=== PATIENT | female | born 1985 | race Caucasian/White ===

== ENCOUNTER → 2017-08-17 12:06 | Outpatient (CLI) | payer BC, SELFPAY ==
--- NOTE | 2017-08-17 12:13 | CT_ITS ---
STUDY: CTA CHEST REASON FOR EXAM: Female, 32 years old. PE. Dyspnea and lt chest pain down into arm. Hx of PE 05/2016. RADIATION DOSAGE (If Supplied By Facility): CTDIvol = ( 5.49 ) mGy, DLP = ( 161.75 ) mGycm TECHNIQUE: The examination was performed with the intravenous administration of 100ML ml of Isovue 370 contrast material. Post-processing of the angiographic images was performed, with multiplanar reformation and 3D reconstruction. Individualized dose optimization techniques were used for this CT. COMPARISON: None. FINDINGS: Normal enhancement of the main pulmonary artery and right and left pulmonary arteries. Normal enhancement of the bilateral peripheral pulmonary arteries. There is no demonstrated pulmonary embolism. Normal thoracic aorta and visualized great vessels. There is no demonstrated aortic dissection. Normal heart and pericardium. Normal mediastinum. Normal hilar regions. Normal visualized trachea and bronchi. The lungs are well expanded. Normal pulmonary parenchyma. Normal pleura. Normal chest wall structures. Normal osseous structures. Normal visualized upper abdomen. CT/CTA Chest W/WO Contrast IMPRESSION: Normal CTA chest examination, without a demonstrated pulmonary embolism or arterial dissection. Electronically Signed: Demetris Agee MD at 13:52 EDT Tel , Service support ,
== END ==
PROVIDERS: Family Provider Family Medicine; PCP Family Medicine; Visit Provider Family Medicine
DX: I26.99 Other pulmonary embolism without acute cor pulmonale (principal)
CPT/HCPCS: 71275; Q9967

== ENCOUNTER 2018-01-21 03:42 | Emergency (ER) | payer BC, SELFPAY ==
[2018-01-21 03:42] VITALS: BP 113/40; PULSE 88; RESP 15; TEMP 36.9; O2SAT 99; BMI 22.8
--- NOTE | 2018-01-21 03:57 | CT_ITS ---
STUDY: CT ABDOMEN AND PELVIS WITH CONTRAST REASON FOR EXAM: Female, 32 years old. Upper abdominal pain radiating to back. History of pulmonary embolus and skin cancer. RADIATION DOSAGE (If Supplied By Facility): CTDIvol = ( 10.78 ) mGy, DLP = ( 426.84 ) mGycm TECHNIQUE: Transaxial images were obtained from the dome of the diaphragm to the symphysis pubis without oral contrast. 100ML ml of Isovue 300 contrast was administered. Sagittal and coronal images were reconstructed. Individualized dose optimization techniques were used for this CT. COMPARISON: July 12, 2014. FINDINGS: The visualized lung bases are unremarkable. The visualized portions of the heart are within normal limits. Normal liver. Normal gallbladder and extrahepatic biliary system. Normal spleen. Normal pancreas. Normal bilateral adrenal glands. Mild dilatation right renal collecting system without evidence of obstructing stone. Normal left kidney. Normal visualized stomach. Normal small intestine. Normal colon. The appendix is visualized and appears normal. Normal abdominal aorta. Normal inferior vena cava. Normal retroperitoneum. No intra-abdominal free air. Normal urinary bladder. Uterus grossly normal. There is small to moderate amount of free fluid in the cul-de-sac which is a nonspecific finding usually related to rupture of an ovarian cyst. Normal abdominal wall. Normal osseous structures. CT/Abdomen/Pelvis W IV Cont ONLY IMPRESSION: Mild dilatation right renal collecting system without evidence of obstructing stone. The patient has symptoms suggestive of hydronephrosis consider urology consult. Fluid in the cul-de-sac which is a nonspecific finding often related to rupture of an ovarian cyst. Infection is another consideration. No evidence of bowel obstruction. Electronically Signed: Poncho Wadsworth MD at 5:43 EDT , Service support ,
[2018-01-21] MEDS: Morphine 4 MG/ML Syringe IV (04:03)
[2018-01-21] MEDS: 0.9% Normal Saline 1,000 ML 1000 ML IV (04:03)
[2018-01-21 04:13] LABS: Absolute Lymphocyte Count 1.76 X10^3/ul (0.83-4.51); Absolute Neutrophil Count 4.8 X10^3/uL (2.0-7.7); Basophil# 0.02 X10^3/uL; Basophil% 0.3 % (0-1); Eosinophil# 0.08 X10^3/uL; Eosinophils% 1.1 % (0-5); Hematocrit 37.2 % (37-47); Hemoglobin 11.5 g/dl (12.0-15.0); Lymphocyte # 1.76 X10^3/ul (4.0); Mean Corp Hgb Conc 30.9 g/gl (32-36); Mean Corpuscular Hgb 23.6 pg (27.0-32.0); Mean Corpuscular Volume 76.2 fL (81-99); Mean Platelet Vol. 8.9 fl (6.2-12.0); Monocyte# 0.66 X10^3/uL; Neutrophil # 4.82 X10^3/uL (2.7-7.7); Neutrophil % 65.6 % (47-70); Platelet Count 303 K/mm3 (150-450); RBC Distribution Width CV 16.1 % (11.6-14.6); RBC Distribution Width SD 44.6 fl (35.1-43.9); Red Blood Count 4.88 M/mm3 (4.2-5.4); White Blood Count 7.3 K/mm3 (4.4-11.0)
[2018-01-21 04:16] LABS: POSITIVE COUNT NO; POSITIVE DIFFERENTIAL NO; POSITIVE MORPHOLOGY NO
[2018-01-21 04:25] LABS: ALB/GLOB Ratio 1.1 RATIO (0.9-2.4); AST(SGOT) 12 U/L (15-37); Alanine Aminotransfer ALT/SGPT 18 U/L (13-56); Albumin, Serum 3.8 g/dL (3.2-5.0); Alkaline Phosphatase 61 U/L (45-117); Anion Gap 9 (5-15); BUN 13 mg/dL (7-18); BUN/Creat Ratio 20.7 RATIO (10-20); Calcium,Total 8.3 mg/dL (8.5-10.1); Chloride 106 mmol/L (98-107); Creatinine, Serum 0.63 mg/dL (0.55-1.02); EST Glomerular Filtration Rate 116 mL/min (>60); Est Glom Filt Rate - Afr Amer 140 mL/min (>60); Estimated Creatinine Clearance 109.68 ml/min; Globulin 3.4 g/dL (2.2-4.2); Glucose 93 mg/dL (74-106); Lipase 187 U/L (73-393); Potassium 4.1 mmol/L (3.5-5.1); Protein, Total 7.2 g/dL (6.4-8.2); Sodium Level 140 mmol/L (136-145)
[2018-01-21 04:49] LABS: Pregnancy, Serum, hCG Quali. NEGATIVE Negative (0-9 Nonpreg)
[2018-01-21 05:25] VITALS: BP 92/47; PULSE 68; RESP 16; O2SAT 99
--- NOTE | 2018-01-21 06:00 | ED.VISSUMM ---
- ER Visit Summary Date of Service: 01/21/18 Chief Complaint: Back and stomach pain History of Present Illness: The patient is a 32 F with 5 days of epigastric pain that radiates through to her back. She has seen her chiropractor because she thought it might be a back issue, and the chiropractor did not think it was a musculoskeletal issue. She then saw her PCP 2 days ago. They checked a urinalysis which was normal and started her on a muscle relaxer. This does not seem to help. Patient is also having some nausea. Denies fever or jaundice. Denies vomiting or other GI symptoms. 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 Denies any chest pain or cardiac history. Denies shortness of breath, cough, or sputum. Physical Examination: Afebrile and vital signs unremarkable. Patient is alert and oriented. No acute distress. Heart regular rate and rhythm. Lungs clear. Abdomen soft. Tender in the epigastric region. No guarding or rebound. No distention. Skin is normal in color without jaundice or pallor. Test Results: Hemoglobin 11.5. CMP unremarkable. Lipase normal. test was negative. Given her persistent pain, a CT was done. This showed dilation of the right renal collecting system but no stone. She has fluid in her pelvic cul-de-sac concerning for cyst versus infection. Emergency Department Course and Treatment: Patient received fluids and morphine. She remained stable. Workup was all fairly unremarkable. The dilation of her right renal collecting system is likely an incidental finding. She has no stones. She had a normal urine test. She declined repeat testing. She is not having any urine symptoms. No history of kidney stones or urinary issues. She also has fluid in her cul-de-sac. This may be irritating her diaphragm and it may be related to ovarian cyst. She has no findings to suggest infection. Patient is stable. Otherwise healthy. I believe she is appropriate for outpatient follow-up. Follow-up with her family doctor. She was also referred to urology. Return for any new or worsening issues. She was given a short course of pain medicine. Continue her outpatient medications. Treatment Plan: As above Disposition: Discharged Impression: 1. Abdominal pain unclear etiology This note was generated with [employer] software. It may contain incorrect words, spelling, and punctuation that were not noted in review of the chart prior to signing ED Disposition - Plan for ED Patient: Chief Complaint: Abd Pain Referrals: Nehemias Bateman MD [Primary Care Provider] -
--- NOTE | 2018-01-21 06:04 | ED.DCSUM_ITS ---
- ER Visit Summary Date of Service: 01/21/18 Chief Complaint: Back and stomach pain History of Present Illness: The patient is a 32 F with 5 days of epigastric pain that radiates through to her back. She has seen her chiropractor because she thought it might be a back issue, and the chiropractor did not think it was a musculoskeletal issue. She then saw her PCP 2 days ago. They checked a urinalysis which was normal and started her on a muscle relaxer. This does not seem to help. Patient is also having some nausea. Denies fever or jaundice. Denies vomiting or other GI symptoms. Denies any or HADOOP INFRASTRUCTURE ARCHITECT symptoms. Denies any chest pain or cardiac history. Denies shortness of breath, cough, or spu adenike. Physical Examination: Afebrile and vital signs unremarkable. Patient is alert and oriented. No acute distress. Heart regular rate and rhythm. Lungs clear. Abdomen soft. Tender in the epigastric region. No guarding or rebound. No distention. Skin is normal in color without jaundice or pallor. Test Results: Hemoglobin 11.5. CMP unremarkable. Lipase normal. test was negative. Given her persistent pain, a CT was done. This showed dilation of the right renal collecting system but no stone. She has fluid in her pelvic cul-de-sac concerning for cyst versus infection. Emergency Department Course and Treatment: Patient received fluids and morphine. She remained stable. Workup was all fairly unremarkable. The dilation of her right renal collecting system is likely an incidental finding. She has no stones. She had a normal urine test. She declined repeat testing. She is not having any urine symptoms. No history of kidney stones or urinary issues. She also has fluid in her cul-de-sac. This may be irritating her diaphragm and it may be related to ovarian cyst. She has no findings to suggest infection. Patient is stable. Otherwise healthy. I believe she is appropriate for outpatient follow-up. Follow-up with her family doctor. She was also referred to urology. Return for any new or worsening issues. She was given a short course of pain medicine. Continue her outpatient medications. Treatment Plan: As above Disposition: Discharged Impression: 1. Abdominal pain unclear etiology This note was generated with [employer] software. It may contain incorrect words, spelling, and punctuation that were not noted in review of the chart prior to signing ED Disposition - Plan for ED Patient: Chief Complaint: Abd Pain Referrals: Nehemias Bateman MD [Primary Care Provider] -
--- NOTE | 2018-01-21 06:06 | DCINST.ED_ITS ---
ED Disposition - Plan for ED Patient: Chief Complaint: Abd Pain Instructions: ED Abdominal Pain Unkn Cause Prescriptions: Hydrocodone Bitart/Apap 5-325 [[place] 5MG-325MG] 1 tab PO Q6H PRN PRN 3 Days #10 tab PRN Reason: Pain Referrals: Nehemias Bateman MD [Primary Care Provider] - As soon as possible Josué Villalobos MD [STAFF PHYSICIAN] - As soon as possible (for dilation of right renal collecting system without stone)
[2018-01-21 06:28] VITALS: BP 99/49; PULSE 79; RESP 15; O2SAT 98
--- NOTE | 2018-01-21 06:29 | ED.RN ---
PT GIVEN WRITTEN AND VERBAL DISCHARGE INSTRUCTIONS AND VERBALIZES UNDERSTANDING. PT EDUCATED ON HOME GOING PRESCRIPTIONS, AND NOT TO DRIVE WHEN TAKING NARCOTIC MEDICATION. IV D/C AND COVERED WITH 2X2 GAUZE DRESSING AND PAPER TAPE. PT DRESSES SELF AND AMBULATES OUT OF DEPT WITH SPOUSE.
== END 2018-01-21 06:30 | disposition home or self-care (01) ==
PROVIDERS: Emergency Provider Emergency Medicine; Family Provider Family Medicine; PCP Family Medicine
DX: R10.13 Epigastric pain (principal)
CPT/HCPCS: 74177; 80053; 83690; 84703; 85025; 96361; 96374; 99284; J7030; Q9967; A4216

== ENCOUNTER → 2018-02-07 10:10 | Outpatient (CLI) | payer BC, SELFPAY ==
[2018-02-07 12:13] LABS: CRP < 2.90 mg/L (0.0-3.0); Iron 19 ug/dL (50-170)
[2018-02-08 17:47] LABS: Endomysial Antibody IgA Negative (Negative); Immunoglobulin A 70 mg/dL (87-352)
[2018-02-09 16:32] LABS: t-Transglutaminase IgA <2 U/mL (0-3)
== END ==
PROVIDERS: Family Provider Family Medicine; PCP Family Medicine; Referring Provider Internal Medicine Gastroenterology; Visit Provider Internal Medicine Gastroenterology
DX: R10.9 Unspecified abdominal pain (principal); D64.9 Anemia, unspecified
CPT/HCPCS: 36415; 82784; 83516; 83540; 86140; 86255

== ENCOUNTER → 2018-02-12 11:00 | Outpatient (CLI) | payer BC, SELFPAY ==
--- NOTE | 2018-02-12 11:00 | EGD_PTH ---
PATIENT: ZAHRA COX LOC: [facility] U#:[id number] AGE/SX: 39/F ROOM: RE02/12/[address]: Dr. Randy Dunlap MD : 1985 BED: DIS: SPEC #: [id number] RECD: 02/12/18 15:13 STATUS: REJI VAHE #: [id number] CHRISTIANE: 02/12/18 11:[address]: Randy Dunlap DEPT: SURGICAL PATHOLOGY RECD BY: Jaz Swann ENTERED: 02/13/18 08:41 SP TYPE: EGD BIOPSY OTHR DR: Dr. Nehemias Bateman MD [facility] Tissues: Duodenum, NOS Procedures: Surgery Specimen Level IV HEADER OPERATION: EGD with biopsy PRE-OP DIAGNOSIS: Iron deficiency anemia TISSUE SUBMITTED: Duodenum biopsy, rule out celiac MICROSCOPIC DIAGNOSIS Duodenum, biopsy: Fragments of small intestinal mucosa, no pathologic diagnosis. SJ:micah 02/13/18 MICROSCOPIC DESCRIPTION Slides are reviewed. GROSS DESCRIPTION Received in fixative is one container labeled with the patient's name and designated duodenum. The specimen consists of two irregular fragments of light cannon soft tissue that in aggregate measure 0.8 x 0.3 x 0.1 cm. The specimen is totally submitted in one cassette. / SJ:micah 02/12/18 TC:4 CPT: 66051
== END ==
PROVIDERS: Family Provider Family Medicine; PCP Family Medicine; Referring Provider Internal Medicine Gastroenterology; Visit Provider Internal Medicine Gastroenterology
DX: D50.9 Iron deficiency anemia, unspecified (principal)
CPT/HCPCS: 88305

== ENCOUNTER → 2018-04-04 18:02 | Outpatient (CLI) | payer BC, SELFPAY ==
[2018-04-04 14:58] VITALS: BMI 23.6
[2018-04-09 12:37] LABS: HPV APTIMA, High Risk Negative (Negative)
== END ==
PROVIDERS: Family Provider Family Medicine; PCP Family Medicine; Referring Provider Obstetrics & Gynecology; Visit Provider Obstetrics & Gynecology
DX: Z12.4 Encounter for screening for malignant neoplasm of cervix (principal)
CPT/HCPCS: 87624; 88175; G0145

== ENCOUNTER → 2019-01-29 14:13 | Outpatient (CLI) | payer BC, SELFPAY ==
[2018-04-04 14:58] VITALS: BMI 23.6
--- NOTE | 2019-01-29 14:17 | RAD_ITS ---
STUDY: X-RAY CHEST REASON FOR EXAM: Female, 33 years old. Cough x19 days TECHNIQUE: PA and lateral views of the chest. COMPARISON: 2016 FINDINGS: EKG leads overlie the chest The lungs are clear and expanded. There is no demonstrated pleural abnormality. Normal size heart. Normal mediastinum and jay. Normal visualized pulmonary arteries. Normal visualized aortic arch and descending thoracic aorta. Normal visualized thoracic spine. Normal visualized ribs, clavicles, and shoulders. There is no demonstrated abnormality of the visualized soft tissue structures of the upper abdomen. RAD/Chest PA and Lateral IMPRESSION: Normal x-ray examination of the chest. Electronically Signed: Coy Colon MD at 17:04 EDT , Service support ,
[2019-01-29 15:34] LABS: Absolute Lymphocyte Count 2.48 X10^3/uL (0.83-4.51); Absolute Neutrophil Count 5.5 X10^3/uL (2.0-7.7); Basophil# 0.06 X10^3/uL; Basophil% 0.7 % (0-1); Eosinophil# 0.13 X10^3/uL; Eosinophils% 1.4 % (0-5); Hematocrit 35.8 % (37-47); Hemoglobin 11.7 g/dL (12.0-15.0); Lymphocyte # 2.48 X10^3/ul (4.0); Lymphocyte % 27.3 % (19-41); Mean Corp Hgb Conc 32.7 g/dL (32-36); Mean Corpuscular Hgb 27.1 pg (27.0-32.0); Mean Corpuscular Volume 83.1 fL (81-99); Mean Platelet Vol. 9.1 fl (6.2-12.0); Monocyte# 0.88 X10^3/uL; Monocyte% 9.7 % (0-10); NRBC Flagged by Analyzer 0 % (0-5); Neutrophil # 5.49 X10^3/uL (2.7-7.7); Neutrophil % 60.2 % (47-70); Platelet Count 518 K/mm3 (150-450); RBC Distribution Width CV 15.9 % (11.6-14.6); RBC Distribution Width SD 40.3 fl (35.1-43.9); Red Blood Count 4.31 M/mm3 (4.2-5.4); White Blood Count 9.1 K/mm3 (4.4-11.0)
[2019-01-29 15:51] LABS: D-Dimer Quantitative (DVT/PE) 0.72 FEU/ug/m (0.27-0.49)
[2019-01-29 16:14] LABS: Thyroid Stim Hormone (TSH) 0.65 uIU/mL (0.358-3.74)
== END ==
PROVIDERS: Family Provider Family Medicine; PCP Family Medicine; Referring Provider Family Medicine; Visit Provider Family Medicine
DX: R06.02 Shortness of breath (principal); R00.2 Palpitations; R05 Cough
CPT/HCPCS: 36415; 71046; 84443; 85025; 85379

== ENCOUNTER 2019-01-29 17:00 | Emergency (ER) | payer BC, SELFPAY ==
[2018-04-04 14:58] VITALS: BMI 23.6
[2019-01-29 17:01] VITALS: BP 124/75; PULSE 74; RESP 16; TEMP 36.8; O2SAT 99; BMI 23.6
[2019-01-29 17:45] VITALS: BP 128/79; PULSE 80; RESP 16; O2SAT 96; O2SAT 98
--- NOTE | 2019-01-29 18:10 | CT_ITS ---
STUDY: CTA CHEST REASON FOR EXAM: Female, 33 years old. Shortness of breath. RADIATION DOSAGE (If Supplied By Facility): CTDIvol = ( 7.56 ) mGy, DLP = ( 280.26 ) mGycm TECHNIQUE: The examination was performed with the intravenous administration of IV 100mL Isovue-370 100ML. Post-processing of the angiographic images was performed, with multiplanar reformation and 3D reconstruction. Individualized dose optimization techniques were used for this CT. COMPARISON: August 17, 2017 FINDINGS: There are groundglass and tree-in-bud opacities within the right lower lobe. Normal enhancement of the main pulmonary artery and right and left pulmonary arteries. Normal enhancement of the bilateral peripheral pulmonary arteries. There is no demonstrated pulmonary embolism. Normal thoracic aorta and visualized great vessels. There is no demonstrated aortic dissection. Normal heart and pericardium. Normal mediastinum. Normal hilar regions. Normal visualized trachea and bronchi. Normal chest wall structures. Normal osseous structures. Normal visualized upper abdomen. CT/CTA Chest W/WO Contrast IMPRESSION: No demonstrated pulmonary embolism or arterial dissection. Right lower lobe groundglass and tree-in-bud opacities may be secondary to an infectious process with associated edema. Electronically Signed: Namrata Olivares MD at 19:21 EDT Tel , Service support ,
--- NOTE | 2019-01-29 18:10 | EKG12_ITS ---
Test Reason : SOB Blood Pressure : / mmHG Vent. Rate : 065 BPM Atrial Rate : 065 BPM P-R Int : 120 ms QRS Dur : 084 ms QT Int : 404 ms P-R-T Axes : 013 067 038 degrees QTc Int : 420 ms Sinus rhythm with Premature atrial complexes Otherwise normal ECG Confirmed by TIKA HOYOS ([id number]), senior editor CHAU MTZ ([id number]) on 02/01/2019 10:14:08 AM Referred By: JACE/KUSHAL Confirmed By:TIKA HOYOS
--- NOTE | 2019-01-29 18:22 | ED.DCSUM_ITS ---
History of Present Illness Chief Complaint: Shortness of Breath Informant: Patient Onset: Weeks Context: Gradual Onset Timing: Continuous Narrative: Patient is a 33-year-old female with history of PE 3 years ago presenting with elevated d-dimer. Patient states she had what she thought was bronchitis for the past 3 to 4 weeks. She notes that she has had worsening shortness of breath. Patient finished a course of azithromycin and prednisone 3 days ago. As her symptoms persisted her primary care doctor ordered a chest x-ray, CBC and a d-dimer. The d-dimer was elevated but everything else came back negative. Abigail soliman was instructed to go to the ER for further evaluation. Patient's not currently on any anticoagulation. They attributed her first pulmonary embolism to being . Patient denies any swelling of her extremities and is not on any hormonal therapy. Patient states she has a tightness and her left chest is rating to her arm. Is become more persistent. She also notes that she has been feeling lightheaded and the other day when she was putting her make-up on and standing she was dizzy and her heart rate was 125. She denies any nausea or vomiting. She denies any associated abdominal pain. She denies any other complaints at this time. Past Medical History - Allergies and Home Meds Allergies/Adverse Reactions: Allergies sulfamethoxazole [From Bactrim] Allergy (Verified 01/29/19 17:01) Rash trimethoprim [From Bactrim] Allergy (Verified 01/29/19 17:01) Rash Primary Care Physician: Nehemias Ho MD [Primary Care Provider] - Past Medical History: - - PE Surgical History: tonsillectomy, - - section Smoking Status: Never smoker - Family History Maternal Family History: Reports: No pertinent history, - - No family history of clotting disorders. Paternal Family History: Reports: Hypertension Review of Systems All systems negative except as indicated General: Reports: Malaise Respiratory: Reports: Dyspnea, Cough, Dyspnea on exertion Physical Exam Vital Signs/Narrative: Vital Signs Temp Pulse Resp BP Pulse Ox 01/29/19 17:45 80 16 128/79 H 98 01/29/19 17:01 98.3 F 74 16 124/75 H 99 Inital Vital Signs reviewed: Yes General: Well nourished, Well developed, No Acute Distress Head: Normocephalic, Atraumatic Eyes: Perrl, EOMI ENT: Moist mucous membranes, No rhinorrhea Neck: Supple, Nontender Cardiovascular: Regular rate, Regular rhythm, No murmurs Respiratory: No distress, CTA bilaterally, Chest nontender. Negative for: Rales, Rhonchi, Wheezing, Chest tenderness Abdomen: Soft, Nontender, Nondistended, Normal bowel sounds Back: Nontender, Normal Inspection Extremities: Nontender, No edema Skin: Normal color, No rash Neurological: Alert, Oriented x3, Cranial nerves II-XII grossly intact, Normal Strength, Normal Sensation Psychological: Normal affect, Normal Mood Diagnostic/Tx/Re-eval Clinical Impression(s) from Imaging Studies Chest CTA 01/29/19 18:10 IMPRESSION: No demonstrated pulmonary embolism or arterial dissection. Right lower lobe groundglass and tree-in-bud opacities may be secondary to an infectious process with associated edema. Electronically Signed: Namrata Olivares MD at 19:21 EDT Tel , Service support , Laboratory Data 01/29/19 01/29/19 18:10 18:10 Sodium 137 Potassium 3.5 Chloride 104 Carbon Dioxide 27.0 Anion Gap 6 BUN 17 Creatinine 0.67 Estim Creat Clear Calc 102.17 Est GFR (MDRD) Af Amer 130 Est GFR (MDRD) Non-Af 107 BUN/Creatinine Ratio 25.5 H Glucose 101 Calcium 9.0 Troponin I < 0.015 Serum , Qual NEGATIVE - Rhythm Strip Rhythm Strip: Sinus Rhythm Rate: 65 Ectopy: PAC(s) - EKG Initial EKG Interpretation: Sinus Rhythm, - - Sinus rhythm at a rate of 65 PACs present Normal intervals Normal axis Normal ST segments PACs new compared to prior EKG on 06/13/2016, no other acute changes - Medical Decision Making Patient is evaluated for continued shortness of breath, lightheadedness and an elevated d-dimer on outpatient lab work. She does have a history of PE but is no longer on anticoagulation. CTA is obtained which shows groundglass opacities concerning for pneumonia but no PE. Patient is previously been on Z-Salbador. She will be started on doxycycline is given first dose in the emergency room. She is also given fluids in the ER. She is hemodynamically stable and not hypoxic. I think she is a good candidate for outpatient follow-up. Patient is counseled on signs and symptoms requiring return to the emergency room. Patient verbalizes agreement and understand this plan. Patient discharged home in stable and improved condition. ED Disposition - Plan for ED Patient: Disposition: Home or Assisted Living Diagnosis: Right lower lobe pneumonia Instructions: PNEUMONIA (Adult) Prescriptions: Doxycycline 100 mg PO BID #20 cap Prescription Printed Referrals: Nehemias Ho MD [Primary Care Provider] - Additional Instructions: Return to the emergency room if you develop worsening symptoms such as worsens of breath, chest pain or lightheadedness. Please follow-up with your primary care doctor later this week. Take all antibiotics that were prescribed today.
[2019-01-29] MEDS: 0.9% Normal Saline 1,000 ML 1000 ML IV (18:26)
[2019-01-29 18:46] LABS: Anion Gap 6 (5-15); BUN 17 mg/dL (7-18); BUN/Creat Ratio 25.5 RATIO (10-20); Chloride 104 mmol/L (98-107); Creatinine, Serum 0.67 mg/dL (0.55-1.02); EST Glomerular Filtration Rate 107 mL/min (>60); Est Glom Filt Rate - Afr Amer 130 mL/min (>60); Estimated Creatinine Clearance 102.17 ml/min; Glucose 101 mg/dL (74-106); Potassium 3.5 mmol/L (3.5-5.1); Sodium Level 137 mmol/L (136-145)
[2019-01-29 19:05] LABS: Internal QC Validated? YES +Cl - CLEAR BKGD; Pregnancy, Serum, hCG Quali. NEGATIVE Negative
[2019-01-29 19:15] VITALS: BP 96/64; PULSE 72; RESP 17; O2SAT 98
[2019-01-29 20:31] VITALS: BP 117/72; PULSE 69; RESP 18; O2SAT 98
[2019-01-29] MEDS: Doxycycline 100 MG CAPSULE PO (20:35)
== END 2019-01-29 20:45 | disposition home or self-care (01) ==
PROVIDERS: Emergency Provider Emergency Medicine; Family Provider Family Medicine; PCP Family Medicine
DX: J18.9 Pneumonia, unspecified organism (principal); Z86.711 Personal history of pulmonary embolism
CPT/HCPCS: 71275; 80048; 84484; 84703; 93005; 96360; 99285; J7030; Q9967

== ENCOUNTER → 2020-05-18 09:48 | Outpatient (CLI) | payer BC, SELFPAY ==
[2020-05-18 09:01] VITALS: BMI 27.0
[2020-05-18 10:17] LABS: Absolute Lymphocyte Count 1.86 X10^3/uL (0.83-4.51); Basophil# 0.04 X10^3/uL; Basophil% 0.7 % (0-1); Eosinophil# 0.08 X10^3/uL; Eosinophils% 1.4 % (0-5); Hematocrit 38.3 % (37-47); Hemoglobin 11.9 g/dL (12.0-15.0); Lymphocyte # 1.86 X10^3/ul (4.0); Lymphocyte % 33.3 % (19-41); Mean Corp Hgb Conc 31.1 g/dL (32-36); Mean Corpuscular Hgb 25.8 pg (27.0-32.0); Mean Corpuscular Volume 82.9 fL (81-99); Mean Platelet Vol. 9.3 fl (6.2-12.0); Monocyte# 0.57 X10^3/uL; Monocyte% 10.2 % (0-10); NRBC Flagged by Analyzer 0 % (0-5); Neutrophil # 3.02 X10^3/uL (2.7-7.7); Platelet Count 399 K/mm3 (150-450); RBC Distribution Width CV 15.7 % (11.6-14.6); RBC Distribution Width SD 46.5 fl (35.1-43.9); Red Blood Count 4.62 M/mm3 (4.2-5.4); White Blood Count 5.6 K/mm3 (4.4-11.0)
[2020-05-18 10:52] LABS: Thyroid Stim Hormone (TSH) 1.23 uIU/mL (0.358-3.74)
== END ==
PROVIDERS: PCP Family Medicine; Referring Provider Obstetrics & Gynecology; Visit Provider Obstetrics & Gynecology
DX: N92.0 Excessive and frequent menstruation with regular cycle (principal)
CPT/HCPCS: 36415; 84443; 85025

== ENCOUNTER → 2020-05-22 15:52 | Outpatient (CLI) | payer BC, SELFPAY ==
[2020-05-18 09:01] VITALS: BMI 27.0
--- NOTE | 2020-05-22 15:57 | US_ITS ---
STUDY: ULTRASOUND OF THE FEMALE PELVIS - COMPLETE REASON FOR EXAM: Female, 35 years old. HEAVY MENSES LMP: 05/09/2020 TECHNIQUE: Transabdominal and Transvaginal TECHNICAL QUALITY: Adequate. COMPARISON: None. FINDINGS: The uterus is anteverted and is in a midline position. The uterus measures 10.4 x 6.3 x 4.3 cm. Normal uterine cervix. The endometrium measures 7 mm in thickness, and is hyperechoic. There is no demonstrated endometrial mass. There is no demonstrated myometrial mass. I.U.D. - The patient does not have an I.U.D. The right ovary is visualized. The right ovary measures 2.9 x 2.9 x 1.9 cm. There is no right ovarian cyst or ovarian mass. There is no visualized right adnexal mass or complex lesion. There is normal arterial and normal venous vascularity. The left ovary is visualized. The left ovary measures 2.9 x 2.6 x 2.2 cm. There is no left ovarian cyst or ovarian mass. There is no visualized left adnexal mass or complex lesion. There is normal arterial and normal venous vascularity. There is no fluid in the cul-de-sac. The pre void volume of the bladder was ml. The post void volume of the bladder was ml. Polycystic ovary disease: No. Cystic area seemingly within the vagina possibly consistent with a Emy''s duct cyst. US/Pelvic (Non ) IMPRESSION: 1. Normal uterus and ovaries. 2. Possible Emy''s duct cyst in the vagina. Electronically Signed: Chun Carrillo MD at 11:38 EST Tel , Service support ,
--- NOTE | 2020-05-22 15:57 | US_ITS ---
STUDY: ULTRASOUND OF THE FEMALE PELVIS - COMPLETE REASON FOR EXAM: Female, 35 years old. HEAVY MENSES LMP: 05/09/2020 TECHNIQUE: Transabdominal and Transvaginal TECHNICAL QUALITY: Adequate. COMPARISON: None. FINDINGS: The uterus is anteverted and is in a midline position. The uterus measures 10.4 x 6.3 x 4.3 cm. Normal uterine cervix. The endometrium measures 7 mm in thickness, and is hyperechoic. There is no demonstrated endometrial mass. There is no demonstrated myometrial mass. I.U.D. - The patient does not have an I.U.D. The right ovary is visualized. The right ovary measures 2.9 x 2.9 x 1.9 cm. There is no right ovarian cyst or ovarian mass. There is no visualized right adnexal mass or complex lesion. There is normal arterial and normal venous vascularity. The left ovary is visualized. The left ovary measures 2.9 x 2.6 x 2.2 cm. There is no left ovarian cyst or ovarian mass. There is no visualized left adnexal mass or complex lesion. There is normal arterial and normal venous vascularity. There is no fluid in the cul-de-sac. The pre void volume of the bladder was ml. The post void volume of the bladder was ml. Polycystic ovary disease: No. Cystic area seemingly within the vagina possibly consistent with a Emy''s duct cyst. US/Transvaginal Non- IMPRESSION: 1. Normal uterus and ovaries. 2. Possible Emy''s duct cyst in the vagina. Electronically Signed: Chun Carrillo MD at 11:38 EST Tel , Service support ,
== END ==
PROVIDERS: PCP Family Medicine; Referring Provider Obstetrics & Gynecology; Visit Provider Obstetrics & Gynecology
DX: N92.0 Excessive and frequent menstruation with regular cycle (principal)
CPT/HCPCS: 76830; 76856

== ENCOUNTER → 2020-07-21 14:38 | Outpatient (CLI) | payer BC, SELFPAY ==
[2020-07-06 13:44] VITALS: BMI 26.6
--- NOTE | 2020-07-21 14:41 | CT_ITS ---
STUDY: CTA CHEST REASON FOR EXAM: Female, 35 years old. HO PULMONARY EMBOLISM RADIATION DOSAGE (If Supplied By Facility): CTDIvol = ( 10.14 ) mGy, DLP = ( 332.07 ) mGycm TECHNIQUE: The examination was performed with the intravenous administration of IV 100mL Isovue-370. Post-processing of the angiographic images was performed, with multiplanar reformation and 3D reconstruction. Individualized dose optimization techniques were used for this CT. COMPARISON: None. FINDINGS: Low-density filling defects noted within branches leading to the right lower lobe. The other pulmonary lobes are free of filling defects. Normal thoracic aorta and visualized great vessels. There is no demonstrated aortic dissection. Normal heart and pericardium. Normal mediastinum. Normal hilar regions. Normal visualized trachea and bronchi. The lungs are well expanded. Normal pulmonary parenchyma. Normal pleura. Normal chest wall structures. Normal osseous structures. Normal visualized upper abdomen. CT/CTA Chest W/WO Contrast IMPRESSION: Filling defects within branches leading to the right lower lobe consistent with right lower lobe PTE. Findings called to the emergency room prior to dictation No superimposed infiltrate or effusion N.B. : The above information has been verbally conveyed by Coy Colon MD to Jhoana He MD, on 07/21/2020 15:17:36 (ET). Electronically Signed: Coy Colon MD at 15:20 EDT , Service support ,
== END ==
PROVIDERS: PCP Family Medicine; Referring Provider Family Medicine; Visit Provider Family Medicine
DX: Z86.711 Personal history of pulmonary embolism (principal)
CPT/HCPCS: 71275

== ENCOUNTER → 2020-08-21 | Outpatient (CLI) | payer BC, SELFPAY ==
--- NOTE | 2020-08-21 | EMB_PTH ---
PATIENT: ZAHRA COX LOC: [facility] #:[id number] AGE/SX: 35/F ROOM: RE08/21/[address]: Dr. Cayla Ho MD : 1985 BED: DIS: 08/21/2020 SPEC #: [id number] RECD: 08/21/20 16:44 STATUS: REJI REBárbara #: [id number] CHRISTIANE: 08/21/20 00:[address]: Cayla Ho DEPT: SURGICAL PATHOLOGY RECD BY: John Tilley ENTERED: 08/24/20 08:00 SP TYPE: ENDOM BX/C DANIELLE DR: Dr. Nehemias Ho MD Tissues: Endometrium, NOS Procedures: Surgery Specimen Level IV HEADER OPERATION: Endometrial biopsy PRE-OP DIAGNOSIS: Abnormal uterine bleeding TISSUE SUBMITTED: Endometrial lining MICROSCOPIC DIAGNOSIS Endometrial biopsy: Secretory endometrium. SJ:micah 08/25/2020 MICROSCOPIC DESCRIPTION Slides are reviewed. GROSS DESCRIPTION Received is one container labeled with the patient's name and not further designated. The specimen consists of multiple fragments of hemorrhagic soft tissue that in aggregate measure 2.5 x 2.5 x 0.3 cm. The specimen is totally submitted in one cassette. / EUGENE:micah 08/24/20 TC:4 CPT: 11909
[2020-08-21 09:54] VITALS: BMI 26.4
== END | disposition home or self-care (01) ==
LOC: LABSPEC 16:52
PROVIDERS: PCP Family Medicine; Referring Provider Obstetrics & Gynecology; Visit Provider Obstetrics & Gynecology
DX: N93.9 Abnormal uterine and vaginal bleeding, unspecified (principal)
CPT/HCPCS: 88305

== ENCOUNTER 2020-10-01 14:43 | Emergency (ER) | payer OTHER, SELFPAY ==
[2020-08-21 09:54] VITALS: BMI 26.4
[2020-10-01 14:44] VITALS: BP 116/68; PULSE 93; RESP 14; TEMP 37.1; O2SAT 97; BMI 25.7
--- NOTE | 2020-10-01 15:21 | EDS_ITS ---
HPI <Dr. Clasu Flanagan MD - Last Filed: 10/01/20 17:49> HPI - Female History of Present Illness Chief Complaint: Vag Bleeding Informant: patient Bleeding Issue: Positive for Vaginal bleeding Onset: Weeks (3) Context: Gradual Onset (after IUD placed) Timing: Continuous Current Severity: Heavy (w/ clots) Severity: Moderate Maximum Severity: Heavy Narrative Narrative: Vaginal bleeding progressively worsening since non-metallic IUD placed [address] Ho. Feeling malaised, lightheaded and had a bout of near-syncope early this AM when woke up soaked in blood. On Eliquis for PE. PFSH <Dr. Claus Flanagan MD - Last Filed: 10/01/20 17:49> [facility] Medical History (Updated 10/01/20 @ 17:[address] Claus Flanagan MD) Anemia History of abnormal cervical Pap smear History of back problems History of migraine headaches History of pulmonary embolism History of skin cancer Home Medications sumatriptan succinate 25 mg tablet See Rx Instructions PO .COMPLEX 05/18/20 [History Last Taken Unknown] apixaban 5 mg tablet 5 mg PO BID 07/29/20 [History Last Taken Unknown] norethindrone acetate [Aygestin] 5 mg PO BID #30 tab 10/01/20 [Rx Last Taken Unknown] Allergy/AdvReac Type Severity Reaction Status Date / Time sulfamethoxazole Allergy Rash Verified 10/01/20 14:47 [From Bactrim] trimethoprim [From Bactrim] Allergy Rash Verified 10/01/20 14:47 Surgical History delivery delivered History of adenoidectomy History of tonsillectomy Skin cancer Social History Smoking Status: Never smoker alcohol intake: never substance use type: does not use caffeine: Yes what type of physical activity do you participate in: walking frequency: 5-6 times per week seatbelt use: always do you feel safe at home: Yes additional social history: [employer]- 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 Claus Flanagan MD - Last Filed: 10/01/20 17:49> ROS ED Constitutional Constitutional ED: Reports as per HPI and malaise; Denies chills or fever(s) Eyes Eyes: Denies change in vision or diplopia ENT ENT ED: Denies rhinorrhea or sore throat Cardiovascular Cardiovascular: Denies chest pain or palpitations Respiratory/Chest Respiratory/Chest: Denies cough or dyspnea Gastrointestinal Gastrointestinal: Denies abdominal pain, diarrhea, nausea or vomiting Genitourinary Genitourinary ED: Reports as per HPI and vaginal bleeding; Denies dysuria or hematuria Musculoskeletal Musculoskeletal: Denies back pain or neck pain Integumentary Denies abscess or rash Neurologic Neurologic: Denies headache(s), paresthesias or weakness Psychiatric Psychiatric: Denies anxiety or suicidal thoughts EXAM <Dr. Claus Flanagan MD - Last Filed: 10/01/20 17:49> Physical Exam Const Vital Signs: 10/01/20 14:44 10/01/20 17:16 Temperature 98.8 F Temperature Source Temporal Pulse Rate 93 80 Respiratory Rate 14 14 Blood Pressure 116/68 101/63 Blood Pressure Mean 84 75 Pulse Ox 97 99 Oxygen Delivery Method Room Air Room Air Positive well nourished and well developed Constitutional Narrative: well-appearing, not tachycardic, conversive in full sentences while sitting upright. General Appearance ED: well developed and NAD HEENT Reports moist mucous membranes normocephalic and atraumatic Eyes PERRL and EOMs intact bilaterally Neck full ROM and supple Resp normal respiratory effort and clear to auscultation bilaterally Cardio regular rate, regular rhythm and no murmurs Rate: Negative for tachycardic GI non-tender and non-distended Auscultation: normoactive bowel sounds Palpation: soft Speculum Exam - Vagina: vaginal bleeding Back/Spine no CVA tenderness General Back: other FROM Extremity normal to inspection General Extremety ED: Negative for edema, pulses abnormal or tenderness General Extremity: Negative for edema or pulses abnormal Neuro oriented x3, CN's II-XII intact bilaterally and no sensory deficits noted Sensorium / Orientation: awake and alert Motor Exam: strength 5/5 throughout Skin no rashes or lesions noted and no wounds <Dr. Hector Tanner MD - Last Filed: 10/01/20 18:45> Physical Exam Const Vital Signs: 10/01/20 14:44 10/01/20 17:16 Temperature 98.8 F Temperature Source Temporal Pulse Rate 93 80 Respiratory Rate 14 14 Blood Pressure 116/68 101/63 Blood Pressure Mean 84 75 Pulse Ox 97 99 Oxygen Delivery Method Room Air Room Air MDM <Dr. Claus Flanagan MD - Last Filed: 10/01/20 17:49> [facility] Narrative Medical decision making narrative: Patient is anemic but with a hemoglobin at 8.7 and stable vital signs, she does not require transfusion at this time. Discussed with Dr. Corea, she advises pelvic ultrasound to verify good IUD placement, agrees that if that is the case a pelvic exam would not necessarily help things right now, and recommends placing the patient on Aygestin 5 mg twice daily for 3 days, and then daily for the next 15 with close outpatient follow-up calling the office tomorrow. At this time the ultrasound results are pending, if it returns negative, that will be the plan which I discussed with the patient and she is comfortable with that. Lab Data Attestation: I reviewed the patient's lab results. Labs: Laboratory Results - last 24 hr 10/01/20 10/01/20 10/01/20 15:30 15:30 15:30 WBC 6.7 RBC 3.56 L Hgb 8.7 L Hct 28.1 L MCV 78.9 L MCH 24.4 L MCHC 31.0 L RDW Std Deviation 38.3 RDW Coeff of Glendy 13.3 Plt Count 391 MPV 9.3 Immature Gran % (Auto) 0.400 Neut % (Auto) 61.1 Lymph % (Auto) 27.7 [place] % (Auto) 9.4 Eos % (Auto) 1.0 Baso % (Auto) 0.4 Absolute Neuts (auto) 4.1 Absolute Lymphs (auto) 1.85 Nucleated RBC % 0 Sodium 140 Potassium 3.4 L Chloride 105 Carbon Dioxide 30.0 Anion Gap 5 BUN 15 Creatinine 0.71 Estim Creat Clear Calc 94.59 Est GFR (MDRD) Af Amer 120 Est GFR (MDRD) Non-Af 99 BUN/Creatinine Ratio 21.2 H Glucose 106 Calcium 8.8 Serum , Qual NEGATIVE Blood Type Antibody Screen 10/01/20 15:30 WBC RBC Hgb Hct MCV MCH MCHC RDW Std Deviation RDW Coeff of Glendy Plt Count MPV Immature Gran % (Auto) Neut % (Auto) Lymph % (Auto) [place] % (Auto) Eos % (Auto) Baso % (Auto) Absolute Neuts (auto) Absolute Lymphs (auto) Nucleated RBC % Sodium Potassium Chloride Carbon Dioxide Anion Gap BUN Creatinine Estim Creat Clear Calc Est GFR (MDRD) Af Amer Est GFR (MDRD) Non-Af BUN/Creatinine Ratio Glucose Calcium Serum , Qual Blood Type O POSITIVE Antibody Screen NEGATIVE Radiography Diagnostic Testing: Radiology Impression Transvaginal US 10/01/20 15:55 IMPRESSION: 1. No intrauterine device is seen. 2. Right ovarian solid versus complex cystic lesion. 12 week follow-up is advised. 3. Vaginal cyst appears mildly enlarged. Electronically Signed: Diana Conroy MD at 17:58 EDT Tel , Service support , <Dr. Hector Tanner MD - Last Filed: 10/01/20 18:45> [facility] MDM Narrative Medical decision making narrative: Patient checked out to me by Dr. Flanagan. The ultrasound was unremarkable except for a cyst. The IUD was not seen. I then obtained a KUB and there is increased stool but again the IUD is not seen. I discussed with Dr. Jenny Corea and the patient be discharged on the medications that her and Dr. Flanagan discussed and follow-up with her as an outpatient. I discussed all this with the patient. At 6:40 PM her abdomen is benign and she is doing well. She is comfortable with the plan. Lab Data Labs: Laboratory Results - last 24 hr 10/01/20 10/01/20 10/01/20 15:30 15:30 15:30 WBC 6.7 RBC 3.56 L Hgb 8.7 L Hct 28.1 L MCV 78.9 L MCH 24.4 L MCHC 31.0 L RDW Std Deviation 38.3 RDW Coeff of Glendy 13.3 Plt Count 391 MPV 9.3 Immature Gran % (Auto) 0.400 Neut % (Auto) 61.1 Lymph % (Auto) 27.7 [place] % (Auto) 9.4 Eos % (Auto) 1.0 Baso % (Auto) 0.4 Absolute Neuts (auto) 4.1 Absolute Lymphs (auto) 1.85 Nucleated RBC % 0 Sodium 140 Potassium 3.4 L Chloride 105 Carbon Dioxide 30.0 Anion Gap 5 BUN 15 Creatinine 0.71 Estim Creat Clear Calc 94.59 Est GFR (MDRD) Af Amer 120 Est GFR (MDRD) Non-Af 99 BUN/Creatinine Ratio 21.2 H Glucose 106 Calcium 8.8 Serum , Qual NEGATIVE Blood Type Antibody Screen 10/01/20 15:30 WBC RBC Hgb Hct MCV MCH MCHC RDW Std Deviation RDW Coeff of Glendy Plt Count MPV Immature Gran % (Auto) Neut % (Auto) Lymph % (Auto) [place] % (Auto) Eos % (Auto) Baso % (Auto) Absolute Neuts (auto) Absolute Lymphs (auto) Nucleated RBC % Sodium Potassium Chloride Carbon Dioxide Anion Gap BUN Creatinine Estim Creat Clear Calc Est GFR (MDRD) Af Amer Est GFR (MDRD) Non-Af BUN/Creatinine Ratio Glucose Calcium Serum , Qual Blood Type O POSITIVE Antibody Screen NEGATIVE Radiography Diagnostic Testing: Radiology Impression Transvaginal US 10/01/20 15:55 IMPRESSION: 1. No intrauterine device is seen. 2. Right ovarian solid versus complex cystic lesion. 12 week follow-up is advised. 3. Vaginal cyst appears mildly enlarged. Electronically Signed: Diana Conroy MD at 17:58 EDT Tel , Service support , Discharge Plan Triage Chief Complaint: Vag Bleeding ED Provider: Claus Flanagan Dx/Rx/DC Orders Clinical Impression: Vaginal bleeding, abnormal Instructions: Control: IUD (Intrauterine Device), ED Dysfunctional Uterine Bleeding Prescriptions: New norethindrone acetate [Aygestin] 5 mg tablet 5 mg PO BID Qty: 30 RF: 0 No Action sumatriptan succinate 25 mg tablet See Rx Instructions PO .COMPLEX RF: 0 Eliquis 5 mg tablet 5 mg PO BID RF: 0 Primary Care Provider: Nehemias Ho Referrals: Cayla Ho MD [STAFF PHYSICIAN] - (follow up, but call office tomorrow to update) Nehemias Ho MD [Primary Care Provider] - Disposition Disposition: Home, self care
[2020-10-01] MEDS: 0.9% Normal Saline 1,000 ML 999 ML IV ×2 (15:34→19:06)
[2020-10-01 15:43] LABS: Absolute Lymphocyte Count 1.85 X10^3/uL (0.83-4.51); Absolute Neutrophil Count 4.1 X10^3/uL (2.0-7.7); Basophil# 0.03 X10^3/uL; Basophil% 0.4 % (0-1); Eosinophil# 0.07 X10^3/uL; Hematocrit 28.1 % (37-47); Hemoglobin 8.7 g/dL (12.0-15.0); Lymphocyte # 1.85 X10^3/ul (0.83-4.51); Lymphocyte % 27.7 % (19-41); Mean Corpuscular Hgb 24.4 pg (27.0-32.0); Mean Corpuscular Volume 78.9 fL (81-99); Mean Platelet Vol. 9.3 fl (6.2-12.0); Monocyte# 0.63 X10^3/uL; Monocyte% 9.4 % (0-10); NRBC Flagged by Analyzer 0 % (0-5); Neutrophil # 4.08 X10^3/uL (2.7-7.7); Neutrophil % 61.1 % (47-70); Platelet Count 391 K/mm3 (150-450); RBC Distribution Width CV 13.3 % (11.6-14.6); RBC Distribution Width SD 38.3 fl (35.1-43.9); Red Blood Count 3.56 M/mm3 (4.2-5.4); White Blood Count 6.7 K/mm3 (4.4-11.0)
--- NOTE | 2020-10-01 15:55 | US_ITS ---
EXAM: US PELVIS TRANSVAGINAL CLINICAL INDICATION: vaginal bleeding, recent IUD, eval placement TECHNIQUE: Transvaginal pelvic ultrasound was performed with grayscale and color Doppler imaging. Transvaginal imaging was used for better evaluation of the endometrium and adnexa. This report was created using [employer] technology. 05/22/2020.: None. FINDINGS: UTERUS/CERVIX: Uterus is normal in size and echogenicity, measuring 9.2 x 4.2 x 5.7 cm. Endometrial thickness is normal measuring 1 cm. Intrauterine device is not visualized within the uterus. Multiple nabothian cysts. 2.4 x 1 cm vaginal cyst. RIGHT OVARY: Right ovary measures 3.8 x 2.1 x 3 cm. Arterial and venous flow is documented. There is a 1.2 x 1.2 cm solid or complex cystic lesion in the ovary. Blood flow is present in the right ovary. LEFT OVARY: Left ovary is normal in size and echogenicity measuring 3.8 x 2.5 x 3 cm. Arterial and venous flow are documented. Blood flow is present in the left ovary. FREE FLUID: None. US/Transvaginal Non- IMPRESSION: 1. No intrauterine device is seen. 2. Right ovarian solid versus complex cystic lesion. 12 week follow-up is advised. 3. Vaginal cyst appears mildly enlarged. Electronically Signed: Diana Conroy MD at 17:58 EDT Tel , Service support ,
[2020-10-01 15:57] LABS: Anion Gap 5 (5-15); BUN 15 mg/dL (7-18); BUN/Creat Ratio 21.2 RATIO (10-20); Calcium,Total 8.8 mg/dL (8.5-10.1); Chloride 105 mmol/L (98-107); Creatinine, Serum 0.71 mg/dL (0.55-1.02); EST Glomerular Filtration Rate 99 mL/min (>60); Est Glom Filt Rate - Afr Amer 120 mL/min (>60); Estimated Creatinine Clearance 94.59 ml/min; Glucose 106 mg/dL (74-106); Potassium 3.4 mmol/L (3.5-5.1); Sodium Level 140 mmol/L (136-145)
[2020-10-01 16:00] LABS: Internal QC Validated? YES +Cl - CLEAR BKGD; Pregnancy, Serum, hCG Quali. NEGATIVE Negative
[2020-10-01 17:16] VITALS: BP 101/63; PULSE 80; RESP 14; O2SAT 99
--- NOTE | 2020-10-01 18:35 | RAD_ITS ---
STUDY: X-RAY - ABDOMEN/PELVIS REASON FOR EXAM: Female, 35 years old. lost IUD. Check for placement TECHNIQUE: KUB COMPARISON: None. FINDINGS: No demonstrated intrauterine device. There is a non-obstructive bowel gas pattern. Moderate stool burden. There is no organomegaly. No abnormal calcifications. Soft tissues and bony structures are unremarkable. RAD/Abdomen Single View IMPRESSION: No demonstrated IUD. Negative abdominal radiograph. Electronically Signed: Diana Conroy MD at 19:17 EDT Tel , Service support ,
[2020-10-01 18:53] VITALS: BP 95/54
[2020-10-01 19:56] VITALS: BP 104/64; PULSE 68; RESP 16; O2SAT 98
== END 2020-10-01 20:21 | disposition home or self-care (01) ==
PROVIDERS: Emergency Provider Emergency Medicine; PCP Family Medicine
DX: N93.9 Abnormal uterine and vaginal bleeding, unspecified (principal); Z86.711 Personal history of pulmonary embolism
CPT/HCPCS: 74018; 76830; 80048; 84703; 85025; 86850; 86900; 86901; 96360; 96361; 99283; J7030; A4216

== ENCOUNTER 2020-10-03 19:06 | Inpatient (IN) | payer OTHER, SELFPAY ==
[2020-10-03 19:09] VITALS: BP 125/87; PULSE 96; RESP 12; TEMP 36.3; O2SAT 100; BMI 25.4
[2020-10-03 19:41] LABS: Absolute Lymphocyte Count 2.28 X10^3/uL (0.83-4.51); Absolute Neutrophil Count 3.8 X10^3/uL (2.0-7.7); Basophil# 0.03 X10^3/uL; Basophil% 0.4 % (0-1); Eosinophil# 0.09 X10^3/uL; Eosinophils% 1.3 % (0-5); Hematocrit 22.6 % (37-47); Lymphocyte # 2.28 X10^3/ul (0.83-4.51); Lymphocyte % 33.8 % (19-41); Mean Corpuscular Hgb 24.6 pg (27.0-32.0); Mean Corpuscular Volume 79.6 fL (81-99); Monocyte# 0.55 X10^3/uL; Monocyte% 8.1 % (0-10); NRBC Flagged by Analyzer 0 % (0-5); Neutrophil # 3.78 X10^3/uL (2.7-7.7); Neutrophil % 56.1 % (47-70); Platelet Count 369 K/mm3 (150-450); RBC Distribution Width CV 13.4 % (11.6-14.6); RBC Distribution Width SD 38.7 fl (35.1-43.9); Red Blood Count 2.84 M/mm3 (4.2-5.4); White Blood Count 6.8 K/mm3 (4.4-11.0)
[2020-10-03 19:54] LABS: ALB/GLOB Ratio 1.2 RATIO (0.9-2.4); AST(SGOT) 11 U/L (15-37); Alanine Aminotransfer ALT/SGPT 18 U/L (13-56); Albumin, Serum 3.7 g/dL (3.2-5.0); Alkaline Phosphatase 69 U/L (45-117); Anion Gap 5 (5-15); BUN 9 mg/dL (7-18); BUN/Creat Ratio 13.5 RATIO (10-20); Calcium,Total 8.4 mg/dL (8.5-10.1); Chloride 110 mmol/L (98-107); Creatinine, Serum 0.66 mg/dL (0.55-1.02); EST Glomerular Filtration Rate 107 mL/min (>60); Est Glom Filt Rate - Afr Amer 129 mL/min (>60); Estimated Creatinine Clearance 101.76 ml/min; Globulin 3.1 g/dL (2.2-4.2); Glucose 111 mg/dL (74-106); Potassium 3.4 mmol/L (3.5-5.1); Protein, Total 6.8 g/dL (6.4-8.2); Sodium Level 142 mmol/L (136-145)
[2020-10-03 20:01] LABS: International Normalized Ratio 1.1; Prothrombin Time (Protime)PT. 13.1 SECONDS (11.7-14.9)
[2020-10-03 20:02] LABS: Partial Thromboplast Time 29.2 Seconds (24.1-36.2)
--- NOTE | 2020-10-03 20:09 | EDS_ITS ---
HPI HPI - Female History of Present Illness Chief Complaint: Vag Bleeding Informant: patient Pain Worsened by: - (Nothing) Relieved by: - (Nothing) Bleeding Issue: Positive for Vaginal bleeding and Passing clots Onset: Weeks (2) Context: Gradual Onset Timing: Continuous Current Severity: Heavy Associated Symptoms Associated Symptoms: Negative for Dysuria Narrative Narrative: Patient presents with vaginal bleeding for the past 2 weeks. Patient states she is passing clots. Patient states she feels lightheaded and short of breath at times. Patient states she has noticed her heart rate increasing at times. Patient states she changes a pad every hour and a half. Patient states she feels weak at times. Patient states nothing seems to make it worse and nothing seems to make it better. Patient was seen here recently and had an ultrasound which did not show an IUD. Patient had abdominal x-ray which also did not show an IUD. It was felt at that time that she had expelled her IUD. Patient was started on Aygestin which has not been helping with the bleeding. [facility] Medical History (Updated 10/03/20 @ 20:[address] Rogelio Lundberg DO) Anemia History of abnormal cervical Pap smear History of back problems History of migraine headaches History of pulmonary embolism History of skin cancer Home Medications sumatriptan succinate 25 mg tablet See Rx Instructions PO .COMPLEX 05/18/20 [History Last Taken Unknown] apixaban 5 mg tablet 5 mg PO BID 07/29/20 [History Last Taken Unknown] norethindrone acetate [Aygestin] 5 mg PO BID #30 tab 10/01/20 [Rx Last Taken Unknown] Allergy/AdvReac Type Severity Reaction Status Date / Time sulfamethoxazole Allergy Rash Verified 10/03/20 19:08 [From Bactrim] trimethoprim [From Bactrim] Allergy Rash Verified 10/03/20 19:08 Surgical History delivery delivered History of adenoidectomy History of tonsillectomy Skin cancer no surgical history Social History Smoking Status: Never smoker alcohol intake: never substance use type: does not use caffeine: Yes what type of physical activity do you participate in: walking frequency: 5-6 times per week seatbelt use: always do you feel safe at home: Yes 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 [employer] ROS ED Constitutional Constitutional ED: Reports chills and subjective; Denies fever(s) Eyes Eyes: Denies blurry vision or change in vision ENT ENT ED: Denies rhinorrhea or sore throat Cardiovascular Cardiovascular: Reports palpitations and racing heartbeat; Denies chest pain Respiratory/Chest Respiratory/Chest: Reports dyspnea; Denies cough Gastrointestinal Gastrointestinal: Denies nausea or vomiting Genitourinary Genitourinary ED: Denies dysuria or hematuria Musculoskeletal Musculoskeletal: Reports neck pain; Denies back pain Integumentary Denies abscess or rash Neurologic Neurologic: Reports headache(s) and weakness Allergic/Immunologic Allergic/Immunologic ED: Denies mouth swelling or urticaria EXAM Physical Exam Const Vital Signs: 10/03/20 19:09 Temperature 97.4 F L Temperature Source Temporal Pulse Rate 96 Respiratory Rate 12 Blood Pressure 125/87 H Blood Pressure Mean 99 Pulse Ox 100 Oxygen Delivery Method Room Air Positive well nourished and well developed General Appearance ED: well developed HEENT Reports moist mucous membranes Neck supple and no JVD Resp normal respiratory effort and clear to auscultation bilaterally Cardio regular rate and regular rhythm GI normal to inspection, nondistended, normoactive bowel sounds, soft to palpation and non-tender Neuro oriented x3, CN's II-XII intact bilaterally and no sensory deficits noted Sensorium / Orientation: alert Motor Exam: strength 5/5 throughout Psych mental status grossly normal MDM MDM MDM Narrative Medical decision making narrative: CBC shows a hemoglobin of 7.0. PT with INR and PTT are normal. Comprehensive metabolic profile was within normal limits. Type and screen was ordered. Patient was also crossmatched for a unit of blood. This was started here in the emergency department. Case was discussed with Dr. Corea. She recommended giving the patient a dose of Megace and holding the patient's Eliquis. Patient will be admitted to her service. Patient understood and was agreeable with the plan. All questions were answered. Lab Data Attestation: I reviewed the patient's lab results. Labs: Laboratory Results - last 24 hr 10/03/20 10/03/20 10/03/20 19:30 19:30 19:30 WBC 6.8 RBC 2.84 L Hgb 7.0 L Hct 22.6 L MCV 79.6 L MCH 24.6 L MCHC 31.0 L RDW Std Deviation 38.7 RDW Coeff of Glendy 13.4 Plt Count 369 MPV 9.0 Immature Gran % (Auto) 0.300 Neut % (Auto) 56.1 Lymph % (Auto) 33.8 [place] % (Auto) 8.1 Eos % (Auto) 1.3 Baso % (Auto) 0.4 Absolute Neuts (auto) 3.8 Absolute Lymphs (auto) 2.28 Nucleated RBC % 0 PT Cancelled INR Cancelled APTT Cancelled Sodium 142 Potassium 3.4 L Chloride 110 H Carbon Dioxide 27.0 Anion Gap 5 BUN 9 Creatinine 0.66 Estim Creat Clear Calc 101.76 Est GFR (MDRD) Af Amer 129 Est GFR (MDRD) Non-Af 107 BUN/Creatinine Ratio 13.5 Glucose 111 H Calcium 8.4 L Total Bilirubin 0.10 L AST 11 L ALT 18 Alkaline Phosphatase 69 Total Protein 6.8 Albumin 3.7 Globulin 3.1 Albumin/Globulin Ratio 1.2 10/03/20 19:45 WBC RBC Hgb Hct MCV MCH MCHC RDW Std Deviation RDW Coeff of Glendy Plt Count MPV Immature Gran % (Auto) Neut % (Auto) Lymph % (Auto) [place] % (Auto) Eos % (Auto) Baso % (Auto) Absolute Neuts (auto) Absolute Lymphs (auto) Nucleated RBC % PT 13.1 INR 1.1 APTT 29.2 Sodium Potassium Chloride Carbon Dioxide Anion Gap BUN Creatinine Estim Creat Clear Calc Est GFR (MDRD) Af Amer Est GFR (MDRD) Non-Af BUN/Creatinine Ratio Glucose Calcium Total Bilirubin AST ALT Alkaline Phosphatase Total Protein Albumin Globulin Albumin/Globulin Ratio Discharge Plan Dx/Rx/DC Orders Clinical Impression: Vaginal bleeding, abnormal, Anemia Disposition Disposition: Acute Care Hospital [facility]
[2020-10-03] MEDS: Megestrol 40 MG Tablet PO (20:31)
--- NOTE | 2020-10-03 21:11 | PCM.HP.STD ---
HPI - General General Date of Admission: 10/03/20 HPI Narrative ZAHRA COX, is a 35 F who presents with acute vaginal bleeding and acute blood loss anemia. Patient has a history of a PE 2-1/2 months ago and was placed on Eliquis for anticoagulation. She has had heavy painful menses since beginning the anticoagulation and therefore had an IUD insertion over a month ago. She has had persistent increasingly heavy bleeding and was seen in the ER 2 days ago and was found to have the IUD expelled spontaneously and she was noted to be anemic. She was put on Aygestin and discharged home. Patient has had persistent heavy bleeding despite Aygestin therapy and hemoglobin is down to 7 today so she is being admitted for anemia and blood transfusion. [facility] Medical History (Updated 10/03/20 @ 21:[address] Jenny Corea MD) Anemia History of abnormal cervical Pap smear History of back problems History of migraine headaches History of pulmonary embolism History of skin cancer Home Medications sumatriptan succinate 25 mg tablet See Rx Instructions PO .COMPLEX 05/18/20 [History Last Taken Unknown] apixaban 5 mg tablet 5 mg PO BID 07/29/20 [History Last Taken Unknown] norethindrone acetate [Aygestin] 5 mg PO BID #30 tab 10/01/20 [Rx Last Taken Unknown] Allergy/AdvReac Type Severity Reaction Status Date / Time sulfamethoxazole Allergy Rash Verified 10/03/20 19:08 [From Bactrim] trimethoprim [From Bactrim] Allergy Rash Verified 10/03/20 19:08 Surgical History delivery delivered History of adenoidectomy History of tonsillectomy Skin cancer Social History Smoking Status: Never smoker alcohol intake: never substance use type: does not use caffeine: Yes what type of physical activity do you participate in: walking frequency: 5-6 times per week seatbelt use: always do you feel safe at home: Yes 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 [employer] ROS Review of Systems ROS Unobtainable: due to mental status and other Constitutional Constitutional: Reports systems reviewed and no addt'l complaints, except as documented, as per HPI, fatigue and weakness; Denies change in weight, fever(s), malaise or other Eyes Eyes: Reports systems reviewed and no addt'l complaints, except as documented; Denies as per HPI, change in vision or other ENT HEENT: Reports systems reviewed and no addt'l complaints, except as documented and dizziness Respiratory/Chest Respiratory/Chest: Reports systems reviewed and no addt'l complaints, except as documented Gastrointestinal Gastrointestinal: Reports systems reviewed and no addt'l complaints, except as documented and as per HPI Genitourinary Genitourinary: Reports as per HPI Musculoskeletal Musculoskeletal: Reports systems reviewed and no addt'l complaints, except as documented Neurologic Neurologic: Reports systems reviewed and no addt'l complaints, except as documented Psychiatric Psychiatric: Reports systems reviewed and no addt'l complaints, except as documented Endocrine Endocrinology: Reports systems reviewed and no addt'l complaints, except as documented Hematologic/Lymphatic Hematologic/Lymphatic: Reports systems reviewed and no addt'l complaints, except as documented Vital Signs Vital Signs Vital Signs: 10/03/20 19:09 Temperature 97.4 F L Temperature Source Temporal Pulse Rate 96 Respiratory Rate 12 Blood Pressure 125/87 H Blood Pressure Mean 99 Pulse Ox 100 Oxygen Delivery Method Room Air Weight Weight: 148 lb 6.4 oz Body Mass Index (BMI) 25.4 Physical Exam Const alert, oriented x3 and no apparent distress HEENT normocephalic Head and Scalp: atraumatic Eyes EOMs intact bilaterally and conjunctivae normal Neck full ROM, no lymphadenopathy, supple and thyroid normal General: trachea midline Lymph Lymphatic: no lymphadenopathy noted Resp normal respiratory effort, no retractions, no use of accessory muscles and clear to auscultation bilaterally Cardio regular rhythm GI normal to inspection, nondistended, normoactive bowel sounds, soft to palpation, non-distended and no masses Inspection: Negative for abdominal distention Back/Spine no CVA tenderness Extremity normal to inspection Skin no rashes or lesions noted Neuro moves all extremities and deep tendon reflexes 2+ bilaterally Psych mental status grossly normal Results Lab / Micro Data Result Diagrams: 10/03/20 19:30 10/03/20 19:30 Labs: Laboratory Results - last 24 hr 10/03/20 10/03/20 10/03/20 19:30 19:30 19:30 WBC 6.8 RBC 2.84 L Hgb 7.0 L Hct 22.6 L MCV 79.6 L MCH 24.6 L MCHC 31.0 L RDW Std Deviation 38.7 RDW Coeff of Glendy 13.4 Plt Count 369 MPV 9.0 Immature Gran % (Auto) 0.300 Neut % (Auto) 56.1 Lymph % (Auto) 33.8 [place] % (Auto) 8.1 Eos % (Auto) 1.3 Baso % (Auto) 0.4 Absolute Neuts (auto) 3.8 Absolute Lymphs (auto) 2.28 Nucleated RBC % 0 PT Cancelled INR Cancelled APTT Cancelled Sodium 142 Potassium 3.4 L Chloride 110 H Carbon Dioxide 27.0 Anion Gap 5 BUN 9 Creatinine 0.66 Estim Creat Clear Calc 101.76 Est GFR (MDRD) Af Amer 129 Est GFR (MDRD) Non-Af 107 BUN/Creatinine Ratio 13.5 Glucose 111 H Calcium 8.4 L Total Bilirubin 0.10 L AST 11 L ALT 18 Alkaline Phosphatase 69 Total Protein 6.8 Albumin 3.7 Globulin 3.1 Albumin/Globulin Ratio 1.2 Crossmatch 10/03/20 10/03/20 19:30 19:45 WBC RBC Hgb Hct MCV MCH MCHC RDW Std Deviation RDW Coeff of Glendy Plt Count MPV Immature Gran % (Auto) Neut % (Auto) Lymph % (Auto) [place] % (Auto) Eos % (Auto) Baso % (Auto) Absolute Neuts (auto) Absolute Lymphs (auto) Nucleated RBC % PT 13.1 INR 1.1 APTT 29.2 Sodium Potassium Chloride Carbon Dioxide Anion Gap BUN Creatinine Estim Creat Clear Calc Est GFR (MDRD) Af Amer Est GFR (MDRD) Non-Af BUN/Creatinine Ratio Glucose Calcium Total Bilirubin AST ALT Alkaline Phosphatase Total Protein Albumin Globulin Albumin/Globulin Ratio Crossmatch See Detail Assessment & Plan Assessment/Plan (1) Anticoagulant causing adverse effect in therapeutic use: (2) Anemia associated with acute blood loss: (3) Vaginal bleeding, abnormal: (4) Pulmonary embolism: PLAN: Plan admission for transfusion of 1 unit of blood. High-dose Megace started 3 times daily. Eliquis will be held and due to recent PE heparin bridge started in preparation for possible surgery if bleeding continues. Discussed ablation versus hysterectomy with patient and at this time she would wish to proceed with an ablation. Discussed risk of requiring repeat surgery for hysterectomy due to young age at time of endometrial ablation. patient wishes to proceed with oral therapy and if stabilizes may fu as OP for hysterectomy vs endometrial ablation after eliquis is bridged. Charges/Coding Visit Charges Inpatient E&M: 53353 Init Hosp L3
[2020-10-03 21:24] VITALS: BP 107/63; PULSE 77; RESP 14; TEMP 37.2; O2SAT 99
[2020-10-03 21:53] VITALS: BMI 25.2
[2020-10-03 22:25] VITALS: BP 110/38; PULSE 81; RESP 18; TEMP 36.9; O2SAT 100
[2020-10-03] MEDS: Famotidine 20 MG Tablet PO (23:18)
[2020-10-03] MEDS: Heparin Injection (Vial) 5,000 UNIT/ML VIAL 6000 UNIT SC (23:18)
[2020-10-03 23:39] VITALS: BP 92/57; PULSE 77; RESP 18; TEMP 36.8; O2SAT 99
[2020-10-04 00:13] VITALS: BP 107/48; BP 92/60; PULSE 74; PULSE 87; RESP 16; TEMP 36.6; TEMP 36.7; O2SAT 100
[2020-10-04 02:12] VITALS: BP 108/51; PULSE 75; RESP 16; TEMP 36.6; O2SAT 99
[2020-10-04] MEDS: 0.9% Saline Lock 10 ML Syringe IV ×2 (02:27→22:26)
[2020-10-04] MEDS: Megestrol 40 MG Tablet PO ×3 (05:22→22:26)
[2020-10-04 06:10] VITALS: BP 91/52; PULSE 82; RESP 18; TEMP 36.8; O2SAT 100
[2020-10-04 06:14] LABS: Absolute Lymphocyte Count 2.62 X10^3/uL (0.83-4.51); Absolute Neutrophil Count 2.6 X10^3/uL (2.0-7.7); Basophil# 0.02 X10^3/uL; Basophil% 0.3 % (0-1); Eosinophil# 0.07 X10^3/uL; Eosinophils% 1.2 % (0-5); Hematocrit 24.1 % (37-47); Hemoglobin 7.6 g/dL (12.0-15.0); Lymphocyte # 2.62 X10^3/ul (0.83-4.51); Lymphocyte % 44.7 % (19-41); Mean Corp Hgb Conc 31.5 g/dL (32-36); Mean Corpuscular Hgb 25.3 pg (27.0-32.0); Mean Corpuscular Volume 80.3 fL (81-99); Mean Platelet Vol. 9.1 fl (6.2-12.0); Monocyte# 0.51 X10^3/uL; Monocyte% 8.7 % (0-10); NRBC Flagged by Analyzer 0 % (0-5); Neutrophil # 2.63 X10^3/uL (2.7-7.7); Neutrophil % 44.9 % (47-70); Platelet Count 310 K/mm3 (150-450); RBC Distribution Width CV 13.9 % (11.6-14.6); RBC Distribution Width SD 40.7 fl (35.1-43.9); White Blood Count 5.9 K/mm3 (4.4-11.0)
--- NOTE | 2020-10-04 06:57 | PCM.PN.OB ---
Subjective Subjective Decreased bleeding overnight she has changed her pad twice in 12 hours. Ambulating and voiding without difficulty.Denies chest pain, shortness of breath, calf pain/swelling, fevers, chills, lightheadedness. Objective Data Objective Data Vital Signs: Vital Signs Temp Pulse Resp BP Pulse Ox 98.2 F 82 18 91/52 L 100 10/04/20 06:10 10/04/20 06:10 10/04/20 06:10 10/04/20 06:10 10/04/20 06:10 Oxygen Delivery Method Room Air Weight: 147 lb 0.773 oz Body Mass Index (BMI) 25.2 Intake & Output: Intake and Output for Last 24 Hours 10/02/20 10/03/20 10/04/20 23:59 23:59 23:59 Intake Total 450 / 450 Output Total 200 / 200 Balance 250 / 250 Lab / Micro Data Result Diagrams: 10/04/20 05:52 10/03/20 19:30 Labs: Laboratory Results - last 24 hr 10/03/20 10/03/20 10/03/20 19:30 19:30 19:30 WBC 6.8 RBC 2.84 L Hgb 7.0 L Hct 22.6 L MCV 79.6 L MCH 24.6 L MCHC 31.0 L RDW Std Deviation 38.7 RDW Coeff of Glendy 13.4 Plt Count 369 MPV 9.0 Immature Gran % (Auto) 0.300 Neut % (Auto) 56.1 Lymph % (Auto) 33.8 [place] % (Auto) 8.1 Eos % (Auto) 1.3 Baso % (Auto) 0.4 Absolute Neuts (auto) 3.8 Absolute Lymphs (auto) 2.28 Nucleated RBC % 0 PT Cancelled INR Cancelled APTT Cancelled Sodium 142 Potassium 3.4 L Chloride 110 H Carbon Dioxide 27.0 Anion Gap 5 BUN 9 Creatinine 0.66 Estim Creat Clear Calc 101.76 Est GFR (MDRD) Af Amer 129 Est GFR (MDRD) Non-Af 107 BUN/Creatinine Ratio 13.5 Glucose 111 H Calcium 8.4 L Total Bilirubin 0.10 L AST 11 L ALT 18 Alkaline Phosphatase 69 Total Protein 6.8 Albumin 3.7 Globulin 3.1 Albumin/Globulin Ratio 1.2 Blood Type Antibody Screen Crossmatch 0610/03/20 10/04/20 19:30 19:45 05:52 WBC 5.9 RBC 3.00 L Hgb 7.6 L Hct 24.1 L MCV 80.3 L MCH 25.3 L MCHC 31.5 L RDW Std Deviation 40.7 RDW Coeff of Glendy 13.9 Plt Count 310 MPV 9.1 Immature Gran % (Auto) 0.200 Neut % (Auto) 44.9 L Lymph % (Auto) 44.[address] [place] % (Auto) 8.7 Eos % (Auto) 1.2 Baso % (Auto) 0.3 Absolute Neuts (auto) 2.6 Absolute Lymphs (auto) 2.62 Nucleated RBC % 0 PT 13.1 INR 1.1 APTT 29.2 Sodium Potassium Chloride Carbon Dioxide Anion Gap BUN Creatinine Estim Creat Clear Calc Est GFR (MDRD) Af Amer Est GFR (MDRD) Non-Af BUN/Creatinine Ratio Glucose Calcium Total Bilirubin AST ALT Alkaline Phosphatase Total Protein Albumin Globulin Albumin/Globulin Ratio Blood Type O POSITIVE Antibody Screen NEGATIVE Crossmatch See Detail ROS Constitutional Constitutional: Reports systems reviewed and no addt'l complaints, except as documented Cardiovascular Cardiovascular: Reports systems reviewed and no addt'l complaints, except as documented Respiratory/Chest Respiratory/Chest: Reports systems reviewed and no addt'l complaints, except as documented Gastrointestinal Gastrointestinal: Reports systems reviewed and no addt'l complaints, except as documented Physical Exam Const alert, oriented x3 and no apparent distress HEENT Head and Scalp: atraumatic Resp normal respiratory effort GI soft to palpation and non-tender Assessment & Plan (1) Anticoagulant causing adverse effect in therapeutic use: (2) Anemia associated with acute blood loss: (3) Vaginal bleeding, abnormal: (4) Pulmonary embolism: PLAN: Patient improved overnight status post 1 unit of blood. Monitor symptoms today to see if additional unit as needed. Repeat CBC tonight. Remove n.p.o. status for the day today and then resume n.p.o. tonight in preparation for D&C hysteroscopy Caitie ablation at 6 AM tomorrow. Charges/Coding Procedures Urinary/Genital [id number]: [id number] Caitie//Novasure
[2020-10-04] MEDS: Lactated Ringers 1,000 ML 999 ML IV (07:04)
[2020-10-04 09:58] VITALS: BP 95/61; PULSE 85; RESP 14; TEMP 36.7; O2SAT 95
[2020-10-04] MEDS: Famotidine 20 MG Tablet PO ×2 (10:00→22:26)
[2020-10-04] MEDS: Heparin Injection (Vial) 5,000 UNIT/ML VIAL 6000 UNIT SC ×2 (10:01→18:44)
[2020-10-04 15:10] VITALS: BP 98/63; PULSE 80; RESP 14; TEMP 36.8; O2SAT 95
[2020-10-04 18:26] LABS: Hematocrit 26.8 % (37-47); Hemoglobin 8.2 g/dL (12.0-15.0); Mean Corp Hgb Conc 30.6 g/dL (32-36); Mean Corpuscular Hgb 25.2 pg (27.0-32.0); Mean Corpuscular Volume 82.5 fL (81-99); Platelet Count 346 K/mm3 (150-450); RBC Distribution Width CV 13.7 % (11.6-14.6); RBC Distribution Width SD 41.1 fl (35.1-43.9); Red Blood Count 3.25 M/mm3 (4.2-5.4); White Blood Count 6.4 K/mm3 (4.4-11.0)
[2020-10-04 19:46] VITALS: BP 102/52; PULSE 87; RESP 16; TEMP 37.1; O2SAT 99
[2020-10-04] MEDS: Lactated Ringers 1,000 ML 125 ML IV (22:26)
[2020-10-05] VITALS (10 sets, daily range): BP systolic 80–107; BP diastolic 39–87; PULSE 65–80; RESP 16–18; TEMP 36.3–37.1; O2SAT 98–100; BMI 25.1
[2020-10-05 04:53] LABS: Absolute Lymphocyte Count 2.59 X10^3/uL (0.83-4.51); Absolute Neutrophil Count 3.5 X10^3/uL (2.0-7.7); Basophil# 0.03 X10^3/uL; Basophil% 0.4 % (0-1); Eosinophil# 0.14 X10^3/uL; Eosinophils% 2.1 % (0-5); Hematocrit 24.9 % (37-47); Hemoglobin 7.9 g/dL (12.0-15.0); Lymphocyte # 2.59 X10^3/ul (0.83-4.51); Mean Corp Hgb Conc 31.7 g/dL (32-36); Mean Corpuscular Hgb 25.4 pg (27.0-32.0); Mean Corpuscular Volume 80.1 fL (81-99); Mean Platelet Vol. 9.3 fl (6.2-12.0); Monocyte# 0.57 X10^3/uL; Monocyte% 8.4 % (0-10); NRBC Flagged by Analyzer 0 % (0-5); Neutrophil # 3.47 X10^3/uL (2.7-7.7); Neutrophil % 50.8 % (47-70); Platelet Count 343 K/mm3 (150-450); RBC Distribution Width CV 13.8 % (11.6-14.6); RBC Distribution Width SD 40.3 fl (35.1-43.9); Red Blood Count 3.11 M/mm3 (4.2-5.4); White Blood Count 6.8 K/mm3 (4.4-11.0)
[2020-10-05 05:01] LABS: Partial Thromboplast Time 26.5 Seconds (24.1-36.2)
[2020-10-05 05:03] LABS: Internal QC Validated? YES +Cl - CLEAR BKGD; Pregnancy, Urine Negative Negative
[2020-10-05 05:10] LABS: AST(SGOT) 14 U/L (15-37); Alanine Aminotransfer ALT/SGPT 18 U/L (13-56); Albumin, Serum 3.2 g/dL (3.2-5.0); Alkaline Phosphatase 53 U/L (45-117); Bilirubin, Direct 0.09 mg/dL (0.00-0.30); Globulin 2.8 g/dL (2.2-4.2)
[2020-10-05] MEDS: Lactated Ringers 1,000 ML 125 ML IV (05:54)
--- NOTE | 2020-10-05 06:00 | EMB_PTH ---
PATIENT: ZAHRA COX LOC: MS3 U#:[id number] AGE/SX: 35/F ROOM: [facility] [place] RE10/03/[address]: Dr. Jenny Corea MD : [id number] BED: 1 DIS: 10/05/2020 SPEC #: [id number] RECD: 10/05/20 07:21 STATUS: REJI COTTER #: [id number] CHRISTIANE: 10/05/20 06:[address]: Jenny Corea DEPT: SURGICAL PATHOLOGY RECD BY: Leyla Chappell ENTERED: 10/05/20 08:35 SP TYPE: ENDOM BX/C DANIELLE DR: Dr. Nehemias Ho MD Tissues: Endometrium, NOS Procedures: Surgery Specimen Level IV HEADER OPERATION: Hysteroscopy, D & C Caitie PRE-OP DIAGNOSIS: Anticoagulant causing adverse effect in therapeutic use; anemia associated with acute blood loss; vaginal bleeding TISSUE SUBMITTED: Endometrial curettings MICROSCOPIC DIAGNOSIS Endometrial curettings: Early secretory endometrium. Fragments of benign endocervical mucosa with chronic inflammation and squamous metaplasia. EUGENE:micah 10/06/2020 MICROSCOPIC DESCRIPTION Slides are reviewed. GROSS DESCRIPTION Received in fixative is one container labeled with the patient's name and designated endometrial curettings. The specimen consists of multiple fragments of hemorrhagic soft tissue that in aggregate measure 3 x 2.5 x 0.3 cm. The specimen is totally submitted in one cassette. / EUGENE:micah 10/05/20 TC:5 CPT: 27640
[2020-10-05] MEDS: Lidocaine 1% (30 ml sdv) 30 ML Vial (06:28)
--- NOTE | 2020-10-05 06:41 | OP.PCM_ITS ---
Problems Associated Problem List Diagnoses (1) Pulmonary embolism: (2) Vaginal bleeding, abnormal: (3) Anemia associated with acute blood loss: (4) Anticoagulant causing adverse effect in therapeutic use: Report of Operation Date of Procedure: 10/05/20 Pre-Operative Diagnosis: see problem list Post-Operative Diagnosis: same Surgery/Procedure Performed:: d and c hysteroscopy caitie ablation Description of Surgical Findings:: nl uterine cavity gantry rigger: None Type of Anesthesia: Local MAC Special Medications: none Specimen's removed: emc Drains: none Estimated Blood Loss (mL): 50 Fluids Replaced: crystalloid Description of Procedure: Patient was prepped and draped in a normal sterile fashion under MAC anesthesia. A weighted speculum was placed in the vagina and the anterior lip of the cervix was grasped with a single-tooth tenaculum. A paracervical block was placed with 1% lidocaine. Cervix was progressively dilated to allow passage of a 5 mm hysteroscope. The lining was fully visualized and noted to have nl cavity . Uterine sounded to 11 cm. Curettage was performed and some tissue , sent to pathology. The Caitie device was opened and the cavity length was found to be 6 cm. Device was inserted into the uterus and balloon inflated and device deployed. Integrity of the cavity was confirmed and a 2 minute treatment cycle was completed without complication. All instruments were removed from the vagina and excellent hemostasis was noted. Patient was awoken and taken to recovery in stable condition. Grafts/Implants Used: none Complications none Admit VTE Documentation VTE Present on Admission: No VTE Mechan Device Prophylaxis: SCD's Multi Select Codes Urinary/Genital Urinary/Genital CPT Codes: 09037 Caitie/Novasure
--- NOTE | 2020-10-05 06:43 | PCM.DC ---
Discharge Instructions Diet Discharge Diet: No restrictions Activity Discharge Activity: Return to Normal Activity, May Shower and May Take a Tub Bath (after 1 week) May resume sexual activity in: 1-2 weeks Weight Bearing Status: Weight bearing as tolerated Lifting Restrictions: none Dressing / Incision Call your doctor if you observe: Fever of 101 or Higher, Using more than 1 pad per hour, Shortness of breath and Uncontrolled pain Follow Up Care Please Follow Up With: Jenny Corea MD When: Call [phone] to schedule appointment. Test Results: Test results from this visit will be discussed in further detail at your follow-up appointment, if applicable. Discharge Plan Admission Admit Date/Time: 10/03/20 20:59 Primary Reason for Your Visit: bleeding and anemia Attending Provider: Jenny Corea Primary Care Provider: Nehemias Ho Instructions Patient Instructions: Anemia Discharge Orders/Prescriptions Prescriptions: Continued sumatriptan succinate 25 mg tablet See Rx Instructions PO .COMPLEX RF: 0 Eliquis 5 mg tablet 5 mg PO BID RF: 0 Discontinued norethindrone acetate [Aygestin] 5 mg tablet 5 mg PO BID Qty: 30 RF: 0 Referrals / Follow Up: Nehemias Ho MD [Primary Care Provider] - Jenny Corea MD [STAFF PHYSICIAN] - Disposition Disposition (needs filled in before D/C Order can be placed): Home, self care
[2020-10-05] MEDS: oxyCODONE 5 MG Tablet PO (07:51)
--- NOTE | 2020-10-05 09:27 | CASEMGMT ---
JORGE RIVERA Assessment: Face to Face with pt for initial transition planning/care coordination assessment. RN MIGUEL introduced self and role at [facility], pt voices understanding and consents to assessment. Pt is A/O x4 and answers all questions appropriately at this time. Pt lying in bed in no distress with her mother and at bedside. Care providers, pharmacy, and demographics verified/updated. Admitting Dx: anemia secondary to acute blood loss PCP: Vic Specialists: Terry, ENT; Cleo, hematology Preferred [facility]acy: [facility] Insurance: [employer] Prescription Benefit: yes LW/HPOA: Pt denies having a LW/DPOA. LNOK: Vanessa Chavez, mother; Kartik Lopez, Living Arrangements: Pt lives with in a two story house with 3 steps to enter. Pt is I in ADL's and denies concerns at home. Transportation: Pt drives self and denies concerns with transportation. DME/HHC: Pt denies any DME in the home as well as previous HHC. Pt states no concerns with going home at time of dc. Pt states no further concerns/needs. CM to follow. Advised pt to ask CM if any further question/concerns/needs arise, voices understanding. Pt Goal: Home Plan: Home with family support.
[2020-10-05] MEDS: Famotidine 20 MG Tablet PO (10:30)
[2020-10-05] MEDS: APIXABAN 5 MG TABLET PO (10:30)
== END 2020-10-05 10:53 | disposition home or self-care (01) | DRG 981 ==
LOC: ED 20:17 → MS3 20:30
PROVIDERS: Anesthesiology; Admitting Provider Obstetrics & Gynecology; Emergency Provider Emergency Medicine; PCP Family Medicine; Visit Provider Obstetrics & Gynecology
PROC: 0U5B8ZZ Destruction of Endometrium, Via Natural or Artificial Opening Endoscopic (ICD-10-PCS; CPT 58558; principal; 2020-10-05 06:00)
DX: D62 Acute posthemorrhagic anemia (principal); I26.99 Other pulmonary embolism without acute cor pulmonale; D68.32 Hemorrhagic disorder due to extrinsic circulating anticoagulants; N93.9 Abnormal uterine and vaginal bleeding, unspecified; T45.515A Adverse effect of anticoagulants, initial encounter; Y92.9 Unspecified place or not applicable; G43.909 Migraine, unspecified, not intractable, without status migrainosus; Z79.01 Long term (current) use of anticoagulants; Z79.899 Other long term (current) drug therapy; Z85.828 Personal history of other malignant neoplasm of skin
CPT/HCPCS: 36415; 80053; 80076; 81025; 85025; 85027; 85610; 85730; 86850; 86900; 86901; 86920; 88305; 99251; 99285; J7120; P9016; A4216; G0463

== ENCOUNTER 2020-10-08 13:29 | Emergency (ER) | payer OTHER, SELFPAY ==
[2020-10-05 05:39] VITALS: BMI 25.1
[2020-10-08 13:30] VITALS: BP 138/64; PULSE 92; RESP 16; TEMP 35.8; O2SAT 98; BMI 24.9
--- NOTE | 2020-10-08 13:58 | EDS_ITS ---
HPI History of Present Illness Chief Complaint: Shortness of Breath Informant: patient Narrative Narrative: Patient is a 35-year-old female with a past medical history of anemia, pulmonary embolism on Eliquis who presents to the emergency department for shortness of breath. She states that she was recently discharged from the hospital and had to have a ablation secondary to dysfunctional uterine bleeding. She did receive 1 unit of packed red blood cells at that time. She states that she has been improving since then. She still does get mildly short of breath when exerting herself. This is significantly improved from the time she was admitted to the hospital. Her CLASSROOM INSTRUCTIONAL AIDE was concerned that she still having shortness of breath so sent her to the emergency department for work-up. Patient states she has been compliant with her Eliquis. She was on heparin bridge during her hospital stay. She denies any chest pain associated with this. No leg swelling or calf pain. She denies any recent illness including any cough, cold, congestion. No fevers or chills. [facility] Medical History (Updated 10/08/20 @ 14:[address] Scott Prado, ) Anemia Anxiety Cancer History of abnormal cervical Pap smear History of back problems History of migraine headaches History of pulmonary embolism History of skin cancer Migraines Home Medications sumatriptan succinate 25 mg tablet See Rx Instructions PO .COMPLEX 05/18/20 [History Last Taken 10/03/20 18:30] apixaban 5 mg tablet 5 mg PO BID 07/29/20 [History Last Taken 10/03/20 09:30] ferrous sulfate 325 mg PO DAILY #30 tab 10/05/20 [Rx Last Taken Unknown] oxycodone-acetaminophen [Endocet] 1 tab PO Q4H PRN 7 Days #20 tab 10/05/20 [Rx Last Taken Unknown] Allergy/AdvReac Type Severity Reaction Status Date / Time sulfamethoxazole Allergy Rash Verified 10/08/20 13:33 [From Bactrim] trimethoprim [From Bactrim] Allergy Rash Verified 10/08/20 13:33 Surgical History (Updated 10/06/20 @ 09:06 by Veronica Vigil) delivery delivered History of adenoidectomy History of tonsillectomy History of tonsillectomy and adenoidectomy S/P dilation and curettage (~10/05/20) Skin cancer Social History Smoking Status: Never smoker alcohol intake: never substance use type: does not use caffeine: Yes what type of physical activity do you participate in: walking frequency: 5-6 times per week seatbelt use: always do you feel safe at home: Yes additional social history: [employer] Patient works at [employer] ROS ED Constitutional Constitutional ED: Denies chills or fever(s) Eyes Eyes: Denies change in vision ENT ENT ED: Denies epistaxis or rhinorrhea Cardiovascular Cardiovascular: Denies chest pain or palpitations Respiratory/Chest Respiratory/Chest: Reports dyspnea on exertion; Denies cough Gastrointestinal Gastrointestinal: Denies abdominal pain, diarrhea, nausea or vomiting Musculoskeletal Musculoskeletal: Denies back pain or neck pain Integumentary Denies rash Neurologic Neurologic: Denies dizziness, headache(s) or weakness EXAM Physical Exam Const Vital Signs: 10/08/20 13:30 10/08/20 14:09 10/08/20 14:48 Temperature 96.4 F L Temperature Source Temporal Pulse Rate 92 90 Respiratory Rate 16 16 Respiratory Effort Normal Respiratory Depth Normal Respiratory Pattern Normal Blood Pressure 138/64 H 100/60 Blood Pressure Mean 88 Pulse Ox 98 98 Oxygen Delivery Method Room Air Room Air Positive well nourished and well developed General Appearance ED: well developed and NAD HEENT Reports normocephalic, head/scalp atraumatic and moist mucous membranes Eyes PERRL and EOMs intact bilaterally Neck supple Resp normal respiratory effort and clear to auscultation bilaterally Auscultation: Negative for rales, rhonchi or wheezes Cardio regular rate, regular rhythm and no murmurs GI normal to inspection, nondistended, normoactive bowel sounds and non-tender Palpation: soft; Negative for guarding or rebound tenderness present Extremity normal to inspection General Extremety ED: Negative for edema or tenderness General Extremity: Negative for edema Neuro CN's II-XII intact bilaterally and no sensory deficits noted Sensorium / Orientation: alert Motor Exam: strength 5/5 throughout Psych mental status grossly normal Skin no rashes or lesions noted MDM MDM MDM Narrative Medical decision making narrative: Patient presents to the emergency department for shortness of breath with exertion. She was diagnosed with acute blood loss anemia secondary to vaginal bleeding. This has resolved after she had an ablation. She states that she has significantly improved since getting her transfusion but still symptomatic when exerting herself. She was sent in for lab work-up. She does have a history of PE and is anticoagulated. On arrival to the emerge department she is not tachycardic. She is satting 90% on room air. She is in no acute distress. She is asymptomatic when sitting. This time I have low concern for propagation of her PE. This sounds like it is still secondary to her anemia. We will recheck her blood count to make sure she is trending upward. I did have a discussion with the patient about this and she is agreeable with this plan. Lab Data Labs: Laboratory Results - last 24 hr 10/08/20 13:55 WBC 7.8 RBC 3.32 L Hgb 8.2 L Hct 27.0 L MCV 81.3 MCH 24.7 L MCHC 30.4 L RDW Std Deviation 42.0 RDW Coeff of Glendy 14.6 Plt Count 412 MPV 9.0 Immature Gran % (Auto) 0.800 Neut % (Auto) 66.9 Lymph % (Auto) 24.0 [place] % (Auto) 7.1 Eos % (Auto) 0.6 Baso % (Auto) 0.6 Absolute Neuts (auto) 5.2 Absolute Lymphs (auto) 1.87 Nucleated RBC % 0 Discharge Plan Triage Chief Complaint: Shortness of Breath ED Provider: Scott Prado Dx/Rx/DC Orders Clinical Impression: Anemia, Dyspnea Instructions: Anemia Prescriptions: No Action sumatriptan succinate 25 mg tablet See Rx Instructions PO .COMPLEX RF: 0 Eliquis 5 mg tablet 5 mg PO BID RF: 0 ferrous sulfate 325 mg (65 mg iron) tablet 325 mg PO DAILY Qty: 30 RF: 2 oxycodone-acetaminophen [Endocet] 5-325 mg tablet 1 tab PO Q4H PRN (Reason: pain) 7 Days Qty: 20 RF: 0 Primary Care Provider: Nehemias Ho Referrals: Nehemias Ho MD [Primary Care Provider] - 1-2 Weeks Disposition Disposition: Home, Self Care Discharge Date/Time: 10/08/20 14:50
[2020-10-08 14:04] LABS: Absolute Lymphocyte Count 1.87 X10^3/uL (0.83-4.51); Absolute Neutrophil Count 5.2 X10^3/uL (2.0-7.7); Basophil# 0.05 X10^3/uL; Basophil% 0.6 % (0-1); Eosinophil# 0.05 X10^3/uL; Eosinophils% 0.6 % (0-5); Hemoglobin 8.2 g/dL (12.0-15.0); Lymphocyte # 1.87 X10^3/ul (0.83-4.51); Mean Corp Hgb Conc 30.4 g/dL (32-36); Mean Corpuscular Hgb 24.7 pg (27.0-32.0); Mean Corpuscular Volume 81.3 fL (81-99); Monocyte# 0.55 X10^3/uL; Monocyte% 7.1 % (0-10); NRBC Flagged by Analyzer 0 % (0-5); Neutrophil # 5.21 X10^3/uL (2.7-7.7); Neutrophil % 66.9 % (47-70); Platelet Count 412 K/mm3 (150-450); RBC Distribution Width CV 14.6 % (11.6-14.6); Red Blood Count 3.32 M/mm3 (4.2-5.4); White Blood Count 7.8 K/mm3 (4.4-11.0)
[2020-10-08 14:48] VITALS: BP 100/60; PULSE 90; RESP 16; O2SAT 98
== END 2020-10-08 14:50 | disposition home or self-care (01) ==
PROVIDERS: Emergency Provider Emergency Medicine; PCP Family Medicine
DX: D64.9 Anemia, unspecified (principal); R06.00 Dyspnea, unspecified; Z86.711 Personal history of pulmonary embolism; Z79.02 Long term (current) use of antithrombotics/antiplatelets
CPT/HCPCS: 85025; 99283; A4216

== ENCOUNTER → 2020-10-22 09:50 | Outpatient (CLI) | payer OTHER, SELFPAY ==
[2020-10-22 09:31] VITALS: BMI 24.9
[2020-10-22 12:26] LABS: Hematocrit 33.4 % (37-47); Mean Corp Hgb Conc 29.9 g/dL (32-36); Mean Corpuscular Hgb 24.8 pg (27.0-32.0); Mean Corpuscular Volume 82.9 fL (81-99); Mean Platelet Vol. 9.5 fl (6.2-12.0); Platelet Count 476 K/mm3 (150-450); RBC Distribution Width CV 15.6 % (11.6-14.6); RBC Distribution Width SD 47.2 fl (35.1-43.9); Red Blood Count 4.03 M/mm3 (4.2-5.4); White Blood Count 4.8 K/mm3 (4.4-11.0)
== END ==
PROVIDERS: PCP Family Medicine; Referring Provider Nurse Practitioner Family; Visit Provider Nurse Practitioner Family
DX: D64.9 Anemia, unspecified (principal)
CPT/HCPCS: 36415; 85027

== ENCOUNTER → 2021-03-17 | Outpatient (CLI) | payer OTHER, SELFPAY | END | disposition home or self-care (01) | LOC: LABSPEC 03-18 07:00 | PROVIDERS: PCP Family Medicine; Referring Provider Nurse Practitioner Family; Visit Provider Nurse Practitioner Family | DX: Z20.822 Contact with and (suspected) exposure to COVID-19 (principal) | CPT/HCPCS: 87635; U0005; U0003 ==

== ENCOUNTER → 2021-08-05 | Outpatient (CLI) | payer OTHER, SELFPAY ==
[2021-08-12 14:08] LABS: HPV APTIMA, High Risk Negative (Negative)
== END | disposition home or self-care (01) ==
LOC: LABSPEC 08-06 06:34
PROVIDERS: PCP Family Medicine; Referring Provider Obstetrics & Gynecology; Visit Provider Obstetrics & Gynecology
DX: Z12.4 Encounter for screening for malignant neoplasm of cervix (principal)
CPT/HCPCS: 87624; 88175; G0145

== ENCOUNTER 2022-02-11 20:41 | Emergency (ER) | payer OTHER, SELFPAY ==
[2022-02-11 20:45] VITALS: BP 121/77; PULSE 89; RESP 16; TEMP 36.5; O2SAT 97; BMI 24.7
--- NOTE | 2022-02-11 20:55 | EKG12_ITS ---
Test Reason : CP Blood Pressure : / mmHG Vent. Rate : 083 BPM Atrial Rate : 083 BPM P-R Int : 148 ms QRS Dur : 086 ms QT Int : 390 ms P-R-T Axes : 034 054 -17 degrees QTc Int : 458 ms Normal sinus rhythm Low voltage QRS Nonspecific T wave abnormality Abnormal ECG Confirmed by RHIANNON BLOOD, ENOCH ([id number]), editor managing director MYRTLE CHEW ([id number]) on 02/12/2022 9:27:19 AM Referred By: DOUGLAS Confirmed By:ENOCH JURADO MD
--- NOTE | 2022-02-11 21:10 | RAD_ITS ---
STUDY: X-RAY CHEST REASON FOR EXAM: Female, 36 years old. chest pain TECHNIQUE: Single AP portable view of the chest. COMPARISON: 01/29/2019 FINDINGS: The lungs are clear and expanded. There is no demonstrated pleural abnormality. Normal size heart. Normal mediastinum and jay. Normal visualized pulmonary arteries. Normal visualized aortic arch and descending thoracic aorta. Normal visualized thoracic spine. Normal visualized ribs, clavicles, and shoulders. There is no demonstrated abnormality of the visualized soft tissue structures of the upper abdomen. RAD/Chest 1 View (Portable) IMPRESSION: Normal x-ray examination of the chest. Electronically Signed: Chun Carrillo MD at 21:42 EDT ,
--- NOTE | 2022-02-11 21:16 | EDS_ITS ---
HPI History of Present Illness Chief Complaint: Chest Pain Narrative Narrative: 36-year-old female presenting with chest pain. She states is retrosternal. She states it started when she was eating some chicken wings tonight. She denies cardiac history. She does not have a history of diabetes, hypertension, hyperlipidemia. No early history of family heart disease. Patient does have history of PE x2. Her last PE was after she received the [employer] vaccination for COVID-19. Patient reports that she is on lifelong anticoagulation with Eliquis. Patient recently had COVID the th or 18th and then recovered. She had felt otherwise well. Tonight she was out to dinner when this pain started. [facility] Medical History Anemia Anxiety Cancer History of abnormal cervical Pap smear History of back problems History of migraine headaches History of pulmonary embolism History of skin cancer Migraines Home Medications sumatriptan succinate 25 mg tablet See Rx Instructions PO .COMPLEX migraines 05/18/20 [History Last Taken 10/03/20 18:30] apixaban 5 mg tablet (Eliquis) 5 mg PO BID blood thinner 07/29/20 [History Last Taken 10/03/20 09:30] cyclobenzaprine 10 mg tablet 10 mg PO TID PRN muscle spasm #90 tabs 08/05/21 [Rx Last Taken Unknown] Allergy/AdvReac Type Severity Reaction Status Date / Time sulfamethoxazole Allergy Rash Verified 08/05/21 11:35 [From Bactrim] trimethoprim [From Bactrim] Allergy Rash Verified 08/05/21 11:35 Surgical History delivery delivered History of adenoidectomy History of tonsillectomy History of tonsillectomy and adenoidectomy S/P dilation and curettage (~10/05/20) Skin cancer Social History Smoking Status: Never smoker alcohol intake: never substance use type: does not use caffeine: Yes what type of physical activity do you participate in: walking frequency: 5-6 times per week seatbelt use: always do you feel safe at home: Yes additional social history: - [employer] Patient works at [employer] ROS ROS ED Constitutional Constitutional ED: Denies chills or fever(s) Eyes Eyes: Denies change in vision ENT ENT ED: Denies rhinorrhea or sore throat Cardiovascular Cardiovascular: Reports as per HPI Respiratory/Chest Respiratory/Chest: Denies cough or dyspnea Gastrointestinal Gastrointestinal: Denies abdominal pain or constipation Genitourinary Genitourinary ED: Denies dysuria or hematuria Musculoskeletal Musculoskeletal: Denies arthralgias Integumentary Denies abscess or Abrasions Neurologic Neurologic: Denies headache(s) or paresthesias EXAM Physical Exam Const Vital Signs: 02/11/22 20:45 02/11/22 20:45 02/11/22 21:08 Temperature 97.7 F L 97.7 F L Temperature Source Temporal Temporal Pulse Rate 89 89 Respiratory Rate 16 16 Blood Pressure 121/77 H 121/77 H Blood Pressure Mean 91 91 Pulse Ox 97 97 Oxygen Delivery Method Room Air Room Air Room Air 02/11/22 22:44 Temperature Temperature Source Pulse Rate 65 Respiratory Rate 15 Blood Pressure 105/67 Blood Pressure Mean 79 Pulse Ox 99 Oxygen Delivery Method Room Air Positive well nourished General Appearance ED: NAD; Negative for pallor HEENT Reports moist mucous membranes normocephalic and atraumatic Eyes PERRL and EOMs intact bilaterally General Eye ED: Negative for pale conjunctiva or scleral icterus Neck no lymphadenopathy Chest Wall inspection of chest normal and palpation of chest normal Resp normal respiratory effort and clear to auscultation bilaterally Auscultation: Negative for rales, rhonchi or wheezes Cardio Negative for regular rate or regular rhythm GI normal to inspection, nondistended, normoactive bowel sounds Back/Spine no CVA tenderness Neuro oriented x3 and CN's II-XII intact bilaterally Sensorium / Orientation: awake Motor Exam: strength 5/5 throughout Psych mental status grossly normal Skin no rashes or lesions noted and no wounds General Skin Exam: Negative for jaundice or pallor Heart Score History: Slightly/Non-Suspicious ECG: Normal Age: </= 45 years Risk Factors: No Risk Factors Troponin: </= Normal Limit Score: 0 MDM MDM MDM Narrative Medical decision making narrative: 36-year-old female presenting with retrosternal chest pain. She describes it as pressure-like. She has history of PE x2 and is on Eliquis. Recent history of COVID-19 as well. She recovered from this and was out to dinner eating chicken wings when she started to have the pressure. She denies dyspepsia. HEART score is 0. EKG on my interpretation shows sinus rhythm with a ventricular rate of 83 bpm. Parable 140 ms, QRS duration 86 ms, QTC 458 ms. Compared to her EKG 13 June 2016 there is no significant interval changes. Patient denies analgesia. She states she feels comfortable currently. CBC shows a normal white blood cell count of 6.2. Hemoglobin stable 13.7, hematocrit 31.7. Platelets 299. Creatinine normal at 0.70. Electrolytes normal with exception of potassium of 3.0. This is repleted orally with 40 mEq p.o. High-sensitivity troponin came back at 4. Given that the patient's symptoms started before she came she will need a delta troponin. Chest x-ray on my interpretation shows no acute cardiopulmonary process and the radiologist agree. I have low suspicion for PE given the patient is on Eliquis currently for history of PE and she has been taking it. She is not tachycardic, tachypneic, hypoxic. She is reevaluated at 10:45 PM and she is doing well. No chest pain. I went over her lab results with her. We discussed a delta troponin as well. If her delta troponin is normal I feel she safe for discharge home. Patient amenable to this. Impression: 1. Chest pain 2. Hypokalemia Lab Data Attestation: I reviewed the patient's lab results. Labs: Laboratory Results - last 24 hr 02/11/22 02/11/22 21:05 21:05 WBC 6.2 RBC 4.58 Hgb 13.7 Hct 39.7 MCV 86.7 MCH 29.9 MCHC 34.5 RDW Std Deviation 36.4 RDW Coeff of Glendy 11.5 L Plt Count 299 MPV 9.3 Immature Gran % (Auto) 0.500 Neut % (Auto) 54.8 Lymph % (Auto) 34.5 [place] % (Auto) 8.1 Eos % (Auto) 1.6 Baso % (Auto) 0.5 Absolute Neuts (auto) 3.4 Absolute Lymphs (auto) 2.13 Nucleated RBC % 0 Sodium 141 Potassium 3.0 L Chloride 107 Carbon Dioxide 27.0 Anion Gap 7 BUN 9 Creatinine 0.70 Estim Creat Clear Calc 95.02 Est GFR (MDRD) Af Amer 120 Est GFR (MDRD) Non-Af 99 BUN/Creatinine Ratio 12.8 Glucose 99 Calcium 9.1 Troponin I High Sens 4 Radiography Diagnostic Testing: Clinical Impression(s) from Imaging Studies Chest X-Ray 02/11/22 21:10 IMPRESSION: Normal x-ray examination of the chest. Electronically Signed: Chun Carrillo MD at 21:42 EDT , Discharge Plan Triage Chief Complaint: Chest Pain ED Provider: Eren Nolen Dx/Rx/DC Orders Instructions: ED Chest Pain, Noncardiac, ED Hypokalemia Prescriptions: No Action sumatriptan succinate 25 mg tablet See Rx Instructions PO .COMPLEX Rx Instructions: take 1 tab at onset of headache; if no relief may repeat 1 tab after at least 2 hrs; max = 4 tabs/24 hr PO Eliquis 5 mg tablet 5 mg PO BID cyclobenzaprine 10 mg tablet 10 mg PO TID PRN (Reason: muscle spasm) Qty: 90 2RF Primary Care Provider: Care Physician,No Primary Referrals: Nehemias Ho MD [Non-Staff] - Disposition Disposition: Home, Self Care
[2022-02-11 21:19] LABS: Absolute Lymphocyte Count 2.13 X10^3/uL (0.83-4.51); Absolute Neutrophil Count 3.4 X10^3/uL (2.0-7.7); Basophil# 0.03 X10^3/uL; Basophil% 0.5 % (0-1); Eosinophils% 1.6 % (0-5); Hematocrit 39.7 % (37-47); Hemoglobin 13.7 g/dL (12.0-15.0); Lymphocyte # 2.13 X10^3/ul (0.83-4.51); Lymphocyte % 34.5 % (19-41); Mean Corp Hgb Conc 34.5 g/dL (32-36); Mean Corpuscular Hgb 29.9 pg (27.0-32.0); Mean Corpuscular Volume 86.7 fL (81-99); Mean Platelet Vol. 9.3 fl (6.2-12.0); Monocyte% 8.1 % (0-10); NRBC Flagged by Analyzer 0 % (0-5); Neutrophil # 3.39 X10^3/uL (2.7-7.7); Neutrophil % 54.8 % (47-70); Platelet Count 299 K/mm3 (150-450); RBC Distribution Width CV 11.5 % (11.6-14.6); RBC Distribution Width SD 36.4 fl (35.1-43.9); Red Blood Count 4.58 M/mm3 (4.2-5.4); White Blood Count 6.2 K/mm3 (4.4-11.0)
[2022-02-11 21:36] LABS: Anion Gap 7 (5-15); BUN 9 mg/dL (7-18); BUN/Creat Ratio 12.8 RATIO (10-20); Calcium,Total 9.1 mg/dL (8.5-10.1); Chloride 107 mmol/L (98-107); EST Glomerular Filtration Rate 99 mL/min (>60); Est Glom Filt Rate - Afr Amer 120 mL/min (>60); Estimated Creatinine Clearance 95.02 ml/min; Glucose 99 mg/dL (74-106); Sodium Level 141 mmol/L (136-145); Troponin-I HS 4 pg/mL (3.0-54.0)
[2022-02-11 22:44] VITALS: BP 105/67; PULSE 65; RESP 15; O2SAT 99
[2022-02-11] MEDS: Potassium Chloride Oral Tablet 20 MEQ 40 MEQ PO (22:48)
[2022-02-11 23:55] LABS: Troponin-I HS 4 pg/mL (3.0-54.0)
[2022-02-12] VITALS: BP 104/66; PULSE 67; RESP 16; O2SAT 98
== END 2022-02-12 00:32 | disposition home or self-care (01) ==
PROVIDERS: Emergency Provider Student in an Organized Health Care Education/Training Program; Visit Provider Student in an Organized Health Care Education/Training Program
DX: R07.9 Chest pain, unspecified (principal); E87.6 Hypokalemia; Z79.01 Long term (current) use of anticoagulants; Z86.16 Personal history of COVID-19
CPT/HCPCS: 71045; 80048; 84484; 85025; 93005; 99285; A4216

== ENCOUNTER → 2022-08-29 | Outpatient (CLI) | payer OTHER, SELFPAY ==
--- NOTE | 2022-08-29 14:46 | US_ITS ---
INDICATION: irregular menstrual bleeding EXAMINATION: Ultrasound US Pelvis Non OB Complete With Transvaginal Imaging TECHNIQUE: Transabdominal and transvaginal pelvic ultrasound was performed. Grayscale, spectral waveform, and color flow Doppler evaluation of the adnexa. COMPARISON: Report of pelvic ultrasound 10/01/2020, images are not available. LMP: 08/22/2022. FINDINGS: UTERUS: Anteverted. 11.3 cm length. Normal configuration. The endometrial stripe measures 0.3 cm in AP diameter which is within normal limits. Nabothian cyst in the cervix. Cyst in the vagina measures 2.2 x 1.3 x 1.6 cm, previously measured 2.4 x 1 cm according to the prior report. RIGHT OVARY: 3.3 x 2.3 x 2.7 cm. Unremarkable with a few small follicles. Vascular flow demonstrated. LEFT OVARY: 4.0 x 2.3 x 2.4 cm. Unremarkable a few small follicles. Vascular flow demonstrated. FREE FLUID: None. US/Pelvic (Non ) IMPRESSION: No acute findings. No significant endometrial thickening. Vaginal cyst not significantly changed compared to prior report. Electronically Signed: Nona Edgar MD at 3:48 EDT ,
--- NOTE | 2022-08-29 14:46 | US_ITS ---
INDICATION: irregular menstrual bleeding EXAMINATION: Ultrasound US Pelvis Non OB Complete With Transvaginal Imaging TECHNIQUE: Transabdominal and transvaginal pelvic ultrasound was performed. Grayscale, spectral waveform, and color flow Doppler evaluation of the adnexa. COMPARISON: Report of pelvic ultrasound 10/01/2020, images are not available. LMP: 08/22/2022. FINDINGS: UTERUS: Anteverted. 11.3 cm length. Normal configuration. The endometrial stripe measures 0.3 cm in AP diameter which is within normal limits. Nabothian cyst in the cervix. Cyst in the vagina measures 2.2 x 1.3 x 1.6 cm, previously measured 2.4 x 1 cm according to the prior report. RIGHT OVARY: 3.3 x 2.3 x 2.7 cm. Unremarkable with a few small follicles. Vascular flow demonstrated. LEFT OVARY: 4.0 x 2.3 x 2.4 cm. Unremarkable a few small follicles. Vascular flow demonstrated. FREE FLUID: None. US/Transvaginal Non- IMPRESSION: No acute findings. No significant endometrial thickening. Vaginal cyst not significantly changed compared to prior report. Electronically Signed: Nona Edgar MD at 3:48 EDT ,
== END | disposition home or self-care (01) ==
PROVIDERS: Referring Provider Obstetrics & Gynecology; Visit Provider Obstetrics & Gynecology
DX: N92.6 Irregular menstruation, unspecified (principal)
CPT/HCPCS: 76830; 76856

== ENCOUNTER → 2023-08-29 | Outpatient (CLI) | payer OTHER, SELFPAY ==
--- NOTE | 2023-08-29 11:55 | BI_ITS ---
MAMMOGRAPHY - BILATERAL SCREENING REASON FOR EXAM: Female, 38 years old. Routine annual screening examination. PERTINENT HISTORY: Non-contributory. TECHNIQUE: Digital bilateral breast ana (3D mammographic acquisition) in the CC and MLO projections. 2-D mediolateral oblique (MLO) and craniocaudad (CC) views of both breasts were obtained. CAD: Full Field Digital Mammography with Computer Added Detection was performed. COMPARISON: None. Baseline examination. FINDINGS: Breast Composition: The breasts are extremely dense, which lowers the sensitivity of mammography. There are no dominant masses or suspicious calcifications. No other significant abnormalities are identified. BI/SCRN MAMM (CAD)W/ANA BILAT IMPRESSION: Negative screening mammogram. Yearly followup mammogram recommended. (A) ASSESSMENT CATEGORY: BIRADS Category 1: Negative. A letter regarding these results will be sent to the patient by the facility within 30 days. Approximately 10% of breast cancers are not detected by mammography. A normal mammogram should not delay biopsy of a clinically suspicious abnormality. [id number] Electronically Signed: Te Donaldson MD at 12:43 EDT ,
== END | disposition home or self-care (01) ==
LOC: OPBI 11:55
PROVIDERS: PCP Nurse Practitioner Family; Referring Provider Obstetrics & Gynecology; Visit Provider Obstetrics & Gynecology
DX: Z12.31 Encounter for screening mammogram for malignant neoplasm of breast (principal)
CPT/HCPCS: 77063; 77067

== ENCOUNTER → 2023-12-27 | Outpatient (CLI) | payer OTHER, SELFPAY ==
[2023-12-27 10:08] LABS: Absolute Lymphocyte Count 1.98 X10^3/uL (0.83-4.51); Absolute Neutrophil Count 2.6 X10^3/uL (2.0-7.7); Basophil# 0.02 X10^3/uL; Basophil% 0.4 % (0-1); Eosinophil# 0.16 X10^3/uL; Hemoglobin 13.5 g/dL (12.0-15.0); Lymphocyte # 1.98 X10^3/ul (0.83-4.51); Lymphocyte % 37.6 % (19-41); Mean Corp Hgb Conc 32.9 g/dL (32-36); Mean Corpuscular Hgb 29.3 pg (27.0-32.0); Mean Corpuscular Volume 88.9 fL (81-99); Mean Platelet Vol. 9.5 fl (6.2-12.0); Monocyte# 0.52 X10^3/uL; Monocyte% 9.9 % (0-10); NRBC Flagged by Analyzer 0 % (0-5); Neutrophil # 2.57 X10^3/uL (2.7-7.7); Neutrophil % 48.7 % (47-70); Platelet Count 292 K/mm3 (150-450); RBC Distribution Width CV 11.8 % (11.6-14.6); RBC Distribution Width SD 38.4 fl (35.1-43.9); Red Blood Count 4.61 M/mm3 (4.2-5.4); White Blood Count 5.3 K/mm3 (4.4-11.0)
[2023-12-27 10:41] LABS: Vitamin B12 763 pg/mL (211-911); Vitamin D,25 Hydroxy 98.2 ng/mL
[2023-12-27 11:08] LABS: ALB/GLOB Ratio 1.3 RATIO (0.9-2.4); AST(SGOT) 11 U/L (15-37); Alanine Aminotransfer ALT/SGPT 20 U/L (13-56); Alkaline Phosphatase 55 U/L (45-117); Anion Gap 4 (5-15); BUN 15 mg/dL (7-18); BUN/Creat Ratio 23.3 RATIO (10-20); Calcium,Total 9.1 mg/dL (8.5-10.1); Chloride 107 mmol/L (98-107); Cholesterol 242 mg/dL (200); Creatinine, Serum 0.64 mg/dL (0.55-1.02); EST Glomerular Filtration Rate 109 mL/min (>60); Est Glom Filt Rate - Afr Amer 132 mL/min (>60); Globulin 3.1 g/dL (2.2-4.2); Glucose 96 mg/dL (74-106); High Density Lipoprotein 46 mg/dL; Potassium 4.1 mmol/L (3.5-5.1); Protein, Total 7.1 g/dL (6.4-8.2); Sodium Level 139 mmol/L (136-145); T4 Free Direct 0.86 ng/dL (0.76-1.46); Triglycerides 97 mg/dL; Very Low Density Lipoprotein 19 mg/dL (5-40)
== END | disposition home or self-care (01) ==
LOC: MTLAB 08:11
PROVIDERS: PCP Nurse Practitioner Family; Referring Provider Nurse Practitioner Family; Visit Provider Nurse Practitioner Family
DX: Z00.01 Encounter for general adult medical examination with abnormal findings (principal); R53.83 Other fatigue
CPT/HCPCS: 36415; 80053; 80061; 82306; 82607; 84439; 84443; 85025

== ENCOUNTER → 2024-03-26 | Outpatient (CLI) | payer OTHER, SELFPAY ==
[2024-03-26 16:07] LABS: Estradiol 29.2 pg/mL; Follicle Stimulating Hormone 2.3 mIU/mL; Luteinizing Hormone 1.4 mIU/mL; Thyroid Stim Hormone (TSH) 0.868 uIU/mL (0.358-3.740)
[2024-03-28 04:07] LABS: PROGESTERONE 1.9 ng/mL (.)
== END | disposition home or self-care (01) ==
LOC: BFHLAB 13:52
PROVIDERS: PCP Nurse Practitioner Family; Referring Provider Nurse Practitioner Family; Visit Provider Nurse Practitioner Family
DX: G43.909 Migraine, unspecified, not intractable, without status migrainosus (principal); R53.83 Other fatigue
CPT/HCPCS: 36415; 82627; 82670; 83001; 83002; 84144; 84146; 84403; 84443; 82626

== ENCOUNTER → 2024-10-02 | Outpatient (CLI) | payer OTHER, SELFPAY ==
--- NOTE | 2024-10-02 10:30 | BI_ITS ---
EXAM: SCRN MAMM (CAD)W/ANA BILAT DATE: 10/02/2024 CLINICAL HISTORY: F, Age 39 y/o , SCREENING MAMMOGRAM BREAST CANCER RISK ASSESSMENT: Not calculated at this time. TECHNIQUE: Bilateral screening digital breast tomosynthesis with 2D and 3D images. Computer aided detection. COMPARISON: Prior exam(s) dated 08/29/2023. FINDINGS: TISSUE DENSITY: The breast tissue is heterogeneously dense, which may obscure small masses. The mammogram demonstrates that the patient has dense breasts. Supplemental screening with whole breast ultrasound or MRI may be considered for further evaluation. Bilateral Breast Mammographic Findings: No significant masses, calcifications or other abnormalities are identified. BI/SCRN MAMM (CAD)W/AAN BILAT IMPRESSION: There is no mammographic evidence of malignancy. OVERALL FINAL ASSESSMENT BI-RADS 1: NEGATIVE. RECOMMEND ANNUAL MAMMOGRAPHIC SCREENING. RECOMMENDATION: Routine annual follow-up in 1 Year A letter with findings and recommendations will be mailed to the patient. Reading Location: [id number]
--- OUTSIDE RECORDS SUMMARY | 2024-10-02 20:43 | XMS RPT_ITS | CCD ---
Author Organization [facility] Care Team Providers Care Road Supervisor Name Role Phone Dr. Nehemias Ho Primary Care Provider Dr. Nehemias Ho Referring Provider Dr. Jenny Corea Attending Provider Nehemias Ho DO Primary Care Provider [phone] Nehemias Bateman MD Unavailable Nehemias Ho DO Primary Care Provider Nehemias Ho DO Primary Care Provider Nehemias Bateman MD Unavailable Vic ALVAREZ, Nehemias Wagner Primary Care Provider Nehemias Bateman MD Unavailable Vic ALVAREZ, Nehemias Wagner Primary Care Provider Nehemias Bateman MD Unavailable Yovanny CLUB CONCIERGE.Jil JARRETT Primary Care Provider Yovanny CLUB CONCIERGE.Jil JARRETT Primary Care Provider [facility] Primary Care Provider Unavailable Mariam UROLOGIST, Carlos Primary Care Provider RAFY STRATTON Attending Unavailable MARIAM, CARLOS Primary Care Unavailable ADRIANO GALLO Attending Unavailable ADRIANO GALLO Attending Unavailable SELF Referring Unavailable JIL HAIRSTON Primary Care Unavailable Mariam, Carlos Primary Care Unavailable Mariam, Carlos Attending Unavailable Mariam, Carlos Referring Unavailable Mariam, Carlos Primary Care Unavailable Mariam, Carlos Attending Unavailable Mariam, Carlos Referring Unavailable Mariam, Carlos Primary Care Unavailable Julieta Pedro Attending Julieta Porter Referring Carlos Morales Primary Care Unavailable Julieta Pedro Attending Carlos Morales Referring Unavailable Carlos Gonzalez Primary Care Unavailable Carlos Gonzalez Attending Unavailable Carlos Gonzalez Referring Unavailable Allergies Allergy Classification Reported Allergen(s) Allergy Type Date of Onset Reaction(s) Facility (2 sources) Sulfamethoxazole Drug Allergy 2 [facility] Work Phone: (2 sources) Trimethoprim Drug Allergy 2 [facility] Work Phone: (20 sources) Sulfamethoxazole / Trimethoprim; Translations: [SULFAMETHOXAZOLE-TR IMETHOPRIM] Drug Allergy 2 [facility] (1 source) Sulfamethoxazole Drug Allergy 5 [facility] (1 source) Trimethoprim Drug Allergy 5 [facility] Medications Current Medications Medication Drug Class(es) Dates Sig (Normalized) Sig (Original) apixaban 5 mg oral tablet (20 sources) Factor Xa Inhibitor Start: 07-29-2020 End: 04-08-2024 take 1 tablet by mouth twice daily ELIQUIS 5 mg tab(s) TAKE 1 TABLET BY MOUTH TWICE DAILY 180 tablet 3 04/08/2024 Active Comment on above: Take 5 mg by mouth t wice daily. Take 1 tablet by tyler th two times a day. Take 5 mg by mouth t wo times a day. azithromycin 500 mg oral tablet (1 source) Macrolide Antimicrobial Start: 01-09-2023 End: 01-09-2023 take 2 tablets by mouth once azithromycin (ZITHROMAX) 500 mg tablet Indications: Traveler's diarrhea Take 2 tablets by mouth one time only for 1 dose. 2 tablet 0 01/09/2023 01/09/2023 Active Comment on above: Take 2 tablets by mo [facility] one time only for 1 dose. cyclobenzaprine hydrochloride 10 mg oral tablet (4 sources) Muscle Relaxant Start: 08-05-2021 take 10 mg by mouth three times daily Cyclobenzaprine Active 10 MG PO THREE TIMES A DAY 90 August 05, 2021 11:58am Start: 01-21-2018 End: 04-04-2018 take 10 mg by mouth three times daily as needed Cyclobenzaprine Discontinued 10 MG PO 3 TIMES DAILY NEEDED January 21, 2018 4:05am April 04, 2018 3:59pm Magnesium glycinate (5 sources) take 1 tablet by tyler th once daily MAGNESIUM GLYCINATE ORAL Take 1 tablet by mouth once daily. Active take 1 tablet by mouth once jessica y MAGNESIUM GLYCINATE ORAL Take 1 tablet by mouth once daily. 0 Active Multivitamin capsule (13 sources) take 1 capsule by mo uth once daily Multivitamin capsule Take 1 capsule by mouth once daily. Active take 1 capsule by mouth once demar ly Multivitamin capsule Take 1 capsule by mouth once daily. 0 Active Comment on above: Take 1 capsule by mo uth once daily. OTC PRODUCT (20 sources) take 500 mg by mouth once daily OTC PRODUCT Take 500 mg by mouth once daily. Ashwagandha Active take 1 tablet by tyler th once daily OTC PRODUCT Take 1 tablet by mouth once daily. K2 90mcg & D3 125mcg Active OTC PRODUCT Take 2 capsules by mouth once daily. 10 X Optimize Multivitamin Active take 2 capsules by m outh once daily OTC PRODUCT Take 2 capsules by mouth once daily. Beef Organ Caps 337.5mg Active End: 05-29-2024 take 2 capsules by mouth three times daily OTC PRODUCT Take 2 capsules by mouth three times a day. Ginger 05/29/2024 Discontinued take 2 capsules by m outh three times daily OTC PRODUCT Take 2 capsules by mouth three times a day. [place] Active End: 11-21-2023 take 1 scoop(s) by mouth once daily OTC PRODUCT Take 1 Scoop by mouth once daily. Intestinal Restore 0 11/21/2023 Discontinued take 2 capsules by m outh three times daily OTC PRODUCT Take 2 capsules by mouth three times a day. Ginger 0 Active take 1 scoop(s) by m outh once daily OTC PRODUCT Take 1 Scoop by mouth once daily. Intestinal Restore 0 Active End: 12-01-2022 OTC PRODUCT GO , Drink mix F or vitamin supplements 1 packet daily 0 12/01/2022 Discontinued OTC PRODUCT GO , Drink mix For vitamin supplements 1 packet daily 0 Active Comment on above: GO , Drink mix For v itamin supplements 1 packet daily Take 2 capsules by m outh three times a day. [place] Take 1 Scoop by mout h once daily. Intestinal Restore rhapontic rhubarb root extract (ESTROVERA) 4 mg tablet (7 sources) take 1 tablet by mouth once daily rhapontic rhubarb root extract (ESTROVERA) 4 mg tablet Take 1 tablet by mouth once daily. Active take 1 tablet by mouth once jessica y rhapontic rhubarb root extract (ESTROVERA) 4 mg tablet Take 1 tablet by mouth once daily. 0 Active Comment on above: Take 1 tablet by tyler th once daily. SUMAtriptan 100 mg oral tablet (20 sources) Serotonin-1b and Serotonin-1d Receptor Agonist Start: 05-29-2023 SUMAtriptan (IMITREX) 100 mg tablet TAKE 1 TABLET BY MOUTH AT ONSET OF HEADACHE 9 tablet 3 05/29/2023 Active Start: 05-18-2020 take 1 tablet by tyler th every two hours Sumatriptan Succinate Active 0 PO .COMPLEX May 18, 2020 10:00am take 1 tab at onset of headache; if no relief may repeat 1 tab after at least 2 hrs; max = 4 tabs/24 hr PO Start: 01-29-2019 End: 05-18-2020 Sumatriptan Discontinued Jan 5:47pm May 18, 2020 10:00am Start: 01-29-2019 End: 05-18-2020 Sumatriptan Discontinued Jan 12:00am May 18, 2020 10:00am Start: 10-19-2018 End: 05-26-2023 SUMAtriptan (IMITREX) 100 mg tablet TAKE 1 TABLET BY MOUTH AT ONSET OF HEADACHE 0 10/19/2018 05/26/2023 Discontinued Comment on above: TAKE 1 TABLET BY TYLER TH AT ONSET OF HEADACHE Completed/Discontinued Medications Medication Drug Class(es) Dates Sig (Normalized) Sig (Original) acetaminophen 325 mg / HYDROcodone bitartrate 5 mg oral tablet (2 sources) Opioid Agonist Start: 01-21-2018 End: 01-24-2018 take 1 tablet by mouth every six hours as needed Hydrocodone-Acetami nophen Discontinued 1 TABLET PO EVERY 6 HOURS NEEDED 10 3 January 21, 2018 6:04am January 24, 2018 12:08am acetaminophen 325 mg / oxyCODONE hydrochloride 5 mg oral tablet (4 sources) Opioid Agonist Start: 10-05-2020 End: 10-22-2020 take 1 tablet by mouth every four hours Oxycodone-Acetamino phen (Endocet) 5-325 mg tablet Discontinued 1 TABLET PO Q4H 03 11October 05, 2020 October 22, 2020 9:30am Start: 01-21-2018 End: 04-04-2018 take 1 tablet by mouth every four hours as needed Oxycodone-Acetaminophen Discontinued 1 - 2 TABLET PO EVERY 4 HOURS NEEDED January 21, 2018 4:05am April 04, 2018 3:59pm atovaquone 250 mg / proguanil hydrochloride 100 mg oral tablet (7 sources) Antimalarial, Antiprotozoal Start: 12-01-2022 End: 05-29-2023 atovaquone-proguanil (MALARONE) 250-100 mg per tablet Indications: Need for malaria prophylaxis Take 1 tablet starting two days prior to leaving, daily while traveling and daily for a week after for a total of 16 days. 16 tablet 0 12/01/2022 05/29/2023 Discontinued Comment on above: Take 1 tablet starti ng two days prior to leaving, daily while traveling and daily for a week after for a total of 16 days. doxycycline monohydrate 100 mg oral capsule (2 sources) Tetracycline-class Drug Start: 01-29-2019 End: 05-18-2020 take 100 mg by mouth twice daily Doxycycline Monohydrate Discontinued 100 MG PO TWICE A DAY January 29, 2019 8:34pm May 18, 2020 9:59am escitalopram 10 mg oral tablet (2 sources) Serotonin Reuptake Inhibitor Start: 01-29-2019 End: 05-18-2020 take 15 mg by mouth once daily Escitalopram Oxalate Discontinued 15 MG PO DAILY January 29, 2019 5:47pm May 18, 2020 9:59am ferrous sulfate 325 mg oral tablet (2 sources) Start: 10-05-2020 End: 08-05-2021 take 325 mg by mouth once daily Ferrous Sulfate Discontinued 325 MG PO DAILY October 05, 2020 8:47am August 05, 2021 11:35am Lactobacillus acidophilus (7 sources) End: 05-29-2023 Lactobacillus acidophilus (PROBIOTIC ORAL) Take by mouth. 0 05/29/2023 Discontinued Lactobacillus ac idophilus (PROBIOTIC ORAL) Take by mouth. 0 Active Comment on above: Take by mouth. levonorgestrel 0.194916 mg/hr intrauterine system (1 source) Progestin, Progestin-containing Intrauterine Device Start: End: levonorgestrel 20 mcg/24 hours (6 yrs) 52 mg intrauterine device Discontinued 1 INSERT INTRA-UTER ONCE August 21, 2020 9:50am August 21, 2020 10:33am norethindrone acetate 5 mg oral tablet (2 sources) Start: End: take 1 tablet by mouth twice daily, then take 1 tablet by mouth once daily Norethindrone Acetate (Aygestin) 5 mg tablet Discontinued 5 MG PO TWICE A DAY October 01, 2020 5:47pm October 05, 2020 6:38am hormone (pt no longer taking)...5 mg orally ;1 tab po BID x 3d, then 1 tab po daily x 15d (until finished) oxyCODONE hydrochloride 5 mg oral capsule (2 sources) Opioid Agonist Start: End: take 5 mg by mouth every six hours Oxycodone Discontinued 5 MG PO EVERY 6 HOURS 5 August 21, 2020 August 23, 2020 12:01am rivaroxaban 15 mg oral tablet (2 sources) Factor Xa Inhibitor Start: End: take 1 tablet by mouth twice daily at mealtime Rivaroxaban (Xarelto) 15 MG tablet Discontinued 15 MG PO TWICE DAILY WITH MEALS June 09, 2016 12:42pm October 29, 2016 9:36pm Problems Active Problems Problem Classification Problem Date Documented Date Episodic/Chronic Acute posthemorrhagic anemia (2 sources) Acute posthemorrhagic anemia; Translations: [Acute posthemorrhagic anemia] Episodic Deficiency and other anemia (2 sources) Anemia; Translations: [Anemia, unspecified] Episodic E Codes: Adverse effects of medical drugs (2 sources) Anticoagulant adverse reaction; Translations: [Adverse effect of anticoagulants, initial encounter] Episodic Headache; including migraine (1 source) Migraine, unspecified, not intractable, without status migrainosus; Translations: [Migraine, unspecified, not intractable, without status migrainosus] Onset: 01-09-202 5 Chronic Intestinal infection (1 source) Traveler's diarrhea; Translations: [Infectious gastroenteritis and colitis, unspecified] 01-09-2023 Episodic Menopausal disorders (2 sources) Decreased estrogen level; Translations: [Other primary ovarian failure] 11-21-2023 Chronic Mood disorders (1 source) Disturbance in mood; Translations: [Emotional lability] 06-28-2024 Episodic Other aftercare (4 sources) Patient encounter status; Translations: [Encounter for therapeutic drug level monitoring] Episodic Other female genital disorders (2 sources) Abnormal vaginal bleeding; Translations: [Abnormal uterine and vaginal bleeding, unspecified] Chronic Other lower respiratory disease (2 sources) Dyspnea; Translations: [Dyspnea, unspecified] Episodic Other screening for suspected conditions (not mental disorders or infectious disease) (6 sources) Electrocardiogram abnormal; Translations: [Abnormal electrocardiogram [ECG] [EKG]] Onset: 5 12-01-2022 Episodic Other upper respiratory infections (1 source) Sore throat symptom; Translations: [Acute pharyngitis, unspecified] 05-16-2024 Episodic Pneumonia (except that caused by tuberculosis or sexually transmitted disease) (2 sources) Right lower zone pneumonia; Translations: [Pneumonia, unspecified organism] Episodic Pulmonary heart disease (10 sources) Pulmonary embolism; Translations: [Other pulmonary embolism without acute cor pulmonale] Onset: 5 Episodic Residual codes; unclassified (1 source) Prevention status; Translations: [Encounter for other specified prophylactic measures] 12-01-2022 Episodic Viral infection (1 source) Viral disease; Translations: [Viral infection, unspecified] 05-16-2024 Episodic Past or Other Problems Problem Classification Problem Date Documented Date Episodic/Chronic Immunizations and screening for infectious disease (6 sources) Contact with and (suspected) exposure to other viral communicable diseases; Translations: [Contact with or exposure to other viral diseases] Onset: 08-10-2015 Resolved: 01-29-2016 04-12-2021 Episodic Menstrual disorders (6 sources) Irregular periods; Translations: [Irregular menstruation, unspecified] Onset: 05-08-2012 Resolved: 08-10-2015 08-10-2015 Chronic Other complications of ; puerperium affecting management of mother (20 sources) wound disruption with complication; Translations: [Disruption of delivery wound] Onset: 01-29-2016 01-29-2016 Episodic Other female genital disorders (20 sources) Cervical intraepithelial neoplasia grade 1; Translations: [Mild cervical dysplasia] Onset: 05-22-2013 04-12-2021 Episodic Other non-epithelial cancer of skin (8 sources) Squamous cell carcinoma in situ of skin; Translations: [Carcinoma in situ of skin, unspecified] Onset: 05-12-2011 Resolved: 01-29-2016 04-12-2021 Episodic Other and delivery including normal (12 sources) Normal ; Translations: [Encounter for supervision of normal , unspecified, unspecified trimester] Onset: 04-13-2011 Resolved: 01-29-2016 04-12-2021 Episodic Residual codes; unclassified (6 sources) Abnormal cytology findings; Translations: [ASCUS with positive high risk HPV] Onset: 06-13-2012 Resolved: 05-05-2015 05-05-2015 Episodic Residual codes; unclassified (1 source) Family history of other endocrine, nutritional and metabolic diseases; Translations: [Family history of other endocrine, nutritional and metabolic diseases] Onset: 04-03-2024 Episodic Syncope (6 sources) Near syncope; Translations: [Syncope and collapse] Onset: 08-21-2015 Resolved: 01-29-2016 04-12-2021 Episodic Syncope (2 sources) Syncope Results Test Name Value Interpretation Reference Range Facil ity Mold 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 Julieta Hdye DO Age/Sex: 39/F Location: 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) Pharmaceutical Service Representative Required: No Is patient in pain?: No Allergies sulfamethoxazole (From Bactrim) Allergy (Verified 08/20/24 11:23) Rash trimethoprim (From Bactrim) Allergy (Verified 08/20/24 11:23) Rash Medications ???Medication ???Instructions ???Recorded ???Confirmed ???Type sumatriptan succinate 25 mg tablet See Rx Instructions PO .COMPLEX 05/18/20 08/20/24 History migraines apixaban 5 mg tablet (Eliquis) 5 mg PO BID blood thinner 07/29/20 08/20/24 History cholecalciferol (vitamin D3) 50 50 mcg PO DAILY 08/10/23 08/20/24 History mcg (2,000 unit) capsule lactobacillus combination no.4 3 3,000 mmu cells PO DAILY 08/10/23 08/20/24 History billion cell capsule (Probiotic) multivitamin 1 tab PO DAILY 08/10/23 08/20/24 H istory rhubarb root extract 4 mg tablet mg PO 08/10/23 08/20/24 History (Estrovera) ashwagandha extract 500 mg capsule mg PO 08/20/24 08/20/24 History magnesium oxide 500 mg capsule 500 mg PO QDAY 08/20/24 08/20/24 H istory Post menopausal: No Patient : No : No PFSH Medical History Cancer Anxiety Migraines History of pulmonary embolism History of abnormal cervical Pap smear History of back problems History of migraine headaches History of skin cancer Anemia Surgical History S/P dilation and curettage ( 10/05/20) History of tonsillectomy and adenoidectomy Skin cancer History of adenoidectomy History of tonsillectomy delivery delivered Social History (Updated 08/20/24 @ 11:29 by Veronica Vigil) Smoking Status: Never smoker alcohol intake: never substance use type: does not use caffeine: Yes what type of physical activity do you participate in: weight training frequency: 5-6 times per week seatbelt use: always do you feel safe at home: Yes additional social history: bianca Mcclellan Patient works at [employer] History 2 Elective abortions Hx Para 2 Spontaneous abortions Hx # Term Pregnancies Ectopic pregnancies Hx # Pregnancies Multiple births # of living children Past Pregnancies Del. Date Name GA/Weeks Outcome Route Bth Weight Gen Labor Lgth Anesthesia Del Locatn Provider FOB Unknown 2011 Marni live - full term Male [facility] SM Unknown 2015 Yamilka live - full term Female none [facility] Encounter for routine gynecological examination Details: JANNA LOPEZ is a 39 year old who presents for annual exam. Last PAP: 08/05/21 History of abnormal PAP:yes, has had normals since 2013 Last mammogram:08/29/23 History of abnormal mammogram: no Colon cancer screening: n/a Other preventative health care screenings: followed by pcp Female Reproductive History Cycle Length: 21-35 Bleeding Duration: 5 Questions: metorrhagia: No, sexually active: Yes, dyspareunia: No and PCB: No Menopausal Symptoms: No hot flashes, No night sweats, No weight change, No mood changes, No difficulty concentrating, No sleep problems and No change in libido ROS Const Constitutional: Reports as per HPI; Denies fatigue, increased appetite, poor appetite, night sweats, weight gain or weight loss Cardio Card: Denies chest pain Resp Resp: Denies cough or dyspnea GI GI: Reports as per HPI; Denies abdominal pain, bloating, constipation, nausea or vomiting : Reports as per HPI and other; Denies difficulty voiding, dysuria, hematuria, hot flashes, nipple discharge, pelvic pain, prolapse symptoms, urinary frequency, urinary incontinence, urinary urgency, vaginal discharge, vaginal dryness, vaginal odor or vaginal pruritus Skin Skin/Breast: Denies changing lesions, breast mass, breast pain, breast skin changes or nipple discharge Psych Psych: Denies anxiety, change in libido, depression or difficulty concentrating Exam Const General: cooperative, healthy appearing, comfortable, no acute distress, well developed and well groomed [facility] Head: normal to inspection and normocephalic Ears: hearing grossly normal bilaterally and external ears normal Nose: external nose normal Face and sinus: normal facial exam Neck Neck: normal visual inspection, full ROM and no lym (more content not included)... Normal [facility] CNOVon 06-28-2024 CNOV Office Visit (OBGYWM ) JANNA LOPEZ ([id number]) 1985 F Date Time Provider Department 06/28/24 2:40 PM RAFY STRATTON During your visit today, we recorded the following information about you: Blood pressure Weight Last Period 108 63.5 kg 06/22/24 Rafy Stratton MD 06/28/2024 5:23 PM Signed Janna Lopez is a 39 year old female who presents for problem visit - discuss hormones. HPI: Janna states she felt her mood changes were significant around time of menses. She was prescribed an SSRI in the past, but she did not want to take an SSRI. She went to see a survey crew chief and had a hormone panel completed. She started DHEA and had stopped taking this as she did not feel well. These mood changes happen the few days leading into her menses. Has noticed an improvement since changing her diet. She would have depressed mood. No SI or HI. She felt down and anxious around time of period. Regular menstrual cycles q 28-36 days with 4-5 days of bleeding. Had a uterine ablation in 2020 and the bleeding has improved. H/o 2 Pe's and on Eliquis. Has annual exam scheduled in a few months with prior floater operator at a different office. OB History Gravida2 Para2 Term2 Preterm0 AB0 Living2 SAB0 IAB0 Ectopic0 Multiple0 Live Births2 Comment: Laura GARDNER delivered Ear Nose Throat Physician History LMP: 06/22/2024, Having periods Age at Menarche: 11 Age at First : Age at Menopause: Ear Nose Throat Physician History Comments: Sexual Activity: Yes; Male Contraception: Not used Menstrual Tracking History Flowsheet Row Office Visit from 06/28/2024 in OB/Gynecology Period Cycle (Days) 30 Period Duration (Days) 5 Menstrual Flow Moderate PAST MEDICAL HISTORY Diagnosis Date Abnormal glandular Papanicolaou smear of cervix 2007 AND 2010 Abn. Pap smear (cervix) History of squamous cell carcinoma of skin 05/12/2011 right knee Migraine, unspecified, with intractable migraine, so stated, without mention of status migrainosus Migraine with aura PAST SURGICAL HISTORY Procedure Laterality Date DELIVERY ONLY 08/19/2011 , low transverse DELIVERY ONLY 12/15/15 , low transverse COLPOSCOPY CERVIX UPPER/ADJACENT VAGINA Colposcopy COLPOSCOPY CERVIX UPPER/ADJACENT VAGINA 05/22/2013 Colposcopy PAST SURGICAL HISTORY OF 2009 EXCISION OF CANCER OF THIGH TONSILLECTOMY AND ADENOIDECTOMY FAMILY HISTORY Problem Relation Age of Onset Emphysema Maternal Grandfather Heart Maternal Grandfather GA Arthritis Paternal Grandmother Arthritis Paternal Grandfather Cancer Paternal Grandfather MELANOMA Prostate Cancer Paternal Grandfather Social History Tobacco Use Smoking status: Former Current packs/day: 0.00 Types: Cigarettes Quit date: 10/15/2010 Years since quittin.7 Smokeless tobacco: Never Tobacco comments: Social smoker Vaping Use Vaping status: Never Used Substance Use Topics Alcohol use: Yes Alcohol/week: 1.0 standard drink of alcohol Types: 1 Glasses of Wine (5oz) per week Comment: rarely Drug use: No Current Outpatient Medications Medication Sig OTC PRODUCT Take 500 mg by mouth once daily. Ashwagandha OTC PRODUCT Take 1 tablet by mouth once daily. K2 90mcg AND D3 125mcg OTC PRODUCT Take 2 capsules by mouth once daily. 10 X Optimize Multivitamin OTC PRODUCT Take 2 capsules by mouth once daily. Beef Organ Caps 337.5mg ELIQUIS 5 mg tab(s) TAKE 1 TABLET BY MOUTH TWICE DAILY MAGNESIUM GLYCINATE ORAL Take 1 tablet by mouth once daily. SUMAtriptan (IMITREX) 100 mg tablet TAKE 1 TABLET BY MOUTH AT ONSET OF HEADACHE rhapontic rhubarb root extract (ESTROVERA) 4 mg tablet Take 1 tablet by mouth once daily. Multivitamin capsule Take 1 capsule by mouth once daily. No current facility-administered medications for this visit. Allergies As of Date: 06/28/2024 Allergen Noted Reaction BACTRIM [SULFAMETHOXAZOLE-TRIM ETH*10/01/2021 Hives Fully Assessed 06/28/2024 REVIEW OF SYSTEMS Expanded ROS: N/A Allergies and current medication updated:Yes SENSITIVE EXAM: Sensitive exam not performed. EXAM: BP 108/68 Wt 140 lb (63.5kg) LMP 06/22/2024 GENERAL: pleasant, female in no apparent distress HEENT: Normocephalic and atraumatic NECK: full range of motion DERMATOLOGY: Normal, without lesions, non-icteric, and non-hirsute BREAST: deferred CHEST: Normal inspiratory effort ABDOMEN: Deferred PELVIC: deferred BIMANUAL: deferred NEURO: exam grossly non-focal EXTREMITIES: normal ASSESSMENT AND PLAN: Assessment AND Plan Mood changes She feels her mood changes have improved with dietary changes. Discussed daily or cyclic SSRI use. She is not interested in SSRI. Discussed regular exercise, getting outside, balanced diet, practicing mindfulness and meditation. Information given on functional medicine. Recent FSH normal at [facility]. Excessive bleedi (more content not included)... Normal [facility] CNOVSPon 05-29-2024 CNOVSP Visit (SP) Office (HEMAWS) JANNA LOPEZ ([id number]) 1985 F Date Time Provider Department 05/29/24 10:50 AM ADRIANO GALLO During your visit today, we recorded the following information about you: Temperature Pulse Blood pressure Weight 98.5 degrees 74/minute 107/74 63.7 kg Height 1.63 m Adriano Gallo DO 05/29/2024 11:54 AM Signed Hematologic problem(s): 1) Recurrent DVT/PE. HPI: The patient is a 39-year-old female with a PMH significant for migraine HAs. 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 In May 2016 she was seen for complaint of dull aching chest pain that had started the day prior 06/07/2016. Evidently her EKG was abnormal and she was directed to the emergency room at [facility]. CT demonstrated an isolated complete filling defect in the left lower lobe segmental branch medially. She was admitted overnight and received Lovenox. She was then transitioned to Xarelto. She completed 6 months of Xarelto and then stopped. Hypercoagulation work-up at the time of that event included no evidence of anticardiolipin antibodies, negative PCR for factor V Leiden, normal protein C activity, normal antithrombin activity and normal protein S activity. This event occurred about 6 months , second . She had had no since then and had no prior history of venous thromboembolic events. She received the Matias AND Matias SARS-CoV-2 vaccination on 07/16/2020. On 07/19, she had onset of chest pain and she had also developed headache which was typical of her usual migraine headaches characterized by a bandlike sensation from the occiput to the temporal areas bilaterally. However she also has several days of tenderness over the area of the right confucianism associated with tinnitus and muted hearing in the right ear. This symptom resolved after she started Eliquis recently. She had not been on control since prior to her first . She underwent attempted Mirena IUD insertion on 07/29/2020. Evidently it was unsuccessful and she may undergo second attempt at placement in a few weeks. Menses tend to be very heavy when she is on anticoagulation. Underwent endometrial ablation in September 2020 for heavy menses while on anticoagulation. Saw vascular medicine. Indefinite anticoagulation advised. Presents for ongoing hematologic management. Interim history: Menses still regular. Most recent was heavy with clots. Tampon change hourly at heaviest. About 4 days. Tolerating Eliquis well with no unusual bleeding. No unexplained bruising. No respiratory symptoms. No leg pain or swelling. PMH, medications and allergies reviewed today. Any changes documented in appropriate section. PHYSICAL EXAM: Vitals: Blood pressure 107/74, pulse 74, temperature 36.9 ?C (98.5 ?F), temperature source Temporal, height 163 cm (5' 4.17), weight 63.7 kg (140 lb 8 oz), last menstrual period 03/26/2019, SpO2 100%. Well-appearing and in no acute distress. EYES: Sclerae are anicteric bilaterally. ASSESSMENT/PLAN: (I26.99) Pulmonary embolism without acute cor pulmonale, unspecified pulmonary embolism type (HCC) (primary encounter diagnosis) Assessment: -The patient is a 39-year-old female who had an unprovoked pulmonary embolism approximately 4 years prior to initial evaluation here. She completed 6 months of anticoagulation. Partial assessment of hypercoagulable labs at that time was negative. She received the Matias AND Matias SARS-CoV-2 vaccine on 07/16/2020 and was diagnosed with pulmonary embolism on . She also had migraine headache with unusual symptoms of hearing loss and tinnitus of the right ear associated with tenderness over the right confucianism area. Those symptoms resolved on anticoagulation. Subsequently found to be negative for antiplatelet factor 4 antibody. -Negative for lupus anticoagulant. -Saw vascular medicine specialist who agreed with indefinite anticoagulation. -Menstrual bleeding getting heavier but current benefit of ongoing anticoagulation outweighs risk. She has appointment with gynecology next month to address heavier menses. Plan: -Continue apixaban 5 mg BID. -Keep upcoming appointment with gynecology regarding heavy menses. -Can follow-up here as needed. Portions of this documentation were copied and pasted from my previous office visit note dated 12/11/2023 in order to provide a cohesive continuity of the history. The note has been reviewed and edited and updated as necessary. Adriano Gallo DO Allergies As of Date: 05/29/2024 Noted Allergy Reaction BACTRIM (SULFAMETHOXAZOLE-TRIM ETH*10/01/2021 4 - Hives Date Reviewed: 05/29/2024 Reviewed by: Adriano Gallo DO - Fully Assessed Reason for Visit: Established Patient [175] Primary Visit Diagn (more content not included)... Normal [facility] CNOVon 05-16-2024 CNOV Office Visit (UCWSTR ) JANNA LOPEZ ([id number]) 1985 F Date Time Provider Department 05/16/24 9:30 AM ALEX VILLALOBOS [facility] During your visit today, we recorded the following information about you: Temperature Pulse Respiration Blood pressure 99.2 degrees 95/minute 18/minute 108/70 Weight 64.2 kg Alex Villalobos APRN.DIRECTOR NURSES' REGISTRY 05/16/2024 10:14 AM Signed Subjective HPI Nontoxic-appearing female presents urgent care chief complaint sore throat fever body aches chills headache slight cough. Was coughing more yesterday than today. Most bothersome symptom today is pharyngitis. Sick contacts unknown. 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 Denies any difficulty swallowing and secretion decreased range of motion of neck or trismus. No high fevers. Is on Eliquis. Has not missed any doses. Denies any chest pain hemoptysis or pleuritic pain. Is not breast-feeding or . Past medical history prescription medications allergies reviewed. .Patient presents with: Sore Throat: Fever, bodyaches x2 days PAST MEDICAL HISTORY Diagnosis Date Abnormal glandular Papanicolaou smear of cervix 2007 AND 2010 Abn. Pap smear (cervix) History of squamous cell carcinoma of skin 05/12/2011 right knee Migraine, unspecified, with intractable migraine, so stated, without mention of status migrainosus Migraine with aura PAST SURGICAL HISTORY Procedure Laterality Date DELIVERY ONLY 08/19/2011 , low transverse DELIVERY ONLY 12/15/15 , low transverse COLPOSCOPY CERVIX UPPER/ADJACENT VAGINA Colposcopy COLPOSCOPY CERVIX UPPER/ADJACENT VAGINA 05/22/2013 Colposcopy PAST SURGICAL HISTORY OF 2009 EXCISION OF CANCER OF THIGH TONSILLECTOMY AND ADENOIDECTOMY ALLERGIES Bactrim [Sulfamethoxazole-Trim ethoprim] MEDICATIONS ELIQUIS 5 mg tab(s) TAKE 1 TABLET BY MOUTH TWICE DAILY MAGNESIUM GLYCINATE ORAL Take 1 tablet by mouth once daily. SUMAtriptan (IMITREX) 100 mg tablet TAKE 1 TABLET BY MOUTH AT ONSET OF HEADACHE rhapontic rhubarb root extract (ESTROVERA) 4 mg tablet Take 1 tablet by mouth once daily. Multivitamin capsule Take 1 capsule by mouth once daily. OTC PRODUCT Take 2 capsules by mouth three times a day. [place] FAMILY HISTORY Problem Relation Age of Onset Emphysema Maternal Grandfather Heart Maternal Grandfather GA Arthritis Paternal Grandmother Arthritis Paternal Grandfather Cancer Paternal Grandfather MELANOMA Prostate Cancer Paternal Grandfather Social History Tobacco Use Smoking status: Former Current packs/day: 0.00 Types: Cigarettes Quit date: 10/15/2010 Years since quittin.5 Smokeless tobacco: Never Tobacco comments: Social smoker Vaping Use Vaping status: Never Used Substance Use Topics Alcohol use: Yes Alcohol/week: 1.0 standard drink of alcohol Types: 1 Glasses of Wine (5oz) per week Comment: rarely Drug use: No BP 108/70 Pulse 95 Temp 37.3 ?C (99.2 ?F) Resp 18 Wt 64.2 kg (141 lb 8.6 oz) LMP 03/26/2019 SpO2 98% No BMI 23.87 kg/m? Review of Systems Constitutional: Positive for chills, fever and malaise/fatigue. HENT: Positive for congestion and sore throat. Negative for ear discharge, ear pain and sinus pain. Eyes: Negative for blurred vision, pain, discharge and redness. Respiratory: Positive for cough. Negative for hemoptysis, sputum production, shortness of breath, wheezing and stridor. Cardiovascular: Negative for chest pain. Gastrointestinal: Negative for abdominal pain, diarrhea, nausea and vomiting. Musculoskeletal: Positive for myalgias. Skin: Negative for itching and rash. Neurological: Positive for headaches. Negative for dizziness. Objective Physical Exam Constitutional: General: She is not in acute distress. Appearance: She is not diaphoretic. HENT: Head: Normocephalic. Jaw: No trismus, tenderness, swelling or pain on movement. Nose: Nose normal. Mouth/Throat: Mouth: Mucous membranes are moist. Pharynx: Oropharynx is clear. Uvula midline. Posterior oropharyngeal erythema present. No pharyngeal swelling, oropharyngeal exudate or uvula swelling. Tonsils: No tonsillar exudate or tonsillar abscesses. Comments: White ulcer-like lesions noted highlighted area. Ulcers are approximately 2 mm x 2 mm. Eyes: Conjunctiva/sclera: Conjunctivae normal. Pupils: Pupils are equal, round, and reactive to light. Cardiovascular: Rate and Rhythm: Normal rate and regular rhythm. Heart sounds: Normal heart sounds. Pulmonary: Effort: Pulmonary effort is normal. No tachypnea, accessory muscle usage or respiratory distress. Breath sounds: Normal breath sounds. No stridor. No wheezing, rhonchi or rales. Abdominal: General: There is no distension. Palpations: Abdomen is soft. Tenderness: There is no abdominal tenderness. There is no guarding or rebound. M (more content not included)... Normal [facility] STREP A MOLECULAR (POC)on Procedural Control Valid [facility] Strep A (POCT) Negative Negative [facility] DHEA Sulfateon 03-28-2024 DHEA SULFATE 261.0 ug/dL Normal 57.3-279.2 [facility] Comment on above: Order Comment: N Performed By: #### L 3100.5400, L509.3000, L501.9520, L3100.5170, L801.2600, L3100.5125, L3300.1750, L3300.1500 #### [facility] [address] [place], [address] PROGESTERONE 4317on 03-28-20 24 PROGESTERONE 1.9 ng/mL Normal . [facility] Comment on above: Order Comment: N Result Comment: Foll icular phase 0.1 - 0.9 Luteal phase 1.8 - 23.9 Ovulation phase 0.1 - 12.0 First trimester 11.0 - 44.3 Second trimester 25.4 - 83.3 Third trimester 58.7 - 214.0 Postmenopausal 0.0 - 0.1 Performed at: [facility] [id number] Back Tender: Randy Trejo PhD, Phone: [phone] Performed By: #### L 3100.5400, L509.3000, L501.9520, L3100.5170, L801.2600, L3100.5125, L3300.1750, L3300.1500 #### [facility] [address] [place], [place], [id number] PROLACTIN 4465on 03-28-2024 PROLACTIN 13.0 ng/mL Normal 4.8-33.4 [facility] Comment on above: Order Comment: N Result Comment: Perf ormed at: [facility] [employer] [id number] Back Tender: Randy Trejo PhD, Phone: [phone] Performed By: #### L 3100.5400, L509.3000, L501.9520, L3100.5170, L801.2600, L3100.5125, L3300.1750, L3300.1500 #### [facility] [address] [place], [place], [id number] Estradiolon 03-26-2024 ESTRADIOL 29.2 pg/mL Normal [facility] Comment on above: Result Comment: NORM AL REFERENCE RANGES FEMALE FOLLICULAR 21.4 - 164.8 pg/mL MID-CYCLE PEAK 49.9 - 367.2 pg/mL LUTEAL 40.2 - 259.0 pg/mL POST-MENOPAUSAL ON MHT <11.0 - 462.1 pg/mL NOT ON MHT <11.0 - 58.3 pg/mL MALE <11.0 - 52.5 pg/mL NOTE: [facility] HAS CONFIRMED THE DRUG FULVETRANT (FASLODEX) MAY CAUSE FALSELY ELEVATED ESTRADIOL RESULTS WHEN USING THIS TEST METHOD. IF PATIENT IS TAKING FULVESTRANT AN ALTERNATIVE METHOD SHOULD BE USED TO DETERMINE ESTRADIOL CONCENTRATION. Performed By: #### L 3100.5400, L509.3000, L501.9520, L3100.5170, L801.2600, L3100.5125, L3300.1750, L3300.1500 #### [facility] [address] [place], [place], [id number] Follicle Stimulating Hormone on 03-26-2024 FSH 2.3 mIU/mL Normal [facility] Comment on above: Result Comment: NORMAL REFERENCE RANGES FEMALE FOLLICULAR 2.3 - 12.6 mIU/mL MID-CYCLE PEAK 5.2 - 17.5 mIU/mL LUTEAL 1.7 - 12.9 mIU/mL POST-MENOPAUSAL ON MHT 5.9 - 72.8 mIU/mL NOT ON MHT 12.7 - 132.2 mlU/mL MALE 0.7 - 10.8 mIU/mL Performed By: #### L 3100.5400, L509.3000, L501.9520, L3100.5170, L801.2600, L3100.5125, L3300.1750, L3300.1500 #### [facility] [address] [place], [place], [id number] Luteinizing Hormoneon 2023 LH 1.4 mIU/mL Normal [facility] Comment on above: Result Comment: NORMAL REFERENCE RANGES FEMALE FOLLICULAR 1.9 - 26.2 mIU/mL MID-CYCLE PEAK 22.8 - 76.1 mIU/mL LUTEAL 0.6 - 16.6 mIU/mL POST-MENOPAUSAL ON MHT 1.1 - 52.4 mIU/mL NOT ON MHT 8.6 - 61.8 mIU/mL MALE 1.2 - 10.6 mIU/mL Performed By: #### L 3100.5400, L509.3000, L501.9520, L3100.5170, L801.2600, L3100.5125, L3300.1750, L3300.1500 #### [facility] [address] [place], [place], [id number] Testosterone, Serum Totalon 03-26-2024 Testosterone [Mass/Vol] 20.30 ng/dL Normal [facility] Comment on above: Result Comment: CENT RAL 90% REFERENCE RANGES MALE AGE <50 197.44 - 669.58 ng/dL MALE AGE > or = 50 187.72 - 684.19 ng/dL FEMALE AGE <50 8.38 - 35.01 ng/dL FEMALE AGE > or = 50 <7.00 - 35.92 ng/dL Effective as of 11/10/20 Performed By: #### L 3100.5400, L509.3000, L501.9520, L3100.5170, L801.2600, L3100.5125, L3300.1750, L3300.1500 #### [facility] [address] [place], [place], [id number] Thyroid Stim Hormone (TSH)on 03-26-2024 TSH 0.868 uIU/mL Normal 0.358-3.740 [facility] Comment on above: Performed By: #### L 3100.5400, L509.3000, L501.9520, L3100.5170, L801.2600, L3100.5125, L3300.1750, L3300.1500 #### [facility] [address] [place], [place], [id number] CBC W/Diff, Automatedon 09-1 1-2024 Absolute Lymph 1.98 X10 3/uL Normal 0.83-4.51 [facility] Comment on above: Performed By: #### L 500.4100, L506.1000, L501.9520, L100.0100, L506.0400, L503.0105, L500.4050 #### [facility] [address] [place], [address] Absolute Neut 2.6 X10 3/uL Normal 2.0-7.7 [facility] Comment on above: Performed By: #### L 500.4100, L506.1000, L501.9520, L100.0100, L506.0400, L503.0105, L500.4050 #### [facility] [address] [place], [address] Basophils/100 WBC (Bld) 0.4 % Normal 0-1 [facility] Comment on above: Performed By: #### L 500.4100, L506.1000, L501.9520, L100.0100, L506.0400, L503.0105, L500.4050 #### [facility] [address] [place], [address] Eosinophils/100 WBC (Bld) 3.0 % Normal 0-5 [facility] Comment on above: Performed By: #### L 500.4100, L506.1000, L501.9520, L100.0100, L506.0400, L503.0105, L500.4050 #### [facility] [address] [place], [address] Erythrocyte distribution width (RBC) [Ratio] 11.8 % Normal 11.6-14.6 [facility] Comment on above: Performed By: #### L 500.4100, L506.1000, L501.9520, L100.0100, L506.0400, L503.0105, L500.4050 #### [facility] [address] [place], [address] Hematocrit (Bld) [Volume fraction] 41.0 % Normal 37-47 [facility] Comment on above: Performed By: #### L 500.4100, L506.1000, L501.9520, L100.0100, L506.0400, L503.0105, L500.4050 #### [facility] [address] [place], [address] Hemoglobin (Bld) [Mass/Vol] 13.5 g/dL Normal 12.0-15.0 [facility] Comment on above: Performed By: #### L 500.4100, L506.1000, L501.9520, L100.0100, L506.0400, L503.0105, L500.4050 #### [facility] [address] [facility] [place] [place], [address] IG% 0.400 Normal 0.0-0.9 [facility] Comment on above: Result Comment: IG% - Immature Granulocytes (promyelocytes, myelocytes and metamyelocytes) > 1% indicates that a LEFT SHIFT is Present. Performed By: #### L 500.4100, L506.1000, L501.9520, L100.0100, L506.0400, L503.0105, L500.4050 #### [facility] [address] [place], [address] Lymphocytes/100 WBC (Bld) 37.6 % Normal 19-41 [facility] Comment on above: Performed By: #### L 500.4100, L506.1000, L501.9520, L100.0100, L506.0400, L503.0105, L500.4050 #### [facility] [address] [place], [address] MCH (RBC) [Entitic mass] 29.3 pg Normal 27.0-32.0 [facility] Comment on above: Performed By: #### L 500.4100, L506.1000, L501.9520, L100.0100, L506.0400, L503.0105, L500.4050 #### [facility] [address] [place], [address] MCHC (RBC) [Mass/Vol] 32.9 g/dL Normal 32-36 [facility] Comment on above: Performed By: #### L 500.4100, L506.1000, L501.9520, L100.0100, L506.0400, L503.0105, L500.4050 #### [facility] [address] [place], [address] MCV (RBC) [Entitic vol] 88.9 fL Normal 81-99 [facility] Comment on above: Performed By: #### L 500.4100, L506.1000, L501.9520, L100.0100, L506.0400, L503.0105, L500.4050 #### [facility] [address] [place], [address] Monocytes/100 WBC (Bld) 9.9 % Normal 0-10 [facility] Comment on above: Performed By: #### L 500.4100, L506.1000, L501.9520, L100.0100, L506.0400, L503.0105, L500.4050 #### [facility] [address] [place], [address] Neutrophils/100 WBC (Bld) 48.7 % Normal 47-70 [facility] Comment on above: Performed By: #### L 500.4100, L506.1000, L501.9520, L100.0100, L506.0400, L503.0105, L500.4050 #### [facility] [address] [place], [address] Nucleated RBC (Bld) [#/Vol] 0 10*3/uL Normal 0-5 [facility] Comment on above: Performed By: #### L 500.4100, L506.1000, L501.9520, L100.0100, L506.0400, L503.0105, L500.4050 #### [facility] [address] [place], [address] Platelet mean volume (Bld) [Entitic vol] 9.5 fL Normal 6.2-12.0 [facility] Comment on above: Performed By: #### L 500.4100, L506.1000, L501.9520, L100.0100, L506.0400, L503.0105, L500.4050 #### [facility] [address] [place], [address] Platelets (Bld) [#/Vol] 292 10*3/uL Normal 150-450 [facility] Comment on above: Performed By: #### L 500.4100, L506.1000, L501.9520, L100.0100, L506.0400, L503.0105, L500.4050 #### [facility] [address] [place], [address] RBC (Bld) [#/Vol] 4.61 10*6/uL Normal 4.2-5.4 [facility] Comment on above: Performed By: #### L 500.4100, L506.1000, L501.9520, L100.0100, L506.0400, L503.0105, L500.4050 #### [facility] [address] [place], [address] RDW SD 38.4 fl Normal 35.1-43.9 [facility] Comment on above: Performed By: #### L 500.4100, L506.1000, L501.9520, L100.0100, L506.0400, L503.0105, L500.4050 #### [facility] [address] [place], [address] WBC (Bld) [#/Vol] 5.3 10*3/uL Normal 4.4-11.0 [facility] Comment on above: Performed By: #### L 500.4100, L506.1000, L501.9520, L100.0100, L506.0400, L503.0105, L500.4050 #### [facility] [address] [place], [address] Comprehensive Metabolic Prof ilon 12-27-2023 Albumin [Mass/Vol] 4.0 g/dL Normal 3.2-5.0 [facility] Comment on above: Performed By: #### L 3100.5400, L509.3000, L501.9520, L3100.5170, L801.2600, L3100.5125, L3300.1750, L3300.1500 #### [facility] [address] [place], [address] Albumin/Globulin [Mass ratio] 1.3 {ratio} Normal 0.9-2.4 [facility] Comment on above: Performed By: #### L 3100.5400, L509.3000, L501.9520, L3100.5170, L801.2600, L3100.5125, L3300.1750, L3300.1500 #### [facility] [address] [place], [address] ALK P 55 U/L Normal 45-117 [facility] Comment on above: Performed By: #### L 3100.5400, L509.3000, L501.9520, L3100.5170, L801.2600, L3100.5125, L3300.1750, L3300.1500 #### [facility] [address] [place], [address] ALT [Catalytic activity/Vol] 20 U/L Normal 13-56 [facility] Comment on above: Performed By: #### L 3100.5400, L509.3000, L501.9520, L3100.5170, L801.2600, L3100.5125, L3300.1750, L3300.1500 #### [facility] [address] [place], [address] AST [Catalytic activity/Vol] 11 U/L Low 15-37 [facility] Comment on above: Performed By: #### L 3100.5400, L509.3000, L501.9520, L3100.5170, L801.2600, L3100.5125, L3300.1750, L3300.1500 #### [facility] [address] [place], [address] Bilirubin [Mass/Vol] 0.20 mg/dL Normal 0.20-1.00 [facility] Comment on above: Result Comment: For patients on eltrombopag therapy, use of Dimension Plessis TBIL is not recommended. Performed By: #### L 3100.5400, L509.3000, L501.9520, L3100.5170, L801.2600, L3100.5125, L3300.1750, L3300.1500 #### [facility] [address] [place], [address] BUN/CRE 23.3 RATIO High 10-20 [facility] Comment on above: Performed By: #### L 3100.5400, L509.3000, L501.9520, L3100.5170, L801.2600, L3100.5125, L3300.1750, L3300.1500 #### [facility] [address] [place], [address] CA,Total 9.1 mg/dL Normal 8.5-10.1 [facility] Comment on above: Performed By: #### L 3100.5400, L509.3000, L501.9520, L3100.5170, L801.2600, L3100.5125, L3300.1750, L3300.1500 #### [facility] [address] [place], [address] Chloride [Moles/Vol] 107 mmol/L Normal 98-107 [facility] Comment on above: Performed By: #### L 3100.5400, L509.3000, L501.9520, L3100.5170, L801.2600, L3100.5125, L3300.1750, L3300.1500 #### [facility] [address] [place], [address] CO2 [Moles/Vol] 28.0 mmol/L Normal 21.0-32.0 [facility] Comment on above: Performed By: #### L 3100.5400, L509.3000, L501.9520, L3100.5170, L801.2600, L3100.5125, L3300.1750, L3300.1500 #### [facility] [address] [place], [address] Creatinine [Mass/Vol] 0.64 mg/dL Normal 0.55-1.02 [facility] Comment on above: Result Comment: The validity of the calculated GFR GFRAA in patients over 70 years has not been determined. Clinical correlation is essential. Performed By: #### L 3100.5400, L509.3000, L501.9520, L3100.5170, L801.2600, L3100.5125, L3300.1750, L3300.1500 #### [facility] [address] [place], [address] EST GFR - AA 132 mL/min Normal >60 [facility] Comment on above: Result Comment: Afri can Tog[place]ese GFR Calc Performed By: #### L 3100.5400, L509.3000, L501.9520, L3100.5170, L801.2600, L3100.5125, L3300.1750, L3300.1500 #### [facility] [address] [place], [address] GAP 4 Low 5-15 [facility] Comment on above: Performed By: #### L 3100.5400, L509.3000, L501.9520, L3100.5170, L801.2600, L3100.5125, L3300.1750, L3300.1500 #### [facility] [address] [place], [address] GFR/1.73 sq M.predicted among non-blacks MDRD (S/P/Bld) [Vol rate/Area] 109 mL/min/{1.73_m2} Normal >60 [facility] Comment on above: Result Comment: Non- GFR Calc Performed By: #### L 3100.5400, L509.3000, L501.9520, L3100.5170, L801.2600, L3100.5125, L3300.1750, L3300.1500 #### [facility] [address] [place], [address] Globulin (S) [Mass/Vol] 3.1 g/dL Normal 2.2-4.2 [facility] Comment on above: Performed By: #### L 3100.5400, L509.3000, L501.9520, L3100.5170, L801.2600, L3100.5125, L3300.1750, L3300.1500 #### [facility] [address] [place], [address] Glucose [Mass/Vol] 96 mg/dL Normal 74-106 [facility] Comment on above: Performed By: #### L 3100.5400, L509.3000, L501.9520, L3100.5170, L801.2600, L3100.5125, L3300.1750, L3300.1500 #### [facility] [facility] [address] [place], [address] Potassium [Moles/Vol] 4.1 mmol/L Normal 3.5-5.1 [facility] Comment on above: Performed By: #### L 3100.5400, L509.3000, L501.9520, L3100.5170, L801.2600, L3100.5125, L3300.1750, L3300.1500 #### [facility] [address] [place], [address] Sodium [Moles/Vol] 139 mmol/L Normal 136-145 [facility] Comment on above: Performed By: #### L 3100.5400, L509.3000, L501.9520, L3100.5170, L801.2600, L3100.5125, L3300.1750, L3300.1500 #### [facility] [address] [place], [address] T PROT 7.1 g/dL Normal 6.4-8.2 [facility] Comment on above: Performed By: #### L 3100.5400, L509.3000, L501.9520, L3100.5170, L801.2600, L3100.5125, L3300.1750, L3300.1500 #### [facility] [address] [place], [address] Urea nitrogen [Mass/Vol] 15 mg/dL Normal 7-18 [facility] Comment on above: Performed By: #### L 3100.5400, L509.3000, L501.9520, L3100.5170, L801.2600, L3100.5125, L3300.1750, L3300.1500 #### [facility] [address] [place], [address] Lipid Profileon 12-27-2023 Cholesterol [Mass/Vol] 242 mg/dL High 200 [facility] Comment on above: Result Comment: <200 mg/dL Desirable 200-240 mg/dL Borderline >240 mg/dL High Risk Performed By: #### L 3100.5400, L509.3000, L501.9520, L3100.5170, L801.2600, L3100.5125, L3300.1750, L3300.1500 #### [facility] [address] [place], [address] Cholesterol in HDL [Mass/Vol] 46 mg/dL Normal [facility] Comment on above: Result Comment: The drugs N-Acetylcysteine and Metamizole may falsely depress this assay. Reference Range HDL <40 mg/dL Low HDL Cholesterol HDL >or= 60 mg/dL High HDL Cholesterol Performed By: #### L 3100.5400, L509.3000, L501.9520, L3100.5170, L801.2600, L3100.5125, L3300.1750, L3300.1500 #### [facility] [address] [place], [address] Cholesterol in LDL [Mass/Vol] 177 mg/dL High 0-130 [facility] Comment on above: Performed By: #### L 3100.5400, L509.3000, L501.9520, L3100.5170, L801.2600, L3100.5125, L3300.1750, L3300.1500 #### [facility] [address] [place], [address] Cholesterol in VLDL [Mass/Vol] 19 mg/dL Normal 5-40 [facility] Comment on above: Performed By: #### L 3100.5400, L509.3000, L501.9520, L3100.5170, L801.2600, L3100.5125, L3300.1750, L3300.1500 #### [facility] [address] [place], [address] Triglyceride [Mass/Vol] 97 mg/dL Normal [facility] Comment on above: Result Comment: The drugs N-Acetylcysteine and Metamizole may falsely depress this assay. Serum Triglycerides Reference Interval Normal <150 mg/dL Borderline high 150 - 199 mg/dL High 200 - 499 mg/dL Very High > or = 500 mg/dL Performed By: #### L 3100.5400, L509.3000, L501.9520, L3100.5170, L801.2600, L3100.5125, L3300.1750, L3300.1500 #### [facility] [address] [place], [address] T4 Free Directon 12-27-2023 T4 FREE DIRECT 0.86 ng/dL Normal 0.76-1.46 [facility] Comment on above: Performed By: #### L 3100.5400, L509.3000, L501.9520, L3100.5170, L801.2600, L3100.5125, L3300.1750, L3300.1500 #### [facility] [address] [facility] [place] [place], [address] Thyroid Stim Hormone (TSH)on 12-27-2023 TSH 1.640 uIU/mL Normal 0.358-3.740 [facility] Comment on above: Performed By: #### L 3100.5400, L509.3000, L501.9520, L3100.5170, L801.2600, L3100.5125, L3300.1750, L3300.1500 #### [facility] [address] [facility] [place], [address] Vitamin B12on 12-27-2023 Cobalamin (Vitamin B12) [Mass/Vol] 763 pg/mL Normal 211-911 [facility] Comment on above: Performed By: #### L 500.4100, L506.1000, L501.9520, L100.0100, L506.0400, L503.0105, L500.4050 #### [facility] [address] [place], [address] Vitamin D,25 Hydroxyon 12-26 Vitamin D 25-OH 98.2 ng/mL Normal [facility] Comment on above: Result Comment: Oriana min D 25(OH) Status Range Deficiency <20 ng/mL (50nmol/L) Insufficiency 20 - 30 ng/mL (50 - 75 nmol/L) Sufficiency 30 - 100 ng/mL (75 - 250 nmol/L) Toxicity >100 ng/mL (>250 nmol/L) Performed By: #### L 3100.5400, L509.3000, L501.9520, L3100.5170, L801.2600, L3100.5125, L3300.1750, L3300.1500 #### [facility] [address] [place], [address] CNOVSPon 11-21-2023 CNOVS Visit (SP) Office ([facility]) JANNA LOPEZ ([id number]) 1985 F Date Time Provider Department 11/21/23 10:30 AM ADRIANO GALLO During your visit today, we recorded the following information about you: Temperature Pulse Blood pressure Weight 98.9 degrees 77/minute 112/71 66 kg Adriano Gallo DO 11/21/2023 11:02 AM Signed Hematologic problem(s): 1) Recurrent DVT/PE. HPI: The patient is a 38-year-old female with a PMH significant for migraine HAs. 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 In May 2016 she was seen for complaint of dull aching chest pain that had started the day prior 06/07/2016. Evidently her EKG was abnormal and she was directed to the emergency room at [facility]. CT demonstrated an isolated complete filling defect in the left lower lobe segmental branch medially. She was admitted overnight and received Lovenox. She was then transitioned to Xarelto. She completed 6 months of Xarelto and then stopped. Hypercoagulation work-up at the time of that event included no evidence of anticardiolipin antibodies, negative PCR for factor V Leiden, normal protein C activity, normal antithrombin activity and normal protein S activity. This event occurred about 6 months , second . She had had no since then and had no prior history of venous thromboembolic events. She received the Matias AND Matias SARS-CoV-2 vaccination on 07/16/2020. On 07/19, she had onset of chest pain and she had also developed headache which was typical of her usual migraine headaches characterized by a bandlike sensation from the occiput to the temporal areas bilaterally. However she also has several days of tenderness over the area of the right confucianism associated with tinnitus and muted hearing in the right ear. This symptom resolved after she started Eliquis recently. She had not been on control since prior to her first . She underwent attempted Mirena IUD insertion on 07/29/2020. Evidently it was unsuccessful and she may undergo second attempt at placement in a few weeks. Menses tend to be very heavy when she is on anticoagulation. Underwent endometrial ablation in September 2020 for heavy menses while on anticoagulation. Saw vascular medicine. Indefinite anticoagulation advised. Presents for ongoing hematologic management. Interim history: Was having mood swings and fatigue. 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 Was given rx for antidepressant. Saw functional medicine and found to have low estrogen and progesterone--levels done ~10 days prior to menses. Was given DHEA (10 mg OTC). Took it two days and felt jittery. Functional medicine practitioner suggested symptoms were from blood being too thin and to see me regarding if okay to dose reduce apixaban. Menses still regular. Not as heavy as prior to ablation. Tolerating Eliquis well with no unusual bleeding. Occasional unexplained bruising. No respiratory symptoms. No leg pain or swelling. PMH, medications and allergies personally reviewed by me today. Any changes documented in appropriate section. PHYSICAL EXAM: Vitals: Blood pressure 112/71, pulse 77, temperature 37.2 ?C (98.9 ?F), temperature source Temporal, weight 66 kg (145 lb 8 oz), last menstrual period 03/26/2019, SpO2 98%, currently . Not (confirmed today). Well-appearing and in no acute distress. EYES: Sclerae are anicteric bilaterally. RESPIRATORY: Inspiratory breath sounds are of normal intensity in all peace. No rales, wheezes or rhonchi. CARDIOVASCULAR: Rhythm is regular. ABDOMEN: The abdomen is nondistended. Extremities: No swelling or edema. SKIN: No jaundice. ASSESSMENT/PLAN: (I26.99) Pulmonary embolism without acute cor pulmonale, unspecified pulmonary embolism type (HCC) (primary encounter diagnosis) Assessment: -The patient is a 38-year-old female who had an unprovoked pulmonary embolism approximately 4 years prior to initial evaluation here. She completed 6 months of anticoagulation. Partial assessment of hypercoagulable labs at that time was negative. She received the Matias AND Matias SARS-CoV-2 vaccine on 07/16/2020 and was diagnosed with pulmonary embolism on . She also had migraine headache with unusual symptoms of hearing loss and tinnitus of the right ear associated with tenderness over the right confucianism area. Those symptoms resolved on anticoagulation. Subsequently found to be negative for antiplatelet factor 4 antibody. -Negative for lupus anticoagulant. -Saw vascular medicine specialist who agreed with indefinite anticoagulation. -Recent low estrogen and progesterone level although she is still having regular menses. Did not tolerate OTC DHEA replacement/supplement . -I do not think that her (more content not included)... [facility] JANNA LOPEZ ([id number]) 1985 F Date Time Provider Department 08/31/23 JIL HAIRSTON [facility] During your visit today, we recorded the following information about you: Jil Hairston APRN.DIRECTOR NURSES' REGISTRY 08/31/2023 9:36 AM Signed Please let patient know her mammogram is negative. Patient should continue with annual screenings. Minna Iraheta MA 08/31/2023 9:41 AM Signed [facility] [employer] message sent to patient Minna Iraheta MA Allergies As of Date: 08/31/2023 Noted Allergy Reaction BACTRIM (SULFAMETHOXAZOLE-TRIM ETH*10/01/2021 4 - Hives Date Reviewed: 05/29/2023 Reviewed by: Adriano Gallo DO - Fully Assessed Reason for Visit: Results [95] Prescriptions as of 08/31/2023 - SUMAtriptan (IMITREX) 100 mg tablet TAKE 1 TABLET BY MOUTH AT ONSET OF HEADACHE - OTC PRODUCT Take 2 capsules by mouth three times a day. Ginger - rhapontic rhubarb root extract (ESTROVERA) 4 mg tablet Take 1 tablet by mouth once daily. - OTC PRODUCT Take 1 Scoop by mouth once daily. Intestinal Restore - apixaban (ELIQUIS) 5 mg tab(s) Take 1 tablet by mouth two times a day. - Multivitamin capsule Take 1 capsule by mouth once daily. Problem List As Of Date 08/31/2023 Noted Resolved Supervision of normal [Z34.90] 04/13/2011 05/08/2012 History of squamous cell carcinoma of skin [Z85*05/12/2011 01/29/2016 Class: Chronic Irregular menses [N92.6] 05/08/2012 08/10/2015 ASCUS with positive high risk HPV [[id number]] 06/13/2012 05/05/2015 Dysplasia of cervix, low grade (ANDRÉS 1) [N87.0] 05/22/2013 Encounter for supervision of normal i*05/05/2015 01/29/2016 Previous section [Z98.891] 05/05/2015 01/29/2016 Exposure to parvovirus [Z20.828] 08/10/2015 01/29/2016 Near syncope [R55] 08/21/2015 01/29/2016 Wound dehiscence, , delivered with post*01/29/2016 Encounter Status:Closed by WORKMINNA FERNANDEZ CMA on 08/31/23 [facility] Auto Differential pane l (Bld)on 12-01-2022 Basophils (Bld) [#/Vol] 0.05 10*3/uL <0.11 k/uL [facility] Basophils/100 WBC (Bld) 0.6 % [facility] Differential cell count method Nom (Bld) Auto [facility] Eosinophils (Bld) [#/Vol] 0.11 10*3/uL <0.46 k/uL [facility] Eosinophils/100 WBC (Bld) 1.2 % [facility] Erythrocyte distribution width (RBC) [Ratio] 12.0 % 11.5 - 15.0 % [facility] Hematocrit (Bld) [Volume fraction] 41.0 % 36.0 - 46.0 % [facility] Hemoglobin (Bld) [Mass/Vol] 13.8 g/dL 11.5 - 15.5 g/dL [facility] Immature granulocytes (Bld) [#/Vol] <0.10 k/uL [facility] Immature granulocytes/100 WBC (Bld) 0.2 % [facility] Lymphocytes (Bld) [#/Vol] 2.98 10*3/uL 1.00 - 4.00 k/uL [facility] Lymphocytes/100 WBC (Bld) 33.2 % [facility] MCH (RBC) [Entitic mass] 29.5 pg 26.0 - 34.0 pg [facility] MCHC (RBC) [Mass/Vol] 33.7 g/dL 30.5 - 36.0 g/dL [facility] MCV (RBC) [Entitic vol] 87.6 fL 80.0 - 100.0 fL [facility] Monocytes (Bld) [#/Vol] 0.68 10*3/uL <0.87 k/uL [facility] Monocytes/100 WBC (Bld) 7.6 % [facility] Neutrophils (Bld) [#/Vol] 5.14 10*3/uL 1.45 - 7.50 k/uL [facility] Neutrophils/100 WBC (Bld) 57.2 % [facility] Nucleated RBC (Bld) [#/Vol] <0.01 k/uL [facility] Nucleated RBC/100 WBC (Bld) [Ratio] 0.0 /100 WBC [facility] Platelet mean volume (Bld) [Entitic vol] 9.3 fL 9.0 - 12.7 fL [facility] Platelets (Bld) [#/Vol] 340 10*3/uL 150 - 400 k/uL [facility] RBC (Bld) [#/Vol] 4.68 10*6/uL 3.90 - 5.2 0 m/uL [facility] WBC (Bld) [#/Vol] 8.98 10*3/uL 3.70 - 11. 00 k/uL [facility] Absolute lymphocyte counton 02-11-2022 Lymphocytes Auto (Unsp spec) [#/Vol] 2.13 10*3/uL 0.83-4.51 [facility] Work Phone: Basophil percentageon 2021 Basophils/100 WBC (Bld) 0.5 % 0-1 [facility] Work Phone: Chloride [Moles/Vol] 107 mmol/L 98-107 [facility] Work Phone: Eosinophils/100 WBC (Bld) 1.6 % 0-5 [facility] Work Phone: Glucose [Mass/Vol] 99 mg/dL 74-106 [facility] Work Phone: Neutrophils (Bld) [#/Vol] 3.4 10*3/uL 2.0-7.7 [facility] Work Phone: Neutrophils/100 WBC (Bld) 54.8 % 47-70 [facility] Work Phone: Potassium [Moles/Vol] 3.0 mmol/L 3.5-5.1 [facility] Work Phone: Sodium [Moles/Vol] 141 mmol/L 136-145 [facility] Work Phone: WBC (Bld) [#/Vol] 6.2 10*3/uL 4.4-11.0 [facility] Work Phone: Blood erythrocytes count (nu mber/volume)on 02-11-2022 RBC (Bld) [#/Vol] 4.58 10*6/uL 4.2-5.4 [facility] Work Phone: Blood hemoglobin measurement (mass/volume)on 02-11-2022 Hemoglobin (Bld) [Mass/Vol] 13.7 g/dL 12.0-15.0 [facility] Work Phone: Blood lymphocytes/100 leukoc yteson 02-11-2022 Lymphocytes/100 WBC (Bld) 34.5 % 19-41 [facility] Work Phone: Blood monocytes/100 leukocyt eson 02-11-2022 Monocytes/100 WBC (Bld) 8.1 % 0-10 [facility] Work Phone: Blood platelet mean volumeon 02-11-2022 Platelet mean volume (Bld) [Entitic vol] 9.3 fL 6.2-12.0 [facility] Work Phone: Determination of erythrocyte mean corpuscular volume (MCV)on 02-11-2022 MCV (RBC) [Entitic vol] 86.7 fL 81-99 [facility] Work Phone: Hematocrit Auto (Bld) [Volum e fraction]on 02-11-2022 Hematocrit (Bld) [Volume fraction] 39.7 % 37-47 [facility] Work Phone: Laboratory - Chemistry and C hemistry - challengeon 02-11-2022 CO2 [Moles/Vol] 27.0 mmol/L 21.0-32.0 [facility] Work Phone: Urea nitrogen/Creatinine [Mass ratio] 12.8 mg/mg 10-20 [facility] Work Phone: Laboratory - Hematology and Cell countson 02-11-2022 Erythrocyte distribution width (RBC) [Entitic vol] 36.4 fL 35.1-43.9 [facility] Work Phone: Erythrocyte distribution width (RBC) [Ratio] 11.5 % 11.6-14.6 [facility] Work Phone: Immature granulocytes/100 WBC (Bld) 0.500 % 0.0-0.9 [facility] Work Phone: Comment on above: IG% - Immature Granu locytes (promyelocytes, myelocytes and metamyelocytes) > 1% indicates that a LEFT SHIFT is Present. MCH (RBC) [Entitic mass] 29.9 pg 27.0-32.0 [facility] Work Phone: Nucleated RBC/100 WBC (Bld) [Ratio] 0 % 0-5 [facility] Work Phone: MCHC Auto (RBC) [Mass/Vol]on 02-11-2022 MCHC (RBC) [Mass/Vol] 34.5 g/dL 32-36 [facility] Work Phone: No Panel Informationon 02-11 Troponin I High Sensitivity 4 pg/mL 3.0-54.0 [facility] Work Phone: Comment on above: Please Note: [place] t Units and Gender Specific Reference Ranges. For more information see Policy Stat Procedure [place] High Sensitivity Troponin (TNIH) and attachments. Estimated Creatinine Clearance Calc 95.02 ml/min [facility] Work Phone: Estimated GFR (MDRD) Amer 120 mL/min >60 [facility] Work Phone: Comment on above: GFR Calc Estimated GFR (MDRD) Non-Af Amer 99 mL/min >60 [facility] Work Phone: Comment on above: Non- GFR Calc Platelets bldon 02-11-2022 Platelets (Bld) [#/Vol] 299 10*3/uL 150-450 [facility] Work Phone: Serum or plasma calcium elias urement (mass/volume)on 02-11-2022 Calcium [Mass/Vol] 9.1 mg/dL 8.5-10.1 [facility] Work Phone: Serum or plasma creatinine m easurement (mass/volume)on 02-11-2022 Creatinine [Mass/Vol] 0.70 mg/dL 0.55-1.02 [facility] Work Phone: Comment on above: The validity of the calculated GFR & GFRAA in patients over 70 years has not been determined. Clinical correlation is essential. Serum or plasma urea nitroge n measurement (mass/volume)on 02-11-2022 Urea nitrogen [Mass/Vol] 9 mg/dL 7-18 [facility] Work Phone: Thin prep Papanicolaou smear with manual screeningon 02-11-2022 Thin prep Papanicolaou smear with manual screening 7 5-15 [facility] Work Phone: Cervical or vagninal specime n microscopic examination by cytology stain (reported ason 08-05-2021 Cytology report Cyto stain Doc (Cvx/Vag) Comment [facility] Work Phone: Comment on above: The Pap smear is a s creening test designed to aid in thedetection of premalignant and malignant conditions of theuterine cervix. It is not a diagnostic procedure andshould not be used as the sole means of detecting cervicalcancer. Both false-positive and false-negative reports dooccur. Detection in cervical specim en of any of human papilloma virus (HPV) 16, 18, 31, 33,on 08-05-2021 HPV 16+18+31+33+35+39+4 5+51+52+56+58+59+66 +68 DNA Probe+sig amp Ql (Cvx) Negative Negative [facility] Work Phone: Comment on above: This nucleic acid am plification test detects fourteen high- risk HPV types (16,18,31,33,35,39,45,51,52,56,58,59,66,68)without differentiation.Performed at: - [address] [id number] Director: Jacqueline Welch MD, Phone: [phone] at: =[facility] [id number] Director: Jacqueline Welch MD, Phone: [phone] Laboratory - Cytologyon 07-17 Cvt Rn Cyto stain Nom (Cvx/Vag) [ID] Comment [facility] Work Phone: Comment on above: Eleuterio Bateman , Core Placer (ASCP) Laboratory - Miscellaneous t estson 08-05-2021 Service comment (Unsp spec) [Interp] Comment [facility] Work Phone: Comment on above: This liquid based Th inPrep(R) pap test was screened withthe use of an image guided system. Service comment (Unsp spec) [Interp] . [facility] Work Phone: No Panel Informationon 08-05 Pathology report final diagnosis Narrative Comment [facility] Work Phone: Comment on above: NEGATIVE FOR INTRAEP ITHELIAL LESION OR MALIGNANCY. MRI BRAIN WO/W IVCONon 08-10 MRI BRAIN WO/W IVCON * * *Final Report* * * DATE OF EXAM: Aug 10 2020 4:44PM [facility] 0295 - MRI BRAIN WO/W IVCON / PROCEDURE REASON: I26.99-Acute pulmonary embolism without acute cor pulmonale, unspecified pulmona * * * * Physician Interpretation * * * * EXAMINATION: MRI BRAIN WO/W IVCON, MRV BRAIN WO/W IVCON HISTORY: Acute pulmonary embolism without acute cor pulmonale, unspecified pulmonary embolism type (HCC) Additional narrative history of history of 2 episodes of pulmonary embolism after Covid vaccine. Severe headache for 2 weeks. TECHNIQUE: Routine brain MRI protocol without and with contrast including diffusion and gradient echo images. Intracranial ytlc-ii-ntqgla and gadolinium-enhanced MR venogram. MQ: [id number] Contrast: 13 mL Dotarem IV COMPARISON: None. RESULT: BRAIN: Acute Change: There is no evidence of restricted diffusion to suggest an acute infarct. Hemorrhage: No evidence of prior parenchymal hemorrhage on the susceptibility weighted images. Mass Lesion/ Mass Effect: No evidence of an intracranial mass or extra-axial fluid collection. No abnormal parenchymal or leptomeningeal enhancement is noted following contrast administration. No significant mass effect. Chronic Change: The white matter is within normal limits of signal intensity for age. Parenchyma: No significant volume loss for age. The brain parenchyma is otherwise within normal limits of signal intensity and morphology. Ventricles: Normal caliber and morphology. Skull Base: Hypothalamic and pituitary region are grossly normal. Craniocervical junction is normal. No significant marrow replacement process. Vasculature: Major intracranial arterial structures, and dural venous sinuses show typical flow void, suggesting patency by spin echo criteria. Typical enhancement of major cortical draining veins, deep venous structures, and dural venous sinuses on the axial post gadolinium volume acquisition. Similar appearance on the coronal post gadolinium T1-weighted scan. Other: Mild peripheral mucosal thickening in the maxillary sinus chambers and minimal in the ethmoid air cells. Remaining paranasal sinus chambers are grossly clear. Mastoid air cells and middle ear cavities are clear. Orbits are structurally normal in appearance. INTRACRANIAL MRV: The leay-mc-qpfuyk and gadolinium-enhanced MR venogram images show normally patent deep venous structures, major cortical draining veins, and dural venous sinuses. There is no evidence for extrinsic narrowing or internal thrombosis. IMPRESSION: Normal age appropriate appearance of the brain. No focal mass effect, hemorrhage, hydrocephalus or abnormal enhancement. Based on the axial T2 flow void pattern, proximal intracranial arterial vasculature, major cortical draining veins, and dural venous sinuses are patent. Concordant appearance on the post gadolinium scans. Dedicated zadu-ev-cclyje and gadolinium-enhanced MR venogram shows normally patent deep venous structures, major cortical draining veins, and dural venous sinuses. No evidence for thrombosis. Surgery Scheduling Coordinator: PSCB Transcribe Date/Time: Aug 10 2020 5:01P Dictated by : MORENO CRAWFORD MD This examination was interpreted and the report reviewed and electronically signed by: MORENO CRAWFORD MD on Aug 10 2020 5:20PM EST [id number] MR[facility] BRAIN WO/W IVCONon 08-10 MRV BRAIN WO/W IVCON * * *Final Report* * * DATE OF EXAM: Aug 10 2020 4:44PM [facility] 0336 - MRV BRAIN WO/W IVCON / PROCEDURE REASON: I26.99-Acute pulmonary embolism without acute cor pulmonale, unspecified pulmona * * * * Physician Interpretation * * * * EXAMINATION: MRI BRAIN WO/W IVCON, MRV BRAIN WO/W IVCON HISTORY: Acute pulmonary embolism without acute cor pulmonale, unspecified pulmonary embolism type (HCC) Additional narrative history of history of 2 episodes of pulmonary embolism after Covid vaccine. Severe headache for 2 weeks. TECHNIQUE: Routine brain MRI protocol without and with contrast including diffusion and gradient echo images. Intracranial quox-iv-aybchw and gadolinium-enhanced MR venogram. MQ: [id number]_2 Contrast: 13 mL Dotarem IV COMPARISON: None. RESULT: BRAIN: Acute Change: There is no evidence of restricted diffusion to suggest an acute infarct. Hemorrhage: No evidence of prior parenchymal hemorrhage on the susceptibility weighted images. Mass Lesion/ Mass Effect: No evidence of an intracranial mass or extra-axial fluid collection. No abnormal parenchymal or leptomeningeal enhancement is noted following contrast administration. No significant mass effect. Chronic Change: The white matter is within normal limits of signal intensity for age. Parenchyma: No significant volume loss for age. The brain parenchyma is otherwise within normal limits of signal intensity and morphology. Ventricles: Normal caliber and morphology. Skull Base: Hypothalamic and pituitary region are grossly normal. Craniocervical junction is normal. No significant marrow replacement process. Vasculature: Major intracranial arterial structures, and dural venous sinuses show typical flow void, suggesting patency by spin echo criteria. Typical enhancement of major cortical draining veins, deep venous structures, and dural venous sinuses on the axial post gadolinium volume acquisition. Similar appearance on the coronal post gadolinium T1-weighted scan. Other: Mild peripheral mucosal thickening in the maxillary sinus chambers and minimal in the ethmoid air cells. Remaining paranasal sinus chambers are grossly clear. Mastoid air cells and middle ear cavities are clear. Orbits are structurally normal in appearance. INTRACRANIAL MRV: The uhla-or-mspabn and gadolinium-enhanced MR venogram images show normally patent deep venous structures, major cortical draining veins, and dural venous sinuses. There is no evidence for extrinsic narrowing or internal thrombosis. IMPRESSION: Normal age appropriate appearance of the brain. No focal mass effect, hemorrhage, hydrocephalus or abnormal enhancement. Based on the axial T2 flow void pattern, proximal intracranial arterial vasculature, major cortical draining veins, and dural venous sinuses are patent. Concordant appearance on the post gadolinium scans. Dedicated [id number] and gadolinium-enhanced MR venogram shows normally patent deep venous structures, major cortical draining veins, and dural venous sinuses. No evidence for thrombosis. Surgery Scheduling Coordinator: [facility] Transcribe Date/Time: Aug 10 2020 5:01P Dictated by : MORENO CRAWFORD MD This examination was interpreted and the report reviewed and electronically signed by: MORENO CRAWFORD MD on Aug 10 2020 5:20PM EST [id number] Normal [facility] Vital Signs Date Time Vital Sign Value Performing Clinician [facility] 06-28-2024 14:38-0400 Body mass index (BMI) [Ratio] 23.9 kg/m2 Rafy Stratton MD Work Phone: [facility] 06-28-2024 14:38-0400 Body weight 63.5 kg Rafy Stratton MD Work Phone: [facility] 06-28-2024 14:38-0400 Diastolic blood pressure 68 mm[Hg] Rafy Stratton MD Work Phone: [facility] 06-28-2024 14:38-0400 Systolic blood pressure 108 mm[Hg] Rafy Stratton MD Work Phone: [facility] 05-29-2024 10:46-0500 Body height 163 cm Adriano Floresi DO Work Phone: [facility] 05-29-2024 10:46-0500 Body mass index (BMI) [Ratio] 23.99 kg/m2 Adriano Masci DO Work Phone: [facility] 05-29-2024 10:46-0500 Body temperature 98.49 [degF] Adriano Masci DO Work Phone: [facility] 05-29-2024 10:46-0500 Body weight 63.73 kg Adriano Masci DO Work Phone: [facility] 05-29-2024 10:46-0500 Diastolic blood pressure 74 mm[Hg] Adriano Masci DO Work Phone: [facility] 05-29-2024 10:46-0500 Heart rate 74 /min Adriano Masci DO Work Phone: [facility] 05-29-2024 10:46-0500 SaO2% (BldA) [Mass fraction] 100 % Adriano Sandrai DO Work Phone: [facility] 05-29-2024 10:46-0500 Systolic blood pressure 107 mm[Hg] Adriano Sandrai DO Work Phone: [facility] 05-16-2024 09:29-0500 Body mass index (BMI) [Ratio] 23.87 kg/m2 Alex Villalobos APRN.DIRECTOR [employer]ISTRY Work Phone: [facility] 05-16-2024 09:29-0500 Body temperature 99.19 [degF] Alex Villalobos APRN.DIRECTOR [employer]UR[employer]ISTRY Work Phone: [facility] 05-16-2024 09:29-0500 Body weight 64.2 kg Alex Villalobos APRN.DIRECTOR [employer]UR[employer]ES[employer]ISTRY Work Phone: [facility] 05-16-2024 09:29-0500 Diastolic blood pressure 70 mm[Hg] Alex Pendlebury [employer].DIRECTOR NURSES' REGISTRY Work Phone: [facility] 05-16-2024 09:29-0500 Heart rate 95 /min [facility].DIRECTOR NURSES' REGISTRY Work Phone: [facility] 05-16-2024 09:29-0500 Respiratory rate 18 /min [facility] [employer] [employer].DIRECTOR [employer]URSES' [employer]ISTRY Work Phone: [facility] 05-16-2024 09:29-0500 SaO2% (BldA) [Mass fraction] 98 % [facility] [employer] [employer].DIRECTOR [employer]URSES' REGISTRY Work Phone: [facility] 05-16-2024 09:29-0500 Systolic blood pressure 108 mm[Hg] l[facility]ex [facility] [employer] [employer].DIRECTOR [employer]URSES' REGISTRY Work Phone: [facility] 11-21-2023 10:21-0400 Body mass index (BMI) [Ratio] 24.54 kg/m2 Adriano Masci DO Work Phone: [facility] 11-21-2023 10:21-0400 Body temperature 98.91 [degF] Adriano Masci DO Work Phone: [facility] 11-21-2023 10:21-0400 Body weight 66 kg Adriano Masci DO Work Phone: [facility] 11-21-2023 10:21-0400 Diastolic blood pressure 71 mm[Hg] Adriano Masci DO Work Phone: [facility] 11-21-2023 10:21-0400 Heart rate 77 /min Adriano Masci DO Work Phone: [facility] 11-21-2023 10:21-0400 SaO2% (BldA) [Mass fraction] 98 % Adriano Masci DO Work Phone: [facility] 11-21-2023 10:21-0400 Systolic blood pressure 112 mm[Hg] Adriano Masci DO Work Phone: [facility] 05-29-2023 15:48-0500 Body height 164 cm Adriano Masci DO Work Phone: [facility] 05-29-2023 15:48-0500 Body temperature 99 [degF] Adriano Masci DO Work Phone: [facility] 05-29-2023 15:48-0500 Body weight 68.04 kg Adriano Masci DO Work Phone: [facility] 05-29-2023 15:48-0500 Diastolic blood pressure 83 mm[Hg] Adriano Masci DO Work Phone: [facility] 05-29-2023 15:48-0500 Heart rate 92 /min Adriano Masci DO Work Phone: [facility] 05-29-2023 15:48-0500 SaO2% (BldA) [Mass fraction] 100 % Adriano Masci DO Work Phone: [facility] 05-29-2023 15:48-0500 Systolic blood pressure 127 mm[Hg] Adriano Masci DO Work Phone: [facility] 12-01-2022 15:43-0400 Body weight 64.86 kg Jil Hairston [employer].DIRECTOR [employer]UR[employer]ES[employer]ISTRY Work Phone: [facility] 12-01-2022 15:43-0400 Diastolic blood pressure 64 mm[Hg] Jil Hairston [employer].DIRECTOR [employer]UR[employer]ISTRY Work Phone: [facility] 12-01-2022 15:43-0400 Heart rate 72 /min Jil Hairston [employer].DIRECTOR [employer]UR[employer]ISTRY Work Phone: [facility] 12-01-2022 15:43-0400 Respiratory rate 14 /min Jil Hairston [employer].DIRECTOR [employer]UR[employer]IST[employer] Work Phone: [facility] 12-01-2022 15:43-0400 Systolic blood pressure 106 mm[Hg] Jil Hairston [employer].DIRECTOR [employer]IST[employer] Work Phone: [facility] 02-12-2022 00:00-0400 Diastolic blood pressure 66 mm[Hg] [facility] Work Phone: 02-12-2022 00:00-0400 Heart rate 67 /min [facility] Work Phone: 02-12-2022 00:00-0400 Respiratory rate 16 /min [facility] Work Phone: 02-12-2022 00:00-0400 SaO2% (BldA) [Mass fraction] 98 % [facility] Work Phone: 02-12-2022 00:00-0400 Systolic blood pressure 104 mm[Hg] [facility] Work Phone: 02-11-2022 20:45-0400 Body height 162.56 cm [facility] Work Phone: 02-11-2022 20:45-0400 Body mass index (BMI) [Ratio] 24.7 kg/m2 [facility] Work Phone: 02-11-2022 20:45-0400 Body temperature 97.7 [degF] [facility] Work Phone: 02-11-2022 20:45-0400 Body weight 65.4 kg [facility] Work Phone: 11-19-2021 14:24-0400 Diastolic blood pressure 69 mm[Hg] Nehemias Waite MD Work Phone: [facility] 11-19-2021 14:24-0400 Systolic blood pressure 103 mm[Hg] Nehemias Waite MD Work Phone: [facility] 11-19-2021 14:18-0400 Body weight 65.32 kg Nehemias Waite MD Work Phone: [facility] 10-01-2021 09:45-0400 Diastolic blood pressure 68 mm[Hg] Nehemias Waite MD Work Phone: [facility] 10-01-2021 09:45-0400 Heart rate 67 /min Nehemias Waite MD Work Phone: [facility] 10-01-2021 09:45-0400 Systolic blood pressure 108 mm[Hg] Nehemias Waite MD Work Phone: [facility] 10-01-2021 09:43-0400 Body weight 65.23 kg Nehemias Waite MD Work Phone: [facility] 09-16-2021 09:15-0400 Body height 162 cm Adriano Floresi DO Work Phone: [facility] 09-16-2021 09:15-0400 Body temperature 99.39 [degF] Adriano Sandrai DO Work Phone: [facility] 09-16-2021 09:15-0400 Body weight 66.22 kg Adriano Floresi DO Work Phone: [facility] 09-16-2021 09:15-0400 Diastolic blood pressure 63 mm[Hg] Adriano Sandrai DO Work Phone: [facility] 09-16-2021 09:15-0400 Heart rate 72 /min Adriano Sandrai DO Work Phone: [facility] 09-16-2021 09:15-0400 SaO2% (BldA) [Mass fraction] 98 % Adriano Sandrai DO Work Phone: [facility] 09-16-2021 09:15-0400 Systolic blood pressure 105 mm[Hg] Adriano Sandrai DO Work Phone: [facility] 08-05-2021 11:37-0400 Body height 162.[address] Nehemias Ho Work Phone: [facility] Work Phone: 08-05-2021 11:37-0400 Body mass index (BMI) [Ratio] 25.4 kg/m2 Dr. Nehemias Ho Work Phone: [facility] Work Phone: 08-05-2021 11:37-0400 Body weight 67.[address] Nehemias Ho Work Phone: [facility] Work Phone: 08-05-2021 11:37-0400 Diastolic blood pressure 70 mm[Hg] Dr. Nehemias Ho Work Phone: [facility] Work Phone: 08-05-2021 11:37-0400 Systolic blood pressure 124 mm[Hg] Dr. Nehemias Ho Work Phone: [facility] Work Phone: Encounters Encounter Date Encounter Type Care Provider Facility Start: 10-02-2024 ambulatory [facility] Facility:[facility] Start: 08-20-2024 Encounter for gynecological examination (general) (routine) without abnormal findings Julieta Telles Radha [facility] Start: 08-20-2024 End: 08-20-2024 ambulatory [facility] [place] Start: 06-28-2024 End: 06-28-2024 ambulatory RAFY STRATTON Facility:[facility] Start: 06-28-2024 End: 06-28-2024 Patient encounter procedure Rafy Stratton MD Work Phone: OB/Gynecology Comment on above: Mood changes (Primar y Dx); Excessive bleeding in premenopausal period Start: 05-29-2024 End: 05-29-2024 ambulatory ADRIANO GALLO Facility:[facility] Start: 05-29-2024 End: 05-29-2024 Office outpatient visit 15 minutes Adriano Gallo DO Work Phone: Hematology/Oncology Comment on above: History of pulmonary embolism (Primary Dx) Start: 05-16-2024 End: 05-16-2024 ambulatory RAFY STRATTON Facility:[facility] Start: 05-16-2024 End: 05-16-2024 Office outpatient visit 15 minutes Alex Villalobos APRN.CNP Work Phone: [facility] Comment on above: Sore throat (Primary Dx); Viral illness Start: 04-07-2024 End: 04-08-2024 Refill Adriano Gallo DO Work Phone: Hematology/Oncology Comment on above: Refill Request Start: 04-04-2024 [facility] Facility:[facility] Start: 03-26-2024 End: 03-26-2024 ambulatory [facility] Facility:[facility] Start: 01-17-2024 Encounter for genera l adult medical examination with abnormal findings [facility] Start: 12-27-2023 End: 12-27-2023 ambulatory [facility] Facility:[facility] Start: 11-21-2023 End: 11-21-2023 ambulatory Adriano A Masci DO Work Phone: Hematology/Oncology Comment on above: Multiple subsegmenta l pulmonary emboli without acute cor pulmonale (HCC) (Primary Dx); Estrogen deficiency Start: 11-21-2023 End: 11-21-2023 Patient encounter procedure Adriano A Masci DO Work Phone: Hematology/Oncology Start: 08-31-2023 Telephone encounter Jil grace APRN.DIRECTOR NUR[employer]ES[employer] REGISTRY Work Phone: [facility] Comment on above: Results Start: 05-29-2023 End: 05-29-2023 ambulatory Adriano A Masci DO Work Phone: Hematology/Oncology Comment on above: Multiple subsegmenta l pulmonary emboli without acute cor pulmonale (HCC) (Primary Dx) Start: 05-29-2023 End: 05-29-2023 Patient encounter procedure Adriano Granados Masci DO Work Phone: [facility] Start: 05-26-2023 Telephone encounter Jil grace APRN.DIRECTOR NURSES' REGISTRY Work Phone: [facility] Comment on above: Medication Request Refill Request Start: 03-06-2023 Refill Jil soliman APRN.DIRECTOR NURSES' REGISTRY Work Phone: [facility] Comment on above: Refill Request; Refi ll Request Start: 01-09-2023 Telephone encounter Jil grace APRN.DIRECTOR NUR[employer]ES[employer]ISTRY Work Phone: [facility] Comment on above: Patient Question Start: 12-05-2022 Telephone encounter Jil grace APRN.DIRECTOR NURSES[employer]ISTRY Work Phone: [facility] Comment on above: Results Start: 12-01-2022 End: 12-01-2022 Patient encounter procedure Jil Hairston DIRECTOR [employer]URSES[employer] REGISTRY Work Phone: [facility] Comment on above: Encounter for immuni zation (Primary Dx); Need for malaria prophylaxis; Medication management; Screening for lipid disorders; Screening for diabetes mellitus Start: 02-21-2022 ambulatory Nehemias rocha MD Work Phone: Vascular Medicine Comment on above: Your question Start: 02-21-2022 E-mail encounter fro m caregiver Nehemias Waite MD Work Phone: [facility] Start: 02-19-2022 ambulatory Nehemias rocha MD Work Phone: Vascular Medicine Comment on above: Your question Start: 02-19-2022 E-mail encounter fro m caregiver Nehemias Waite MD Work Phone: [facility] Start: 02-11-2022 End: 02-12-2022 Emergency department patient visit [facility] Start: 02-02-2022 Telephone encounter Nehemias Healy MD Work Phone: Vascular Medicine Comment on above: Received Outside [facility] Start: 01-17-2022 Telephone encounter Nehemias Healy MD Work Phone: Vascular Medicine Comment on above: Results (Patient sophia pped off images for Dr. Waite) Start: 01-09-2022 ambulatory Nehemias rocha MD Work Phone: V[facility] Medicine Comment on above: CT Image Start: 11-19-2021 End: 11-19-2021 Patient encounter procedure Nehemias Waite MD Work Phone: Vascular Medicine Comment on above: History of pulmonary embolism; Anticoagulation management encounter Start: 10-09-2021 ambulatory Nehemias rocha MD Work Phone: Vascular Medicine Comment on above: D-dimer result Start: 10-09-2021 E-mail encounter fro m caregiver Nehemias Waite MD Work Phone: [facility] Start: 10-01-2021 ambulatory Nehemias rocha MD Work Phone: Vascular Medicine Comment on above: Your visit today Start: 10-01-2021 E-mail encounter aldo m caregiver Nehemias Waite MD Work Phone: [facility] Start: 10-01-2021 End: 10-01-2021 Patient encounter procedure Nehemias Waite MD Work Phone: Vascular Medicine Comment on above: History of pulmonary embolism (Primary Dx); Anticoagulation management encounter Start: 09-16-2021 End: 09-16-2021 ambulatory Adriano Gallo DO Work Phone: Hematology/Oncology Comment on above: Multiple subsegmenta l pulmonary emboli without acute cor pulmonale (HCC) (Primary Dx) Start: 09-16-2021 End: 09-16-2021 Patient encounter procedure Adriano Gallo DO Work Phone: [facility] Start: 08-18-2021 Telephone encounter Adriano franco DO Work Phone: Hematology/Oncology Comment on above: Appointment Reschedu led Start: 08-05-2021 End: 08-05-[address] Nehemias Ho Work Phone: [facility] Start: 08-05-2021 End: 08-05-[address] Nehemias Ho Work Phone: [facility]-Laboratory, Specimen Start: 02-18-2021 Telephone encounter Adriano franco DO Work Phone: Hematology/Oncology Comment on above: Results Procedures Date Procedure Procedure Detail Performing Clinician Start: 05-16-2024 STREP A MOLECULAR (POC) Alex Villalobos APRN.CNP Work Phone: Start: 02-11-2022 Plain chest X-ray Start: 08-18-2021 Adult depression screening assessment Adriano Gallo DO Work Phone: Start: 05-05-2015 End: 01-29-2016 H/O: section Previous section Jil Hairston APRN.DIRECTOR NUR[employer]ES[employer]ISTRY Work Phone: Plan of Treatment Date Care Activity Detail Author Start: 08-07-2028 Urine microalbumin profile DTaP,Tdap,Td Vaccine (3 - Td or Tdap) [facility] Start: 09-17-2025 Urine microalbumin profile [facility] Start: 06-28-2024 End: 06-28-2024 Patient encounter procedure 06/28/2024 2:40 PM EDT Office Visit OB/Gynecology [address] [place] [address] Rafy Stratton MD [address] [place] [address] discuss hormones OB/Gynecology Comment on above: discuss hormones Start: 05-29-2024 End: 05-29-2024 ambulatory 05/29/2024 10:50 AM EST Visit (SP) Office Hematology/Oncology [address] [place] [address] Adriano Gallo DO [address] [place] [address] OV one year Hematology/Oncology Comment on above: OV one year Start: 2024 Screening for malign ant neoplasm of breast Mammogram Screening [facility] Start: 05-16-2024 End: 05-16-2024 Patient encounter procedure 05/16/2024 9:40 AM EST Office Visit OB/Gynecology [address] [place] [address] Rafy Stratton MD [address] [place] [address] discuss hormones OB/Gynecology Comment on above: discuss hormones Start: 04-05-2024 HPV TESTING HPV TESTING [facility] Start: 04-05-2024 PAP TESTING PAP TESTING [facility] Start: 04-05-2024 Screening for malign ant neoplasm of cervix [facility] Start: 01-18-2024 End: 01-18-2024 Patient encounter procedure 01/18/2024 9:40 AM EDT Office Visit OB/Gynecology [address] [place] [address] Rafy Stratton MD [address] [place] [address] Second opinion on hormone levels and need for DHEA OB/Gynecology Comment on above: Second opinion on ho rmone levels and need for DHEA Start: 12-17-2023 Covid-19 Vaccine ( season) Covid-19 Vaccine () [facility] Start: 12-17-2023 Influenza vaccination C [facility] Start: 04-17-2023 Behavioral Health Screening Behavioral Health Screening [facility] Start: 04-17-2023 Depression Assessment Depression Ass essment [facility] Start: 12-16-2022 Covid-19 Vaccine () Covid-19 Vaccine () [facility] Start: 12-16-2022 Influenza vaccination C [facility] Start: 12-01-2022 End: 01-31-2023 Comprehensive metabolic 2000 panel - Serum or Plasma [facility] Work Phone: Comment on above: Expected: 12/01/2022 , Expires: 01/31/2023 Start: 12-01-2022 End: 01-31-2023 Hemoglobin A1c in Blood [facility] Work Phone: Comment on above: Expected: 12/01/2022 , Expires: 01/31/2023 Start: 12-01-2022 End: 01-31-2023 LIPID PANEL, NONFASTING [facility] Work Phone: Comment on above: Expected: 12/01/2022 , Expires: 01/31/2023 Start: 08-18-2022 Adult depression screening assessment DEPRESSION SCREENING [facility] Start: 02-11-2022 End: 02-11-2022 [facility] Work Phone: Start: 12-16-2021 Influenza vaccination C [facility] Start: 10-01-2021 End: 12-01-2021 Fibrin D-dimer FEU [Mass/volume] in Platelet poor plasma D-DIMER Lab Routine History of pulmonary embolism Expected: 10/01/2021 (Approximate), Expires: 12/01/2021 [facility] Work Phone: Comment on above: Expected: 10/01/2021 (Approximate), Expires: 12/01/2021 Start: 04-17-2021 DEPRESSION ASSESSMENT DEPRESSION ASS ESSMENT [facility] Start: 09-10-2020 COVID-19 VACCINE (2 - Booster for Cari series) COVID-19 VACCINE (2 - Booster for Cari series) [facility] Start: 2002 Anxiety Screening Anxiety Screening [facility] Start: 2002 Depression Screening Depression Scre ening [facility] Start: 2002 HEPATITIS C SCREENING HEPATITIS C [facility] Start: 2002 Hepatitis C screening Hepatitis C [facility] Start: 1984 HEPATITIS B (1 of 3 - 3-dose series) HEPATITIS B (1 of 3 - 3-dose series) [facility] Patient Education ED Chest Pain, Noncardiac ED Hypokalemia [facility] Work Phone: Patient referral [facility] Work Phone: [facility] Immunizations Immunization Date Immunization Notes Care Provider Karlee barba 12-01-2022 hepatitis A vaccine, adult dosage Jil Hairston APRN.CNP Work Phone: [facility] 12-01-2022 typhoid vaccine, unspecified formulation Jil Hairston APRN.CNP Work Phone: [facility] Work Phone: Comment on above: Take 1 capsule by [facility] one time only for 1 dose. Take one capsule by mouth on days 1,3,5,7. 07-16-2020 Polina (Matias & Matias) Dr. Nehemias Ho Work Phone: [facility] Work Phone: 02-08-2020 influenza virus vaccine, unspecified formulation Jil Hairston APRN.CNP Work Phone: [facility] 01-13-2018 influenza, injectabl e, quadrivalent, contains preservative Adriano Gallo DO Work Phone: [facility] Work Phone: 01-21-2017 influenza, injectabl e, quadrivalent, contains preservative Adriano Gallo DO Work Phone: [facility] 01-22-2016 influenza, injectabl e, quadrivalent, contains preservative Adriano Gallo DO Work Phone: [facility] Work Phone: 01-18-[address] Nehemias Ho Work Phone: [facility] Work Phone: 09-18-2015 tetanus toxoid, redu twyla diphtheria toxoid, and acellular pertussis vaccine, adsorbed Adriano Gallo DO Work Phone: [facility] 04-13-2011 influenza virus vaccine, unspecified formulation Adriano Gallo DO Work Phone: [facility] Work Phone: Payers Date Payer Category Payer Self-pay [id number] 2023 Unknown [id number] 2020 Private Health Insurance LIZA FINNEY OA [id number] 2020-Present [phone] [facility] [id number] [place] [address] Open Access [id number] 2020 Private Health Insurance [id number] Private Health Insurance [id number] Unknown [id number] Unknown [id number] Unknown [id number] Unknown [id number] Unknown [id number] Unknown [id number] Social History Date Type Detail Facility Start: 08-05-2021 End: 02-11-2022 Tobacco smoking status NYIS Unknown if ever smoked [facility] Work Phone: Start: 06-08-2016 Occasional [facility] Work Phone: Start: 06-08-2016 None [facility] Work Phone: Start: 06-08-2016 Spouse/ Significant Other [facility] Work Phone: Start: 01-29-2019 Non-smoker [facility] Work Phone: Start: 1985 Sex Assigned At Female [facility] Work Phone: Start: 02-11-2021 End: 05-16-2024 Tobacco smoking status NHIS Ex-smoker [facility] End: 10-15-2010 History of tobacco use Current smoker [facility] End: 10-15-2010 History of tobacco use Cigarette Smoker [facility] Start: 02-11-2021 End: 05-16-2024 Tobacco use and exposure Smokeless tobacco non-user [facility] Start: 02-11-2021 End: 06-28-2024 Alcohol intake Current drinker of alcohol (finding) [facility] Start: 02-11-2021 End: 11-28-2022 Alcohol intake [facility] Start: 03-07-2016 History SDOH Alcohol Comment rarely [facility] Start: 02-11-2021 End: 05-16-2024 Tobacco Comment Social smoker [facility] Start: 1985 Sex Assigned At Not on file [facility] Start: 08-08-2021 End: 11-19-2021 Exposure to SARS-CoV-2 (event) Not sure [facility] Start: 11-28-2022 End: 05-29-2024 Social connection and isolation panel [facility] In a typical week, h ow many times do you talk on the telephone with family, friends, or neighbors? Patient refused [facility] Do you belong to any clubs or organizations such as tenriism groups, unions, fraternal or athletic groups, or school groups? Yes [facility] Are you now , , , , never or living with a partner? [facility] How often to you hav e a drink containing alcohol? 2-3 time sa week [facility] How many standard dr inks containing alcohol do you have on a typical day? 1 or 2 [facility] How often do you hav e 6 or more drinks on 1 occasion? Never [facility] Do you feel stress - tense, restless, nervous, or anxious, or unable to sleep at night because your mind is troubled all the time - these days [OSQ] Only a little [facility] (I/We) worried forrest er (my/our) food would run out before (I/we) got money to buy more. Never true [facility] In the past 12 month s, was there a time when you were not able to pay the mortgage or rent on time? No [facility] Start: 02-19-2020 Sexual orientation Heterosexual (finding) [facility] Functional Status Date Assessment Result Facility 09-11-2014 Are you deaf, or do you have serious difficulty hearing No 09/11/2014 2:25 PM Krystal Morel Ma No [facility] Work Phone: 09-11-2014 Are you blind, or do you have serious difficulty seeing, even when wearing glasses No 09/11/2014 2:25 PM Krystal Morel Ma [facility] 09-11-2014 Do you have serious difficulty walking or climbing stairs No 09/11/2014 2:25 PM Krystal Morel Ma [facility] 09-11-2014 Do you have difficul ty dressing or bathing No 09/11/2014 2:25 PM Krystal Morel Ma No [facility] 09-11-2014 Because of a physica l, mental, or emotional condition, do you have difficulty doing errands alone such as visiting a physician's office or shopping No 09/11/2014 2:25 PM EDT Roman SlaterKrystal [facility] Mental Status Date Assessment Result Facility 02-11-2022 Cognitive function Level Of Cons ciousness Awake;Alert;Appropriate;Fol lows Commands [facility] Work Phone: 09-11-2014 Because of a physica l, mental, or emotional condition, do you have serious difficulty concentrating, remembering, or making decisions No 09/11/2014 2:25 PM EDT Roman Slater Krystal Kemi [facility] Clinical Notes 08-21-2015 to 06-28-2024 Patient InstructionsRafy Stratton MD - 06/28/2024 2:34 PM EDAdriano Hanson, DO - 05/29/2024 11:15 AM Alex Urrutia APRN.DIRECTOR NURSES' REGISTRY - 05/16/2024 9:44 AM Lilian Gallo, DO - 09/16/2021 9:31 AM EDT Note Date & Type Note Facility 06-28-2024 Instructions Rafy Stratton MD - 06/28/2024 3:08 PM EDT Functional Medicine with the [facility] [email or web address] documented in this encounter [facility] 06-28-2024 Note HNO ID: [id number] Author: RAFY STRATTON MD Service: ? Author Type: Physician Type: Progress Notes Filed: 06/28/2024 17:23 Note Text: Janna Lopez is a 39 year old female who presents for problem visit - discuss hormones. HPI: Janna states she felt her mood changes were significant around time of menses. She was prescribed an SSRI in the past, but she did not want to take an SSRI. She went to see a survey crew chief and had a hormone panel completed. She started DHEA and had stopped taking this as she did not feel well. These mood changes happen the few days leading into her menses. Has noticed an improvement since changing her diet. She would have depressed mood. No SI or HI. She felt down and anxious around time of period. Regular menstrual cycles q 28-36 days with 4-5 days of bleeding. Had a uterine ablation in 2020 and the bleeding has improved. H/o 2 Pe's and on Eliquis. Has annual exam scheduled in a few months with prior floater operator at a different office. OB History Gravida2 Para2 Term2 Preterm0 AB0 Living2 SAB0 IAB0 Ectopic0 Multiple0 Live Births2 Comment: Laura GARDNER delivered Ear Nose Throat Physician History LMP: 06/22/2024, Having periods Age at Menarche: 11 Age at First : Age at Menopause: Ear Nose Throat Physician History Comments: Sexual Activity: Yes; Male Contraception: Not used Menstrual Tracking History Flowsheet Row Office Visit from 06/28/2024 in OB/Gynecology Period Cycle (Days) 30 Period Duration (Days) 5 Menstrual Flow Moderate PAST MEDICAL HISTORY Diagnosis Date Abnormal glandular Papanicolaou smear of cervix 2007 AND 2010 Abn. Pap smear (cervix) History of squamous cell carcinoma of skin 05/12/2011 right knee Migraine, unspecified, with intractable migraine, so stated, without mention of status migrainosus Migraine with aura PAST SURGICAL HISTORY Procedure Laterality Date DELIVERY ONLY 08/19/2011 , low transverse DELIVERY ONLY 12/15/15 , low transverse COLPOSCOPY CERVIX UPPER/ADJACENT VAGINA Colposcopy COLPOSCOPY CERVIX UPPER/ADJACENT VAGINA 05/22/2013 Colposcopy PAST SURGICAL HISTORY OF 2009 EXCISION OF CANCER OF THIGH TONSILLECTOMY AND ADENOIDECTOMY FAMILY HISTORY Problem Relation Age of Onset Emphysema Maternal Grandfather Heart Maternal Grandfather GA Arthritis Paternal Grandmother Arthritis Paternal Grandfather Cancer Paternal Grandfather MELANOMA Prostate Cancer Paternal Grandfather Social History Tobacco Use Smoking status: Former Current packs/day: 0.00 Types: Cigarettes Quit date: 10/15/2010 Years since quittin.7 Smokeless tobacco: Never Tobacco comments: Social smoker Vaping Use Vaping status: Never Used Substance Use Topics Alcohol use: Yes Alcohol/week: 1.0 standard drink of alcohol Types: 1 Glasses of Wine (5oz) per week Comment: rarely Drug use: No Current Outpatient Medications Medication Sig OTC PRODUCT Take 500 mg by mouth once daily. Ashwagandha OTC PRODUCT Take 1 tablet by mouth once daily. K2 90mcg AND D3 125mcg OTC PRODUCT Take 2 capsules by mouth once daily. 10 X Optimize Multivitamin OTC PRODUCT Take 2 capsules by mouth once daily. Beef Organ Caps 337.5mg ELIQUIS 5 mg tab(s) TAKE 1 TABLET BY MOUTH TWICE DAILY MAGNESIUM GLYCINATE ORAL Take 1 tablet by mouth once daily. SUMAtriptan (IMITREX) 100 mg tablet TAKE 1 TABLET BY MOUTH AT ONSET OF HEADACHE rhapontic rhubarb root extract (ESTROVERA) 4 mg tablet Take 1 tablet by mouth once daily. Multivitamin capsule Take 1 capsule by mouth once daily. No current facility-administered medications for this visit. Allergies As of Date: 06/28/2024 Allergen Noted Reaction BACTRIM [SULFAMETHOXAZOLE-TRIMETH*2021 Hives Fully Assessed 06/28/2024 REVIEW OF SYSTEMS Expanded ROS: N/A Allergies and current medication updated:Yes SENSITIVE EXAM: Sensitive exam not performed. EXAM: BP 108/68 Wt 140 lb (63.5kg) LMP 06/22/2024 GENERAL: pleasant, female in no apparent distress HEENT: Normocephalic and atraumatic NECK: full range of motion DERMATOLOGY: Normal, without lesions, non-icteric, and non-hirsute BREAST: deferred CHEST: Normal inspiratory effort ABDOMEN: Deferred PELVIC: deferred BIMANUAL: deferred NEURO: exam grossly non-focal EXTREMITIES: normal ASSESSMENT AND PLAN: Assessment AND Plan Mood changes She feels her mood changes have improved with dietary changes. Discussed daily or cyclic SSRI use. She is not interested in SSRI. Discussed regular exercise, getting outside, balanced diet, practicing mindfulness and meditation. Information given on functional medicine. Recent FSH normal at [facility]. Excessive bleeding in premenopausal period Bleeding has lessened since ablation. Had recent CBC and TSH at [facility] that were normal. On Elqiuis for h/o PE and discussed would not recommend hormonal contraception containing estrogen. Cont to monitor given bleeding has imp (more content not included)... [facility] 06-28-2024 History of Presen t illness Narrative Janna Rob Richardmikey is a 39 year old female who presents for problem visit - discuss hormones. HPI: Janna states she felt her mood changes were significant around time of menses. She was prescribed an SSRI in the past, but she did not want to take an SSRI. She went to see a survey crew chief and had a hormone panel completed. She started DHEA and had stopped taking this as she did not feel well. These mood changes happen the few days leading into her menses. Has noticed an improvement since changing her diet. She would have depressed mood. No SI or HI. She felt down and anxious around time of period. Regular menstrual cycles q 28-36 days with 4-5 days of bleeding. Had a uterine ablation in 2020 and the bleeding has improved. H/o 2 Pe's and on Eliquis. Has annual exam scheduled in a few months with prior floater operator at a different office. OB History Gravida2 Para2 Term2 Preterm0 AB0 Living2 SAB0 IAB0 Ectopic0 Multiple0 Live Births2 Comment: Laura GARDNER delivered Ear Nose Throat Physician History LMP: 06/22/2024, Having periods Age at Menarche: 11 Age at First : Age at Menopause: Ear Nose Throat Physician History Comments: Sexual Activity: Yes; Male Contraception: Not used Menstrual Tracking History Flowsheet Row Office Visit from 06/28/2024 in OB/Gynecology Period Cycle (Days) 30 Period Duration (Days) 5 Menstrual Flow Moderate PAST MEDICAL HISTORY Diagnosis Date Abnormal glandular Papanicolaou smear of cervix 2007 AND 2010 Abn. Pap smear (cervix) History of squamous cell carcinoma of skin 05/12/2011 right knee Migraine, unspecified, with intractable migraine, so stated, without mention of status migrainosus Migraine with aura PAST SURGICAL HISTORY Procedure Laterality Date DELIVERY ONLY 08/19/2011 , low transverse DELIVERY ONLY 12/15/15 , low transverse COLPOSCOPY CERVIX UPPER/ADJACENT VAGINA Colposcopy COLPOSCOPY CERVIX UPPER/ADJACENT VAGINA 05/22/2013 Colposcopy PAST SURGICAL HISTORY OF 2009 EXCISION OF CANCER OF THIGH TONSILLECTOMY & ADENOIDECTOMY <AGE 12 FAMILY HISTORY Problem Relation Age of Onset Emphysema Maternal Grandfather Heart Maternal Grandfather GA Arthritis Paternal Grandmother Arthritis Paternal Grandfather Cancer Paternal Grandfather MELANOMA Prostate Cancer Paternal Grandfather Social History Tobacco Use Smoking status: Former Current packs/day: 0.00 Types: Cigarettes Quit date: 10/15/2010 Years since quittin.7 Smokeless tobacco: Never Tobacco comments: Social smoker Vaping Use Vaping status: Never Used Substance Use Topics Alcohol use: Yes Alcohol/week: 1.0 standard drink of alcohol Types: 1 Glasses of Wine (5oz) per week Comment: rarely Drug use: No Current Outpatient Medications Medication Sig OTC PRODUCT Take 500 mg by mouth once daily. Ashwagandha OTC PRODUCT Take 1 tablet by mouth once daily. K2 90mcg & D3 125mcg OTC PRODUCT Take 2 capsules by mouth once daily. 10 X Optimize Multivitamin OTC PRODUCT Take 2 capsules by mouth once daily. Beef Organ Caps 337.5mg ELIQUIS 5 mg tab(s) TAKE 1 TABLET BY MOUTH TWICE DAILY MAGNESIUM GLYCINATE ORAL Take 1 tablet by mouth once daily. SUMAtriptan (IMITREX) 100 mg tablet TAKE 1 TABLET BY MOUTH AT ONSET OF HEADACHE rhapontic rhubarb root extract (ESTROVERA) 4 mg tablet Take 1 tablet by mouth once daily. Multivitamin capsule Take 1 capsule by mouth once daily. No current facility-administered medications for this visit. Allergies As of Date: 06/28/2024 Allergen Noted Reaction BACTRIM [SULFAMETHOXAZOLE-TRIMETH*2021 Hives Fully Assessed 06/28/2024 REVIEW OF SYSTEMS Expanded ROS: N/A Allergies and current medication updated:Yes SENSITIVE EXAM: Sensitive exam not performed. EXAM: BP 108/68 Wt 140 lb (63.5kg) LMP 06/22/2024 GENERAL: pleasant, female in no apparent distress HEENT: Normocephalic and atraumatic NECK: full range of motion DERMATOLOGY: Normal, without lesions, non-icteric, and non-hirsute BREAST: deferred CHEST: Normal inspiratory effort ABDOMEN: Deferred PELVIC: deferred BIMANUAL: deferred NEURO: exam grossly non-focal EXTREMITIES: normal ASSESSMENT AND PLAN: Assessment & Plan Mood changes She feels her mood changes have improved with dietary changes. Discussed daily or cyclic SSRI use. She is not interested in SSRI. Discussed regular exercise, getting outside, balanced diet, practicing mindfulness and meditation. Information given on functional medicine. Recent FSH normal at [facility]. Excessive bleeding in premenopausal period Bleeding has lessened since ablation. Had recent CBC and TSH at [facility] that were normal. On Elqiuis for h/o PE and discussed would not recommend hormonal contraception containing estrogen. Cont to monitor given bleeding has improved since ablation, and discussed reasons to call. Patient plans to re establish with her prior floater operator at outside office and has an annual exam scheduled. Rafy Stratton DO I spent 20 minutes in the visit, with more than 50% of the total [id number] time of the visit in counseling / coordination of care. documented in this encounter [facility] 05-29-2024 Note HNO ID: [id number] Author: ADRIANO GALLO DO Service: ? Author Type: Physician Type: Progress Notes Filed: 05/29/2024 11:54 Note Text: Hematologic problem(s): 1) Recurrent DVT/PE. HPI: The patient is a 39-year-old female with a PMH significant for migraine HAs. 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 In May 2016 she was seen for complaint of dull aching chest pain that had started the day prior 06/07/2016. Evidently her EKG was abnormal and she was directed to the emergency room at [facility]. CT demonstrated an isolated complete filling defect in the left lower lobe segmental branch medially. She was admitted overnight and received Lovenox. She was then transitioned to Xarelto. She completed 6 months of Xarelto and then stopped. Hypercoagulation work-up at the time of that event included no evidence of anticardiolipin antibodies, negative PCR for factor V Leiden, normal protein C activity, normal antithrombin activity and normal protein S activity. This event occurred about 6 months , second . She had had no since then and had no prior history of venous thromboembolic events. She received the Matias AND Matias SARS-CoV-2 vaccination on 07/16/2020. On 07/19, she had onset of chest pain and she had also developed headache which was typical of her usual migraine headaches characterized by a bandlike sensation from the occiput to the temporal areas bilaterally. However she also has several days of tenderness over the area of the right confucianism associated with tinnitus and muted hearing in the right ear. This symptom resolved after she started Eliquis recently. She had not been on control since prior to her first . She underwent attempted Mirena IUD insertion on 07/29/2020. Evidently it was unsuccessful and she may undergo second attempt at placement in a few weeks. Menses tend to be very heavy when she is on anticoagulation. Underwent endometrial ablation in September 2020 for heavy menses while on anticoagulation. Saw vascular medicine. Indefinite anticoagulation advised. Presents for ongoing hematologic management. Interim history: Menses still regular. Most recent was heavy with clots. Tampon change hourly at heaviest. About 4 days. Tolerating Eliquis well with no unusual bleeding. No unexplained bruising. No respiratory symptoms. No leg pain or swelling. PMH, medications and allergies reviewed today. Any changes documented in appropriate section. PHYSICAL EXAM: Vitals: Blood pressure 107/74, pulse 74, temperature 36.9 ?C (98.5 ?F), temperature source Temporal, height 163 cm (5' 4.17), weight 63.7 kg (140 lb 8 oz), last menstrual period 03/26/2019, SpO2 100%. Well-appearing and in no acute distress. EYES: Sclerae are anicteric bilaterally. ASSESSMENT/PLAN: (I26.99) Pulmonary embolism without acute cor pulmonale, unspecified pulmonary embolism type (HCC) (primary encounter diagnosis) Assessment: -The patient is a 39-year-old female who had an unprovoked pulmonary embolism approximately 4 years prior to initial evaluation here. She completed 6 months of anticoagulation. Partial assessment of hypercoagulable labs at that time was negative. She received the Matias AND Matias SARS-CoV-2 vaccine on 07/16/2020 and was diagnosed with pulmonary embolism on . She also had migraine headache with unusual symptoms of hearing loss and tinnitus of the right ear associated with tenderness over the right confucianism area. Those symptoms resolved on anticoagulation. Subsequently found to be negative for antiplatelet factor 4 antibody. -Negative for lupus anticoagulant. -Saw vascular medicine specialist who agreed with indefinite anticoagulation. -Menstrual bleeding getting heavier but current benefit of ongoing anticoagulation outweighs risk. She has appointment with gynecology next month to address heavier menses. Plan: -Continue apixaban 5 mg BID. -Keep upcoming appointment with gynecology regarding heavy menses. -Can follow-up here as needed. Portions of this documentation were copied and pasted from my previous office visit note dated 12/11/2023 in order to provide a cohesive continuity of the history. The note has been reviewed and edited and updated as necessary. Adriano Gallo DO [facility] 05-29-2024 History of Presen t illness Narrative Hematologic problem(s): 1) Recurrent DVT/PE. HPI: The patient is a 39-year-old female with a PMH significant for migraine HAs. 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 In May 2016 she was seen for complaint of dull aching chest pain that had started the day prior 06/07/2016. Evidently her EKG was abnormal and she was directed to the emergency room at [facility]. CT demonstrated an isolated complete filling defect in the left lower lobe segmental branch medially. She was admitted overnight and received Lovenox. She was then transitioned to Xarelto. She completed 6 months of Xarelto and then stopped. Hypercoagulation work-up at the time of that event included no evidence of anticardiolipin antibodies, negative PCR for factor V Leiden, normal protein C activity, normal antithrombin activity and normal protein S activity. This event occurred about 6 months , second . She had had no since then and had no prior history of venous thromboembolic events. She received the Matias & Matias SARS-CoV-2 vaccination on 07/16/2020. On 07/19, she had onset of chest pain and she had also developed headache which was typical of her usual migraine headaches characterized by a bandlike sensation from the occiput to the temporal areas bilaterally. However she also has several days of tenderness over the area of the right confucianism associated with tinnitus and muted hearing in the right ear. This symptom resolved after she started Eliquis recently. She had not been on control since prior to her first . She underwent attempted Mirena IUD insertion on 07/29/2020. Evidently it was unsuccessful and she may undergo second attempt at placement in a few weeks. Menses tend to be very heavy when she is on anticoagulation. Underwent endometrial ablation in September 2020 for heavy menses while on anticoagulation. Saw vascular medicine. Indefinite anticoagulation advised. Presents for ongoing hematologic management. Interim history: Menses still regular. Most recent was heavy with clots. Tampon change hourly at heaviest. About 4 days. Tolerating Eliquis well with no unusual bleeding. No unexplained bruising. No respiratory symptoms. No leg pain or swelling. PMH, medications and allergies reviewed today. Any changes documented in appropriate section. PHYSICAL EXAM: Vitals: Blood pressure 107/74, pulse 74, temperature 36.9 C (98.5 F), temperature source Temporal, height 163 cm (5' 4.17), weight 63.7 kg (140 lb 8 oz), last menstrual period 03/26/2019, SpO2 100%. Well-appearing and in no acute distress. EYES: Sclerae are anicteric bilaterally. ASSESSMENT/PLAN: (I26.99) Pulmonary embolism without acute cor pulmonale, unspecified pulmonary embolism type (HCC) (primary encounter diagnosis) Assessment: -The patient is a 39-year-old female who had an unprovoked pulmonary embolism approximately 4 years prior to initial evaluation here. She completed 6 months of anticoagulation. Partial assessment of hypercoagulable labs at that time was negative. She received the Matias & Matias SARS-CoV-2 vaccine on 07/16/2020 and was diagnosed with pulmonary embolism on . She also had migraine headache with unusual symptoms of hearing loss and tinnitus of the right ear associated with tenderness over the right confucianism area. Those symptoms resolved on anticoagulation. Subsequently found to be negative for antiplatelet factor 4 antibody. -Negative for lupus anticoagulant. -Saw vascular medicine specialist who agreed with indefinite anticoagulation. -Menstrual bleeding getting heavier but current benefit of ongoing anticoagulation outweighs risk. She has appointment with gynecology next month to address heavier menses. Plan: -Continue apixaban 5 mg BID. -Keep upcoming appointment with gynecology regarding heavy menses. -Can follow-up here as needed. Portions of this documentation were copied and pasted from my previous office visit note dated 12/11/2023 in order to provide a cohesive continuity of the history. The note has been reviewed and edited and updated as necessary. Adriano Gallo DO documented in this encounter [facility] 05-16-2024 Note HNO ID: [id number] Author: ALEX VILLALOBOS APRN.DIRECTOR NURSES' REGISTRY Service: ? Author Type: Nurse Practitioner Type: Progress Notes Filed: 05/16/2024 10:14 Note Text: Subjective HPI Nontoxic-appearing female presents urgent care chief complaint sore throat fever body aches chills headache slight cough. Was coughing more yesterday than today. Most bothersome symptom today is pharyngitis. Sick contacts unknown. 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 Denies any difficulty swallowing and secretion decreased range of motion of neck or trismus. No high fevers. Is on Eliquis. Has not missed any doses. Denies any chest pain hemoptysis or pleuritic pain. Is not breast-feeding or . Past medical history prescription medications allergies reviewed. .Patient presents with: Sore Throat: Fever, bodyaches x2 days PAST MEDICAL HISTORY Diagnosis Date Abnormal glandular Papanicolaou smear of cervix 2007 AND 2010 Abn. Pap smear (cervix) History of squamous cell carcinoma of skin 05/12/2011 right knee Migraine, unspecified, with intractable migraine, so stated, without mention of status migrainosus Migraine with aura PAST SURGICAL HISTORY Procedure Laterality Date DELIVERY ONLY 08/19/2011 , low transverse DELIVERY ONLY 12/15/15 , low transverse COLPOSCOPY CERVIX UPPER/ADJACENT VAGINA Colposcopy COLPOSCOPY CERVIX UPPER/ADJACENT VAGINA 05/22/2013 Colposcopy PAST SURGICAL HISTORY OF 2009 EXCISION OF CANCER OF THIGH TONSILLECTOMY AND ADENOIDECTOMY ALLERGIES Bactrim [Sulfamethoxazole-Trimethoprim] MEDICATIONS ELIQUIS 5 mg tab(s) TAKE 1 TABLET BY MOUTH TWICE DAILY MAGNESIUM GLYCINATE ORAL Take 1 tablet by mouth once daily. SUMAtriptan (IMITREX) 100 mg tablet TAKE 1 TABLET BY MOUTH AT ONSET OF HEADACHE rhapontic rhubarb root extract (ESTROVERA) 4 mg tablet Take 1 tablet by mouth once daily. Multivitamin capsule Take 1 capsule by mouth once daily. OTC PRODUCT Take 2 capsules by mouth three times a day. Ginger FAMILY HISTORY Problem Relation Age of Onset Emphysema Maternal Grandfather Heart Maternal Grandfather GA Arthritis Paternal Grandmother Arthritis Paternal Grandfather Cancer Paternal Grandfather MELANOMA Prostate Cancer Paternal Grandfather Social History Tobacco Use Smoking status: Former Current packs/day: 0.00 Types: Cigarettes Quit date: 10/15/2010 Years since quittin.5 Smokeless tobacco: Never Tobacco comments: Social smoker Vaping Use Vaping status: Never Used Substance Use Topics Alcohol use: Yes Alcohol/week: 1.0 standard drink of alcohol Types: 1 Glasses of Wine (5oz) per week Comment: rarely Drug use: No BP 108/70 Pulse 95 Temp 37.3 ?C (99.2 ?F) Resp 18 Wt 64.2 kg (141 lb 8.6 oz) LMP 03/26/2019 SpO2 98% No BMI 23.87 kg/m? Review of Systems Constitutional: Positive for chills, fever and malaise/fatigue. HENT: Positive for congestion and sore throat. Negative for ear discharge, ear pain and sinus pain. Eyes: Negative for blurred vision, pain, discharge and redness. Respiratory: Positive for cough. Negative for hemoptysis, sputum production, shortness of breath, wheezing and stridor. Cardiovascular: Negative for chest pain. Gastrointestinal: Negative for abdominal pain, diarrhea, nausea and vomiting. Musculoskeletal: Positive for myalgias. Skin: Negative for itching and rash. Neurological: Positive for headaches. Negative for dizziness. Objective Physical Exam Constitutional: General: She is not in acute distress. Appearance: She is not diaphoretic. HENT: Head: Normocephalic. Jaw: No trismus, tenderness, swelling or pain on movement. Nose: Nose normal. Mouth/Throat: Mouth: Mucous membranes are moist. Pharynx: Oropharynx is clear. Uvula midline. Posterior oropharyngeal erythema present. No pharyngeal swelling, oropharyngeal exudate or uvula swelling. Tonsils: No tonsillar exudate or tonsillar abscesses. Comments: White ulcer-like lesions noted highlighted area. Ulcers are approximately 2 mm x 2 mm. Eyes: Conjunctiva/sclera: Conjunctivae normal. Pupils: Pupils are equal, round, and reactive to light. Cardiovascular: Rate and Rhythm: Normal rate and regular rhythm. Heart sounds: Normal heart sounds. Pulmonary: Effort: Pulmonary effort is normal. No tachypnea, accessory muscle usage or respiratory distress. Breath sounds: Normal breath sounds. No stridor. No wheezing, rhonchi or rales. Abdominal: General: There is no distension. Palpations: Abdomen is soft. Tenderness: There is no abdominal tenderness. There is no guarding or rebound. Musculoskeletal: Cervical back: Normal range of motion and neck supple. No edema, erythema, rigidity or tenderness. No pain with movement. Normal range of motion. Lymphadenopathy: Cervical: No cervical adenopathy. Skin: General: Skin is warm and dry. Neurological: Mental Status: She is a (more content not included)... [facility] 05-16-2024 History of Presen t illness Narrative Images from the original note were not included. Subjective HPI Nontoxic-appearing female presents urgent care chief complaint sore throat fever body aches chills headache slight cough. Was coughing more yesterday than today. Most bothersome symptom today is pharyngitis. Sick contacts unknown. Works as a [employer]. Denies any difficulty swallowing and secretion decreased range of motion of neck or trismus. No high fevers. Is on Eliquis. Has not missed any doses. Denies any chest pain hemoptysis or pleuritic pain. Is not breast-feeding or . Past medical history prescription medications allergies reviewed. .Patient presents with: Sore Throat: Fever, bodyaches x2 days PAST MEDICAL HISTORY Diagnosis Date Abnormal glandular Papanicolaou smear of cervix 2007 AND 2010 Abn. Pap smear (cervix) History of squamous cell carcinoma of skin 05/12/2011 right knee Migraine, unspecified, with intractable migraine, so stated, without mention of status migrainosus Migraine with aura PAST SURGICAL HISTORY Procedure Laterality Date DELIVERY ONLY 08/19/2011 , low transverse DELIVERY ONLY 12/15/15 , low transverse COLPOSCOPY CERVIX UPPER/ADJACENT VAGINA Colposcopy COLPOSCOPY CERVIX UPPER/ADJACENT VAGINA 05/22/2013 Colposcopy PAST SURGICAL HISTORY OF 2009 EXCISION OF CANCER OF THIGH TONSILLECTOMY & ADENOIDECTOMY <AGE 11 ALLERGIES Bactrim [Sulfamethoxazole-Trimethoprim] MEDICATIONS ELIQUIS 5 mg tab(s) TAKE 1 TABLET BY MOUTH TWICE DAILY MAGNESIUM GLYCINATE ORAL Take 1 tablet by mouth once daily. SUMAtriptan (IMITREX) 100 mg tablet TAKE 1 TABLET BY MOUTH AT ONSET OF HEADACHE rhapontic rhubarb root extract (ESTROVERA) 4 mg tablet Take 1 tablet by mouth once daily. Multivitamin capsule Take 1 capsule by mouth once daily. OTC PRODUCT Take 2 capsules by mouth three times a day. Ginger FAMILY HISTORY Problem Relation Age of Onset Emphysema Maternal Grandfather Heart Maternal Grandfather GA Arthritis Paternal Grandmother Arthritis Paternal Grandfather Cancer Paternal Grandfather MELANOMA Prostate Cancer Paternal Grandfather Social History Tobacco Use Smoking status: Former Current packs/day: 0.00 Types: Cigarettes Quit date: 10/15/2010 Years since quittin.5 Smokeless tobacco: Never Tobacco comments: Social smoker Vaping Use Vaping status: Never Used Substance Use Topics Alcohol use: Yes Alcohol/week: 1.0 standard drink of alcohol Types: 1 Glasses of Wine (5oz) per week Comment: rarely Drug use: No BP 108/70 Pulse 95 Temp 37.3 C (99.2 F) Resp 18 Wt 64.2 kg (141 lb 8.6 oz) LMP 03/26/2019 SpO2 98% No BMI 23.87 kg/m Review of Systems Constitutional: Positive for chills, fever and malaise/fatigue. HENT: Positive for congestion and sore throat. Negative for ear discharge, ear pain and sinus pain. Eyes: Negative for blurred vision, pain, discharge and redness. Respiratory: Positive for cough. Negative for hemoptysis, sputum production, shortness of breath, wheezing and stridor. Cardiovascular: Negative for chest pain. Gastrointestinal: Negative for abdominal pain, diarrhea, nausea and vomiting. Musculoskeletal: Positive for myalgias. Skin: Negative for itching and rash. Neurological: Positive for headaches. Negative for dizziness. Objective Physical Exam Constitutional: General: She is not in acute distress. Appearance: She is not diaphoretic. HENT: Head: Normocephalic. Jaw: No trismus, tenderness, swelling or pain on movement. Nose: Nose normal. Mouth/Throat: Mouth: Mucous membranes are moist. Pharynx: Oropharynx is clear. Uvula midline. Posterior oropharyngeal erythema present. No pharyngeal swelling, oropharyngeal exudate or uvula swelling. Tonsils: No tonsillar exudate or tonsillar abscesses. Comments: White ulcer-like lesions noted highlighted area. Ulcers are approximately 2 mm x 2 mm. Eyes: Conjunctiva/sclera: Conjunctivae normal. Pupils: Pupils are equal, round, and reactive to light. Cardiovascular: Rate and Rhythm: Normal rate and regular rhythm. Heart sounds: Normal heart sounds. Pulmonary: Effort: Pulmonary effort is normal. No tachypnea, accessory muscle usage or respiratory distress. Breath sounds: Normal breath sounds. No stridor. No wheezing, rhonchi or rales. Abdominal: General: There is no distension. Palpations: Abdomen is soft. Tenderness: There is no abdominal tenderness. There is no guarding or rebound. Musculoskeletal: Cervical back: Normal range of motion and neck supple. No edema, erythema, rigidity or tenderness. No pain with movement. Normal range of motion. Lymphadenopathy: Cervical: No cervical adenopathy. Skin: General: Skin is warm and dry. Neurological: Mental Status: She is alert and oriented to person, place, and time. ASSESSMENT/PLAN: 1. Sore throat - ICD9: 462, ICD10: J02.9 (primary diagnosis) - STREP A MOLECULAR (POC) 2. Viral illness - ICD9: 079.99, ICD10: B34.9 Strep test negative. Diagnosed with viral illness. No evidence of deep space infection noted. Strep test negative. Patient was educated on supportive therapies. Patient will follow up with primary care provider as needed. Patient was instructed to immediately proceed to emergency room for any new, worsening, or symptoms lasting longer than anticipated. The patient's clinical presentation is otherwise unremarkable at this time. Based on exam and clinical finding, the patient is stable for discharge. Plan of care was discussed with patient. Patient verbalizes understanding and agrees to plan of care. This note was generated using [employer] software. It may contain errors in wording, punctuation, or spelling. Alex Villalobos APRN.LUIZA documented in this encounter [facility] 11-21-2023 Note HNO ID: [id number] Author: ADRIANO GALLO, DO Service: ? Author Type: Physician Type: Progress Notes Filed: 11/21/2023 11:02 Note Text: Hematologic problem(s): 1) Recurrent DVT/PE. HPI: The patient is a 38-year-old female with a PMH significant for migraine HAs. 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 In May 2016 she was seen for complaint of dull aching chest pain that had started the day prior 06/07/2016. Evidently her EKG was abnormal and she was directed to the emergency room at [facility]. CT demonstrated an isolated complete filling defect in the left lower lobe segmental branch medially. She was admitted overnight and received Lovenox. She was then transitioned to Xarelto. She completed 6 months of Xarelto and then stopped. Hypercoagulation work-up at the time of that event included no evidence of anticardiolipin antibodies, negative PCR for factor V Leiden, normal protein C activity, normal antithrombin activity and normal protein S activity. This event occurred about 6 months , second . She had had no since then and had no prior history of venous thromboembolic events. She received the [employer] SARS-CoV-2 vaccination on 07/16/2020. On 07/19, she had onset of chest pain and she had also developed headache which was typical of her usual migraine headaches characterized by a bandlike sensation from the occiput to the temporal areas bilaterally. However she also has several days of tenderness over the area of the right confucianism associated with tinnitus and muted hearing in the right ear. This symptom resolved after she started Eliquis recently. She had not been on control since prior to her first . She underwent attempted Mirena IUD insertion on 07/29/2020. Evidently it was unsuccessful and she may undergo second attempt at placement in a few weeks. Menses tend to be very heavy when she is on anticoagulation. Underwent endometrial ablation in September 2020 for heavy menses while on anticoagulation. Saw vascular medicine. Indefinite anticoagulation advised. Presents for ongoing hematologic management. Interim history: Was having mood swings and fatigue. 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 Was given rx for antidepressant. Saw functional medicine and found to have low estrogen and progesterone--levels done ~10 days prior to menses. Was given DHEA (10 mg OTC). Took it two days and felt jittery. Functional medicine practitioner suggested symptoms were from blood being too thin and to see me regarding if okay to dose reduce apixaban. Menses still regular. Not as heavy as prior to ablation. Tolerating Eliquis well with no unusual bleeding. Occasional unexplained bruising. No respiratory symptoms. No leg pain or swelling. PMH, medications and allergies personally reviewed by me today. Any changes documented in appropriate section. PHYSICAL EXAM: Vitals: Blood pressure 112/71, pulse 77, temperature 37.2 ?C (98.9 ?F), temperature source Temporal, weight 66 kg (145 lb 8 oz), last menstrual period 03/26/2019, SpO2 98%, currently . Not (confirmed today). Well-appearing and in no acute distress. EYES: Sclerae are anicteric bilaterally. RESPIRATORY: Inspiratory breath sounds are of normal intensity in all peace. No rales, wheezes or rhonchi. CARDIOVASCULAR: Rhythm is regular. ABDOMEN: The abdomen is nondistended. Extremities: No swelling or edema. SKIN: No jaundice. ASSESSMENT/PLAN: (I26.99) Pulmonary embolism without acute cor pulmonale, unspecified pulmonary embolism type (HCC) (primary encounter diagnosis) Assessment: -The patient is a 38-year-old female who had an unprovoked pulmonary embolism approximately 4 years prior to initial evaluation here. She completed 6 months of anticoagulation. Partial assessment of hypercoagulable labs at that time was negative. She received the Mat[employer] Matias SARS-CoV-2 vaccine on 07/16/2020 and was diagnosed with pulmonary embolism on . She also had migraine headache with unusual symptoms of hearing loss and tinnitus of the right ear associated with tenderness over the right confucianism area. Those symptoms resolved on anticoagulation. Subsequently found to be negative for antiplatelet factor 4 antibody. -Negative for lupus anticoagulant. -Saw vascular medicine specialist who agreed with indefinite anticoagulation. -Recent low estrogen and progesterone level although she is still having regular menses. Did not tolerate OTC DHEA replacement/supplement. -I do not think that her symptoms were related to any interaction between DHEA and apixaban. Recommended gynecology evaluation for second opinion regarding hormone levels. She expressed understanding of this logic and agreed with the plan. Plan: -Continue apixaban 5 mg BID. -Referral to gyne (more content not included)... [facility] 11-21-2023 History of Presen t illness Narrative Hematologic problem(s): 1) Recurrent DVT/PE. HPI: The patient is a 38-year-old female with a PMH significant for migraine HAs. 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 In May 2016 she was seen for complaint of dull aching chest pain that had started the day prior 06/07/2016. Evidently her EKG was abnormal and she was directed to the emergency room at [facility]. CT demonstrated an isolated complete filling defect in the left lower lobe segmental branch medially. She was admitted overnight and received Lovenox. She was then transitioned to Xarelto. She completed 6 months of Xarelto and then stopped. Hypercoagulation work-up at the time of that event included no evidence of anticardiolipin antibodies, negative PCR for factor V Leiden, normal protein C activity, normal antithrombin activity and normal protein S activity. This event occurred about 6 months , second . She had had no since then and had no prior history of venous thromboembolic events. She received the [employer] Matias SARS-CoV-2 vaccination on 07/16/2020. On 07/19, she had onset of chest pain and she had also developed headache which was typical of her usual migraine headaches characterized by a bandlike sensation from the occiput to the temporal areas bilaterally. However she also has several days of tenderness over the area of the right confucianism associated with tinnitus and muted hearing in the right ear. This symptom resolved after she started Eliquis recently. She had not been on control since prior to her first . She underwent attempted Mirena IUD insertion on 07/29/2020. Evidently it was unsuccessful and she may undergo second attempt at placement in a few weeks. Menses tend to be very heavy when she is on anticoagulation. Underwent endometrial ablation in September 2020 for heavy menses while on anticoagulation. Saw vascular medicine. Indefinite anticoagulation advised. Presents for ongoing hematologic management. Interim history: Was having mood swings and fatigue. 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 Was given rx for antidepressant. Saw functional medicine and found to have low estrogen and progesterone--levels done ~10 days prior to menses. Was given DHEA (10 mg OTC). Took it two days and felt jittery. Functional medicine practitioner suggested symptoms were from blood being too thin and to see me regarding if okay to dose reduce apixaban. Menses still regular. Not as heavy as prior to ablation. Tolerating Eliquis well with no unusual bleeding. Occasional unexplained bruising. No respiratory symptoms. No leg pain or swelling. PMH, medications and allergies personally reviewed by me today. Any changes documented in appropriate section. PHYSICAL EXAM: Vitals: Blood pressure 112/71, pulse 77, temperature 37.2 C (98.9 F), temperature source Temporal, weight 66 kg (145 lb 8 oz), last menstrual period 03/26/2019, SpO2 98%, currently . Not (confirmed today). Well-appearing and in no acute distress. EYES: Sclerae are anicteric bilaterally. RESPIRATORY: Inspiratory breath sounds are of normal intensity in all peace. No rales, wheezes or rhonchi. CARDIOVASCULAR: Rhythm is regular. ABDOMEN: The abdomen is nondistended. Extremities: No swelling or edema. SKIN: No jaundice. ASSESSMENT/PLAN: (I26.99) Pulmonary embolism without acute cor pulmonale, unspecified pulmonary embolism type (HCC) (primary encounter diagnosis) Assessment: -The patient is a 38-year-old female who had an unprovoked pulmonary embolism approximately 4 years prior to initial evaluation here. She completed 6 months of anticoagulation. Partial assessment of hypercoagulable labs at that time was negative. She received the [employer] Matias SARS-CoV-2 vaccine on 07/16/2020 and was diagnosed with pulmonary embolism on . She also had migraine headache with unusual symptoms of hearing loss and tinnitus of the right ear associated with tenderness over the right confucianism area. Those symptoms resolved on anticoagulation. Subsequently found to be negative for antiplatelet factor 4 antibody. -Negative for lupus anticoagulant. -Saw vascular medicine specialist who agreed with indefinite anticoagulation. -Recent low estrogen and progesterone level although she is still having regular menses. Did not tolerate OTC DHEA replacement/supplement. -I do not think that her symptoms were related to any interaction between DHEA and apixaban. Recommended gynecology evaluation for second opinion regarding hormone levels. She expressed understanding of this logic and agreed with the plan. Plan: -Continue apixaban 5 mg BID. -Referral to gynecology here per her request. -Keep follow-up in May as scheduled. Portions of this documentation were copied and pasted from previous office visit notes in order to provide a cohesive continuity of the history. The note has been reviewed and edited and updated as necessary. I spent a total of 25 minutes on the date of the service which included preparing to see the patient, [id number] patient care, completing clinical documentation, obtaining and/or reviewing separately obtained history, performing a medically appropriate examination, counseling and educating the patient/family/caregiver, ordering medications, tests, or procedures, communicating with other HCPs (not separately reported), and communicating results to the patient/family/caregiver. Adriano Gallo DO documented in this encounter [facility] 08-31-2023 Telephone encounter Note eduClipperhart message sent to patient Minna KALEB Iraheta [facility] 08-31-2023 Miscellaneous Notes eduClipperhart message sent to patient Minna KALEB Iraheta Please let patient know her mammogram is negative. Patient should continue with annual screenings. documented in this encounter [facility] 08-31-2023 Telephone encounter Note Please let patient know her mammogram is negative. Patient should continue with annual screenings. [facility] 05-29-2023 History of Presen t illness Narrative Hematologic problem(s): 1) Recurrent DVT/PE. HPI: The patient is a 38-year-old female with a PMH significant for migraine HAs. 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 In May 2016 she was seen for complaint of dull aching chest pain that had started the day prior 06/07/2016. Evidently her EKG was abnormal and she was directed to the emergency room at [facility]. CT demonstrated an isolated complete filling defect in the left lower lobe segmental branch medially. She was admitted overnight and received Lovenox. She was then transitioned to Xarelto. She completed 6 months of Xarelto and then stopped. Hypercoagulation work-up at the time of that event included no evidence of anticardiolipin antibodies, negative PCR for factor V Leiden, normal protein C activity, normal Antithrombin activity and normal protein S activity. This event occurred about 6 months second . She has had no since then and had no prior history of venous thromboembolic events. She received the [employer] Matias SARS-CoV-2 vaccination on 07/16/2020. On 07/19, she had onset of chest pain and she had also developed headache which was typical of her usual migraine headaches characterized by a bandlike sensation from the occiput to the temporal areas bilaterally. However she also has several days of tenderness over the area of the right confucianism associated with tinnitus and muted hearing in the right ear. This symptom resolved after she started Eliquis recently. She had not been on control since prior to her first . She underwent attempted Mirena IUD insertion on 07/29/2020. Evidently it was unsuccessful and she may undergo second attempt at placement in a few weeks. Menses tend to be very heavy when she is on anticoagulation. Underwent endometrial ablation in September 2020 for heavy menses while on anticoagulation. Presents for ongoing hematologic management. Interim history: Saw vascular medicine. Indefinite anticoagulation advised. Tolerating Eliquis well with no unusual bleeding or unexplained bruising. Menses not as heavy since ablation 2020. No respiratory symptoms. No leg pain or swelling. PMH, medications and allergies personally reviewed by me today. Any changes documented in appropriate section. PHYSICAL EXAM: Vitals: Blood pressure 127/83, pulse 92, temperature 37.2 C (99 F), height 164 cm (5' 4.57), weight 68 kg (150 lb), last menstrual period 03/26/2019, SpO2 100%, currently . Not (confirmed today). Well-appearing and in no acute distress. EYES: Sclerae are anicteric bilaterally. RESPIRATORY: Inspiratory breath sounds are of normal intensity in all peace. No rales, wheezes or rhonchi. CARDIOVASCULAR: Rhythm is regular. ABDOMEN: The abdomen is nondistended. Extremities: No swelling or edema. SKIN: No jaundice. ASSESSMENT/PLAN: (I26.99) Pulmonary embolism without acute cor pulmonale, unspecified pulmonary embolism type (HCC) (primary encounter diagnosis) Assessment: -The patient is a 38-year-old female who appears to have had an unprovoked pulmonary embolism approximately 4 years prior to initial evaluation here. She completed 6 months of anticoagulation. Partial assessment of hypercoagulable labs at that time was negative. She received the Mat[employer] Matias SARS-CoV-2 vaccine on 07/16/2020 and was diagnosed with pulmonary embolism on . She also had migraine headache with unusual symptoms of hearing loss and tinnitus of the right ear associated with tenderness over the right confucianism area. Those symptoms resolved on anticoagulation. Subsequently found to be negative for antiplatelet factor 4 antibody. -Negative for lupus anticoagulant. -Initial pulmonary embolism occurred 6 months so not clearly related to . Plan: -Continue apixaban 5 mg BID. -Refill sent. -Annual office visit to assess on going benefit/risk. Portions of this documentation were copied and pasted from previous office visit notes in order to provide a cohesive continuity of the history. The note has been reviewed and edited and updated as necessary. I spent a total of 15 minutes on the date of the service which included preparing to see the patient, [id number] patient care, completing clinical documentation, obtaining and/or reviewing separately obtained history, performing a medically appropriate examination, counseling and educating the patient/family/caregiver, ordering medications, tests, or procedures, communicating with other HCPs (not separately reported), and communicating results to the patient/family/caregiver. Adriano Gallo DO documented in this encounter [facility] 05-26-2023 Miscellaneous Notes I spoke with the patient. She is aware she was to follow up with vascular medicine at least one more time for him to render his opinion on needed length of anticoagulation. She will contact that office to do so but vascular medicine was never prescribing the Eliquis (PCP has been prescribing but patient recently established with PCP here at [facility]). PSS- please schedule patient to see Dr. Gallo on 05/29/2023 @ 3:50. Patient is aware of appointment date and time. Delores Arellano LPN I referred her to vascular medicine. I can refill but I have to see her for an office visit. Adriano Gallo DO Please forward to Dr. Gallo as it looks like he was the ordering physician prior to patient establishing with me. Janna is calling Jil Hairston APRN.CNP today to request Medication, not on her current list: Disp Refills Start End apixaban (ELIQUIS) 5 mg tab(s) (Discontinued) 182 tablet 3 03/06/2023 03/06/2023 Sig: Take 1 tablet by mouth two times a day. Sent to pharmacy as: apixaban (ELIQUIS) 5 mg tab(s) Class: Normal Route: ORAL Order: [id number] E-Prescribing Status: Receipt confirmed by pharmacy (03/06/2023 4:21 PM EST) E-Cancel Status: Request approved by pharmacy (03/06/2023 4:21 PM EST) Prior authorization: Canceled - Other (The medication order is discontinued.) Patient stated she is taking 5 mg, 2 times per day. Please send to [facility] mail order. Patient has been identified by name and birthdate. Duration of symptoms: N/A Person calling: self Call patient at: on cell [phone] (home) [phone] (cell) Was an appointment scheduled: No Closing statement: Results or non-symptom based questions: Thank you for calling [facility], your call will be returned within the next business day. Tiki Allen documented in this encounter [facility] 05-26-2023 Miscellaneous Notes Patient has been identified by name and date of : Yes, Provider Yovanny Patient phones for refill(s): Requested Prescriptions Pending Prescriptions Disp Refills SUMAtriptan (IMITREX) 100 mg tablet Sig: May repeat dose after 2 hours if needed. Maximum daily dose is 200 mg per day. Date of last office visit in primary care: 12/01/2022 Date of next office visit in primary care: none Please advise. Thank you. Tiki Allen. documented in this encounter [facility] 03-06-2023 Miscellaneous Notes Addended by: JLI HAIRSTON on: 03/06/2023 04:25 PM Modules accepted: Orders What does patient take eliquis for? I have nothing in her history to indicate anticoag therapy? ARMAND-12/01/22 Labs-12/01/22 NOV-none Asya Wright LPN Patient has been identified by name and date of : Yes Requested Prescriptions Pending Prescriptions Disp Refills apixaban (ELIQUIS) 5 mg tab(s) 182 tablet 3 Sig: Take 1 tablet by mouth two times a day. RX INSTRUCTIONS: Patient aware RX will be sent to pharmacy. No need to notify patient. Dede Joseph documented in this encounter [facility] 01-09-2023 Miscellaneous Notes Patient notified and verbalized understanding Minna Iraheta Cma Please let patient know I sent a one time dose of azithromycin. Patient calling to say that co-travelers have received a prescription for some ?antibiotic for treatment of traveler's diarrhea from the [facility]. She is asking if provider would be able to prescribe something for her. [facility]. Lizet Yoo, RN documented in this encounter [facility] 12-05-2022 Miscellaneous Notes [employer] message sent to patient Minna Iraheta Cma Please let patient know her labs show mild cholesterol elevation but are otherwise normal. documented in this encounter [facility] 12-01-2022 History of Presen t illness Narrative Chief Complaint Patient presents with: [facility] HPI Janna Lopez is a 37 year old female who presents here today for Above Complaints.. Patient [place] [facility]. Patient reports she is going on a trip to [place] [facility] [place] in January for a mission trip and needs vaccines for Hepatitis A as well as treatment for typhoid and malaria prevention Past medical history, appointments, medications, allergies reviewed. Previous Medical History PAST MEDICAL HISTORY Diagnosis Date Abnormal glandular Papanicolaou smear of cervix 2007 AND 2010 Abn. Pap smear (cervix) History of squamous cell carcinoma of skin 05/12/2011 right knee Migraine, unspecified, with intractable migraine, so stated, without mention of status migrainosus Migraine with aura Previous Surgical History PAST SURGICAL HISTORY Procedure Laterality Date DELIVERY ONLY 08/19/2011 , low transverse DELIVERY ONLY 12/15/15 , low transverse COLPOSCOPY CERVIX UPPER/ADJACENT VAGINA Colposcopy COLPOSCOPY CERVIX UPPER/ADJACENT VAGINA 05/22/2013 Colposcopy PAST SURGICAL HISTORY OF 2009 EXCISION OF CANCER OF THIGH TONSILLECTOMY & ADENOIDECTOMY <AGE 12 Family History FAMILY HISTORY Problem Relation Age of Onset Emphysema Maternal Grandfather Heart Maternal Grandfather GA Arthritis Paternal Grandmother Arthritis Paternal Grandfather Cancer Paternal Grandfather MELANOMA Prostate Cancer Paternal Grandfather Patient Allergies ALLERGIES Allergen Reactions Bactrim [Sulfametho* Hives Current Medications Current Outpatient Medications on File Prior to Visit Medication Sig apixaban (ELIQUIS) 5 mg tab(s) Take 5 mg by mouth twice daily. SUMAtriptan (IMITREX) 100 mg tablet TAKE 1 TABLET BY MOUTH AT ONSET OF HEADACHE Multivitamin capsule Take 1 capsule by mouth once daily. Lactobacillus acidophilus (PROBIOTIC ORAL) Take by mouth. OTC PRODUCT GO , Drink mix For vitamin supplements 1 packet daily No current facility-administered medications on file prior to visit. Social History Social History Tobacco Use Smoking status: Former Types: Cigarettes Quit date: 10/15/2010 Years since quittin.1 Smokeless tobacco: Never Tobacco comments: Social smoker Vaping Use Vaping Use: Never used Substance Use Topics Alcohol use: Yes Alcohol/week: 2.5 standard drinks of alcohol Types: 1 Glasses of Wine (5oz) per week Comment: rarely Drug use: No Review of Symptoms REVIEW OF SYSTEMS GENERAL: No weight loss, malaise or fevers HEENT: No changes in hearing or vision, no nose bleeds or other nasal problems NECK: Negative for lumps, goiter, pain and significant neck swelling RESPIRATORY: Negative for cough, hemoptysis, wheezing, COPD, dyspnea or shortness of breath CARDIOVASCULAR: Negative for chest pain, leg swelling, hypertension, CHF or palpitations GI: No nausea, vomiting, or diarrhea : No history of dysuria, frequency or incontinence [employer] SUPER[employer]OR: Negative for abnormal vaginal bleeding, abnormal vaginal discharge MUSCULOSKELETAL: back pain SKIN: Negative for lesions, rash, and itching PSYCH: Negative for sleep disturbance, mood disorder and recent psychosocial stressors HEMATOLOGY/LYMPHOLOGY: Negative for prolonged bleeding, bruising easily or swollen nodes ENDOCRINE: Negative for cold or heat intolerance, polyuria, polydipsia and goiter NEURO: Migraine headaches EXAM: BP 106/64 Pulse 72 Resp 14 Wt 64.9 kg (143 lb) LMP 03/26/2019 BMI 24.72 kg/m General Appearance: Well appearing, alert, in no acute distress, well-hydrated, well nourished.. Skin: Skin color, texture, turgor normal, no suspicious rashes or lesions. Neck: Supple, no adenopathy; thyroid symmetric, normal size, no bruits. Lungs: Lungs clear to auscultation. No wheezing, rhonchi, rales.. Heart: RRR without murmur, gallop, or rubs. No ectopy. Abdomen: Normal abdominal exam, Abdomen soft, non-tender. Bowel sounds normal. No masses, organomegaly Extremities: No deformities, edema, skin discoloration, clubbing or cyanosis. Good capillary refill. . Peripheral Pulses: Normal. Neurologic: Gait normal. Reflexes normal and symmetric. Sensation grossly intact.. Health Maintenance List HEPATITIS B(1 of 3 - 3-dose series) Never done HEPATITIS C SCREENING Never done COVID-19 VACCINE(2 - Booster for Cari series) due on 09/10/2020 DEPRESSION ASSESSMENT Never done INFLUENZA(1) due on 12/16/2022 PAP TESTING due on 04/05/2024 HPV TESTING due on 04/05/2024 DTAP,TDAP,TD(2 - Td or Tdap) due on 09/17/2025 HIV SCREENING Completed HPV VACCINE Aged Out ASSESSMENT/PLAN: 1. Encounter for immunization - ICD9: V03.89, ICD10: Z23 (primary diagnosis) - TYPHOID VACCINE,LIVE,ATTENUATED 2 BILLION UNIT CAPSULE,DELAYED RELEASE 2. Need for malaria prophylaxis - ICD9: V07.8, ICD10: Z29.8 - ATOVAQUONE 250 MG-PROGUANIL 100 MG TABLET 3. Medication management - ICD9: V58.69, ICD10: Z79.899 - CBC + DIFF - COMP METABOLIC PANEL 4. Screening for lipid disorders - ICD9: V77.91, ICD10: Z13.220 - LIPID PANEL, NONFASTING 5. Screening for diabetes mellitus - ICD9: V77.1, ICD10: Z13.1 - HGB A1C Jil Hairston APRN.DIRECTOR NURSES' REGISTRY documented in this encounter [facility] 02-02-2022 Miscellaneous Notes received outside medical records for Dr Waite documented in this encounter [facility] 01-17-2022 Miscellaneous Notes Hello, Patient dropped off images for Dr. Waite. Images in [place] [employer], in Vascular mailbox. 2nd floor [place] Thank you. documented in this encounter [facility] 11-19-2021 History of Presen t illness Narrative Images from the original note were not included. [facility] [place] [facility] Department of Cardiovascular Medicine SECTION OF VASCULAR MEDICINE OUTPATIENT VISIT DATE November 14, 2021 OUTPATIENT VISIT TYPE ESTABLISHED Follow up regarding: This is a follow up for this 36 year old female seen recently for an acute pulmonary embolism. and recommendations regarding length of anticoagulation for her two pulmonary embolic events. She is on Apixaban. She has not had a deep vein thrombosis but may have never had an ultrasound. Her first PE developed too long after her delivery to consider it an explained event. (2016) Her second event developed after getting the J&J vaccine. 07/2019) I asked her to get me the actual CT images to be certain she has had two separate events and any ultrasounds if done. She has had a limited hypercoagulable evaluation - all negative to date. We did discuss using the D-dimer to help determine her safety off anticoagulation. She is here for follow up. Allergies: is allergic to bactrim [sulfamethoxazole-trimethoprim]. Medications: Current Outpatient Medications Medication Sig apixaban (ELIQUIS) 5 mg tab(s) Take 5 mg by mouth twice daily. OTC PRODUCT GO , Drink mix For vitamin supplements 1 packet daily SUMAtriptan (IMITREX) 100 mg tablet TAKE 1 TABLET BY MOUTH AT ONSET OF HEADACHE No current facility-administered medications for this visit. Review of medical history: Dysplasia of cervix Wound dehiscence from Subjective: feels well Objective: looks well [facility] 03/26/2019 General: Alert and oriented, in no acute distress, pleasant mood. Skin: Healthy, intact, no ulcerations, no rashes. HEENT: Head normocephalic, extraocular muscles intact, sclera anicteric, nasal and oral mucosa moist and pink, neck supple, no JVD, no carotid bruit. Cardiovascular: Heart has a regular rate and rhythm without murmur. Respiratory: Lungs clear auscultation bilaterally. Gastrointestinal: Abdomen soft and nontender. No abdominal bruit or palpable mass. Musculoskeletal: No cyanosis or clubbing. Peripheral vascular: Dorsalis pedis and posterior tibial pulses 2+/2 bilaterally. Feet and toes warm pink and well perfused. Lower extremities: no edema Labs: D-dimer: <190 No lupus anticoagulant No cardiolipin antibodies or beta 2 glycoproteins. WBC: 6650, H/H: 12/37.3, platelets 356,000 Per records: No Protein C or S deficiency No antithrombin III deficiency APC normal No prothrombin gene mutation Imaging: June 2011: CHEST CT: No PE Assessment: This is a follow up for this 36 year old female who has a history of two venous thromboembolic events and pulmonary embolism. She is on Apixaban and tolerating it well. She has no signs or symptoms to suggest a new blood clot. She has no bleeding complications as well. The question is how long does she need to remain on anticoagulation. I did have the patient bring her outside records to review. Once I have a chance to review them will make recommendations regarding length of treatment. Options include: retirement full dose Apixaban, extended dose Apixaban, aspirin or no anticoagulation therapy. I will make my recommendations once I have a chance to review the outside images and lab studies. All questions answered. Nehemias Waite MD documented in this encounter [facility] 10-01-2021 History of Presen t illness Narrative Patient is requested to be seen by Dr. Gallo and my final recommendations will be forwarded to the referring physician by electronic medical record and/or letter. HISTORY OF PRESENT ILLNESS: This is a 36 year old female here because of a history of a left lower lobe segmental pulmonary embolism that developed a number of years ago ( 2016). She was treated with Xarelto for six months. She recalls the blood clot developed 6 months after her . However, she also mentions that she had leg pain and swelling sooner than when the PE was diagnosed. She had shortness of breath and pain as her major symptoms. The second pulmonary embolism developed in July 2020. This occurred after her first COVID injection. She did get the J&J injection. She remains on Apixaban and is tolerating it well. She has no shortness of breath or chest pain. She reports prolonged periods and requiring one unit of blood last September. She also had chest pain at the time. She has since had a uterine ablation. She would like an opinion about length of anticoagulation therapy. PAST MEDICAL HISTORY: Squamous cell carcinoma of skin/right knee Abnormal PAP smear Migraine headaches PAST SURGICAL HISTORY: x 2 Tonsils and adenoids Uterine ablation SOCIAL HISTORY: 2 children Going to school Occasional alcohol Energy drinks Former smoker FAMILY HISTORY: Emphysema, heart disease, prostate cancer but no clotting issues Mother: alive, 62 good health Father: alive, 64, good health Brother: 1/2 brother in good health REVIEW OF SYSTEMS: General: Denies fever, chills, night sweats, or changes in weight. HEENT: No changes in hearing or vision, no nose bleeds or other nasal problems. Neuro: History of migraines- tingling/numbness in left hand/left leg during migraine Cardio/Pulm: Negative for chest pain/pressure, palpitations, shortness of breath, RIVERO, cough or orthopnea. Negative for paroxysmal nocturnal dyspnea or hemoptysis Positive for palpitations- occasional, was told has leaky valve GI: Negative for abdominal discomfort, blood in stools or black stools No change in bowel habits No unintentional weight loss No post parandial pain No hx of GI bleed : Negative for dysuria, frequency and incontinence Negative for hematuria Renal: No history of ESRD No history of Renal Insufficiency Musculoskeletal: Positive for lower back pain- sees chiropractor every two weeks Skin: Negative for rash, ulcers, lesions, and itching Negative for spider veins and venous telangiectasia All Other ROS: Negative PHYSICAL EXAMINATION: BP 108/68 (BP Site: Left Arm, BP Position: Sitting, BP Cuff Size: Regular Adult) Pulse 67 Wt 65.2 kg (143 lb 12.8 oz) LMP 03/26/2019 BMI 24.85 kg/m General appearance: well appearing, in no acute distress and alert Skin: Skin warm and intact HEENT: pupils equal and reactive Neck: supple, Neg Adenopathy, Neg TMG, No JVD, No Bruits. Back: non tender Neuro: negative Lungs: lungs clear to auscultation no wheezing or rhonchi Heart: Negative. RRR without murmur, gallop, or rubs. No ectopy. Abdomen: Abdomen soft, non-tender. Bowel sounds normal. No masses, organomegaly and Aorta WNL, no bruit Upper Extremities: Normal exam of the upper extremities. No clubbing, cyanosis, or edema., Extremities normal. No deformities, edema, or skin discoloration. Good capillary refill. Lower Extremities: Feet and toes warm Negative edema Negative Ulcers Peripheral pulses: Pulses: femoral=2/2, popliteal=2/2, dorsalis pedis=2/2, posterior tibial=2/2 Musculoskeletal: Range of motion normal in hips, knees, shoulders, and spine. No joint swelling, deformity, or tenderness. IMAGING: No CT available LABS: No lupus anticoagulant No cardiolipin antibodies or beta 2 glycoproteins. WBC: 6650, H/H: 12/37.3, platelets 356,000 Per records: No Protein C or S deficiency No antithrombin III deficiency APC normal No prothrombin gene mutation IMPRESSION AND PLAN: This is a 36 year old female here for recommendations regarding length of anticoagulation for her two pulmonary embolic events. She has not had a deep vein thrombosis but also may not have had an ultrasound. Her first PE developed too long after her delivery to consider it an explained event. Her second event developed after getting the J&J vaccine. I have asked her to get me the actual CT images to be certain she has had two separate events. Also would like any ultrasounds if done. She has had a limited hypercoagulable evaluation - all negative to date. We did discuss using the D-dimer to help determine her safety off anticoagulation. She will get her images and bring them with her for her follow up visit. All questions answered Await her return for a final answer. Nehemias Waite MD documented in this encounter [facility] 09-16-2021 History of Presen t illness Narrative Hematologic problem(s): 1) Recurrent DVT/PE. HPI: The patient is a 36-year-old female with a PMH significant for migraine HAs. 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 In May 2016 she was seen for complaint of dull aching chest pain that had started the day prior 06/07/2016. Evidently her EKG was abnormal and she was directed to the emergency room at [facility]. CT demonstrated an isolated complete filling defect in the left lower lobe segmental branch medially. She was admitted overnight and received Lovenox. She was then transitioned to Xarelto. She completed 6 months of Xarelto and then stopped. Hypercoagulation work-up at the time of that event included no evidence of anticardiolipin antibodies, negative PCR for factor V Leiden, normal protein C activity, normal Antithrombin activity and normal protein S activity. This event occurred about 6 months second . She has had no since then and had no prior history of venous thromboembolic events. She received the Mat[employer] Matias SARS-CoV-2 vaccination on 07/16/2020. On 07/19, she had onset of chest pain and she had also developed headache which was typical of her usual migraine headaches characterized by a bandlike sensation from the occiput to the temporal areas bilaterally. However she also has several days of tenderness over the area of the right confucianism associated with tinnitus and muted hearing in the right ear. This symptom resolved after she started Eliquis recently. She had not been on control since prior to her first . She underwent attempted Mirena IUD insertion on 07/29/2020. Evidently it was unsuccessful and she may undergo second attempt at placement in a few weeks. Menses tend to be very heavy when she is on anticoagulation. Underwent endometrial ablation in September 2020 for heavy menses while on anticoagulation. Since then she has had several very light periods. No other unusual bleeding or unexplained bruising. No further episodes of syncope or other neurologic issue. No complaints of chest pain, shortness of breath at rest or with exertion. Presents for ongoing hematologic management. Interim history: Tolerating Eliquis well with no unusual bleeding or unexplained bruising. Menses not as heavy as previously. Occasionally has some small clots. No respiratory symptoms. No leg pain or swelling. No varicose veins. PMH, medications and allergies personally reviewed by me today. Any changes documented in appropriate section. PHYSICAL EXAM: Vitals: Blood pressure 105/63, pulse 72, temperature 37.4 C (99.4 F), height 162 cm (5' 3.78), weight 66.2 kg (146 lb), last menstrual period 03/26/2019, SpO2 98 %, currently . Not (confirmed today). Well-appearing and in no acute distress. EYES: Sclerae are anicteric bilaterally. RESPIRATORY: Inspiratory breath sounds are of normal intensity in all paece. No rales, wheezes or rhonchi. CARDIOVASCULAR: Rhythm is regular. ABDOMEN: The abdomen is nondistended. No organomegaly. No tenderness. Extremities: No swelling or edema. SKIN: No jaundice. ASSESSMENT/PLAN: (I26.99) Pulmonary embolism without acute cor pulmonale, unspecified pulmonary embolism type (HCC) (primary encounter diagnosis) Assessment: -The patient is a 36-year-old female who appears to have had an unprovoked pulmonary embolism approximately 4 years prior to initial evaluation here. She completed 6 months of anticoagulation. Partial assessment of hypercoagulable labs at that time was negative. She recently received the [employer] Matias SARS-CoV-2 vaccine on 07/16/2020 and was diagnosed with pulmonary embolism on . She also had migraine headache with unusual symptoms of hearing loss and tinnitus of the right ear associated with tenderness over the right confucianism area. Those symptoms resolved on anticoagulation. Subsequently found to be negative for antiplatelet factor 4 antibody. -Negative for lupus anticoagulant. -Again discussed general recommendations for indefinite anticoagulation following an unprovoked pulmonary embolism. Her initial pulmonary embolism occurred 6 months so not clearly related to . Plan: -Continue Eliquis. -Referral to vascular medicine for second opinion on duration of anticoagulation. -Follow up here PRN. Portions of this documentation were copied and pasted from previous office visit notes in order to provide a cohesive continuity of the history. The note has been reviewed and edited and updated as necessary. Adriano Gallo DO documented in this encounter [facility] 08-18-2021 Miscellaneous Notes That time did not work for the patients schedule so we reschedule until 09/16 at 9:[address] Gallo. Left message for patient to return call re: change of appointment time. Dr. Gallo had to take on an urgent patient and would like this patient to see Nancy Jj at 10:00 AM on 08/19. Please affirm this appointment with the patient, document and close this note. If this is not acceptable to the patient, reschedule with Dr. Gallo at the first available appointment date/time that works for both Dr. Gallo and the patient. Diamond Panchal documented in this encounter [facility] 08-05-2021 Note [facility] Work Phone: Pap Smear Specimen Adequacy August 05, 2021 1:24pm Comment Satisfactory for evaluation. No endocervical component is identified. Comment on above: Satisfactory for tuyet luation. No endocervical component is identified. 02-18-2021 Miscellaneous Notes Formattin g of this note might be different from the original. Spoke to patient and scheduled. Susanne Clemente Called patient and reviewed the results of the recent hypercoagulation testing. No evidence of anticardiolipin antibodies or lupus anticoagulant activity. Prothrombin gene mutation negative. She had an unprovoked pulmonary embolism in 2017 and recurrent pulmonary embolism several days following vaccination with the [employer] Matias COVID-19 product. Explained that she had an indication in 2017 for indefinite anticoagulation and the most recent blood clot having been provoked may not necessarily indicate the need for indefinite anticoagulation but after balance discussion of the risks and benefits, she would like to continue with anticoagulation which I think is perfectly appropriate. Our plan will be to have an office visit every 6 months or so to reevaluate. Please schedule her for office visit in about 6 months. Adriano Gallo DO documented in this encounter [facility] 08-10-2020 Note HNO ID: [id number] Author: Zane Thayer (Rt) Service: Radiology Author Type: Caving Guide Type: Progress Notes Filed: 08/10/2020 3:45 PM Note Text: Radiology Service Progress Note DATE OF SERVICE: August 10, 2020 TIME: 3:44 PM PATIENT IDENTITY VERIFICATION COMPLETED USING TWO (2) STANDARD IDENTIFIERS: Name and Date of confirmed by patient verbally. FALL SCREENING: Has the patient had 2 falls in the last year or 1 fall with injury or currently using an Ambulatory Assistive Device (Walker, Cane, Wheelchair, Crutches, etc.)? No PATIENT GENDER DATA: Female. status: : No status: NO. PATIENT RELEVANT IMPLANT DATA REVIEWED: Yes ALLERGIES: Reviewed and unchanged CONTRAST ALLERGY: NO. EXAM: MRI - CONTRAST TYPE: GROUP II PERIPHERAL IV DATA: Ambulatory: A peripheral IV was started in the Left antecubital site with a Angio cath: 22 gauge. RADIOLOGY DEPARTMENT: MR; Exam(s) Completed: Head: Routine Brain Sagittal Sinus MRV SIGNATURE: Heike Luong MRI PATIENT NAME: Janna Lopez DATE: August 10, 2020 TIME: 3:44 PM [facility] 08-21-2015 History of Past i llness Narrative Problem Noted Date Resolved Date Near syncope 08/21/2015 01/29/2016 Overview: Cardio consult ordered, normal EKG discussed conservative managmeent Jenny Corea MD Work up started 08/21/15- JV Exposure to parvovirus 08/10/2015 6 Overview: August 10, 2015 Non immune by antibodies and exposure at approx 22 weeks. Repeat titers in 4 weeks and if positive will need US for growth/fluid for f/u. Mirian Adams MD Encounter for supervision of normal in multigravida in third trimester 05/05/2015 01/29/2016 Overview: Girl on us- Rupal Previous section 05/05/20152015 Overview: 75% chance of success planning , signed consent form Jenny Corea MD consent signed 08/28/15 and faxed to [employer] [facility] with positive high risk HPV 06/13/2012 05/05/2015 Irregular menses 05/08/2012 08/10/2015 History of squamous cell carcinoma of skin 05/1201/29/2016 Overview: Excised in 2009 from right thigh. Supervision of normal 04/13/2011 05/08/2012 Overview: Girl- Marni documented as of this encounter (statuses as of 08/27/2021) [facility] History of Past illness Narrative* Problem Noted Date Resolved Date Near syncope 08/21/2015 01/29/2016 Overview: Cardio consult ordered, normal EKG discussed conservative managmeent Jenny Corea MD Work up started 08/21/15- JV Exposure to parvovirus 08/10/2015 Overview: August 10, 2015 Non immune by antibodies and exposure at approx 22 weeks. Repeat titers in 4 weeks and if positive will need US for growth/fluid for f/u. Mirian Adams MD Encounter for supervision of normal in multigravida in third trimester 05/05/2015 01/29/2016 Overview: Girl on us- Rupal Previous section 05/05/20152015 Overview: 75% chance of success planning , signed consent form Jenny Corea MD consent signed 08/28/15 and faxed to L&D. ASCUS with positive high risk HPV 06/13/2012 05/05/2015 Irregular menses 05/08/2012 08/10/2015 History of squamous cell carcinoma of skin 05/1201/29/2016 Overview: Excised in 2009 from right thigh. Supervision of normal 04/13/2011 05/08/2012 Overview: Girl- Marni documented as of this encounter (statuses as of 09/16/2021) [facility] History of Past illness Narrative* Problem Noted Date Resolved Date Near syncope 08/21/2015 01/29/2016 Overview: Cardio consult ordered, normal EKG discussed conservative managmeent Jenny Corea MD Work up started 08/21/15- JV Exposure to parvovirus 08/10/2015 6 Overview: August 10, 2015 Non immune by antibodies and exposure at approx 22 weeks. Repeat titers in 4 weeks and if positive will need US for growth/fluid for f/u. Mirian Adams MD Encounter for supervision of normal in multigravida in third trimester 05/05/2015 01/29/2016 Overview: Girl on us- Rupal Previous section 05/05/20152015 Overview: 75% chance of success planning , signed consent form Jenny Corea MD consent signed 08/28/15 and faxed to L&D. ERIUS with positive high risk HPV 06/13/2012 05/05/2015 Irregular menses 05/08/2012 08/10/2015 History of squamous cell carcinoma of skin 05/1201/29/2016 Overview: Excised in 2009 from right thigh. Supervision of normal 04/13/2011 05/08/2012 Overview: Girl- Marni documented as of this encounter (statuses as of 10/01/2021) [facility] History of Past illness Narrative* Problem Noted Date Resolved Date Near syncope 08/21/2015 01/29/2016 Overview: Cardio consult ordered, normal EKG discussed conservative managmeent Jenny Corea MD Work up started 08/21/15- JV Exposure to parvovirus 08/10/2015 6 Overview: August 10, 2015 Non immune by antibodies and exposure at approx 22 weeks. Repeat titers in 4 weeks and if positive will need US for growth/fluid for f/u. Mirian Adams MD Encounter for supervision of normal in multigravida in third trimester 05/05/2015 01/29/2016 Overview: Girl on us- Rupal Previous section 05/05/20152015 Overview: 75% chance of success planning , signed consent form Jenny Corea MD consent signed 08/28/15 and faxed to L&D. ASCUS with positive high risk HPV 06/13/2012 05/05/2015 Irregular menses 05/08/2012 08/10/2015 History of squamous cell carcinoma of skin 05/1201/29/2016 Overview: Excised in 2009 from right thigh. Supervision of normal 04/13/2011 05/08/2012 Overview: Girl- Marni documented as of this encounter (statuses as of 10/01/2021) [facility] History of Past illness Narrative* Problem Noted Date Resolved Date Near syncope 08/21/2015 01/29/2016 Overview: Cardio consult ordered, normal EKG discussed conservative managmeent Jenny Corea MD Work up started 08/21/15- JV Exposure to parvovirus 08/10/2015 6 Overview: August 10, 2015 Non immune by antibodies and exposure at approx 22 weeks. Repeat titers in 4 weeks and if positive will need US for growth/fluid for f/u. Mirian Adams MD Encounter for supervision of normal in multigravida in third trimester 05/05/2015 01/29/2016 Overview: Girl on us- Rupal Previous section 05/05/20152015 Overview: 75% chance of success planning , signed consent form Jenny Corea MD consent signed 08/28/15 and faxed to L&D. ASCUS with positive high risk HPV 06/13/2012 05/05/2015 Irregular menses 05/08/2012 08/10/2015 History of squamous cell carcinoma of skin 05/1201/29/2016 Overview: Excised in 2009 from right thigh. Supervision of normal 04/13/2011 05/08/2012 Overview: Girl- Marni documented as of this encounter (statuses as of 10/12/2021) [facility] History of Past illness Narrative* Problem Noted Date Resolved Date Near syncope 08/21/2015 01/29/2016 Overview: Cardio consult ordered, normal EKG discussed conservative managmeent Jenny Corea MD Work up started 08/21/15- JV Exposure to parvovirus 08/10/2015 Overview: August 10, 2015 Non immune by antibodies and exposure at approx 22 weeks. Repeat titers in 4 weeks and if positive will need US for growth/fluid for f/u. Mirian Adams MD Encounter for supervision of normal in multigravida in third trimester 05/05/2015 01/29/2016 Overview: Girl on us- Rupal Previous section 05/05/20152015 Overview: 75% chance of success planning , signed consent form Jenny Corea MD consent signed 08/28/15 and faxed to [employer] [facility]REEMAN with positive high risk HPV 06/13/2012 05/05/2015 Irregular menses 05/08/2012 08/10/2015 History of squamous cell carcinoma of skin 05/1201/29/2016 Overview: Excised in 2009 from right thigh. Supervision of normal 04/13/2011 05/08/2012 Overview: Girl- Marni documented as of this encounter (statuses as of 11/19/2021) [facility] History of Past illness Narrative* Problem Noted Date Resolved Date Near syncope 08/21/2015 01/29/2016 Overview: Cardio consult ordered, normal EKG discussed conservative managmeent Jenny Corea MD Work up started 08/21/15- JV Exposure to parvovirus 08/10/2015 6 Overview: August 10, 2015 Non immune by antibodies and exposure at approx 22 weeks. Repeat titers in 4 weeks and if positive will need US for growth/fluid for f/u. Mirian Adams MD Encounter for supervision of normal in multigravida in third trimester 05/05/2015 01/29/2016 Overview: Girl on us- Rupal Previous section 05/05/20152015 Overview: 75% chance of success planning , signed consent form Jenny Corea MD consent signed 08/28/15 and faxed to L&D. ERIUS with positive high risk HPV 06/13/2012 05/05/2015 Irregular menses 05/08/2012 08/10/2015 History of squamous cell carcinoma of skin 05/1201/29/2016 Overview: Excised in 2009 from right thigh. Supervision of normal 04/13/2011 05/08/2012 Overview: Girl- Marni documented as of this encounter (statuses as of 11/28/2021) [facility] History of Past illness Narrative* Problem Noted Date Resolved Date Near syncope 08/21/2015 01/29/2016 Overview: Cardio consult ordered, normal EKG discussed conservative managmeent Jenny Corea MD Work up started 08/21/15- JV Exposure to parvovirus 08/10/2015 6 Overview: August 10, 2015 Non immune by antibodies and exposure at approx 22 weeks. Repeat titers in 4 weeks and if positive will need US for growth/fluid for f/u. Mirian Adams MD Encounter for supervision of normal in multigravida in third trimester 05/05/2015 01/29/2016 Overview: Girl on us- Rupal Previous section 05/05/20152015 Overview: 75% chance of success planning , signed consent form Jenny Corea MD consent signed 08/28/15 and faxed to L&D. ASCUS with positive high risk HPV 06/13/2012 05/05/2015 Irregular menses 05/08/2012 08/10/2015 History of squamous cell carcinoma of skin 05/1201/29/2016 Overview: Excised in 2009 from right thigh. Supervision of normal 04/13/2011 05/08/2012 Overview: Rachael- Marni documented as of this encounter (statuses as of 01/10/2022) [facility] History of Past illness Narrative* Problem Noted Date Resolved Date Near syncope 08/21/2015 01/29/2016 Overview: Cardio consult ordered, normal EKG discussed conservative managmeent Jenny Corea MD Work up started 08/21/15- JV Exposure to parvovirus 08/10/2015 6 Overview: August 10, 2015 Non immune by antibodies and exposure at approx 22 weeks. Repeat titers in 4 weeks and if positive will need US for growth/fluid for f/u. Mirian Adams MD Encounter for supervision of normal in multigravida in third trimester 05/05/2015 01/29/2016 Overview: Girl on us- Rupal Previous section 05/05/20152015 Overview: 75% chance of success planning , signed consent form Jenny Corea MD consent signed 08/28/15 and faxed to L&D. ASCUS with positive high risk HPV 06/13/2012 05/05/2015 Irregular menses 05/08/2012 08/10/2015 History of squamous cell carcinoma of skin 05/1201/29/2016 Overview: Excised in 2009 from right thigh. Supervision of normal 04/13/2011 05/08/2012 Overview: Girl- Marni documented as of this encounter (statuses as of 01/17/2022) [facility] History of Past illness Narrative* Problem Noted Date Resolved Date Near syncope 08/21/2015 01/29/2016 Overview: Cardio consult ordered, normal EKG discussed conservative managmeent Jenny Corea MD Work up started 08/21/15- JV Exposure to parvovirus 08/10/2015 Overview: August 10, 2015 Non immune by antibodies and exposure at approx 22 weeks. Repeat titers in 4 weeks and if positive will need US for growth/fluid for f/u. Mirian Adasm MD Encounter for supervision of normal in multigravida in third trimester 05/05/2015 01/29/2016 Overview: Girl on us- Rupal Previous section 05/05/20152015 Overview: 75% chance of success planning , signed consent form Jenny Corea MD consent signed 08/28/15 and faxed to L&D. ERIUS with positive high risk HPV 06/13/2012 05/05/2015 Irregular menses 05/08/2012 08/10/2015 History of squamous cell carcinoma of skin 05/1201/29/2016 Overview: Excised in 2009 from right thigh. Supervision of normal 04/13/2011 05/08/2012 Overview: Girl- Marni documented as of this encounter (statuses as of 02/02/2022) [facility] History of Past illness Narrative* Problem Noted Date Resolved Date Near syncope 08/21/2015 01/29/2016 Overview: Cardio consult ordered, normal EKG discussed conservative managmeent Jenny Corea MD Work up started 08/21/15- JV Exposure to parvovirus 08/10/2015 6 Overview: August 10, 2015 Non immune by antibodies and exposure at approx 22 weeks. Repeat titers in 4 weeks and if positive will need US for growth/fluid for f/u. Mirian Adams MD Encounter for supervision of normal in multigravida in third trimester 05/05/2015 01/29/2016 Overview: Girl on us- Rupal Previous section 05/05/20152015 Overview: 75% chance of success planning , signed consent form Jenny Corea MD consent signed 08/28/15 and faxed to [employer]ANGUS with positive high risk HPV 06/13/2012 05/05/2015 Irregular menses 05/08/2012 08/10/2015 History of squamous cell carcinoma of skin 05/1201/29/2016 Overview: Excised in 2009 from right thigh. Supervision of normal 04/13/2011 05/08/2012 Overview: Girl- Marni documented as of this encounter (statuses as of 02/23/2022) [facility] History of Past illness Narrative* Problem Noted Date Resolved Date Near syncope 08/21/2015 01/29/2016 Overview: Cardio consult ordered, normal EKG discussed conservative managmeent Jenny Corea MD Work up started 08/21/15- JV Exposure to parvovirus 08/10/2015 6 Overview: August 10, 2015 Non immune by antibodies and exposure at approx 22 weeks. Repeat titers in 4 weeks and if positive will need US for growth/fluid for f/u. Mirian Adams MD Encounter for supervision of normal in multigravida in third trimester 05/05/2015 01/29/2016 Overview: Girl on us- Rupal Previous section 05/05/20152015 Overview: 75% chance of success planning , signed consent form Jenny Corea MD consent signed 08/28/15 and faxed to [employer] [facility] with positive high risk HPV 06/13/2012 05/05/2015 Irregular menses 05/08/2012 08/10/2015 History of squamous cell carcinoma of skin 05/1201/29/2016 Overview: Excised in 2009 from right thigh. Supervision of normal 04/13/2011 05/08/2012 Overview: Girl- Marni documented as of this encounter (statuses as of 03/09/2022) [facility] History of Past illness Narrative* Problem Noted Date Diagnosed Date Resolved Date Near syncope 08/21/2015 01/29/2016 Overview: Cardio consult ordered, normal EKG discussed conservative managmeent Jenny Corea MD Work up started 08/21/15- JV Exposure to parvovirus 08/10/201501/28 Overview: August 10, 2015 Non immune by antibodies and exposure at approx 22 weeks. Repeat titers in 4 weeks and if positive will need US for growth/fluid for f/u. Mirian Adams MD Encounter for supervision of normal in multigravida in third trimester 05/05/201501/28 Overview: Girl on us- Rupal Previous section 05/05/2015 Overview: 75% chance of success planning , signed consent form Jenny Corea MD consent signed 08/28/15 and faxed to [employer] [facility] with positive high risk HPV 06/13/2012 05/05/2015 Irregular menses 05/08/2012 08/10/2015 History of squamous cell carcinoma of skin 05/12/2011 01/29/2016 Overview: Excised in 2009 from right thigh. Supervision of normal 04/13/2011 05/08/2012 Overview: Girl- Marni documented as of this encounter (statuses as of 12/02/2022) [facility] History of Past illness Narrative* Problem Noted Date Diagnosed Date Resolved Date Near syncope 08/21/2015 01/29/2016 Overview: Cardio consult ordered, normal EKG discussed conservative managmeent Jenny Corea MD Work up started 08/21/15- JV Exposure to parvovirus 08/10/201501/28 Overview: August 10, 2015 Non immune by antibodies and exposure at approx 22 weeks. Repeat titers in 4 weeks and if positive will need US for growth/fluid for f/u. Mirian Adams MD Encounter for supervision of normal in multigravida in third trimester 05/05/201501/28 Overview: Girl on us- Rupal Previous section 05/05/2015 Overview: 75% chance of success planning , signed consent form Jenny Corea MD consent signed 08/28/15 and faxed to [employer] with positive high risk HPV 06/13/2012 05/05/2015 Irregular menses 05/08/2012 08/10/2015 History of squamous cell carcinoma of skin 05/12/2011 01/29/2016 Overview: Excised in 2009 from right thigh. Supervision of normal 04/13/2011 05/08/2012 Overview: Girl- Marni documented as of this encounter (statuses as of 12/05/2022) [facility] of Past illness Narrative* Problem Noted Date Diagnosed Date Resolved Date Near syncope 08/21/2015 01/29/2016 Overview: Cardio consult ordered, normal EKG discussed conservative managmeent Jenny Corea MD Work up started 08/21/15- JV Exposure to parvovirus 08/10/201501/28 Overview: August 10, 2015 Non immune by antibodies and exposure at approx 22 weeks. Repeat titers in 4 weeks and if positive will need US for growth/fluid for f/u. Mirian Adams MD Encounter for supervision of normal in multigravida in third trimester 05/05/201501/28 Overview: Girl on us- Rupal Previous section 05/05/2015 Overview: 75% chance of success planning , signed consent form Jenny Corea MD consent signed 08/28/15 and faxed to [employer] [facility] with positive high risk HPV 06/13/2012 05/05/2015 Irregular menses 05/08/2012 08/10/2015 History of squamous cell carcinoma of skin 05/12/2011 01/29/2016 Overview: Excised in 2009 from right thigh. Supervision of normal 04/13/2011 05/08/2012 Overview: Girl- Marni documented as of this encounter (statuses as of 01/09/2023) [facility] History of Past illness Narrative* Problem Noted Date Diagnosed Date Resolved Date Near syncope 08/21/2015 01/29/2016 Overview: Cardio consult ordered, normal EKG discussed conservative managmeent Jenny Corea MD Work up started 08/21/15- JV Exposure to parvovirus 08/10/201501/28 Overview: August 10, 2015 Non immune by antibodies and exposure at approx 22 weeks. Repeat titers in 4 weeks and if positive will need US for growth/fluid for f/u. Mirian Adams MD Encounter for supervision of normal in multigravida in third trimester 05/05/201501/28 Overview: Girl on us- Rupal Previous section 05/05/2015 Overview: 75% chance of success planning , signed consent form Jenny Corea MD consent signed 08/28/15 and faxed to [employer]. PETE with positive high risk HPV 06/13/2012 05/05/2015 Irregular menses 05/08/2012 08/10/2015 History of squamous cell carcinoma of skin 05/12/2011 01/29/2016 Overview: Excised in 2009 from right thigh. Supervision of normal 04/13/2011 05/08/2012 Overview: Girl- Marni documented as of this encounter (statuses as of 03/07/2023) [facility] of Past illness Narrative* Problem Noted Date Diagnosed Date Resolved Date Near syncope 08/21/2015 01/29/2016 Overview: Cardio consult ordered, normal EKG discussed conservative managmeent Jenny Corea MD Work up started 08/21/15- JV Exposure to parvovirus 08/10/201501/28 Overview: August 10, 2015 Non immune by antibodies and exposure at approx 22 weeks. Repeat titers in 4 weeks and if positive will need US for growth/fluid for f/u. Mirian Adams MD Encounter for supervision of normal in multigravida in third trimester 05/05/201501/28 Overview: Girl on us- Rupal Previous section 05/05/2015 Overview: 75% chance of success planning , signed consent form Jenny Corea MD consent signed 08/28/15 and faxed to [employer] [facility] with positive high risk HPV 06/13/2012 05/05/2015 Irregular menses 05/08/2012 08/10/2015 History of squamous cell carcinoma of skin 05/12/2011 01/29/2016 Overview: Excised in 2009 from right thigh. Supervision of normal 04/13/2011 05/08/2012 Overview: Girl- Marni documented as of this encounter (statuses as of 05/26/2023) [facility] Past illness Narrative* Problem Noted Date Diagnosed Date Resolved Date Near syncope 08/21/2015 01/29/2016 Overview: Cardio consult ordered, normal EKG discussed conservative managmeent Jenny Corea MD Work up started 08/21/15- JV Exposure to parvovirus 08/10/201501/28 Overview: August 10, 2015 Non immune by antibodies and exposure at approx 22 weeks. Repeat titers in 4 weeks and if positive will need US for growth/fluid for f/u. Mirian Adams MD Encounter for supervision of normal in multigravida in third trimester 05/05/201501/28 Overview: Girl on us- Rupal Previous section 05/05/2015 Overview: 75% chance of success planning , signed consent form Jenny Corea MD consent signed 08/28/15 and faxed to [employer] [facility]REEM[facility] with positive high risk HPV 06/13/2012 05/05/2015 Irregular menses 05/08/2012 08/10/2015 History of squamous cell carcinoma of skin 05/12/2011 01/29/2016 Overview: Excised in 2009 from right thigh. Supervision of normal 04/13/2011 05/08/2012 Overview: Girl- Marni documented as of this encounter (statuses as of 05/29/2023) [facility] Past illness Narrative* Problem Noted Date Diagnosed Date Resolved Date Near syncope 08/21/2015 01/29/2016 Overview: Cardio consult ordered, normal EKG discussed conservative managmeent Jenny Corea MD Work up started 08/21/15- JV Exposure to parvovirus 08/10/201501/28 Overview: August 10, 2015 Non immune by antibodies and exposure at approx 22 weeks. Repeat titers in 4 weeks and if positive will need US for growth/fluid for f/u. Mirian Adams MD Encounter for supervision of normal in multigravida in third trimester 05/05/201501/28 Overview: Girl on us- Rupal Previous section 05/05/2015 Overview: 75% chance of success planning , signed consent form Jenny Corea MD consent signed 08/28/15 and faxed to L&D. ASCUS with positive high risk HPV 06/13/2012 05/05/2015 Irregular menses 05/08/2012 08/10/2015 History of squamous cell carcinoma of skin 05/12/2011 01/29/2016 Overview: Excised in 2009 from right thigh. Supervision of normal 04/13/2011 05/08/2012 Overview: Girl- Marni documented as of this encounter (statuses as of 05/29/2023) [facility]WC[facility] Work Phone: Evaluation note* Diagnosis Multiple subsegmental pulmonary emboli without acute cor pulmonale (HCC)- Primary [facility] Diagnosis History of pulmonary embolism- Primary Personal history of pulmonary embolism Anticoagulation management encounter Encounter for therapeutic drug monitoring [facility] History of pulmonary embolism Personal history of pulmonary embolism Anticoagulation management encounter Encounter for therapeutic drug monitoring [facility] Diagnosis Encounter for immunization- Primary Need for other specified prophylactic vaccination against single bacterial disease Need for malaria prophylaxis Medication management Encounter for long-term (current) use of other medications Screening for lipid disorders Screening for diabetes mellitus [facility] Diagnosis Traveler's diarrhea- Primary Infectious diarrhea [facility] Diagnosis Multiple subsegmental pulmonary emboli without acute cor pulmonale (HCC)- Primary documented in this encounter [facility] note* Diagnosis Multiple subsegmental pulmonary emboli without acute cor pulmonale (HCC)- Primary Estrogen deficiency Other ovarian failure documented in this encounter [facility] note* Diagnosis Sore throat- Primary Acute pharyngitis Viral illness Unspecified viral infection, in conditions classified elsewhere and of unspecified site documented in this encounter [facility] note* Diagnosis History of pulmonary embolism- Primary Personal history of pulmonary embolism documented in this encounter [facility] note* Diagnosis Mood changes- Primary Unspecified episodic mood disorder Excessive bleeding in premenopausal period Premenopausal menorrhagia documented in this encounter [facility] Summary Purpose Family History No Family History Records Found Relationship Condition Age at Onset Recorded Date/T tyrese Unknown Family History?Hypertension Unknown June 08, 2016 7:06pm Family History?No pe rtinent history, - Unknown June 08, 2016 7:06pm Family History?No pe rtinent history, - Unknown August 21, 2020 9:30am Advance Directives No Advanced Directives Records Found Advance Directive Response Recorded Date/ Time Living Will No October 08, 2020 2:09pm Power of Crusher Tender No October 08 2:09pm Advance Directive Response Recorded Date/ Time Living Will Yes February 11 8:48pm Power of Crusher Tender Yes February 11, 2022 8:48pm Name of Medical Power of Crusher Tender YOGESH LOPEZ February 11, 2022 8:48pm Chief Complaint and Reason for Visit 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) Chief Complaint CHEST PAIN Reason for Referral Specialty Diagnoses / Procedures Referred By Nelly patel Referred To Contact Gynecology Diagnoses Estrogen deficiency Procedures CONSULT TO GYNECOLOGY OFFICE/OUTPATIENT [facility] 60 MINUTES Adriano Gallo DO [address] [place] [address] Referral ID Status Reason Start Date Expiration Date Visits Requested Visits Authorized [id number] Authorized PCP Requested Referral Auto-Generate d Referral 11/21/2023 11/20/2024 1 1 Additional Source Comments INFORMATION SOURCE (unrecogn ized section and content) DATE CREATED AUTHOR 08/12/2020 [facility] DATE CREATED AUTHOR AUTHOR'S ORGANIZ ATION 07/01/2024 [facility] DATE CREATED AUTHOR AUTHOR'S ORGANIZ ATION 10/01/2024 [facility] Goals (unrecognized section and content) Goals may be documented in a n alternate sectionGoals may be documented in an alternate section Source Comments (unrecognize d section and content) In the event this informatio n is protected by the Federal Confidentiality of Alcohol and Drug Abuse Patient Records regulations: The Federal rules restrict any use of the information to criminally investigate or prosecute any alcohol or drug abuse patient.[facility] the event this information is protected by the Federal Confidentiality of Alcohol and Drug Abuse Patient Records regulations: The Federal rules restrict any use of the information to criminally investigate or prosecute any alcohol or drug abuse patient.[facility]In the event this information is protected by the Federal Confidentiality of Alcohol and Drug Abuse Patient Records regulations: The Federal rules restrict any use of the information to criminally investigate or prosecute any alcohol or drug abuse patient.[facility] the event this information is protected by the Federal Confidentiality of Alcohol and Drug Abuse Patient Records regulations: The Federal rules restrict any use of the information to criminally investigate or prosecute any alcohol or drug abuse patient.[facility] the event this information is protected by the Federal Confidentiality of Alcohol and Drug Abuse Patient Records regulations: The Federal rules restrict any use of the information to criminally investigate or prosecute any alcohol or drug abuse patient.[facility] the event this information is protected by the Federal Confidentiality of Alcohol and Drug Abuse Patient Records regulations: The Federal rules restrict any use of the information to criminally investigate or prosecute any alcohol or drug abuse patient.[facility] the event this information is protected by the Federal Confidentiality of Alcohol and Drug Abuse Patient Records regulations: The Federal rules restrict any use of the information to criminally investigate or prosecute any alcohol or drug abuse patient.[facility]In the event this information is protected by the Federal Confidentiality of Alcohol and Drug Abuse Patient Records regulations: The Federal rules restrict any use of the information to criminally investigate or prosecute any alcohol or drug abuse patient.[facility]In the event this information is protected by the Federal Confidentiality of Alcohol and Drug Abuse Patient Records regulations: The Federal rules restrict any use of the information to criminally investigate or prosecute any alcohol or drug abuse patient.[facility] the event this information is protected by the Federal Confidentiality of Alcohol and Drug Abuse Patient Records regulations: The Federal rules restrict any use of the information to criminally investigate or prosecute any alcohol or drug abuse patient.[facility]In the event this information is protected by the Federal Confidentiality of Alcohol and Drug Abuse Patient Records regulations: The Federal rules restrict any use of the information to criminally investigate or prosecute any alcohol or drug abuse patient.[facility] the event this information is protected by the Federal Confidentiality of Alcohol and Drug Abuse Patient Records regulations: The Federal rules restrict any use of the information to criminally investigate or prosecute any alcohol or drug abuse patient.[facility] the event this information is protected by the Federal Confidentiality of Alcohol and Drug Abuse Patient Records regulations: The Federal rules restrict any use of the information to criminally investigate or prosecute any alcohol or drug abuse patient.[facility] the event this information is protected by the Federal Confidentiality of Alcohol and Drug Abuse Patient Records regulations: The Federal rules restrict any use of the information to criminally investigate or prosecute any alcohol or drug abuse patient.[facility]In the event this information is protected by the Federal Confidentiality of Alcohol and Drug Abuse Patient Records regulations: The Federal rules restrict any use of the information to criminally investigate or prosecute any alcohol or drug abuse patient.[facility] the event this information is protected by the Federal Confidentiality of Alcohol and Drug Abuse Patient Records regulations: The Federal rules restrict any use of the information to criminally investigate or prosecute any alcohol or drug abuse patient.[facility] HospitalIn the event this information is protected by the Federal Confidentiality of Alcohol and Drug Abuse Patient Records regulations: The Federal rules restrict any use of the information to criminally investigate or prosecute any alcohol or drug abuse patient.[facility] HospitalIn the event this information is protected by the Federal Confidentiality of Alcohol and Drug Abuse Patient Records regulations: The Federal rules restrict any use of the information to criminally investigate or prosecute any alcohol or drug abuse patient.[facility] HospitalIn the event this information is protected by the Federal Confidentiality of Alcohol and Drug Abuse Patient Records regulations: The Federal rules restrict any use of the information to criminally investigate or prosecute any alcohol or drug abuse patient.[facility] HospitalIn the event this information is protected by the Federal Confidentiality of Alcohol and Drug Abuse Patient Records regulations: The Federal rules restrict any use of the information to criminally investigate or prosecute any alcohol or drug abuse patient.[facility] HospitalIn the event this information is protected by the Federal Confidentiality of Alcohol and Drug Abuse Patient Records regulations: The Federal rules restrict any use of the information to criminally investigate or prosecute any alcohol or drug abuse patient.[facility] HospitalIn the event this information is protected by the Federal Confidentiality of Alcohol and Drug Abuse Patient Records regulations: The Federal rules restrict any use of the information to criminally investigate or prosecute any alcohol or drug abuse patient.[facility] HospitalIn the event this information is protected by the Federal Confidentiality of Alcohol and Drug Abuse Patient Records regulations: The Federal rules restrict any use of the information to criminally investigate or prosecute any alcohol or drug abuse patient.[facility] HospitalIn the event this information is protected by the Federal Confidentiality of Alcohol and Drug Abuse Patient Records regulations: The Federal rules restrict any use of the information to criminally investigate or prosecute any alcohol or drug abuse patient.[facility]In the event this information is protected by the Federal Confidentiality of Alcohol and Drug Abuse Patient Records regulations: The Federal rules restrict any use of the information to criminally investigate or prosecute any alcohol or drug abuse patient.[facility] HospitalIn the event this information is protected by the Federal Confidentiality of Alcohol and Drug Abuse Patient Records regulations: The Federal rules restrict any use of the information to criminally investigate or prosecute any alcohol or drug abuse patient.[facility] Reason for Visit (unrecogniz ed section and content) Reason Comments Appointment Rescheduled Reason Comments Established Patient Reason Comments New Patient Evaluation PE in July 2020 a few days after J&J COVID vaccine , and May 2016 ~6 months after Reason Comments Follow Up Reason Comments Results Reason Comments Results Patient dropped off images for Dr. Waite Reason Comments Received Outside Medical Records Reason Comments Establish Care Reason Comments Patient Question Reason Onset Date Comments Refill Request Refill Request 03/06/2023 Reason Comments Medication Request Reason Onset Date Comments Refill Request 05/26/2023 Reason Comments Established Patient Reason Comments Refill Request Reason Comments Sore Throat Fever, bodyaches x2 days Reason Comments Discussion Care Teams (unrecognized sec tion and content) Road Supervisor Relationship Specialty Start Date End Date Nehemias Ho DO [address] [place] [address] PCP - General Family Practice 08/03/20 Nehemias Bateman MD [facility] Practice 08/03/20 Road Supervisor Relationship Specialty Start Date End Date Nehemias Ho DO PCP - General Family Practice 08/03/20 Nehemias Bateman MD Family Practice 08/03/20 Road Supervisor Relationship Specialty Start Date End Date Nehemias Ho DO PCP - General Family Practice 08/03/20 Nehemias Bateman MD Family Practice 08/03/20 Road Supervisor Relationship Specialty Start Date End Date Nehemias Ho DO PCP - General Family Practice 08/03/20 Nehemias Bateman MD Family Practice 08/03/20 Road Supervisor Relationship Specialty Start Date End Date Nehemias Ho DO PCP - General Family Practice 08/03/20 Nehemias Bateman MD Family Practice 08/03/20 Road Supervisor Relationship Specialty Start Date End Date Nehemias Ho DO PCP - General Family Medicine 08/03/20 Nehemias Bateman MD Family Medicine 08/03/20 Road Supervisor Relationship Specialty Start Date End Date VicNehemias PCP - General Family Medicine 08/03/20 Nehemias Bateman MD Family Medicine 08/03/20 Road Supervisor Relationship Specialty Start Date End Date Jil Hairston APRN.DIRECTOR NURSES' REGISTRY [address] [place] [id number] PCP - General Family Medicine 12/01/22 Nehemias Bateman MD Family Medicine 08/03/20 Road Supervisor Relationship Specialty Start Date End Date Jil Hairston APRN.DIRECTOR NURSES' REGISTRY [address] [place] [id number] PCP - General Family Medicine 12/01/22 Nehemias Bateman MD Family Medicine 08/03/20 Road Supervisor Relationship Specialty Start Date End Date Jil Hairston APRN.DIRECTOR NURSES' REGISTRY [address] [place] [id number] PCP - General Family Medicine 12/01/22 Nehemias Bateman MD Family Medicine 08/03/20 Road Supervisor Relationship Specialty Start Date End Date Jil Hairston APRN.DIRECTOR NURSES' REGISTRY [address] [place] [id number] PCP - General Family Medicine 12/01/22 Nehemias Bateman MD Family Medicine 08/03/20 Road Supervisor Relationship Specialty Start Date End Date Jil Hairston, CHIRAG.DIRECTOR NURSES' REGISTRY [address] [place] [id number] PCP - General Family Medicine 12/01/22 Nehemias Bateman MD Family Medicine 08/03/20 Road Supervisor Relationship Specialty Start Date End Date Jil Hairston, CLUB CONCIERGE.DIRECTOR NURSES' REGISTRY [address] [place] [id number] PCP - General Family Medicine 12/01/22 Nehemias Bateman MD Family Medicine 08/03/20 Road Supervisor Relationship Specialty Start Date End Date Jil Hairston, CLUB CONCIERGE.DIRECTOR NURSES' REGISTRY [address] [place] [id number] PCP - General Family Medicine 12/01/22 Nehemias Bateman MD Family Medicine 08/03/20 Road Supervisor Relationship Specialty Start Date End Date [facility] PCP - General 05/16/24 Nehemias Bateman MD Family Medicine 08/03/20 Road Supervisor Relationship Specialty Start Date End Date Carlos Gonzalez NP [address] [place] [address] [place] [address] PCP - General Family Medicine 05/29/24 FOR RECORDS PERTAINING TO PATIENTS WHO ARE OR HAVE BEEN ENROLLED IN A CHEMICAL DEPENDENCY/SUBSTANCEABUSE PROGRAM, SOME INFORMATION MAY BE OMITTED. This clinical summary was aggregated from multiple sources. Caution should be exercised in using it in the provision of clinical care. This summary normalizes information from multiple sources, and as a consequence, information in this document may materially change the coding, format and clinical context of patient data. In addition, data may be omitted in some cases. CLINICAL DECISIONS SHOULD BE BASED ON THE PRIMARY CLINICAL RECORDS. [facility] [employer] [facility]. provides no warranty or guarantee of the accuracy or completeness of information in this document.
== END | disposition home or self-care (01) ==
LOC: OPBI 10:17
PROVIDERS: PCP Nurse Practitioner Family; Referring Provider Obstetrics & Gynecology; Visit Provider Obstetrics & Gynecology
DX: Z12.31 Encounter for screening mammogram for malignant neoplasm of breast (principal)
CPT/HCPCS: 77063; 77067

== ENCOUNTER → 2024-10-28 | Outpatient (CLI) | payer OTHER, SELFPAY ==
[2024-10-28 18:49] LABS: Hematocrit 39.5 % (37-47); Hemoglobin 13.2 g/dL (12.0-15.0); Mean Corp Hgb Conc 33.4 g/dL (32-36); Mean Corpuscular Volume 89.8 fL (81-99); Mean Platelet Vol. 10.0 fl (6.2-12.0); Platelet Count 291 K/mm3 (150-450); RBC Distribution Width CV 12.0 % (11.6-14.6); RBC Distribution Width SD 39.4 fl (35.1-43.9); Red Blood Count 4.40 M/mm3 (4.2-5.4); White Blood Count 7.3 K/mm3 (4.4-11.0)
--- OUTSIDE RECORDS SUMMARY | 2024-10-28 22:59 | XMS RPT_ITS | CCD ---
Author Organization [facility] CliniSyil Care Team Providers Care Car Checker Name Role Phone Dr. Nehemias Ho Primary Care Provider Dr. Nehemias Ho Referring Provider [phone] Dr. Jenny Corea Attending Provider Nehemias Ho DO Primary Care Provider Nehemias Bateman MD Unavailable Nehemias Ho DO Primary Care Provider [phone] Nehemias Ho DO Primary Care Provider Nehemias Bateman MD Unavailable Vic ALVAREZ, Nehemias Wagner Primary Care Provider Nehemias Bateman MD Unavailable Vic ALVAREZ, Nehemias Wagner Primary Care Provider Nehemais Bateman MD Unavailable Knkeke RECOVERY UNIT OPERATOR.Jil JARRETT Primary Care Provider Yovanny RECOVERY UNIT OPERATOR.Jil JARRETT Primary Care Provider [facility] Primary Care Provider Unavailable Mariam QUALITY CONTROL INSPECTOR, Carlos Primary Care Provider RAFY STRATTON Attending Unavailable MARIAM, CARLOS Primary Care Unavailable ADRIANO GALLO Attending Unavailable ADRIANO GALLO Attending Unavailable SELF Referring Unavailable JIL HAIRSTON Primary Care Unavailable Mariam QUALITY CONTROL INSPECTOR-C, Carlos Primary Care Provider Mariam QUALITY CONTROL INSPECTOR-C, Carlos Referring Provider [phone] Dr. Julieta Pedro DO Attending Provider Dr. Julieta Pedro DO Referring Provider Mariam, Carlos Referring Unavailable Mariam, Carlos Attending Unavailable Mariam, Carlos Primary Care Unavailable Mariam, Carlos Primary Care Unavailable Julieta Pedro Referring Unavailabl e Julieta Pedro Attending Unavailabl e Mariam, Carlos Primary Care Unavailable Mariam, Carlos Referring Unavailable Mariam, Carlos Attending Unavailable Mariam, Carlos Primary Care Unavailable Mariam, Carlos Referring Unavailable Julieta Pedro Attending Unavailabl e Mariam, Carlos Referring Unavailable Mariam, Carlos Attending Unavailable Mariam, Carlos Primary Care Unavailable Allergies Allergy Classification Reported Allergen(s) Allergy Type Date of Onset Reaction(s) Facility (3 sources) Sulfamethoxazole Drug Allergy 2 [facility] (3 sources) Trimethoprim Drug Allergy 2 [facility] (20 sources) Sulfamethoxazole / Trimethoprim; Translations: [SULFAMETHOXAZOLE-TR IMETHOPRIM] Drug Allergy 2 [facility] (1 source) Sulfamethoxazole Drug Allergy 5 [facility] Repository (1 source) Trimethoprim Drug Allergy 5 [facility] Medications Current Medications Medication Drug Class(es) Dates Sig (Normalized) Sig (Original) apixaban 5 mg oral tablet (20 sources) Factor Xa Inhibitor Start: 07-29-2020 End: 04-08-2024 take 1 tablet by mouth twice daily Apixaban (Eliquis) 5 mg tablet Active 5 mg PO TWICE A DAY July 29, 2020 12:00am Comment on above: Take 5 mg by mouth t wice daily. Take 1 tablet by tyler th two times a day. Take 5 mg by mouth t wo times a day. Ashwagandha Extract 500 mg capsule (1 source) Start: 08-20-2024 Ashwagandha Extract 500 mg capsule Active mg PO August 20, 2024 12:00am azithromycin 500 mg oral tablet (1 source) Macrolide Antimicrobial Start: 01-09-2023 End: 01-09-2023 take 2 tablets by mouth once azithromycin (ZITHROMAX) 500 mg tablet Indications: Traveler's diarrhea Take 2 tablets by mouth one time only for 1 dose. 2 tablet 0 01/09/2023 01/09/2023 Active Comment on above: Take 2 tablets by mo [facility] one time only for 1 dose. cholecalciferol 0.05 mg oral capsule (1 source) Vitamin D Start: 08-10-2023 take 1 capsule by mouth once daily Cholecalciferol (Vitamin D3) 50 mcg (2,000 unit) capsule Active 50 ug PO DAILY August 10, 2023 12:00am Lactobacillus Combination No.4 (Probiotic) 3 billion cell capsule (1 source) Start: 08-10-2023 take 3 capsules by mouth once daily Lactobacillus Combination No.4 (Probiotic) 3 billion cell capsule Active 3000 NMA PO DAILY August 10, 2023 12:00am administer with a meal Magnesium glycinate (5 sources) take 1 tablet by mouth once daily MAGNESIUM GLYCINATE ORAL Take 1 tablet by mouth once daily. Active take 1 tablet by mouth once jessica y MAGNESIUM GLYCINATE ORAL Take 1 tablet by mouth once daily. 0 Active magnesium oxide 500 mg oral capsule (1 source) Start: 08-20-2024 take 1 capsule by mouth once daily Magnesium Oxide 500 mg capsule Active 500 mg PO daily August 20, 2024 12:00am Multivitamin capsule (13 sources) take 1 capsule by mouth once daily Multivitamin capsule Take 1 capsule by mouth once daily. Active take 1 capsule by mouth once demar ly Multivitamin capsule Take 1 capsule by mouth once daily. 0 Active Comment on above: Take 1 capsule by mo [facility] once daily. Multivitamin tablet (1 source) Start: 08-10-2023 Multivitamin tablet Active 1 {tbl} PO DAILY August 10, 2023 12:00am OTC PRODUCT (20 sources) take 500 mg [...] capsules by mouth three times a day. [place] 05/29/2024 Discontinued take 2 capsules by m outh three times daily OTC PRODUCT Take 2 capsules by mouth three times a day. Ginger Active End: 11-21-2023 take 1 scoop(s) by [...] by m outh three times a day. Ginger Take 1 Scoop by mout h once [...] 1 tablet by tyler th once daily. Rhubarb Root Extract (Estrovera) 4 mg tablet (1 source) Start: 08-10-2023 Rhubarb Root Extract (Estrovera) 4 mg tablet Active mg PO August 10, 2023 12:00am SUMAtriptan 100 mg oral tablet (20 sources) Serotonin-1b and Serotonin-1d Receptor Agonist Start: 05-29-2023 SUMAtriptan (IMITREX) 100 mg tablet TAKE 1 TABLET BY MOUTH AT ONSET OF HEADACHE 9 tablet 3 05/29/2023 Active Start: 05-18-2020 take 1 tablet by tyler th every two hours Sumatriptan Succinate 25 mg tablet Active 0 PO .COMPLEX May 18, 2020 1:00am take 1 tab at onset of headache; [...] / HYDROcodone bitartrate 5 mg oral tablet (3 sources) Opioid Agonist Start: 01-21-2018 End: 01-24-2018 Hydrocodone-Acetami nophen 1 TABLET tablet Discontinued 1 {tbl} PO EVERY 6 HOURS NEEDED as needed for Pain 10 January 21, 2018 12:00am January 23, 2018 12:00am January 24, 2018 12:08am Start: 01-21-2018 End: 01-24-2018 take 1 tablet by mouth every six hours as needed Hydrocodone-Acetaminophen Discontinued 1 TABLET PO EVERY 6 HOURS NEEDED 10 January 21, 2018 6:04am January 24, 2018 12:08am acetaminophen 325 mg / oxyCODONE hydrochloride 5 mg oral tablet (6 sources) Opioid Agonist Start: 10-05-2020 End: 10-22-2020 Oxycodone-Acetaminophen (Endocet) 5-325 mg tablet Discontinued 1 {tbl} PO Q4H as needed for pain 03 11October 05, 2020 October 22, 2020 9:30am Start: 01-21-2018 End: 04-04-2018 Oxycodone-Acetaminophen 1 TA BLET tablet Discontinued 1 - 2 {tbl} PO EVERY 4 HOURS NEEDED as needed for Pain January 21, 2018 12:00am April 04, 2018 3:59pm Start: 01-21-2018 End: 04-04-2018 take 1 tablet [...] after for a total of 16 days. cyclobenzaprine hydrochloride 10 mg oral tablet (6 sources) Muscle Relaxant Start: 08-05-2021 End: 08-08-2022 take 1 tablet by mouth three times daily as needed for muscle spasms Cyclobenzaprine 10 mg tablet Discontinued 10 mg PO THREE TIMES A DAY as needed for muscle spasm 90 August 05, 2021 12:00am August 08, 2022 10:35am Start: 01-21-2018 End: 04-04-2018 take 1 tablet by mouth three times daily as needed for muscle spasms Cyclobenzaprine 10 MG tablet Discontinued 10 mg PO 3 TIMES DAILY NEEDED as needed for Muscle Spasm January 21, 2018 12:00am April 04, 2018 3:59pm Digestive Enzymes tablet (1 source) Start: 08-10-2023 End: 08-20-2024 take 1 tablet by mouth once daily Digestive Enzymes tablet Discontinued 1 {tbl} PO DAILY August 10, 2023 12:00am August 20, 2024 11:27am doxycycline monohydrate 100 mg oral capsule (3 sources) Tetracycline-cla ss Drug Start: 01-29-2019 End: 05-18-2020 take 1 capsule by mouth twice daily Doxycycline Monohydrate 100 MG capsule Discontinued 100 mg PO TWICE A DAY January 29, 2019 12:00am May 18, 2020 9:59am escitalopram 10 mg oral tablet (3 sources) Serotonin Reuptake Inhibitor Start: 01-29-2019 End: 05-18-2020 Escitalopram Oxalate 10 MG tablet Discontinued 15 mg PO DAILY January 29, 2019 12:00am May 18, 2020 9:59am Start: 01-29-2019 End: 05-18-2020 take 15 mg by mouth once daily Escitalopram Oxalate Di scontinued 15 MG PO DAILY January 29, 2019 5:47pm May 18, 2020 9:59am ferrous sulfate 325 mg oral tablet (3 sources) Start: 10-05-2020 End: 08-05-2021 take 1 tablet by mouth once daily Ferrous Sulfate 325 mg (65 mg iron) tablet Discontinued 325 mg PO DAILY October 05, 2020 12:00am August 05, 2021 11:35am FLUoxetine 20 mg oral capsule (1 source) Serotonin Reuptake Inhibitor Start: 02-21-2023 End: 08-10-2023 take 1 capsule by mouth once daily Fluoxetine (Prozac) 20 mg capsule Discontinued 20 mg PO DAILY February 21, 2023 1:00am August 10, 2023 10:04am Lactobacillus acidophilus (7 sources) End: 05-29-2023 Lactobacillus acidophilus (PROBIOTIC ORAL) Take by mouth. 0 05/29/2023 Discontinued Lactobacillus ac idophilus (PROBIOTIC ORAL) Take by mouth. 0 Active Comment on above: Take by mouth. levonorgestrel 0.341315 mg/hr intrauterine system (1 source) Progestin, Progestin-containing Intrauterine Device Start: End: levonorgestrel 20 mcg/24 hours (6 yrs) 52 mg intrauterine device Discontinued 1 INSERT INTRA-UTER ONCE August 21, 2020 9:50am August 21, 2020 10:33am norethindrone acetate 5 mg oral tablet (3 sources) Start: End: take 1 tablet by mouth twice daily, then take 1 tablet by mouth once daily Norethindrone Acetate (Aygestin) 5 mg tablet Discontinued 5 mg PO TWICE A DAY October 01, 2020 12:00am October 05, 2020 6:38am hormone (pt no longer taking)...5 mg orally ;1 tab po BID x 3d, then 1 tab po daily x 15d (until finished) oxyCODONE hydrochloride 5 mg oral capsule (3 sources) Opioid Agonist Start: End: take 1 capsule by mouth every six hours as needed for pain Oxycodone 5 mg capsule Discontinued 5 mg PO EVERY 6 HOURS as needed for pain 5 August 21, 2020 August 22, 2020 12:00am August 23, 2020 12:01am rivaroxaban 15 mg oral tablet (3 sources) Factor Xa Inhibitor Start: End: 017 take 1 tablet by mouth twice daily at mealtime Rivaroxaban (Xarelto) 15 MG tablet Discontinued 15 mg PO TWICE DAILY WITH MEALS 42 June 09, 2016 1:00am October 29, 2016 9:36pm Problems Active Problems Problem Classification Problem Date Documented Date Episodic/Chronic Acute posthemorrhagic anemia (3 sources) Acute posthemorrhagic anemia; Translations: [Acute posthemorrhagic anemia] 01-18-2021 Episodic Deficiency and other anemia (3 sources) Anemia; Translations: [Anemia, unspecified] 01-18-2021 Episodic E Codes: Adverse effects of medical drugs (3 sources) Anticoagulant adverse reaction; Translations: [Adverse effect of anticoagulants, initial encounter] 01-18-2021 Episodic Headache; including migraine (2 sources) Migraine; Translations: [Migraine, unspecified, not intractable, without status migrainosus] Onset: 5 08-10-2023 Chronic Intestinal infection (1 source) Traveler's diarrhea; Translations: [Infectious gastroenteritis and colitis, unspecified] 01-09-2023 Episodic Malignant neoplasm without specification of site (1 source) Malignant neoplastic disease; Translations: [Malignant (primary) neoplasm, unspecified] 08-10-2023 Chronic Comment on above: squamous cell on kne e Menopausal disorders (2 sources) Decreased estrogen level; Translations: [Other primary ovarian failure] 11-21-2023 Chronic Menstrual disorders (7 sources) Irregular periods; Translations: [Irregular menstruation, unspecified] Onset: 3 Resolved: 6 08-10-2015 Chronic Comment on above: US ordered Mood disorders (1 source) Premenstrual dysphoric disorder; Translations: [Premenstrual dysphoric disorder] 02-21-2023 Chronic Mood disorders (1 source) Disturbance in mood; Translations: [Emotional lability] 06-28-2024 Episodic Other aftercare (4 sources) Patient encounter status; Translations: [Encounter for therapeutic drug level monitoring] Episodic Other female genital disorders (3 sources) Abnormal vaginal bleeding; Translations: [Abnormal uterine and vaginal bleeding, unspecified] 10-04-2021 Chronic Comment on above: s/p rosibel 09/16. on eliquis. doing well. Other female genital disorders (1 source) History of abnormal cervical Papanicolaou smear ; Translations: [Personal history of other diseases of the female genital tract] 08-10-2023 Episodic Other injuries and conditions due to external causes (1 source) Tampon in vagina; Translations: [Foreign body in vulva and vagina, initial encounter] 02-21-2023 Episodic Comment on above: removed completely Other lower respiratory disease (3 sources) Dyspnea; Translations: [Dyspnea, unspecified] 01-18-2021 Episodic Other non-epithelial cancer of skin (9 sources) Squamous cell carcinoma in situ of skin; Translations: [Carcinoma in situ of skin, unspecified] Onset: 2 Resolved: 6 04-12-2021 Episodic Other screening for suspected conditions (not mental disorders or infectious disease) (6 sources) Electrocardiogram abnormal; Translations: [Abnormal electrocardiogram [ECG] [EKG]] Onset: 5 12-01-2022 Episodic Other upper respiratory infections (1 source) Sore throat symptom; Translations: [Acute pharyngitis, unspecified] 05-16-2024 Episodic Pneumonia (except that caused by tuberculosis or sexually transmitted disease) (3 sources) Right lower zone pneumonia; Translations: [Pneumonia, unspecified organism] 01-30-2019 Episodic Pulmonary heart disease (12 sources) Pulmonary embolism; Translations: [Other pulmonary embolism without acute cor pulmonale] Onset: Episodic Residual codes; unclassified (1 source) Prevention [...] diseases] Onset: 08-10-2015 Resolved: 01-29-2016 04-12-2021 Episodic Other complications of ; puerperium affecting management of mother (20 sources) wound disruption with complication; Translations: [Disruption of delivery wound] Onset: 01-29-2016 01-29-2016 Episodic Other female genital disorders (20 sources) Cervical intraepithelial neoplasia grade 1; Translations: [Mild cervical dysplasia] Onset: 05-22-2013 04-12-2021 Episodic Other and delivery including normal [...] Onset: 08-21-2015 Resolved: 01-29-2016 04-12-2021 Episodic Syncope (3 sources) Syncope 01-18-2021 Results Test Name Value Interpretation Reference Range Facil ity Breast imaging reportOrdered By: Trini Rand on 10-02-2024 Study report [facility] Imaging Services [address] [place] [address] [id number] SCRN MAMM (CAD)W/ANA BILAT MR#: [id number] Acct: [id number] Name: JANNA LOPEZ Rep #: [id number] : 1985 F 39 From: Carlie Rand MD PCP: MARTIN Howard Status: [place] [facility] Study:SCRN MAMM (CAD)W/ANA BILAT Date of Exa m: 10/02/24 Exam# [id number] Ordering Dr: Julieta Velasquez DO EXAM: SCRN MAMM (CAD)W/ANA BILAT DATE: 10/02/2024 CLINICAL HISTORY: F, Age 39 y/o , SCREENING MAMMOGRAM BREAST CANCER RISK ASSESSMENT: Not calculated at this time. TECHNIQUE: Bilateral screening digital breast tomosynthesis with 2D and 3D images. Computeraided detection. COMPARISON: Prior exam(s) dated 08/29/2023. FINDINGS: TISSUE DENSITY: The breast tissue is heterogeneously dense, which may obscure small masses. The mammogram demonstrates that the patient has dense breasts. Supplemental screening with whole breast ultrasound or MRI may be considered for further evaluation. Bilateral Breast Mammographic Findings: No significant masses, calcifications or other abnormalities are identified. BI/SCRN MAMM (CAD)W/ANA BILAT IMPRESSION: There is no mammographic evidence of malignancy. OVERALL FINAL ASSESSMENT BI-RADS 1: NEGATIVE. RECOMMEND ANNUAL MAMMOGRAPHIC SCREENING. RECOMMENDATION: Routine annual follow-up in 1 Year A letter with findings and recommendations will be mailed to the patient. Reading Location: [id number] CC: MARTIN Gonzalez; Dr. Julieta Pedro DO ~ Heavy Cleaner: Signed [facility] SCRN MAMM (CAD)W/ANA BILATo n 10-02-2024 SCRN MAMM (CAD)W/ANA BILAT [facility] Imaging Services [address] [place] [id number] SCRN MAMM (CAD)W/ANA BILAT MR#: [id number] Acct: [id number] Name: JANNA LOPEZ Rep #: [id number] : 1985 F 39 From: Trini Rand MD PCP: MARTIN Howard Status: [place] [facility] Study: SCRN MAMM (CAD)W/ANA BILAT Date of Exam: 09/15 12/09 Exam# [id number] Ordering Dr: Julieta Pedro DO EXAM: SCRN MAMM (CAD)W/ANA BILAT DATE: 10/02/2024 CLINICAL HISTORY: F, Age 39 y/o , SCREENING MAMMOGRAM BREAST CANCER RISK ASSESSMENT: Not calculated at this time. TECHNIQUE: Bilateral screening digital breast tomosynthesis with 2D and 3D images. Computer aided detection. COMPARISON: Prior exam(s) dated 08/29/2023. FINDINGS: TISSUE DENSITY: The breast tissue is heterogeneously dense, which may obscure small masses. The mammogram demonstrates that the patient has dense breasts. Supplemental screening with whole breast ultrasound or MRI may be considered for further evaluation. Bilateral Breast Mammographic Findings: No significant masses, calcifications or other abnormalities are identified. BI/SCRN MAMM (CAD)W/NAA BILAT IMPRESSION: There is no mammographic evidence of malignancy. OVERALL FINAL ASSESSMENT BI-RADS 1: NEGATIVE. RECOMMEND ANNUAL MAMMOGRAPHIC SCREENING. RECOMMENDATION: Routine annual follow-up in 1 Year A letter with findings and recommendations will be mailed to the patient. Reading Location: [id number] CC: MARTIN Gonzalez; Dr. Julieta Pedro DO Heavy Cleaner: Signed Normal [facility] Tool Salvage Worker Office Visit Reporton 08-20-2024 Tool Salvage Worker Office Visit Report [facility] [address], [address] [place] [address] OFFICE VISIT Date of Service: 08/20/24 MR#: [id number] Acct: [id number] Name: JANNA LOPEZ Rep #: [id number] : 1985 Provider: Dr. 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 Date Name GA/Weeks Outcome Route Bth Weight Gen Labor Lgth Anesthesia Del Locatn Provider FOB Unknown 2011 Marni live - full term Male [facility] SM Unknown 2015 Yamilka live - full term Female none [facility] Encounter for routine gynecological examination [...] acute distress, well developed and well groomed [facility] Head: normal to inspection and normocephalic Ears: hearing grossly normal bilaterally and external ears normal Nose: external nose normal Face and sinus: normal facial exam Neck Neck: normal visual inspection, full ROM and no lym (more content not included)... [facility] JANNA LOPEZ ([id number]) 1985 F Date Time Provider Department 06/28/24 2:40 PM RAFY STRATTON OBGYWM During your visit today, we recorded the following information about you: Blood pressure Weight Last Period 108/68 63.5 kg 06/22/24 Rafy Stratton MD 06/28/2024 5:23 PM Signed Janna Lopez is a 39 year old female who presents for problem visit - discuss hormones. HPI: Janna states she felt her mood changes were significant around time of menses. She was prescribed an SSRI in the past, but she did not want to take an SSRI. She went to see a switchboard receptionist and had a hormone panel completed. She [...] scheduled in a few months with prior manager respiratory at a different office. OB History Gravida2 Para2 Term2 Preterm0 AB0 Living2 SAB0 IAB0 Ectopic0 Multiple0 Live Births2 Comment: Laura GARDNER delivered Hand Molder [employer] Caster History LMP: 06/22/2024, Having periods Age at Menarche: 11 Age at First : Age at Menopause: Hand Molder And Caster History Comments: Sexual Activity: Yes; Male Contraception: [...] Onset Emphysema Maternal Grandfather Heart Maternal Grandfather [place] Arthritis Paternal Grandmother Arthritis Paternal Grandfather Cancer [...] on functional medicine. Recent FSH normal at [facility]. Excessive bleedi (more content not included)... [facility]SP[facility] Office (HEMAWS) SUSHANTJANNA MELÉNDEZ ([id number]) 1985 F Date Time Provider Department 05/29/24 [...] HAs. 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 In May 2016 she was seen for complaint of dull aching chest pain that had started the day prior 06/07/2016. Evidently her EKG was abnormal and she was directed to the emergency room at [facility]. CT demonstrated an isolated complete filling [...] tenderness over the area of the right judaism associated with tinnitus and muted hearing in [...] ear associated with tenderness over the right judaism area. Those symptoms resolved on anticoagulation. Subsequently [...] Visit Diagn (more content not included)... Normal [facility] CNOVon 05-16-2024 CNOV Office Visit (UCTR ) JANNA LOPEZ ([id number]) 1985 F Date Time Provider Department 05/16/24 9:30 AM ALEX VILLALOBOS [facility] During your visit today, we recorded the following information about you: Temperature Pulse Respiration Blood pressure 99.2 degrees 95/minute 18/minute 108/70 Weight 64.2 kg Alex Villalobos APRN.HYBRID TECHNOLOGIST 05/16/2024 10:14 AM Signed Subjective HPI Nontoxic-appearing female presents urgent care chief complaint sore throat fever body aches chills headache slight cough. Was coughing more yesterday than today. Most bothersome symptom today is pharyngitis. Sick contacts unknown. 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 Denies any difficulty swallowing and secretion decreased [...] capsules by mouth three times a day. [place] FAMILY HISTORY Problem Relation Age of Onset Emphysema Maternal Grandfather Heart Maternal Grandfather [place] Arthritis Paternal Grandmother Arthritis Paternal Grandfather Cancer [...] rebound. M (more content not included)... Normal [facility] STREP A MOLECULAR (POC)on Procedural Control Valid [facility] Strep A (POCT) Negative Negative [facility] DHEA Sulfateon 03-28-2024 DHEA SULFATE 261.0 ug/dL Normal 57.3-279.2 [facility] Comment on above: Order Comment: N Performed By: #### L 3100.5400, L509.3000, L501.9520, L3100.5170, L801.2600, L3100.5125, L3300.1750, L3300.1500 #### [facility] [address] [place], [place], [id number] PROGESTERONE 4317on 03-28-20 24 PROGESTERONE 1.9 ng/mL Normal . [facility] Comment on above: Order Comment: N Result Comment: Foll icular phase 0.1 - 0.9 Luteal phase 1.8 - 23.9 Ovulation phase 0.1 - 12.0 First trimester 11.0 - 44.3 Second trimester 25.4 - 83.3 Third trimester 58.7 - 214.0 Postmenopausal 0.0 - 0.1 Performed at: [facility] [address] [place], [place] [id number] Salvage Inspector: Randy Trejo PhD, Phone: [phone] Performed By: #### L 3100.5400, L509.3000, L501.9520, L3100.5170, L801.2600, L3100.5125, L3300.1750, L3300.1500 #### [facility] [address] [place], [address] PROLACTIN 4465on 03-28-2024 PROLACTIN 13.0 ng/mL Normal 4.8-33.4 [facility] Comment on above: Order Comment: N Result Comment: Perf ormed at: [facility] [address] [place], [place] [id number] Salvage Inspector: Randy Trejo PhD, Phone: [phone] Performed By: #### L 3100.5400, L509.3000, L501.9520, L3100.5170, L801.2600, L3100.5125, L3300.1750, L3300.1500 #### [facility] [address] [place], [place], [id number] Estradiolon 03-26-2024 ESTRADIOL 29.2 pg/mL Normal [facility] Comment on above: Result Comment: NORM [...] L801.2600, L3100.5125, L3300.1750, L3300.1500 #### [facility] [address] [facility] [place], [address] Follicle Stimulating Hormone on 03-26-2024 FSH 2.3 mIU/mL Normal [facility] Comment on above: Result Comment: NORMAL REFERENCE RANGES FEMALE FOLLICULAR 2.3 - 12.6 mIU/mL MID-CYCLE PEAK 5.2 - 17.5 mIU/mL LUTEAL 1.7 - 12.9 mIU/mL POST-MENOPAUSAL ON MHT 5.9 - 72.8 mIU/mL NOT ON MHT 12.7 - 132.2 mlU/mL MALE 0.7 - 10.8 mIU/mL Performed By: #### L 3100.5400, L509.3000, L501.9520, L3100.5170, L801.2600, L3100.5125, L3300.1750, L3300.1500 #### [facility] [address] [place], [address] Luteinizing Hormoneon 2023 LH 1.4 mIU/mL Normal [facility] Comment on above: Result Comment: NORMAL REFERENCE RANGES FEMALE FOLLICULAR 1.9 - 26.2 mIU/mL MID-CYCLE PEAK 22.8 - 76.1 mIU/mL LUTEAL 0.6 - 16.6 mIU/mL POST-MENOPAUSAL ON MHT 1.1 - 52.4 mIU/mL NOT ON MHT 8.6 - 61.8 mIU/mL MALE 1.2 - 10.6 mIU/mL Performed By: #### L 3100.5400, L509.3000, L501.9520, L3100.5170, L801.2600, L3100.5125, L3300.1750, L3300.1500 #### [facility] [address] [place], [place], [id number] Testosterone, Serum Totalon 03-26-2024 Testosterone [Mass/Vol] 20.30 ng/dL Normal [facility] Comment on above: Result Comment: CENT [...] L801.2600, L3100.5125, L3300.1750, L3300.1500 #### [facility] [address] [place], [place], [id number] Thyroid Stim Hormone (TSH)on 03-26-2024 TSH 0.868 uIU/mL Normal 0.358-3.740 [facility] Comment on above: Performed By: #### L 3100.5400, L509.3000, L501.9520, L3100.5170, L801.2600, L3100.5125, L3300.1750, L3300.1500 #### [facility] [address] [place], [place], [id number] CBC W/Diff, Automatedon 12-16 Absolute Lymph 1.98 X10 3/uL Normal 0.83-4.51 [facility] Comment on above: Performed By: #### L 500.4100, L506.1000, L501.9520, L100.0100, L506.0400, L503.0105, L500.4050 #### [facility] [address] [place], [address] Absolute Neut 2.6 X10 3/uL Normal 2.0-7.7 [facility] Comment on above: Performed By: #### L 500.4100, L506.1000, L501.9520, L100.0100, L506.0400, L503.0105, L500.4050 #### [facility] [address] [place], [address] Basophils/100 WBC (Bld) 0.4 % Normal 0-1 [facility] Comment on above: Performed By: #### L 500.4100, L506.1000, L501.9520, L100.0100, L506.0400, L503.0105, L500.4050 #### [facility] [address] [place], [address] Eosinophils/100 WBC (Bld) 3.0 % Normal 0-5 [facility] Comment on above: Performed By: #### L 500.4100, L506.1000, L501.9520, L100.0100, L506.0400, L503.0105, L500.4050 #### [facility] [address] [place], [address] Erythrocyte distribution width (RBC) [Ratio] 11.8 % Normal 11.6-14.6 [facility] Comment on above: Performed By: #### L 500.4100, L506.1000, L501.9520, L100.0100, L506.0400, L503.0105, L500.4050 #### [facility] [address] [place], [address] Hematocrit (Bld) [Volume fraction] 41.0 % Normal 37-47 [facility] Comment on above: Performed By: #### L 500.4100, L506.1000, L501.9520, L100.0100, L506.0400, L503.0105, L500.4050 #### [facility] [address] [place], [address] Hemoglobin (Bld) [Mass/Vol] 13.5 g/dL Normal 12.0-15.0 [facility] Comment on above: Performed By: #### L 500.4100, L506.1000, L501.9520, L100.0100, L506.0400, L503.0105, L500.4050 #### [facility] [address] [place], [address] IG% 0.400 Normal 0.0-0.9 [facility] Comment on above: Result Comment: IG% - Immature Granulocytes (promyelocytes, myelocytes and metamyelocytes) > 1% indicates that a LEFT SHIFT is Present. Performed By: #### L 500.4100, L506.1000, L501.9520, L100.0100, L506.0400, L503.0105, L500.4050 #### [facility] [address] [place], [address] Lymphocytes/100 WBC (Bld) 37.6 % Normal 19-41 [facility] Comment on above: Performed By: #### L 500.4100, L506.1000, L501.9520, L100.0100, L506.0400, L503.0105, L500.4050 #### [facility] [address] [place], [address] MCH (RBC) [Entitic mass] 29.3 pg Normal 27.0-32.0 [facility] Comment on above: Performed By: #### L 500.4100, L506.1000, L501.9520, L100.0100, L506.0400, L503.0105, L500.4050 #### [facility] [address] [place], [address] MCHC (RBC) [Mass/Vol] 32.9 g/dL Normal 32-36 [facility] Comment on above: Performed By: #### L 500.4100, L506.1000, L501.9520, L100.0100, L506.0400, L503.0105, L500.4050 #### [facility] [address] [place], [address] MCV (RBC) [Entitic vol] 88.9 fL Normal 81-99 [facility] Comment on above: Performed By: #### L 500.4100, L506.1000, L501.9520, L100.0100, L506.0400, L503.0105, L500.4050 #### [facility] [address] [place], [address] Monocytes/100 WBC (Bld) 9.9 % Normal 0-10 [facility] Comment on above: Performed By: #### L 500.4100, L506.1000, L501.9520, L100.0100, L506.0400, L503.0105, L500.4050 #### [facility] [address] [place], [address] Neutrophils/100 WBC (Bld) 48.7 % Normal 47-70 [facility] Comment on above: Performed By: #### L 500.4100, L506.1000, L501.9520, L100.0100, L506.0400, L503.0105, L500.4050 #### [facility] [address] [place], [address] Nucleated RBC (Bld) [#/Vol] 0 10*3/uL Normal 0-5 [facility] Comment on above: Performed By: #### L 500.4100, L506.1000, L501.9520, L100.0100, L506.0400, L503.0105, L500.4050 #### [facility] [address] [place], [address] Platelet mean volume (Bld) [Entitic vol] 9.5 fL Normal 6.2-12.0 [facility] Comment on above: Performed By: #### L 500.4100, L506.1000, L501.9520, L100.0100, L506.0400, L503.0105, L500.4050 #### [facility] [address] [place], [address] Platelets (Bld) [#/Vol] 292 10*3/uL Normal 150-450 [facility] Comment on above: Performed By: #### L 500.4100, L506.1000, L501.9520, L100.0100, L506.0400, L503.0105, L500.4050 #### [facility] [address] [place], [address] RBC (Bld) [#/Vol] 4.61 10*6/uL Normal 4.2-5.4 [facility] Comment on above: Performed By: #### L 500.4100, L506.1000, L501.9520, L100.0100, L506.0400, L503.0105, L500.4050 #### [facility] [address] [place], [address] RDW SD 38.4 fl Normal 35.1-43.9 [facility] Comment on above: Performed By: #### L 500.4100, L506.1000, L501.9520, L100.0100, L506.0400, L503.0105, L500.4050 #### [facility] [address] [place], [address] WBC (Bld) [#/Vol] 5.3 10*3/uL Normal 4.4-11.0 [facility] Comment on above: Performed By: #### L 500.4100, L506.1000, L501.9520, L100.0100, L506.0400, L503.0105, L500.4050 #### [facility] [address] [place], [address] Comprehensive Metabolic Prof ohon 12-27-2023 Albumin [Mass/Vol] 4.0 g/dL Normal 3.2-5.0 [facility] Comment on above: Performed By: #### L 3100.5400, L509.3000, L501.9520, L3100.5170, L801.2600, L3100.5125, L3300.1750, L3300.1500 #### [facility] [address] [place], [address] Albumin/Globulin [Mass ratio] 1.3 {ratio} Normal 0.9-2.4 [facility] Comment on above: Performed By: #### L 3100.5400, L509.3000, L501.9520, L3100.5170, L801.2600, L3100.5125, L3300.1750, L3300.1500 #### [facility] [address] [place], [address] ALK P 55 U/L Normal 45-117 [facility] Comment on above: Performed By: #### L 3100.5400, L509.3000, L501.9520, L3100.5170, L801.2600, L3100.5125, L3300.1750, L3300.1500 #### [facility] [address] [place], [place], [id number] ALT [Catalytic activity/Vol] 20 U/L Normal 13-56 [facility] Comment on above: Performed By: #### L 3100.5400, L509.3000, L501.9520, L3100.5170, L801.2600, L3100.5125, L3300.1750, L3300.1500 #### [facility] [address] [place], [address] AST [Catalytic activity/Vol] 11 U/L Low 15-37 [facility] Comment on above: Performed By: #### L 3100.5400, L509.3000, L501.9520, L3100.5170, L801.2600, L3100.5125, L3300.1750, L3300.1500 #### [facility] [address] [place], [address] Bilirubin [Mass/Vol] 0.20 mg/dL Normal 0.20-1.00 [facility] Comment on above: Result Comment: For patients on eltrombopag therapy, use of Dimension Fries TBIL is not recommended. Performed By: #### L 3100.5400, L509.3000, L501.9520, L3100.5170, L801.2600, L3100.5125, L3300.1750, L3300.1500 #### [facility] [address] [place], [address] BUN/CRE 23.3 RATIO High 10-20 [facility] Comment on above: Performed By: #### L 3100.5400, L509.3000, L501.9520, L3100.5170, L801.2600, L3100.5125, L3300.1750, L3300.1500 #### [facility] [address] [place], [address] CA,Total 9.1 mg/dL Normal 8.5-10.1 [facility] Comment on above: Performed By: #### L 3100.5400, L509.3000, L501.9520, L3100.5170, L801.2600, L3100.5125, L3300.1750, L3300.1500 #### [facility] [address] [place], [address] Chloride [Moles/Vol] 107 mmol/L Normal 98-107 [facility] Comment on above: Performed By: #### L 3100.5400, L509.3000, L501.9520, L3100.5170, L801.2600, L3100.5125, L3300.1750, L3300.1500 #### [facility] [address] [place], [address] CO2 [Moles/Vol] 28.0 mmol/L Normal 21.0-32.0 [facility] Comment on above: Performed By: #### L 3100.5400, L509.3000, L501.9520, L3100.5170, L801.2600, L3100.5125, L3300.1750, L3300.1500 #### [facility] [address] [place], [address] Creatinine [Mass/Vol] 0.64 mg/dL Normal 0.55-1.02 [facility] Comment on above: Result Comment: The validity of the calculated GFR GFRAA in patients over 70 years has not been determined. Clinical correlation is essential. Performed By: #### L 3100.5400, L509.3000, L501.9520, L3100.5170, L801.2600, L3100.5125, L3300.1750, L3300.1500 #### [facility] [address] [place], [place], [id number] (485 EST GFR - AA 132 mL/min Normal >60 [facility] Comment on above: Result Comment: Afri can Citizen Of [place] GFR Calc Performed By: #### L 3100.5400, L509.3000, L501.9520, L3100.5170, L801.2600, L3100.5125, L3300.1750, L3300.1500 #### [facility] [address] [place], [address] GAP 4 Low 5-15 [facility] Comment on above: Performed By: #### L 3100.5400, L509.3000, L501.9520, L3100.5170, L801.2600, L3100.5125, L3300.1750, L3300.1500 #### [facility] [address] [place], [address] GFR/1.73 sq M.predicted among non-blacks MDRD (S/P/Bld) [Vol rate/Area] 109 mL/min/{1.73_m2} Normal >60 [facility] Comment on above: Result Comment: Non- GFR Calc Performed By: #### L 3100.5400, L509.3000, L501.9520, L3100.5170, L801.2600, L3100.5125, L3300.1750, L3300.1500 #### [facility] [address] [place], [address] Globulin (S) [Mass/Vol] 3.1 g/dL Normal 2.2-4.2 [facility] Comment on above: Performed By: #### L 3100.5400, L509.3000, L501.9520, L3100.5170, L801.2600, L3100.5125, L3300.1750, L3300.1500 #### [facility] [address] [place], [address] Glucose [Mass/Vol] 96 mg/dL Normal 74-106 [facility] Comment on above: Performed By: #### L 3100.5400, L509.3000, L501.9520, L3100.5170, L801.2600, L3100.5125, L3300.1750, L3300.1500 #### [facility] [address] [place], [address] Potassium [Moles/Vol] 4.1 mmol/L Normal 3.5-5.1 [facility] Comment on above: Performed By: #### L 3100.5400, L509.3000, L501.9520, L3100.5170, L801.2600, L3100.5125, L3300.1750, L3300.1500 #### [facility] [address] [place], [address] Sodium [Moles/Vol] 139 mmol/L Normal 136-145 [facility] Comment on above: Performed By: #### L 3100.5400, L509.3000, L501.9520, L3100.5170, L801.2600, L3100.5125, L3300.1750, L3300.1500 #### [facility] [address] [place], [address] T PROT 7.1 g/dL Normal 6.4-8.2 [facility] Comment on above: Performed By: #### L 3100.5400, L509.3000, L501.9520, L3100.5170, L801.2600, L3100.5125, L3300.1750, L3300.1500 #### [facility] [address] [place], [address] Urea nitrogen [Mass/Vol] 15 mg/dL Normal 7-18 [facility] Comment on above: Performed By: #### L 3100.5400, L509.3000, L501.9520, L3100.5170, L801.2600, L3100.5125, L3300.1750, L3300.1500 #### [facility] [address] [place], [place], [id number] (263) Lipid Profileon 12-27-2023 Cholesterol [Mass/Vol] 242 mg/dL High 200 [facility] Comment on above: Result Comment: <200 mg/dL Desirable 200-240 mg/dL Borderline >240 mg/dL High Risk Performed By: #### L 3100.5400, L509.3000, L501.9520, L3100.5170, L801.2600, L3100.5125, L3300.1750, L3300.1500 #### [facility] [address] [place], [address] Cholesterol in HDL [Mass/Vol] 46 mg/dL Normal [facility] Comment on above: Result Comment: The drugs N-Acetylcysteine and Metamizole may falsely depress this assay. Reference Range HDL <40 mg/dL Low HDL Cholesterol HDL >or= 60 mg/dL High HDL Cholesterol Performed By: #### L 3100.5400, L509.3000, L501.9520, L3100.5170, L801.2600, L3100.5125, L3300.1750, L3300.1500 #### [facility] [address] [place], [address] Cholesterol in LDL [Mass/Vol] 177 mg/dL High 0-130 [facility] Comment on above: Performed By: #### L 3100.5400, L509.3000, L501.9520, L3100.5170, L801.2600, L3100.5125, L3300.1750, L3300.1500 #### [facility] [address] [place], [address] Cholesterol in VLDL [Mass/Vol] 19 mg/dL Normal 5-40 [facility] Comment on above: Performed By: #### L 3100.5400, L509.3000, L501.9520, L3100.5170, L801.2600, L3100.5125, L3300.1750, L3300.1500 #### [facility] [address] [place], [address] Triglyceride [Mass/Vol] 97 mg/dL Normal [facility] Comment on above: Result Comment: The drugs N-Acetylcysteine and Metamizole may falsely depress this assay. Serum Triglycerides Reference Interval Normal <150 mg/dL Borderline high 150 - 199 mg/dL High 200 - 499 mg/dL Very High > or = 500 mg/dL Performed By: #### L 3100.5400, L509.3000, L501.9520, L3100.5170, L801.2600, L3100.5125, L3300.1750, L3300.1500 #### [facility] [address] [place], [address] T4 Free Directon 12-27-2023 T4 FREE DIRECT 0.86 ng/dL Normal 0.76-1.46 [facility] Comment on above: Performed By: #### L 3100.5400, L509.3000, L501.9520, L3100.5170, L801.2600, L3100.5125, L3300.1750, L3300.1500 #### [facility] [address] [place], [address] Thyroid Stim Hormone (TSH)on 12-27-2023 TSH 1.640 uIU/mL Normal 0.358-3.740 [facility] Comment on above: Performed By: #### L 3100.5400, L509.3000, L501.9520, L3100.5170, L801.2600, L3100.5125, L3300.1750, L3300.1500 #### [facility] [address] [place], [place], [id number] Vitamin B12on 12-27-2023 Cobalamin (Vitamin B12) [Mass/Vol] 763 pg/mL Normal 211-911 [facility] Comment on above: Performed By: #### L 500.4100, L506.1000, L501.9520, L100.0100, L506.0400, L503.0105, L500.4050 #### [facility] [address] [place], [address] Vitamin D,25 Hydroxyon 12-26 Vitamin D 25-OH 98.2 ng/mL Normal [facility] Comment on above: Result Comment: Oriana min D 25(OH) Status Range Deficiency <20 ng/mL (50nmol/L) Insufficiency 20 - 30 ng/mL (50 - 75 nmol/L) Sufficiency 30 - 100 ng/mL (75 - 250 nmol/L) Toxicity >100 ng/mL (>250 nmol/L) Performed By: #### L 3100.5400, L509.3000, L501.9520, L3100.5170, L801.2600, L3100.5125, L3300.1750, L3300.1500 #### [facility] [address] [place], [place], [address] CNOVSPon 11-21-2023 OVSP Visit (SP) Office (HEMAWS) JANNA LOPEZ ([id number]) 1985 F Date Time Provider Department 11/21/23 [...] HAs. 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 In May 2016 she was seen for complaint of dull aching chest pain that had started the day prior 06/07/2016. Evidently her EKG was abnormal and she was directed to the emergency room at [facility]. CT demonstrated an isolated complete filling [...] tenderness over the area of the right judaism associated with tinnitus and muted hearing in [...] having mood swings and fatigue. Contacted her manager respiratory. Was given rx for antidepressant. Saw functional [...] ear associated with tenderness over the right judaism area. Those symptoms resolved on anticoagulation. Subsequently found to be negative for antiplatelet factor 4 antibody. -Negative for lupus anticoagulant. -Saw vascular medicine specialist who agreed with indefinite anticoagulation. -Recent low estrogen and progesterone level although she is still having regular menses. Did not tolerate OTC DHEA replacement/supplement . -I do not think that her (more content not included)... Normal [facility] ([id number]) 1985 F Date Time Provider Department 08/31/23 [facility]IRST[facility] During your visit today, we recorded the following information about you: Jil Hairston APRN.[facility] 08/31/2023 9:36 AM Signed Please let patient know her mammogram is negative. Patient should continue with annual screenings. Minna Jimenez MA 08/31/2023 9:41 AM Signed MYTRND message sent to patient Minna KALEB Jimenez Allergies As of Date: 08/31/2023 Noted Allergy Reaction BACTRIM (SULFAMETHOXAZOLE-TRIM ETH*10/01/2021 4 - Hives Date Reviewed: 05/29/2023 Reviewed by: Adriano Gallo DO - Fully Assessed Reason for Visit: Results [95] Prescriptions as of 08/31/2023 - SUMAtriptan (IMITREX) 100 mg tablet TAKE 1 TABLET BY MOUTH AT ONSET OF HEADACHE - OTC PRODUCT Take 2 capsules by mouth three times a day. [place] - rhapontic rhubarb root extract (ESTROVERA) 4 [...] 08/10/2015 ASCUS with positive high risk HPV [[id number]] 06/13/2012 05/05/2015 Dysplasia of cervix, low grade (ANDRÉS 1) [N87.0] 05/22/2013 Encounter for supervision of normal i*05/05/2015 01/29/2016 Previous section [Z98.891] 05/05/2015 01/29/2016 Exposure to parvovirus [Z20.828] 08/10/2015 01/29/2016 Near syncope [R55] 08/21/2015 01/29/2016 Wound dehiscence, , delivered with post*01/29/2016 Encounter Status:Closed by MINNA JIMENEZ CMA on 08/31/23 Normal [facility] CBC W Auto Differential pane l (Bld)on 12-01-2022 Basophils (Bld) [#/Vol] 0.05 10*3/uL <0.11 k/uL [facility] Basophils/100 WBC (Bld) 0.6 % [facility] Differential cell count method Nom (Bld) Auto [facility] Eosinophils (Bld) [#/Vol] 0.11 10*3/uL <0.46 k/uL [facility] Eosinophils/100 WBC (Bld) 1.2 % [facility] Erythrocyte distribution width (RBC) [Ratio] 12.0 % 11.5 - 15.0 % [facility] Hematocrit (Bld) [Volume fraction] 41.0 % 36.0 - 46.0 % [facility] Hemoglobin (Bld) [Mass/Vol] 13.8 g/dL 11.5 - 15.5 g/dL [facility] Immature granulocytes (Bld) [#/Vol] <0.10 k/uL [facility] Immature granulocytes/100 WBC (Bld) 0.2 % [facility] Lymphocytes (Bld) [#/Vol] 2.98 10*3/uL 1.00 - 4.00 k/uL [facility] Lymphocytes/100 WBC (Bld) 33.2 % [facility] MCH (RBC) [Entitic mass] 29.5 pg 26.0 - 34.0 pg [facility] MCHC (RBC) [Mass/Vol] 33.7 g/dL 30.5 - 36.0 g/dL [facility] MCV (RBC) [Entitic vol] 87.6 fL 80.0 - 100.0 fL [facility] Monocytes (Bld) [#/Vol] 0.68 10*3/uL <0.87 k/uL [facility] Monocytes/100 WBC (Bld) 7.6 % [facility] Neutrophils (Bld) [#/Vol] 5.14 10*3/uL 1.45 - 7.50 k/uL [facility] Neutrophils/100 WBC (Bld) 57.2 % [facility] Nucleated RBC (Bld) [#/Vol] <0.01 k/uL [facility] Nucleated RBC/100 WBC (Bld) [Ratio] 0.0 /100 WBC [facility] Platelet mean volume (Bld) [Entitic vol] 9.3 fL 9.0 - 12.7 fL [facility] Platelets (Bld) [#/Vol] 340 10*3/uL 150 - 400 k/uL [facility] RBC (Bld) [#/Vol] 4.68 10*6/uL 3.90 - 5.2 0 m/uL [facility] WBC (Bld) [#/Vol] 8.98 10*3/uL 3.70 - 11. 00 k/uL [facility] Absolute lymphocyte counton 02-11-2022 Lymphocytes Auto (Unsp spec) [#/Vol] 2.13 10*3/uL 0.83-4.51 [facility] Work Phone: Basophil percentageon 2021 Basophils/100 WBC (Bld) 0.5 % 0-1 [facility] Work Phone: Chloride [Moles/Vol] 107 mmol/L 98-107 [facility] Work Phone: Eosinophils/100 WBC (Bld) 1.6 % 0-5 [facility] Work Phone: Glucose [Mass/Vol] 99 mg/dL 74-106 [facility] Work Phone: Neutrophils (Bld) [#/Vol] 3.4 10*3/uL 2.0-7.7 [facility] Work Phone: Neutrophils/100 WBC (Bld) 54.8 % 47-70 [facility] Work Phone: Potassium [Moles/Vol] 3.0 mmol/L 3.5-5.1 [facility] Work Phone: Sodium [Moles/Vol] 141 mmol/L 136-145 [facility] Work Phone: WBC (Bld) [#/Vol] 6.2 10*3/uL 4.4-11.0 [facility] Work Phone: Blood erythrocytes count (nu mber/volume)on 02-11-2022 RBC (Bld) [#/Vol] 4.58 10*6/uL 4.2-5.4 [facility] Work Phone: Blood hemoglobin measurement (mass/volume)on 02-11-2022 Hemoglobin (Bld) [Mass/Vol] 13.7 g/dL 12.0-15.0 [facility] Work Phone: Blood lymphocytes/100 leukoc yteson 02-11-2022 Lymphocytes/100 WBC (Bld) 34.5 % 19-41 [facility] Work Phone: Blood monocytes/100 leukocyt eson 02-11-2022 Monocytes/100 WBC (Bld) 8.1 % 0-10 [facility] Work Phone: Blood platelet mean volumeon 02-11-2022 Platelet mean volume (Bld) [Entitic vol] 9.3 fL 6.2-12.0 [facility] Work Phone: Determination of erythrocyte mean corpuscular volume (MCV)on 02-11-2022 MCV (RBC) [Entitic vol] 86.7 fL 81-99 [facility] Work Phone: Hematocrit Auto (Bld) [Volum e fraction]on 02-11-2022 Hematocrit (Bld) [Volume fraction] 39.7 % 37-47 [facility] Work Phone: Laboratory - Chemistry and C hemistry - challengeon 02-11-2022 CO2 [Moles/Vol] 27.0 mmol/L 21.0-32.0 [facility] Work Phone: Urea nitrogen/Creatinine [Mass ratio] 12.8 mg/mg 10-20 [facility] Work Phone: Laboratory - Hematology and Cell countson 02-11-2022 Erythrocyte distribution width (RBC) [Entitic vol] 36.4 fL 35.1-43.9 [facility] Work Phone: Erythrocyte distribution width (RBC) [Ratio] 11.5 % 11.6-14.6 [facility] Work Phone: Immature granulocytes/100 WBC (Bld) 0.500 % 0.0-0.9 [facility] Work Phone: Comment on above: IG% - Immature Granu locytes (promyelocytes, myelocytes and metamyelocytes) > 1% indicates that a LEFT SHIFT is Present. MCH (RBC) [Entitic mass] 29.9 pg 27.0-32.0 [facility] Work Phone: Nucleated RBC/100 WBC (Bld) [Ratio] 0 % 0-5 [facility] Work Phone: MCHC Auto (RBC) [Mass/Vol]on 02-11-2022 MCHC (RBC) [Mass/Vol] 34.5 g/dL 32-36 [facility] Work Phone: No Panel Informationon 02-11 Troponin I High Sensitivity 4 pg/mL 3.0-54.0 [facility] Work Phone: Comment on above: Please Note: [place] t Units and Gender Specific Reference Ranges. For more information see Policy Stat Procedure Fries High Sensitivity Troponin (TNIH) and attachments. Estimated Creatinine Clearance Calc 95.02 ml/min [facility] Work Phone: Estimated GFR (MDRD) Amer 120 mL/min >60 [facility] Work Phone: Comment on above: GFR Calc Estimated GFR (MDRD) Non-Af Amer 99 mL/min >60 [facility] Work Phone: Comment on above: Non- GFR Calc Platelets bldon 02-11-2022 Platelets (Bld) [#/Vol] 299 10*3/uL 150-450 [facility] Work Phone: Serum or plasma calcium elias urement (mass/volume)on 02-11-2022 Calcium [Mass/Vol] 9.1 mg/dL 8.5-10.1 [facility] Work Phone: Serum or plasma creatinine m easurement (mass/volume)on 02-11-2022 Creatinine [Mass/Vol] 0.70 mg/dL 0.55-1.02 [facility] Work Phone: Comment on above: The validity of the calculated GFR & GFRAA in patients over 70 years has not been determined. Clinical correlation is essential. Serum or plasma urea nitroge n measurement (mass/volume)on 02-11-2022 Urea nitrogen [Mass/Vol] 9 mg/dL 7-18 [facility] Work Phone: Thin prep Papanicolaou smear with manual screeningon 02-11-2022 Thin prep Papanicolaou smear with manual screening 7 5-15 [facility] Work Phone: Cervical or vagninal specime n microscopic examination by cytology stain (reported ason 08-05-2021 Cytology report Cyto stain Doc (Cvx/Vag) Comment [facility] Work Phone: Comment on above: The [...] amp Ql (Cvx) Negative Negative [facility] Work Phone: Comment on above: This nucleic acid am plification test detects fourteen high- risk HPV types (16,18,31,33,35,39,45,51,52,56,58,59,66,68)without differentiation.Performed at: - [facility] [id number] Director: Jacqueline Welch MD, Phone: [phone] at: = - [facility] [id number] Director: Jacqueline Welch MD, Phone: [phone] Laboratory - Cytologyon 07-17 [facility] Cyto stain Nom (Cvx/Vag) [ID] Comment [facility] Work Phone: Comment on above: Eleuterio Bateman , Collection Advisor (ASCP) Laboratory - Miscellaneous t estson 08-05-2021 Service comment (Unsp spec) [Interp] Comment [facility] Work Phone: Comment on above: This liquid based Th inPrep(R) pap test was screened withthe use of an image guided system. Service comment (Unsp spec) [Interp] . [facility] Work Phone: No Panel Informationon 08-05 Pathology report final diagnosis Narrative Comment [facility] Work Phone: Comment on above: NEGATIVE FOR INTRAEP ITHELIAL LESION OR MALIGNANCY. MRI BRAIN WO/W IVCONon 08-10 MRI BRAIN WO/W IVCON * * *Final Report* * * DATE OF EXAM: Aug 10 2020 4:44PM MDM 0295 - MRI BRAIN WO/W IVCON / [...] including diffusion and gradient echo images. Intracranial mcmc-bt-mrlzny and gadolinium-enhanced MR venogram. MQ: [id number] Contrast: [...] structurally normal in appearance. INTRACRANIAL MRV: The dnkl-vx-bxiuow and gadolinium-enhanced MR venogram images show normally [...] appearance on the post gadolinium scans. Dedicated bhra-nb-qpyeno and gadolinium-enhanced MR venogram shows normally patent deep venous structures, major cortical draining veins, and dural venous sinuses. No evidence for thrombosis. Heavy Cleaner: PSCB Transcribe Date/Time: Aug 10 2020 5:01P Dictated by : MORENO CRAWFORD MD This examination was interpreted and the report reviewed and electronically signed by: MORENO CRAWFORD MD on Aug 10 2020 5:20PM EST [id number] [facility] MRV BRAIN WO/W IVCONon 08-10 MRV BRAIN WO/W IVCON * * *Final Report* * * DATE OF EXAM: Aug 10 2020 4:44PM [facility] 0336 - MRV BRAIN WO/W IVCON / [...] including diffusion and gradient echo images. Intracranial kqeo-nm-fmhhyd and gadolinium-enhanced MR venogram. MQ: [id number] Contrast: [...] structurally normal in appearance. INTRACRANIAL MRV: The menr-el-jnxrcx and gadolinium-enhanced MR venogram images show normally [...] appearance on the post gadolinium scans. Dedicated jybu-ko-zghwlz and gadolinium-enhanced MR venogram shows normally patent deep venous structures, major cortical draining veins, and dural venous sinuses. No evidence for thrombosis. Heavy Cleaner: BAMBI Transcribe Date/Time: Aug 10 2020 5:01P Dictated by : MORENO CRAWFORD MD This examination was interpreted and the report reviewed and electronically signed by: MORENO CRAWFORD MD on Aug 10 2020 5:20PM EST [id number] Normal [facility] Vital Signs Date Time Vital Sign Value Performing Clinician Mary Ann chinchilla 08-20-2024 11:25-0400 Body height 162.56 cm Carlos Gonzalez QUALITY CONTROL INSPECTOR-C Work Phone: [facility] 08-20-2024 11:25-0400 Body mass index (BMI) [Ratio] 24.3 kg/m2 Carlos Gonzalez QUALITY CONTROL INSPECTOR-C Work Phone: [facility] 08-20-2024 11:25-0400 Body weight 64.46 kg Carlos Mariam QUALITY CONTROL INSPECTOR-C Work Phone: [facility] 08-20-2024 11:25-0400 Diastolic blood pressure 65 mm[Hg] Carlosdaniel Gonzalez QUALITY CONTROL INSPECTOR-C Work Phone: [facility] 08-20-2024 11:25-0400 Systolic blood pressure 114 mm[Hg] [place] Mariam QUALITY CONTROL INSPECTOR-C Work Phone: [facility] 06-28-2024 14:38-0400 Body mass index (BMI) [Ratio] 23.9 kg/m2 Rafy Stratton MD Work Phone: [facility] 06-28-2024 14:38-0400 Body weight 63.5 kg Rafy Stratton MD Work Phone: [facility] 06-28-2024 14:38-0400 Diastolic blood pressure 68 mm[Hg] Rafy Stratton MD Work Phone: [facility] 06-28-2024 14:38-0400 Systolic blood pressure 108 mm[Hg] Rafy Stratton MD Work Phone: [facility] 05-29-2024 10:46-0500 Body height 163 cm Adriano Sandrai DO Work Phone: [facility] 05-29-2024 10:46-0500 Body mass index (BMI) [Ratio] 23.99 kg/m2 Adriano Masci DO Work Phone: [facility] 05-29-2024 10:46-0500 Body temperature 98.49 [degF] Adriano Masci DO Work Phone: [facility] 05-29-2024 10:46-0500 Body weight 63.73 kg Adriano Masci DO Work Phone: [facility] 05-29-2024 10:46-0500 Diastolic blood pressure 74 mm[Hg] Adriano Masci DO Work Phone: [facility] 05-29-2024 10:46-0500 Heart rate 74 /min Adriano Masci DO Work Phone: [facility] 05-29-2024 10:46-0500 SaO2% (BldA) [Mass fraction] 100 % Adriano Masci DO Work Phone: [facility] 05-29-2024 10:46-0500 Systolic blood pressure 107 mm[Hg] Adriano Masci DO Work Phone: [facility] 05-16-2024 09:29-0500 Body mass index (BMI) [Ratio] 23.87 kg/m2 Alex Villalobos APRN.CNP Work Phone: [facility] 05-16-2024 09:29-0500 Body temperature 99.19 [degF] Alex Griselda RECOVERY UNIT OPERATOR.HYBRID TECHNOLOGIST Work Phone: [facility] 05-16-2024 09:29-0500 Body weight 64.2 kg Alex Villalobos RECOVERY UNIT OPERATOR.HYBRID TECHNOLOGIST Work Phone: [facility] 05-16-2024 09:29-0500 Diastolic blood pressure 70 mm[Hg] Alex Villalobos RECOVERY UNIT OPERATOR.HYBRID TECHNOLOGIST Work Phone: [facility] 05-16-2024 09:29-0500 Heart rate 95 /min Alex Villalobos RECOVERY UNIT OPERATOR.HYBRID TECHNOLOGIST Work Phone: [facility] 05-16-2024 09:29-0500 Respiratory rate 18 /min Alex Villalobos RECOVERY UNIT OPERATOR.HYBRID TECHNOLOGIST Work Phone: [facility] 05-16-2024 09:29-0500 SaO2% (BldA) [Mass fraction] 98 % Alex Villalobos RECOVERY UNIT OPERATOR.HYBRID TECHNOLOGIST Work Phone: [facility] 05-16-2024 09:29-0500 Systolic blood pressure 108 mm[Hg] Alex Villalobos RECOVERY UNIT OPERATOR.HYBRID TECHNOLOGIST Work Phone: [facility] 11-21-2023 10:21-0400 Body mass index (BMI) [Ratio] 24.54 kg/m2 Adriano Masci DO Work Phone: [facility] 11-21-2023 10:21-0400 Body temperature 98.91 [degF] Adriano Masci DO Work Phone: [facility] 11-21-2023 10:21-0400 Body weight 66 kg Adriano Masci DO Work Phone: [facility] 11-21-2023 10:21-0400 Diastolic blood pressure 71 mm[Hg] Adriano Masci DO Work Phone: [facility] 11-21-2023 10:21-0400 Heart rate 77 /min Adriano Masci DO Work Phone: [facility] 11-21-2023 10:21-0400 SaO2% (BldA) [Mass fraction] 98 % Adriano Masci DO Work Phone: [facility] 11-21-2023 10:21-0400 Systolic blood pressure 112 mm[Hg] Adriano Masci DO Work Phone: [facility] 05-29-2023 15:48-0500 Body height 164 cm Adriano Masci DO Work Phone: [facility] 05-29-2023 15:48-0500 Body temperature 99 [degF] Adriano Masci DO Work Phone: [facility] 05-29-2023 15:48-0500 Body weight 68.04 kg Adriano Masci DO Work Phone: [facility] 05-29-2023 15:48-0500 Diastolic blood pressure 83 mm[Hg] Adriano Masci DO Work Phone: [facility] 05-29-2023 15:48-0500 Heart rate 92 /min Adriano Masci DO Work Phone: [facility] 05-29-2023 15:48-0500 SaO2% (BldA) [Mass fraction] 100 % Adriano Masci DO Work Phone: [facility] 05-29-2023 15:48-0500 Systolic blood pressure 127 mm[Hg] Adriano Masci DO Work Phone: [facility] 12-01-2022 15:43-0400 Body weight 64.86 kg Jil Hairtson APRN.HYBRID TECHNOLOGIST Work Phone: [facility] 12-01-2022 15:43-0400 Diastolic blood pressure 64 mm[Hg] Jil Hairston APRN.HYBRID TECHNOLOGIST Work Phone: [facility] 12-01-2022 15:43-0400 Heart rate 72 /min Jil Hairston APRN.HYBRID TECHNOLOGIST Work Phone: [facility] 12-01-2022 15:43-0400 Respiratory rate 14 /min Jil Hairston APRN.HYBRID TECHNOLOGIST Work Phone: [facility] 12-01-2022 15:43-0400 Systolic blood pressure 106 mm[Hg] Jil Hairston APRN.CNP Work Phone: [facility] 02-12-2022 00:00-0400 Diastolic blood pressure 66 mm[Hg] [facility] Work Phone: 02-12-2022 00:00-0400 Heart rate 67 /min [facility] Work Phone: 02-12-2022 00:00-0400 Respiratory rate 16 /min [facility] Work Phone: 02-12-2022 00:00-0400 SaO2% (BldA) [Mass fraction] 98 % [facility] Work Phone: 02-12-2022 00:00-0400 Systolic blood pressure 104 mm[Hg] [facility] Work Phone: 02-11-2022 20:45-0400 Body height 162.56 cm [facility] Work Phone: 02-11-2022 20:45-0400 Body mass index (BMI) [Ratio] 24.7 kg/m2 [facility] Work Phone: 02-11-2022 20:45-0400 Body temperature 97.7 [degF] [facility] Work Phone: 02-11-2022 20:45-0400 Body weight 65.4 kg [facility] Work Phone: 11-19-2021 14:24-0400 Diastolic blood pressure 69 mm[Hg] Nehemias Waite MD Work Phone: [facility] 11-19-2021 14:24-0400 Systolic blood pressure 103 mm[Hg] Nehemias Waite MD Work Phone: [facility] 11-19-2021 14:18-0400 Body weight 65.32 kg Nehemias Waite MD Work Phone: [facility] 10-01-2021 09:45-0400 Diastolic blood pressure 68 mm[Hg] Nehemias Waite MD Work Phone: [facility] 10-01-2021 09:45-0400 Heart rate 67 /min Nehemias Waite MD Work Phone: [facility] 10-01-2021 09:45-0400 Systolic blood pressure 108 mm[Hg] Nehemias Waite MD Work Phone: [facility] 10-01-2021 09:43-0400 Body weight 65.23 kg Nehemias Waite MD Work Phone: [facility] 09-16-2021 09:15-0400 Body height 162 cm Adriano Floresi DO Work Phone: [facility] 09-16-2021 09:15-0400 Body temperature 99.39 [degF] Adriano Sandrai DO Work Phone: [facility] 09-16-2021 09:15-0400 Body weight 66.22 kg Adriano Masci DO Work Phone: [facility] 09-16-2021 09:15-0400 Diastolic blood pressure 63 mm[Hg] Adriano Masci DO Work Phone: [facility] 09-16-2021 09:15-0400 Heart rate 72 /min Adriano Sandrai DO Work Phone: [facility] 09-16-2021 09:15-0400 SaO2% (BldA) [Mass fraction] 98 % Adriano Masci DO Work Phone: [facility] 09-16-2021 09:15-0400 Systolic blood pressure 105 mm[Hg] Adriano Floresi DO Work Phone: [facility] 08-05-2021 11:37-0400 Body height 162.[address] Nehemias Ho Work Phone: [facility] Work Phone: 08-05-2021 11:37-0400 Body mass index (BMI) [Ratio] 25.4 kg/m2 Dr. Nehemias Ho Work Phone: [facility] Work Phone: 08-05-2021 11:37-0400 Body weight 67.[address] Nehemias Ho Work Phone: [facility] Work Phone: 08-05-2021 11:37-0400 Diastolic blood pressure 70 mm[Hg] Dr. Nehemias Ho Work Phone: [facility] Work Phone: 08-05-2021 11:37-0400 Systolic blood pressure 124 mm[Hg] Dr. Nehemias Ho Work Phone: [facility] Work Phone: Encounters Encounter Date Encounter Type Care Provider Facility Start: 10-02-2024 End: 10-02-2024 ambulatory [facility] QUALITY CONTROL INSPECTOR-C Work Phone: [facility] Work Phone: Start: 10-02-2024 End: 10-02-[address] Julieta Pedro DO -[facility]patient [facility] Work Phone: Start: 10-02-2024 End: 10-02-2024 ambulatory [facility] Facility:[facility] Start: 08-20-2024 Encounter for gynecological examination (general) (routine) without abnormal findings Julieta Pedro [facility] Start: 08-20-2024 End: 08-20-[address] Julieta Pedro DO -[facility] [place] Work Phone: Start: 08-20-2024 End: 08-20-[address] Julieta Pedro DO [facility] Start: 08-20-2024 End: 08-20-2024 ambulatory Carlos Gonzalez Facility:[facility] Start: 06-28-2024 End: 06-28-2024 ambulatory RAFY STRATTON Facility:[facility] Start: 06-28-2024 End: 06-28-2024 Patient encounter procedure Rafy Stratton MD Work Phone: OB/Gynecology Comment on above: Mood changes (Primar y Dx); Excessive bleeding in premenopausal period Start: 05-29-2024 End: 05-29-2024 ambulatory ADRIANO GALLO Facility:[facility] Start: 05-29-2024 End: 05-29-2024 Office outpatient visit 15 minutes Adriano Gallo DO Work Phone: Hematology/Oncology Comment on above: History of pulmonary embolism (Primary Dx) Start: 05-16-2024 End: 05-16-2024 ambulatory RAFY STRATTON Facility:[facility] Start: 05-16-2024 End: 05-16-2024 Office outpatient visit 15 minutes Alex Villalobos APRN.HYBRID TECHNOLOGIST Work Phone: [facility] Comment on above: Sore throat (Primary Dx); Viral illness Start: 04-07-2024 End: 04-08-2024 Refill Adriano Gallo DO Work Phone: Hematology/Oncology Comment on above: Refill Request Start: 04-04-2024 ambulatory [facility] Facility:[place] Start: 03-26-2024 End: 03-26-2024 ambulatory [facility] Facility:[facility] Start: 01-17-2024 Encounter for genera l adult medical examination with abnormal findings [facility] Start: 12-27-2023 End: 12-27-2023 ambulatory [facility] Facility:[facility] Start: 11-21-2023 End: 11-21-2023 ambulatory Adriano Gallo DO Work Phone: Hematology/Oncology Comment on above: Multiple subsegmenta l pulmonary emboli without acute cor pulmonale (HCC) (Primary Dx); Estrogen deficiency Start: 11-21-2023 End: 11-21-2023 Patient encounter procedure Adriano Gallo DO Work Phone: Hematology/Oncology Start: 08-31-2023 Telephone encounter Jil grace APRN.HYBRID TECHNOLOGIST Work Phone: [facility] Comment on above: Results Start: 05-29-2023 End: 05-29-2023 ambulatory Adriano A Masci DO Work Phone: Hematology/Oncology Comment on above: Multiple subsegmenta l pulmonary emboli without acute cor pulmonale (HCC) (Primary Dx) Start: 05-29-2023 End: 05-29-2023 Patient encounter procedure Adriano Gallo DO Work Phone: [facility] Start: 05-26-2023 Telephone encounter Jil grace APRN.HYBRID TECHNOLOGIST Work Phone: [facility] Comment on above: Medication Request Refill Request Start: 03-06-2023 Refill Jil soliman RECOVERY UNIT OPERATOR.HYBRID TECHNOLOGIST Work Phone: [facility] Comment on above: Refill Request; Refi ll Request Start: 01-09-2023 Telephone encounter Jil grace APRN.HYBRID TECHNOLOGIST Work Phone: [facility] Comment on above: Patient Question Start: 12-05-2022 Telephone encounter Jil grace APRN.HYBRID TECHNOLOGIST Work Phone: [facility] Comment on above: Results Start: 12-01-2022 End: 12-01-2022 Patient encounter procedure Jil Hairston APRN.HYBRID TECHNOLOGIST Work Phone: [facility] Comment on above: Encounter for immuni zation (Primary Dx); Need for malaria prophylaxis; Medication management; Screening for lipid disorders; Screening for diabetes mellitus Start: 02-21-2022 ambulatory Nehemias rocha MD Work Phone: Vascular Medicine Comment on above: Your question Start: 02-21-2022 E-mail encounter fro m caregiver Nehemias Waite MD Work Phone: [facility] Start: 02-19-2022 ambulatory Nehemias rocha MD Work Phone: Vascular Medicine Comment on above: Your question Start: 02-19-2022 E-mail encounter fro m caregiver Nehemias Waite MD Work Phone: [facility] Start: 02-11-2022 End: 02-12-2022 [facility] Start: 02-02-2022 Telephone encounter Nehemias Healy MD Work Phone: Vascular Medicine Comment on above: Received Outside [facility] Records Start: 01-17-2022 Telephone encounter Nehemias Healy [...] m caregiver Nehemias Waite MD Work Phone: [facility] Start: 10-01-2021 ambulatory Nehemias rocha MD Work Phone: Vascular Medicine Comment on above: Your visit today Start: 10-01-2021 E-mail encounter fro m caregiver Nehemias Waite MD Work Phone: [facility] Start: 10-01-2021 End: 10-01-2021 Patient encounter [...] encounter procedure [facility] DO [facility] Start: 08-18-2021 Telephone encounter Adriano franco DO Work Phone: Hematology/Oncology Comment on above: Appointment Reschedu led Start: 08-05-2021 End: 08-05-[address] Nehemias Ho Work Phone: [facility] [place] Start: 08-05-2021 End: 08-05-[address] Nehemias Ho Work Phone: [facility]-Laboratory, Specimen Start: 02-18-2021 Telephone encounter Adriano franco DO Work Phone: Hematology/Oncology Comment on above: Results Procedures Date Procedure Procedure Detail Performing Clinician Start: 10-02-2024 Screening mammography Barbara Gonzalez QUALITY CONTROL INSPECTORMacrinaC Work Phone: Start: 05-16-2024 STREP A MOLECULAR (POC) Alex Villalobos APRN.HYBRID TECHNOLOGIST Work Phone: Start: 02-11-2022 Plain chest X-ray Start: 08-18-2021 Adult depression screening assessment Adriano Gallo DO Work Phone: Start: 05-05-2015 End: 01-29-2016 H/O: section Previous section Jil Hairston APRN.HYBRID TECHNOLOGIST Work Phone: Plan of Treatment Date Care Activity Detail Author Start: 08-07-2028 Urine microalbumin profile DTaP,Tdap,Td Vaccine (3 - Td or Tdap) [facility] Start: 09-17-2025 Urine microalbumin profile [facility] Start: 06-28-2024 End: 06-28-2024 Patient encounter procedure 06/28/2024 2:40 PM EDT Office Visit OB/Gynecology [address] [place] [phone] Rafy Stratton MD [address] [id number] discuss hormones OB/Gynecology Comment on above: discuss hormones Start: 05-29-2024 End: 05-29-2024 ambulatory 05/29/2024 10:50 AM EST Visit (SP) Office Hematology/Oncology [address] [place] [address] Adriano Gallo DO [address] [place] [address] OV one year Hematology/Oncology Comment on above: OV one year Start: 2024 Screening for malign ant neoplasm of breast Mammogram Screening [facility] Start: 05-16-2024 End: 05-16-2024 Patient encounter procedure 05/16/2024 9:40 AM EST Office Visit OB/Gynecology [address] [place] [address] Rafy Stratton MD [address] [place] [phone] discuss hormones OB/Gynecology Comment on above: discuss hormones Start: 04-05-2024 HPV TESTING HPV TESTING [facility] Start: 04-05-2024 PAP TESTING PAP TESTING [facility] Start: 04-05-2024 Screening for malign ant neoplasm of cervix [facility] Start: 01-18-2024 End: 01-18-2024 Patient encounter procedure 01/18/2024 9:40 AM EDT Office Visit OB/Gynecology [address] [place] [address] Rafy Stratton MD [address] [place] [address] Second opinion on hormone levels and need for DHEA OB/Gynecology Comment on above: Second opinion on ho rmone levels and need for DHEA Start: 12-17-2023 Covid-19 Vaccine () Covid-19 Vaccine () [facility] Start: 12-17-2023 Influenza vaccination [facility] Start: 04-17-2023 Behavioral Health Screening Behavioral Health Screening [facility] Start: 04-17-2023 Depression Assessment Depression Ass essment [facility] Start: 12-16-2022 Covid-19 Vaccine ( season) Covid-19 Vaccine ( season) [facility] Start: 12-16-2022 [facility] Start: 12-01-2022 End: 01-31-2023 Comprehensive metabolic 2000 panel - Serum or Plasma [facility] Work Phone: Comment on above: Expected: 12/01/2022 , Expires: 01/31/2023 Start: 12-01-2022 End: 01-31-2023 Hemoglobin A1c in Blood [facility] Work Phone: Comment on above: Expected: 12/01/2022 , Expires: 01/31/2023 Start: 12-01-2022 End: 01-31-2023 LIPID PANEL, NONFASTING [facility] Work Phone: Comment on above: Expected: 12/01/2022 , Expires: 01/31/2023 Start: 08-18-2022 Adult depression screening assessment DEPRESSION SCREENING [facility] Start: 02-11-2022 End: 02-11-2022 [facility] Work Phone: Start: 12-16-2021 Influenza vaccination [facility] Start: 10-01-2021 End: 12-01-2021 Fibrin D-dimer FEU [Mass/volume] in Platelet poor plasma D-DIMER Lab Routine History of pulmonary embolism Expected: 10/01/2021 (Approximate), Expires: 12/01/2021 [facility] Work Phone: Comment on above: Expected: 10/01/2021 (Approximate), Expires: 12/01/2021 Start: 04-17-2021 DEPRESSION ASSESSMENT DEPRESSION ASS ESSMENT [facility] Start: 09-10-2020 COVID-19 VACCINE (2 - Booster for Cari series) COVID-19 VACCINE (2 - Booster for Cari series) [facility] Start: 2002 Anxiety Screening Anxiety Screening [facility] Start: 2002 Depression Screening Depression Scre ening [facility] Start: 2002 HEPATITIS C SCREENING HEPATITIS C [facility] Start: 2002 Hepatitis C screening Hepatitis C [facility] Start: 1984 HEPATITIS B (1 of 3 - 3-dose series) HEPATITIS B (1 of 3 - 3-dose series) [facility] Patient Education ED Chest Pain, Noncardiac ED Hypokalemia [facility] Work Phone: Patient referral [facility] Work Phone: [facility] Immunizations Immunization Date Immunization Notes Care Provider Fa titus 12-01-2022 hepatitis A vaccine, adult dosage Jil Hairston APRN.HYBRID TECHNOLOGIST Work Phone: [facility] 12-01-2022 typhoid vaccine, unspecified formulation Jil Hairston APRN.HYBRID TECHNOLOGIST Work Phone: [facility] Work Phone: Comment on above: Take 1 capsule by mo ut one time only for 1 dose. Take one capsule by mouth on days 1,3,5,7. 07-16-2020 Covid (Matias & Matias) Dr. Nehemias Ho Work Phone: [facility] 02-08-2020 influenza virus vaccine, unspecified formulation Jil Hairston APRN.HYBRID TECHNOLOGIST Work Phone: [facility] 01-13-2018 influenza, injectabl e, quadrivalent, contains preservative Adriano Masci DO Work Phone: [facility] Work Phone: 01-21-2017 influenza, injectabl e, quadrivalent, contains preservative Adriano Masci DO Work Phone: [facility] 01-22-2016 influenza, injectabl e, quadrivalent, contains preservative Adriano Masci DO Work Phone: [facility] Work Phone: 01-18-[address] Nehemias Ho Work Phone: [facility] 09-18-2015 tetanus toxoid, redu twyla diphtheria toxoid, and acellular pertussis vaccine, adsorbed Adriano Masci DO Work Phone: [facility] 04-13-2011 influenza virus vaccine, unspecified formulation Adriano Gallo DO Work Phone: [facility] Work Phone: Payers Date Payer Category Payer Self-pay [id number] 2023 Unknown [id number] 2020 Private Health Insurance LIZA FINNEY OAP [id number] 2020-Present [phone] [id number] [place] [address] Open Access [id number] 2020 Private Health Insurance [id number] Private Health Insurance [id number] Unknown [id number] Unknown [id number] Unknown [id number] Unknown [id number] Unknown [id number] Unknown [id number] Social History Date Type Detail Facility Start: 08-05-2021 End: 02-11-2022 Tobacco smoking status NHIS Unknown if ever smoked [facility] Work Phone: Start: 06-08-2016 Occasional [facility] Start: 06-08-2016 None [facility] Start: 06-08-2016 Spouse/ Significant Other [facility] Start: 01-29-2019 Non-smoker [facility] Start: 1985 Sex Assigned At Female [facility] Start: 02-11-2021 End: 05-16-2024 Tobacco smoking status NHIS Ex-smoker [facility] End: 10-15-2010 History of tobacco use Current smoker [facility] End: 10-15-2010 History of tobacco use Cigarette Smoker [facility] Start: 02-11-2021 End: 05-16-2024 Tobacco use and exposure Smokeless tobacco non-user [facility] Start: 02-11-2021 End: 06-28-2024 Alcohol intake Current drinker of alcohol (finding) [facility] Start: 02-11-2021 End: 11-28-2022 Alcohol intake [facility] Start: 03-07-2016 History SDOH Alcohol Comment rarely [facility] Start: 02-11-2021 End: 05-16-2024 Tobacco Comment Social smoker [facility] Start: 1985 Sex Assigned At Not on file [facility] Start: 08-08-2021 End: 11-19-2021 Exposure to SARS-CoV-2 (event) Not sure [facility] Start: 11-28-2022 End: 05-29-2024 Social connection and isolation panel [facility] In a typical week, h ow many times do you talk on the telephone with family, friends, or neighbors? Patient refused [facility] Do you belong to any clubs or organizations such as baptist groups, unions, fraternal or athletic groups, or school groups? Yes [facility] Are you now , , , , never or living with a partner? [facility] How often to you hav e a drink containing alcohol? 2-3 time sa week [facility] How many standard dr inks containing alcohol do you have on a typical day? 1 or 2 [facility] How often do you hav e 6 or more drinks on 1 occasion? Never [facility] Do you feel stress - tense, restless, nervous, or anxious, or unable to sleep at night because your mind is troubled all the time - these days [OSQ] Only a little [facility] (I/We) worried forrest er (my/our) food would run out before (I/we) got money to buy more. Never true [facility] In the past 12 month s, was there a time when you were not able to pay the mortgage or rent on time? No [facility] Start: 02-19-2020 Sexual orientation Heterosexual (finding) [facility] Start: 08-20-2024 Tobacco smoking status NHIS Never smoked tobacco (finding) [facility] Functional Status Date Assessment Result Facility 09-11-2014 Are you deaf, or do you have serious difficulty hearing No 09/11/2014 2:25 PM EDT Krystal Owens Ma [facility] Work Phone: 09-11-2014 Are you blind, or do you have serious difficulty seeing, even when wearing glasses No 09/11/2014 2:25 PM EDT Krystal Owens Ma [facility] 09-11-2014 Do you have serious difficulty walking or climbing stairs No 09/11/2014 2:25 PM EDT Krystal Owens Ma [facility] 09-11-2014 Do you have difficul ty dressing or bathing No 09/11/2014 2:25 PM EDT Krystal Owens Ma [facility] 09-11-2014 Because of a physica l, mental, or emotional condition, do you have difficulty doing errands alone such as visiting a physician's office or shopping No 09/11/2014 2:25 PM EDT Krystal Owens Ma [facility] Mental Status Date Assessment Result Facility 02-11-2022 Cognitive function Level Of Cons ciousness Awake;Alert;Appropriate;Fol lows Commands [facility] Work Phone: 09-11-2014 Because of a physica l, mental, or emotional condition, do you have serious difficulty concentrating, remembering, or making decisions No 09/11/2014 2:25 PM EDT Krystal Owens Ma [facility] Clinical Notes 08-21-2015 to 08-20-2024 Note Date & Type Note Facility 08-20-2024 Evaluation note Diagnosis Onset Date Resolution Encounter for routine gynecological examination noneactive August 20, 2024 11:05am [facility] Work Phone: [phone]) 801-295703-14-2025 Instructions* Patient Instructions* Rafy Stratton MD - 06/28/2024 3:08 PM EDT Functional Medicine with the [facility] [email or web address] documented in this encounterSelect [facility]-14-2025 NoteHNO ID: [id number] Author: RAFY STRATTON MD Service: ? Author [...] an SSRI. She went to see a switchboard receptionist and had a hormone panel completed. She [...] scheduled in a few months with prior manager respiratory at a different office. OB History Gravida2 Para2 Term2 Preterm0 AB0 Living2 SAB0 IAB0 Ectopic0 Multiple0 Live Births2 Comment: Marni- JJ delivered [employer] History LMP: 06/22/2024, Having periods Age at Menarche: 11 Age at First : Age at Menopause: [employer] History Comments: Sexual Activity: Yes; Male Contraception: [...] Onset Emphysema Maternal Grandfather Heart Maternal Grandfather [place] Arthritis Paternal Grandmother Arthritis Paternal Grandfather Cancer [...] of Date: 06/28/2024 Allergen Noted Reaction BACTRIM [SULFAMETHOXAZOLE-TRIMETH*10/01/2021 Hives Fully Assessed 06/28/2024 REVIEW OF SYSTEMS [...] on functional medicine. Recent FSH normal at [facility]. Excessive bleeding in premenopausal period Bleeding has lessened since ablation. Had recent CBC and TSH at [facility] that were normal. On Elqiuis for h/o PE and discussed would not recommend hormonal contraception containing estrogen. Cont to monitor given bleeding has imp (more content not included)...[facility]03-14-2025 History of Present illness Narrative* Rafy Stratton MD - 06/28/2024 2:34 PM EDT Janna Lopez is a 39 year old female who presents for problem visit - discuss hormones. HPI: Janna states she felt her mood changes were significant around time of menses. She was prescribed an SSRI in the past, but she did not want to take an SSRI. She went to see a switchboard receptionist and hada hormone panel completed. She started DHEA and [...] scheduled in a few months with prior manager respiratory at a different office. OB History Gravida2 Para2 Term2 Preterm0 AB0 Living2 SAB0 IAB0 Ectopic0 Multiple0 Live Births2 Comment: Laura GARDNER delivered [employer] History LMP: 06/22/2024, Having periods Age at Menarche: 11 Age at First : Age at Menopause: [employer] History Comments: Sexual Activity: Yes; Male Contraception: [...] Onset Emphysema Maternal Grandfather Heart Maternal Grandfather NV Arthritis Paternal Grandmother Arthritis Paternal Grandfather Cancer [...] of Date: 06/28/2024 Allergen Noted Reaction BACTRIM [SULFAMETHOXAZOLE-TRIMETH*10/01/2021 Hives Fully Assessed 06/28/2024 REVIEW OF SYSTEMS [...] on functional medicine. Recent FSH normal at [facility]. Excessive bleeding in premenopausal period Bleeding has lessened since ablation. Had recent CBC and TSH at [facility] that were normal. On Elqiuis for h/o PE and discussed would not recommend hormonal contraception containing estrogen. Cont to monitor given bleeding has improved since ablation, and discussed reasons to call. Patient plans to re establish with her prior manager respiratory at outside office and has an annual exam scheduled. Rafy Stratton, I spent 20 minutes in the visit, with more than 50% of the total gumo-dw-[id number] time of the visit in counseling / coordination of care. documented in this encounterSelect [facility]-2025 NoteHNO ID: [id number] Author: ADRIANO GALLO DO Service: ? Author Type: Physician Type: Progress Notes Filed: 05/29/2024 11:54 Note Text: Hematologic problem(s): 1) Recurrent DVT/PE. HPI: The patient is a 39-year-old female with a PMH significant for migraine HAs. 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 In May 2016 she was seen for complaint of dull aching chest pain that had started the day prior 06/07/2016. Evidently her EKG was abnormal and she was directed to the emergency room at [facility]. CT demonstrated an isolated complete filling [...] tenderness over the area of the right judaism associated with tinnitus and muted hearing in [...] ear associated with tenderness over the right judaism area. Those symptoms resolved on anticoagulation. Subsequently [...] and edited and updated as necessary. Adriano Gallo, [facility]02-12-2025 History of Present illness Narrative* Adriano Gallo, DO - 05/29/2024 11:15 AM EST Hematologic problem(s): 1) Recurrent DVT/PE. HPI: The patient is a 39-year-old female with a PMH significant for migraine HAs. 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 In May 2016 she was seen for complaint of dull aching chest pain that had started the day prior 06/07/2016. Evidently her EKG was abnormal and she was directed to the emergency room at [facility]. CT demonstrated an isolated complete filling [...] on 07/16/2020. On 07/19, she had onset ofchest pain and she had also developed headache which was typical of her usual migraine headaches characterized by a bandlike sensation from the occiput to the temporal areas bilaterally. However she also has several days of tenderness over the area of the right judaism associated with tinnitus and muted hearing in [...] had an unprovoked pulmonary embolism approximately 4 yearsprior to initial evaluation here. She completed 6 months of anticoagulation. Partial assessment of hypercoagulable labs at that time was negative. She received the Matias & Matias SARS-CoV-2 vaccine on 07/16/2020 and was diagnosed with pulmonary embolism on . She also had migraine headache with unusual symptoms of hearing loss and tinnitus of the right ear associated with tenderness over the right judaism area. Those symptoms resolved on anticoagulation. Subsequently [...] necessary. Adriano Gallo DO documented in this encounterSelect [facility]01-30-2025 NoteHNO ID: [id number] Author: ALEX VILLALOBOS APRN.HYBRID TECHNOLOGIST Service: ? Author Type: Nurse Practitioner Type: Progress Notes Filed: 05/16/2024 10:14 Note Text: Subjective HPI Nontoxic-appearing female presents urgent care chief complaint sore throat fever body aches chills headache slight cough. Was coughing more yesterday than today. Most bothersome symptom today is pharyngitis. Sick contacts unknown. Works as a [employer]. Denies any difficulty swallowing and secretion decreased [...] Onset Emphysema Maternal Grandfather Heart Maternal Grandfather NV Arthritis Paternal Grandmother Arthritis Paternal Grandfather Cancer [...] Status: She is a (more content not included)...[facility] 05-16-2024 History of Present illness Narrative* Alex Villalobos, [place] - 05/16/2024 9:44 AM EST Images from the original note were not included. Subjective HPI Nontoxic-appearing female presents urgent care chief complaint sore throat fever body aches chills headache slight cough. Was coughing more yesterday than today. Most bothersome symptom today is pharyngitis. Sick contacts unknown. 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 Denies any difficulty swallowing and secretion decreased [...] Onset Emphysema Maternal Grandfather Heart Maternal Grandfather NV Arthritis Paternal Grandmother Arthritis Paternal Grandfather Cancer [...] No evidence of deep space infection noted. Streptest negative. Patient was educated on supportive therapies. [...] Patient verbalizes understanding and agrees to plan ofcare. This note was generated using SoothEase software. It may contain errors in wording, punctuation, or spelling. Alex Villalobos APRN.HYBRID TECHNOLOGIST documented in this encounterSelect [facility]08-06-2024 NoteHNO ID: [id number] Author: ADRIANO GALLO, DO Service: ? Author Type: Physician Type: Progress Notes Filed: 11/21/2023 11:02 Note Text: Hematologic problem(s): 1) Recurrent DVT/PE. HPI: The patient is a 38-year-old female with a PMH significant for migraine HAs. 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 In May 2016 she was seen for complaint of dull aching chest pain that had started the day prior 06/07/2016. Evidently her EKG was abnormal and she was directed to the emergency room at [facility]. CT demonstrated an isolated complete filling [...] tenderness over the area of the right judaism associated with tinnitus and muted hearing in [...] having mood swings and fatigue. Contacted her manager respiratory. Was given rx for antidepressant. Saw functional [...] ear associated with tenderness over the right judaism area. Those symptoms resolved on anticoagulation. Subsequently [...] BID. -Referral to gyne (more content not included)...[facility] 11-21-2023 History of Present illness Narrative* Adriano Gallo, - 11/21/2023 10:25 AM EDT Hematologic problem(s): 1) Recurrent DVT/PE. HPI: The patient is a 38-year-old female with a PMH significant for migraine HAs. 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 In May 2016 she was seen for complaint of dull aching chest pain that had started the day prior 06/07/2016. Evidently her EKG was abnormal and she was directed to the emergency room at [facility]. CT demonstrated an isolated complete filling [...] on 07/16/2020. On 07/19, she had onset ofchest pain and she had also developed headache which was typical of her usual migraine headaches characterized by a bandlike sensation from the occiput to the temporal areas bilaterally. However she also has several days of tenderness over the area of the right judaism associated with tinnitus and muted hearing in [...] having mood swings and fatigue. Contacted her manager respiratory. Was given rx for antidepressant. Saw functional medicine and found to have low estrogen and progesterone--levels done ~10 days priorto menses. Was given DHEA (10 mg OTC). [...] menstrual period 03/26/2019, SpO2 98%, currently . Notbreastfeeding (confirmed today). Well-appearing and in no acute [...] had an unprovoked pulmonary embolism approximately 4 yearsprior to initial evaluation here. She completed 6 months of anticoagulation. Partial assessment of hypercoagulable labs at that time was negative. She received the Matias & Matias SARS-CoV-2 vaccine on 07/16/2020 and was diagnosed with pulmonary embolism on . She also had migraine headache with unusual symptoms of hearing loss and tinnitus of the right ear associated with tenderness over the right judaism area. Those symptoms resolved on anticoagulation. Subsequently [...] second opinion regarding hormone levels. She expressed understandingof this logic and agreed with the plan. [...] which included preparing to see the patient, [id number] patient care, completing clinical documentation, obtaining and/or reviewing separately obtained history, performing a medically appropriate examination, counseling and educating the pat ient/family/caregiver, ordering medications, tests, or procedures, communicating with other HCPs (not separately reported), and communicating results to the patient/family/caregiver. Adriano Gallo DO documented in this encounterSelect Medical [facility]-16-[facility]24 Telephone encounter Note * Telephone Encounter - Minna Jimenez MA - 08/31/2023 9:39 AM EDT MYTRND message sent to patient Minna Jimenez MA [facility]05-16-2024 Miscellaneous Notes* Telephone Encounter - Minna Jimenez MA - 08/31/2023 9:39 AM EDT FRESSharbeModel message sent to patient Minna Jimenez MA * Telephone Encounter - Jil Hairston APRN.CNP - 08/31/2023 9:35 AM EDT Please let patient know her mammogram is negative. Patient should continue with annual screenings. documented in this encounterSelect [facility]05-16-2024 Telephone encounter Note * Telephone Encounter - Jil Hairston APRN.CNP - 08/31/2023 9:35 AM EDT Please let patient know her mammogram is negative. Patient should continue with annual screenings. [facility]02-12-2024 History of Present illness Narrative* Adriano Gallo, - 05/29/2023 3:55 PM EST Hematologic problem(s): 1) Recurrent DVT/PE. HPI: The patient is a 38-year-old female with a PMH significant for migraine HAs. 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 In May 2016 she was seen for complaint of dull aching chest pain that had started the day prior 06/07/2016. Evidently her EKG was abnormal and she was directed to the emergency room at [facility]. CT demonstrated an isolated complete filling [...] on 07/16/2020. On 07/19, she had onset ofchest pain and she had also developed headache which was typical of her usual migraine headaches characterized by a bandlike sensation from the occiput to the temporal areas bilaterally. However she also has several days of tenderness over the area of the right judaism associated with tinnitus and muted hearing in [...] with pulmonary embolism on . She also hadmigraine headache with unusual symptoms of hearing loss and tinnitus of the right ear associated with tenderness over the right judaism area. Those symptoms resolved on anticoagulation. Subsequently [...] which included preparing to see the patient, [id number] patient care, completing clinical documentation, obtaining and/or reviewing separately obtained history, performing a medically appropriate examination, counseling and educating the pat ient/family/caregiver, ordering medications, tests, or procedures, communicating with other HCPs (not separately reported), and communicating results to the patient/family/caregiver. Adriano Gallo DO documented in this encounterSelect [facility]02-09-2024 Miscellaneous Notes* Telephone Encounter - Delores Arellano LPN - 05/26/2023 2:01 PM EST I spoke with the patient. She is aware she was to follow up with vascular medicine at least one more time for him to render his opinion on needed length of anticoagulation. She will contact that office to do so but vascular medicine was never prescribing the Eliquis (PCP has been prescribing but patient recently established with PCP here at [facility]). PSS- please schedule patient to see Dr. Gallo on 05/29/2023 @ 3:50. Patient is aware of appointment date and time. Delores Arellano LPN * Telephone Encounter - Adriano Gallo DO - 05/26/2023 1:40 PM EST I referred her to vascular medicine. I can refill but I have to see her for an office visit. Adriano Gallo DO * Telephone Encounter - Jil Hairston APRN.CNP - 05/26/2023 12:02 PM EST Please forward to Dr. Gallo as it looks like he was the ordering physician prior to patient establishing with me. * Telephone Encounter - [place] Tiki Allen - 05/26/2023 10:02 AM EST Janna is calling Jil Hairston APRN.CNP today to request Medication, not on her current list: Disp Refills Start End apixaban (ELIQUIS) 5 mg tab(s) (Discontinued) 182 tablet 3 03/06/2023 03/06/2023 Sig: Take 1 tablet by mouth two times a day. Sent to pharmacy as: apixaban (ELIQUIS) 5 mg tab(s) Class: Normal Route: ORAL Order: [id number] E-Prescribing Status: Receipt confirmed by pharmacy (03/06/2023 4:21 PM EST) E-Cancel Status: Request approved by pharmacy (03/06/2023 4:21 PM EST) Prior authorization: Canceled - Other (The medication order is discontinued.) Patient stated she is taking 5 mg, 2 times per day. Please send to [facility] mail order. Patient has been identified by name and birthdate. Duration of symptoms: N/A Person calling: self Call patient at: on cell [phone] (home) [phone] (cell) Was an appointment scheduled: No Closing statement: Results or non-symptom based questions: Thank you for calling [facility], your call will be returned within the next business day. Tiki Allen documented in this encounterSelect [facility]02-09-2024 Miscellaneous Notes* Telephone Encounter - [place] Tiki Allen - 05/26/2023 10:05 AM EST Patient has been identified by name and [...] Thank you. Tiki Allen. documented in this encounterSelect [facility]11-20-2023 Miscellaneous Notes* Addendum Note - Jil Hairston APRN.LUIZA - 03/06/2023 4:25 PM ESTAddended by: JIL HAIRSTON on: 03/06/2023 04:25 PM Modules accepted: Orders * Telephone Encounter - Jil Hairston APRN.LUIZA - 03/06/2023 4:24 PM EST What does patient take eliquis for? I have nothing in her history to indicate anticoag therapy? * Telephone Encounter - Asya Wright LPN - 03/06/2023 4:11 PM EST ARMAND-12/01/22 Labs-12/01/22 NOV-none Asya Wright LPN * Telephone Encounter - Dede Baptiste - 03/06/2023 1:21 PM EST Patient has been identified by name and date of : Yes Requested Prescriptions Pending Prescriptions Disp Refills apixaban (ELIQUIS) 5 mg tab(s) 182 tablet 3 Sig: Take 1 tablet by mouth two times a day. RX INSTRUCTIONS: Patient aware RX will be sent to pharmacy. No need to notify patient. Dede Joseph documented in this encounterCleveland [id number] Miscellaneous Notes* Telephone Encounter - Minna Jimenez Cma - 01/09/2023 2:01 PM EDT Patient notified and verbalized understanding Minna Jimenez Cma * Telephone Encounter - Jil Hairston APRN.CNP - 01/09/2023 1:45 PM EDT Please let patient know I sent a one time dose of azithromycin. * Telephone Encounter - Lizet Yoo RN - 01/09/2023 12:58 PM EDT Patient calling to say that co-travelers have received a prescription for some ?antibiotic for treatment of traveler's diarrhea from the [facility] Dept. She is asking if provider would be able to prescribe something for her. [facility]. Lizet Yoo, RN documented in this encounterSelect [facility]08-21-2023 Miscellaneous Notes* Telephone Encounter - Myrtle Vargas Minna - 12/05/2022 9:01 AM EDT TheFriendMailt message sent to patient Minna Jimenez Cma * Telephone Encounter - Jil Hairston APRN.CNP - 12/05/2022 8:46 AM EDT Please let patient know her labs show mild cholesterol elevation but are otherwise normal. documented in this encounterSelect Medical [facility]08-17-2023 History of Present illness Narrative* Jil Hairston APRN.CNP - 12/01/2022 3:57 PM EDT Chief Complaint Patient presents with: [facility] HPI Janna Lopez is a 37 year old female who presents here today for Above Complaints.. [facility]. Patient reports she is going on a trip to the [place] [facility] [place] in January for a mission [...] Onset Emphysema Maternal Grandfather Heart Maternal Grandfather [place] Arthritis Paternal Grandmother Arthritis Paternal Grandfather Cancer [...] No history of dysuria, frequency or incontinence SERVICE ATTENDANT: Negative for abnormal vaginal bleeding, abnormal vaginal [...] ICD10: Z13.1 - HGB A1C Jil Hairston APRN.HYBRID TECHNOLOGIST documented in this encounterSelect [facility]10-19-2022 Miscellaneous Notes* Telephone Encounter - Jennifer Saleh RN - 02/02/2022 8:57 AM EDT received outside medical records for Dr Waite documented in this encounterSelect [facility]10-03-2022 Miscellaneous Notes* Telephone Encounter - Eileen Armstrong - 01/17/2022 12:51 PM EDT Hello, Patient dropped off images for Dr. Waite. Images in [employer], in Vascular mailbox. [facility] Thank you. documented in this encounterSelect Medical Specialty [facility]08-05-2022 History of Present illness Narrative* Nehemias Waite MD - 11/19/2021 2:00 PM EDT Images from the original note were not included. [facility] Department of Cardiovascular Medicine SECTION [...] from Subjective: feels well Objective: looks well LMP 03/26/2019 General: Alert and oriented, in no [...] recommendations regarding length of treatment. Options include: buttermaker full dose Apixaban, extended dose Apixaban, aspirin or no anticoagulation therapy. I will make my recommendations once I have a chance to review the outside images and lab studies. All questions answered. Nehemias Waite MD documented in this encounterSelect Medical [facility]06-17-2022 History of Present illness Narrative* Nehemias Waite MD - 10/01/2021 9:45 AM EDT Patient is requested to be seen by Dr. Gallo and my final recommendations will be forwarded to the referring physician by electronic medical record and/or letter. HISTORY OF PRESENT ILLNESS: This is a 36 year old female here because of a history of a left lower lobe segmental pulmonary embolism that developed a number of years ago ( 2016). She was treated withXarelto for six months. She recalls the blood clot developed 6 months after her . However,she also mentions that she had leg pain and swelling sooner than when the PE was diagnosed. She hadshortness of breath and pain as her major [...] answer. Nehemias Waite MD documented in this encounterSelect Medical [facility]06-02-2022 History of Present illness Narrative* Adriano Gallo, DO - 09/16/2021 9:31 AM EDT Hematologic problem(s): 1) Recurrent DVT/PE. HPI: The patient is a 36-year-old female with a PMH significant for migraine HAs. 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 In May 2016 she was seen for complaint of dull aching chest pain that had started the day prior 06/07/2016. Evidently her EKG was abnormal and she was directed to the emergency room at [facility]. CT demonstrated an isolated complete filling [...] on 07/16/2020. On 07/19, she had onset ofchest pain and she had also developed headache which was typical of her usual migraine headaches characterized by a bandlike sensation from the occiput to the temporal areas bilaterally. However she also has several days of tenderness over the area of the right judaism associated with tinnitus and muted hearing in [...] other unusual bleeding or unexplained bruising. No furtherepisodes of syncope or other neurologic issue. No [...] was diagnosed with pulmonary embolism on . Shealso had migraine headache with unusual symptoms of hearing loss and tinnitus of the right ear associated with tenderness over the right judaism area. Those symptoms resolved on anticoagulation. Subsequently [...] necessary. Adriano Gallo DO documented in this encounterSelect Medical Specialty [facility]05-04-2022 Miscellaneous Notes* Telephone Encounter - Shruti Allen - 08/18/2021 3:28 PM EDT That time did not work for the patients schedule so we reschedule until 09/16 at 9:[address] Gallo. * Telephone Encounter - Diamond Panchal - 08/18/2021 2:04 PM EDT Left message for patient to return call re: change of appointment time. Dr. Gallo had to take on anurgent patient and would like this patient to see Nancy Jj at 10:00 AM on 08/19. Please affirmthis appointment with the patient, document and close this note. If this is not acceptable to the patient, reschedule with Dr. Gallo at the first available appointment date/time that works for both Dr. Gallo and the patient. Diamond Panchal documented in this encounterSelect Medical Specialty [facility]04-21-2022 NotePap Smear Specimen AdequacyApril 2021 1:24pmCommentSatisfactory for evaluation. No endocervical component is identified.[facility]ED A#[id number] Health [place] Work Phone: Comment on above:Satisfactory for evaluation. No endocervical component is identified.02-18-2021 Miscellaneous Notes* Telephone Encounter - Susanne Clemente - 02/18/2021 1:05 PM EDT Spoke to patient and scheduled. Susanne Clemente * Telephone Encounter - Adriano Gallo DO - 02/18/2021 12:46 PM EDT Called patient and reviewed the results of the recent hypercoagulation testing. No evidence of anticardiolipin antibodies or lupus anticoagulant activity. Prothrombin gene mutation negative. She had an unprovoked pulmonary embolism in 2016 and recurrent pulmonary embolism several days following vaccination with the [employer] COVID-19 product. Explained that she had an indication in 2017 for indefinite anticoagulation and the most recent blood clot having been provoked may not necessarily indicate the need for indefinite anticoagulation but after balance discussion of the risks andbenefits, she would like to continue with anticoagulation which I think is perfectly appropriate. Our plan will be to have an office visit every 6 months or so to reevaluate. Please schedule her for office visit in about 6 months. Adriano Gallo DO documented in this encounterSelect Medical Specialty [facility]04-26-2021 NoteHNO ID: [id number] Author: Zane Thayer (Rt) Service: Radiology Author Type: Certified Anesthesiologist Assistant Type: Progress Notes Filed: 08/10/2020 3:45 PM [...] Lopez DATE: August 10, 2020 TIME: 3:44 PMSelect Medical [facility] Rehabilitation [id number] History of Past illness Narrative* Problem Noted [...] of this encounter (statuses as of 08/27/2021) [facility] History of Past illness Narrative* Problem Noted [...] of this encounter (statuses as of 09/16/2021) [facility] History of Past illness Narrative* Problem Noted [...] of this encounter (statuses as of 10/01/2021) [facility] History of Past illness Narrative* Problem Noted [...] of this encounter (statuses as of 10/01/2021) [facility] History of Past illness Narrative* Problem Noted [...] of this encounter (statuses as of 10/12/2021) [facility] History of Past illness Narrative* Problem Noted [...] Supervision of normal 04/13/2011 05/08/2012 Overview: Girl- Mrani documented as of this encounter (statuses as of 11/19/2021) [facility] History of Past illness Narrative* Problem Noted [...] of this encounter (statuses as of 11/28/2021) [facility] History of Past illness Narrative* Problem Noted [...] of this encounter (statuses as of 01/10/2022) [facility] History of Past illness Narrative* Problem Noted [...] of this encounter (statuses as of 01/17/2022) [facility] History of Past illness Narrative* Problem Noted [...] of this encounter (statuses as of 02/02/2022) [facility] History of Past illness Narrative* Problem Noted [...] of this encounter (statuses as of 02/23/2022) [facility] History of Past illness Narrative* Problem Noted [...] of this encounter (statuses as of 03/09/2022) [facility] History of Past illness Narrative* Problem Noted [...] of this encounter (statuses as of 12/02/2022) [facility] of Past illness Narrative* Problem Noted [...] of this encounter (statuses as of 12/05/2022) [facility] History of Past illness Narrative* Problem Noted [...] of this encounter (statuses as of 01/09/2023) [facility] History of Past illness Narrative* Problem Noted [...] consent signed 08/28/15 and faxed to [employer]. ASCUS with positive high risk HPV 06/13/2012 05/05/2015 Irregular menses 05/08/2012 08/10/2015 History of squamous cell carcinoma of skin 05/12/2011 01/29/2016 Overview: Excised in 2009 from right thigh. Supervision of normal 04/13/2011 05/08/2012 Overview: Girl- Marni documented as of this encounter (statuses as of 03/07/2023) [facility] History of Past illness Narrative* Problem Noted [...] consent signed 08/28/15 and faxed to [employer]. ERIUS with positive high risk HPV 06/13/2012 05/05/2015 Irregular menses 05/08/2012 08/10/2015 History of squamous cell carcinoma of skin 05/12/2011 01/29/2016 Overview: Excised in 2009 from right thigh. Supervision of normal 04/13/2011 05/08/2012 Overview: Girl- Marni documented as of this encounter (statuses as of 05/26/2023) [facility] of Past illness Narrative* Problem Noted [...] success planning , signed consent form Jenny Croea MD consent signed 08/28/15 and faxed to [employer]. ERIUS with positive high risk HPV 06/13/2012 05/05/2015 Irregular menses 05/08/2012 08/10/2015 History of squamous cell carcinoma of skin 05/12/2011 01/29/2016 Overview: Excised in 2009 from right thigh. Supervision of normal 04/13/2011 05/08/2012 Overview: Girl- Marni documented as of this encounter (statuses as of 05/29/2023) [facility] History of Past illness Narrative* Problem Noted [...] of this encounter (statuses as of 05/29/2023) [facility]Evalum[facility] noteNo assessment information availableWKettering Health Springfield Work Phone: Evaluation note* Diagnosis Multiple subsegmental pulmonary emboli without acute cor pulmonale (HCC)- Primary documented in this encounter [facility]* Diagnosis History of pulmonary embolism- Primary Personal history of pulmonary embolism Anticoagulation management encounter Encounter for therapeutic drug monitoring documented in this encounter [facility]* Diagnosis History of pulmonary embolism Personal history of pulmonary embolism Anticoagulation management encounter Encounter for therapeutic drug monitoring documented in this encounter [facility]* Diagnosis Encounter for immunization- Primary Need for other specified prophylactic vaccination against single bacterial disease Need for malaria prophylaxis Medication management Encounter for long-term (current) use of other medications Screening for lipid disorders Screening for diabetes mellitus documented in this encounter [facility]* Diagnosis Traveler's diarrhea- Primary Infectious diarrhea documented in this encounter [facility]* Diagnosis Multiple subsegmental pulmonary emboli without acute cor pulmonale (HCC)- Primary documented in this encounter [facility] note* Diagnosis Multiple subsegmental pulmonary emboli without acute cor pulmonale (HCC)- Primary Estrogen deficiency Other ovarian failure documented in this encounter [facility] note* Diagnosis Sore throat- Primary Acute pharyngitis Viral illness Unspecified viral infection, in conditions classified elsewhere and of unspecified site documented in this encounter [facility] note* Diagnosis History of pulmonary embolism- Primary Personal history of pulmonary embolism documented in this encounter [facility] note* Diagnosis Mood changes- Primary Unspecified episodic mood disorder Excessive bleeding in premenopausal period Premenopausal menorrhagia documented in this encounter 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) Chief Complaint CHEST PAIN Chief Complaint Admit Date 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) August 20, 2024 11:05a m screening mammogram October 02, 2024 10:1 6am Reason for Visit Admit Date Encounter for routine gynecological exam ination August 20, 2024 11:05am Reason for Referral Specialty Diagnoses / Procedures Referred By Nelly patel Referred To Contact Gynecology Diagnoses Estrogen deficiency Procedures CONSULT TO GYNECOLOGY OFFICE/OUTPATIENT [facility] 60 MINUTES Adriano Gallo DO [address] [place] [address] Referral ID Status Reason Start Date Expiration Date Visits Requested Visits Authorized [id number] Authorized PCP Requested Referral Auto-Generate d Referral 11/21/2023 11/20/2024 1 1 Additional Source Comments INFORMATION SOURCE (unrecogn ized section and content) DATE CREATED AUTHOR 08/12/2020 [facility] DATE CREATED AUTHOR AUTHOR'S ORGANIZ ATION 07/01/2024 [facility] DATE CREATED AUTHOR AUTHOR'S ORGANIZ ATION 10/09/2024 [facility] Goals (unrecognized section and content) Goals may be documented in a n alternate sectionGoals may be documented in an alternate sectionGoals may be documented in an alternate section Source Comments (unrecognize d section and content) In the event this informatio n is protected by the Federal Confidentiality of Alcohol and Drug Abuse Patient Records regulations: The Federal rules restrict any use of the information to criminally investigate or prosecute any alcohol or drug abuse patient.[facility]onIn the event this information is protected by the Federal Confidentiality of Alcohol and Drug Abuse Patient Records regulations: The Federal rules restrict any use of the information to criminally investigate or prosecute any alcohol or drug abuse patient.[facility]onIn the event this information is protected by the Federal Confidentiality of Alcohol and Drug Abuse Patient Records regulations: The Federal rules restrict any use of the information to criminally investigate or prosecute any alcohol or drug abuse patient.[facility]onIn the event this information is protected by the Federal Confidentiality of Alcohol and Drug Abuse Patient Records regulations: The Federal rules restrict any use of the information to criminally investigate or prosecute any alcohol or drug abuse patient.[facility]onIn the event this information is protected by the Federal Confidentiality of Alcohol and Drug Abuse Patient Records regulations: The Federal rules restrict any use of the information to criminally investigate or prosecute any alcohol or drug abuse patient.[facility]onIn the event this information is protected by the Federal Confidentiality of Alcohol and Drug Abuse Patient Records regulations: The Federal rules restrict any use of the information to criminally investigate or prosecute any alcohol or drug abuse patient.[facility]onIn the event this information is protected by the Federal Confidentiality of Alcohol and Drug Abuse Patient Records regulations: The Federal rules restrict any use of the information to criminally investigate or prosecute any alcohol or drug abuse patient.[facility]onIn the event this information is protected by the Federal Confidentiality of Alcohol and Drug Abuse Patient Records regulations: The Federal rules restrict any use of the information to criminally investigate or prosecute any alcohol or drug abuse patient.[facility]onIn the event this information is protected by the Federal Confidentiality of Alcohol and Drug Abuse Patient Records regulations: The Federal rules restrict any use of the information to criminally investigate or prosecute any alcohol or drug abuse patient.[facility]onIn the event this information is protected by the Federal Confidentiality of Alcohol and Drug Abuse Patient Records regulations: The Federal rules restrict any use of the information to criminally investigate or prosecute any alcohol or drug abuse patient.[facility]onIn the event this information is protected by the Federal Confidentiality of Alcohol and Drug Abuse Patient Records regulations: The Federal rules restrict any use of the information to criminally investigate or prosecute any alcohol or drug abuse patient.[facility]onIn the event this information is protected by the Federal Confidentiality of Alcohol and Drug Abuse Patient Records regulations: The Federal rules restrict any use of the information to criminally investigate or prosecute any alcohol or drug abuse patient.[facility]onIn the event this information is protected by the Federal Confidentiality of Alcohol and Drug Abuse Patient Records regulations: The Federal rules restrict any use of the information to criminally investigate or prosecute any alcohol or drug abuse patient.[facility]onIn the event this information is protected by the Federal Confidentiality of Alcohol and Drug Abuse Patient Records regulations: The Federal rules restrict any use of the information to criminally investigate or prosecute any alcohol or drug abuse patient.[facility]onIn the event this information is protected by the Federal Confidentiality of Alcohol and Drug Abuse Patient Records regulations: The Federal rules restrict any use of the information to criminally investigate or prosecute any alcohol or drug abuse patient.[facility]onIn the event this information is protected by the Federal Confidentiality of Alcohol and Drug Abuse Patient Records regulations: The Federal rules restrict any use of the information to criminally investigate or prosecute any alcohol or drug abuse patient.[facility]onIn the event this information is protected by the Federal Confidentiality of Alcohol and Drug Abuse Patient Records regulations: The Federal rules restrict any use of the information to criminally investigate or prosecute any alcohol or drug abuse patient.[facility]onIn the event this information is protected by [...] or prosecute any alcohol or drug abuse patient.[facility]onIn the event this information is protected by the Federal Confidentiality of Alcohol and Drug Abuse Patient Records regulations: The Federal rules restrict any use of the information to criminally investigate or prosecute any alcohol or drug abuse patient.[facility]onIn the event this information is protected by the Federal Confidentiality of Alcohol and Drug Abuse Patient Records regulations: The Federal rules restrict any use of the information to criminally investigate or prosecute any alcohol or drug abuse patient.[facility]onIn the event this information is protected by the Federal Confidentiality of Alcohol and Drug Abuse Patient Records regulations: The Federal rules restrict any use of the information to criminally investigate or prosecute any alcohol or drug abuse patient.[facility] [place] the event this information is protected by the Federal Confidentiality of Alcohol and Drug Abuse Patient Records regulations: The Federal rules restrict any use of the information to criminally investigate or prosecute any alcohol or drug abuse patient.[facility] the event this information is protected by the Federal Confidentiality of Alcohol and Drug Abuse Patient Records regulations: The Federal rules restrict any use of the information to criminally investigate or prosecute any alcohol or drug abuse patient.[facility] [place] the event this information is protected by the Federal Confidentiality of Alcohol and Drug Abuse Patient Records regulations: The Federal rules restrict any use of the information to criminally investigate or prosecute any alcohol or drug abuse patient.[facility] [place]on[facility] the event this information is protected by the Federal Confidentiality of Alcohol and Drug Abuse Patient Records regulations: The Federal rules restrict any use of the information to criminally investigate or prosecute any alcohol or drug abuse patient.[facility] [place] Reason for Visit (unrecogniz ed section and [...] Care Teams (unrecognized sec tion and content) Car Checker Relationship Specialty Start Date End Date Nehemias Ho DO [address] [place] [address] PCP - General Family Practice 08/03/20 Nehemias Bateman MD Family Practice 08/03/20 Car Checker Relationship Specialty Start Date End Date Nehemias Ho DO PCP - General Family Practice 08/03/20 Nehemias Bateman MD Family Practice 08/03/20 Car Checker Relationship Specialty Start Date End Date Nehemias Ho DO PCP - General Family Practice 08/03/20 Nehemias Bateman MD Family Practice 08/03/20 Car Checker Relationship Specialty Start Date End Date Nehemias Ho DO PCP - General Family Practice 08/03/20 Nehemias Bateman MD Family Practice 08/03/20 Car Checker Relationship Specialty Start Date End Date Nehemias Ho DO PCP - General Family Practice 08/03/20 Nehemias Bateman MD Family Practice 08/03/20 Car Checker Relationship Specialty Start Date End Date Nehemias Ho PCP - General Family Medicine 08/03/20 Nehemias Bateman MD Family Medicine 08/03/20 Car Checker Relationship Specialty Start Date End Date VicNehemiasDO PCP - General Family Medicine 08/03/20 Nehemias Bateman MD Family Medicine 08/03/20 Car Checker Relationship Specialty Start Date End Date Jil Hairston APRN.HYBRID TECHNOLOGIST [address] [place] [address] PCP - General Family Medicine 12/01/22 Nehemias Bateman MD Family Medicine 08/03/20 Car Checker Relationship Specialty Start Date End Date Jil Hairston APRN.HYBRID TECHNOLOGIST [address] [place] [address] PCP - General Family Medicine 12/01/22 Nehemias Bateman MD Family Medicine 08/03/20 Car Checker Relationship Specialty Start Date End Date Jil Hairston APRN.HYBRID TECHNOLOGIST [address] [place] [id number] PCP - General Family Medicine 12/01/22 Nehemias Bateman MD Family Medicine 08/03/20 Car Checker Relationship Specialty Start Date End Date Jil Hairston, RECOVERY UNIT OPERATOR.HYBRID TECHNOLOGIST [address] [place] [id number] PCP - General Family Medicine 12/01/22 Nehemias Bateman MD Family Medicine 08/03/20 Car Checker Relationship Specialty Start Date End Date Jil Hairston, RECOVERY UNIT OPERATOR.HYBRID TECHNOLOGIST [address] [place] [id number] PCP - General Family Medicine 12/01/22 Nehemias Bateman MD Family Medicine 08/03/20 Car Checker Relationship Specialty Start Date End Date Jil Hairston, RECOVERY UNIT OPERATOR.HYBRID TECHNOLOGIST [address] [place] [id number] PCP - General Family Medicine 12/01/22 Nehemias Bateman MD Family Medicine 08/03/20 Car Checker Relationship Specialty Start Date End Date Jil Hairston, RECOVERY UNIT OPERATOR.HYBRID TECHNOLOGIST [address] [place] [id number] PCP - General Family Medicine 12/01/22 Nehemias Bateman MD Family Medicine 08/03/20 Car Checker Relationship Specialty Start Date End Date Monty George PCP - General 05/16/24 Nehemias Bateman MD Family Medicine 08/03/20 Car Checker Relationship Specialty Start Date End Date Marychuy GonzalezKEMI sanchez [address] [place] [address] PCP - General Family Medicine 05/29/24 Team Status: Active Member Role Status Dates Carlos Gonzalez QUALITY CONTROL INSPECTOR-C Primary Care Provider Active Team Status: Inactive Member Role Status Dates Carlos Gonzalez NP-C Primary Care Provider Active Start: August 20, 2024 End: August 20, 2024 MARTIN Howard Referring Provider Active St art: August 20, 2024 End: August 20, 2024 Dr. Julieta Pedro DO Attending Provider Activ e Start: August 20, 2024 End: August 20, 2024 Team Status: Inactive Member Role Status Dates Carlos Gonzalez NP-C Primary Care Provider Active Start: October 02, 2024 End: October 02, 2024 Dr. Julieta Pedro DO Attending Provider Activ e Start: October 02, 2024 End: October 02, 2024 Dr. Julieta Pedro DO Referring Provider Activ e Start: October 02, 2024 End: October 02, 2024 FOR RECORDS PERTAINING TO PATIENTS WHO ARE [...] BE BASED ON THE PRIMARY CLINICAL RECORDS. [facility]. provides no warranty or guarantee of the accuracy or completeness of information in this document.
== END | disposition home or self-care (01) ==
LOC: MTLAB 15:24
PROVIDERS: PCP Nurse Practitioner Family; Referring Provider Nurse Practitioner Family; Visit Provider Nurse Practitioner Family
DX: R10.9 Unspecified abdominal pain (principal)
CPT/HCPCS: 36415; 85027